=== PATIENT | female | born 1955 | race Caucasian/White ===

== ENCOUNTER → 2017-02-21 | Outpatient (CLI) | payer MEDICARE ==
[2017-02-21 12:30] LABS: BASOPHILS % (AUTO) 0 % (0-10); EOSINOPHILS # (AUTO) 0.1 10^3/uL (0.0-0.3); EOSINOPHILS % (AUTO) 1 % (0-10); LYMPHOCYTES # (AUTO) 2.5 X 10^3 (1.0-4.0); LYMPHOCYTES % (AUTO) 39 % (12-44); MEAN CORPUSCULAR HEMOGLOBIN 31 PG (25-34); MEAN CORPUSCULAR HGB CONC 33 G/DL (32-36); MEAN CORPUSCULAR VOLUME 94 FL (80-99); MEAN PLATELET VOLUME 9.5 FL (7.4-10.4); MONOCYTES # (AUTO) 0.5 X 10^3 (0.0-1.0); MONOCYTES % (AUTO) 7 % (0-12); NEUTROPHILS # (AUTO) 3.5 X 10^3 (1.8-7.8); NEUTROPHILS % (AUTO) 53 % (42-75); PLATELET COUNT 331 10^3/uL (130-400); RED BLOOD COUNT 3.17 10^6/uL (4.35-5.85); RED CELL DISTRIBUTION WIDTH 14.9 % (10.0-14.5); WHITE BLOOD COUNT 6.6 10^3/uL (4.3-11.0)
[2017-02-21 12:50] LABS: ALANINE AMINOTRANSFERASE 9 U/L (0-55); ALBUMIN 3.6 GM/DL (3.2-4.5); ANION GAP 7 MMOL/L (5-14); ASPARTATE AMINO TRANSFERASE 12 U/L (5-34); BILIRUBIN,TOTAL 0.4 MG/DL (0.1-1.0); BLOOD UREA NITROGEN 17 MG/DL (7-18); BUN/CREATININE RATIO 19; CARBON DIOXIDE 26 MMOL/L (21-32); CHLORIDE 101 MMOL/L (98-107); CREATININE SERUM 0.88 MG/DL (0.60-1.30); GFR ESTIMATED > 60; GLUCOSE 138 MG/DL (70-105); POTASSIUM 4.3 MMOL/L (3.6-5.0); SODIUM 134 MMOL/L (135-145); TOTAL PROTEIN 7.2 GM/DL (6.4-8.2); hs C REACTIVE PROTEIN 7.37 MG/DL (0.00-0.50)
--- NOTE | 2017-02-21 13:34 | Diagnostic Imaging Report ---
INDICATION: Pain. Infection. COMPARISON: None. FINDINGS: Three views of the left foot were obtained. There is mild generalized osteopenia. There is significant destructive change of the fourth toe at the metatarsal/phalangeal joint with considerable destruction and lysis of the distal fourth metatarsal/metatarsal head as well as the proximal aspect of the proximal fourth phalanx. The findings are consistent with osteomyelitis across the metatarsal/phalangeal joint. No additional destructive changes are seen. There are very mild degenerative changes of the first metatarsal/phalangeal joint. IMPRESSION: Significant destructive change at the fourth metatarsal/phalangeal joint with destruction and lysis of the proximal phalanx and fourth metatarsal head, consistent with osteomyelitis across the joint. The report was called and stat faxed to the office of Bjorn Suarez APRN, by mich@ 1:31 PM. Dictated by: Dictated on workstation # [id number]
== END ==
LOC: RAD 11:53
DX: E11.621 Type 2 diabetes mellitus with foot ulcer (principal); L97.529 Non-pressure chronic ulcer of other part of left foot with unspecified severity; L03.116 Cellulitis of left lower limb
CPT/HCPCS: 36415; 73630; 80053; 83036; 85025; 86141

== ENCOUNTER → 2017-02-22 | Outpatient (CLI) | payer MEDICARE, OTHER | LOC: WOUNDCARE 08:14 | PROVIDERS: ATTEND Nurse Practitioner | DX: E11.621 Type 2 diabetes mellitus with foot ulcer (principal); L97.522 Non-pressure chronic ulcer of other part of left foot with fat layer exposed; M86.172 Other acute osteomyelitis, left ankle and foot | CPT/HCPCS: 99213 ==

== ENCOUNTER → 2017-03-02 | Outpatient (CLI) | payer MEDICARE | LOC: WOUNDCARE 08:55 | PROVIDERS: ATTEND Surgery | DX: E11.621 Type 2 diabetes mellitus with foot ulcer (principal); L97.522 Non-pressure chronic ulcer of other part of left foot with fat layer exposed | CPT/HCPCS: 99212 ==

== ENCOUNTER → 2017-09-16 | Outpatient (CLI) | payer MEDICARE ==
[~2017-09-16] VITALS: Ht 170.2 cm; Wt 79.8 kg
[~2017-09-16] MED LIST: ASPI-586 PO; CATHETER FLUSH 10 ML SYR IV PRN; CYCL10TA9 PO; METF-760 PO; MORP15TA69 PO; REGADENOSON 0.4 MG/5 ML SYR (LEXISCAN) IV ONE
[2017-09-16 09:01] VITALS: BP 111/59
[2017-09-16 09:03] VITALS: BP 112/57
--- NOTE | 2017-09-18 14:23 | STRESS TEST ---
DATE OF SERVICE: 09/16/2017 RESTING AND POST REGADENOSON TECHNETIUM 99M TETROFOSMIN SPECT CT IMAGING. Baseline images were carried out after injection of 10.65 mCi of technetium-99m Tetrofosmin. This was followed by 0.4 mg of regadenoson and 30 mCi of technetium-99m Tetrofosmin for stress imaging. The electrocardiogram showed sinus rhythm with right bundle branch block and frequent premature atrial contractions, sometimes in a bigeminal pattern. The electrocardiogram did not change significantly with the regadenoson infusion. Review of images at rest and following stress does not indicate significant perfusion defects consistent with any significant myocardial ischemia or infarction. Gated images show normal global left ventricular systolic function and normal regional wall motion. Left ventricular ejection fraction is calculated to be 74%. Left ventricular end diastolic volume is 50 mL. TID is absent (1.07). CONCLUSIONS: 1. No evidence of any significant myocardial ischemia or infarction. 2. Normal regional wall motion. 3. Normal global left ventricular systolic function with a calculated ejection fraction of 74%. Job ID: [id number] DocumentID: [id number] Dictated Date: 09/18/2017 12:05:52 Employment Manager Date: 09/18/2017 14:23:15 Dictated By: DARSHAN AMARAL MD, MA, FACP, FACC,
== END ==
LOC: CARD 06:55
PROVIDERS: ATTEND Internal Medicine Cardiovascular Disease
DX: R07.89 Other chest pain (principal); R06.02 Shortness of breath; I70.0 Atherosclerosis of aorta; R22.2 Localized swelling, mass and lump, trunk; G47.33 Obstructive sleep apnea (adult) (pediatric); I45.19 Other right bundle-branch block; R94.31 Abnormal electrocardiogram [ECG] [EKG]
CPT/HCPCS: 78452; 93017; 93306

== ENCOUNTER → 2017-09-22 | Outpatient (CLI) | payer MEDICARE ==
[~2017-09-22] MED LIST changes: +IOHEXOL 350 MG/ML 150 ML (OMNIPAQUE 350) VIAL IV ONE; +NS 250 ML (IVPB) BAG IV ONE; +RECEIVED CONTRAST (Hold Metformin) IV SCH; -REGADENOSON 0.4 MG/5 ML SYR (LEXISCAN) IV ONE
[2017-09-22 11:25] LABS: BASOPHILS % (AUTO) 0 % (0-10); EOSINOPHILS % (AUTO) 0 % (0-10); HEMATOCRIT 25 % (35-52); LYMPHOCYTES # (AUTO) 1.5 X 10^3 (1.0-4.0); LYMPHOCYTES % (AUTO) 20 % (12-44); MEAN CORPUSCULAR HEMOGLOBIN 32 PG (25-34); MEAN CORPUSCULAR HGB CONC 32 G/DL (32-36); MEAN CORPUSCULAR VOLUME 100 FL (80-99); MEAN PLATELET VOLUME 9.4 FL (7.4-10.4); MONOCYTES # (AUTO) 0.5 X 10^3 (0.0-1.0); MONOCYTES % (AUTO) 6 % (0-12); NEUTROPHILS # (AUTO) 5.5 X 10^3 (1.8-7.8); NEUTROPHILS % (AUTO) 74 % (42-75); PLATELET COUNT 357 10^3/uL (130-400); RED BLOOD COUNT 2.49 10^6/uL (4.35-5.85); WHITE BLOOD COUNT 7.5 10^3/uL (4.3-11.0)
[2017-09-22 11:46] LABS: ALANINE AMINOTRANSFERASE < 6 U/L (0-55); ALBUMIN 3.8 GM/DL (3.2-4.5); ALKALINE PHOSPHATASE 109 U/L (40-136); BILIRUBIN,TOTAL 0.7 MG/DL (0.1-1.0); BUN/CREATININE RATIO 22; CALCIUM 9.6 MG/DL (8.5-10.1); CARBON DIOXIDE 25 MMOL/L (21-32); CHLORIDE 104 MMOL/L (98-107); CREATININE SERUM 0.85 MG/DL (0.60-1.30); GFR ESTIMATED > 60; GLUCOSE 132 MG/DL (70-105); POTASSIUM 4.6 MMOL/L (3.6-5.0); SODIUM 136 MMOL/L (135-145); TOTAL PROTEIN 7.4 GM/DL (6.4-8.2)
--- NOTE | 2017-09-22 11:51 | Diagnostic Imaging Report ---
PROCEDURE: US Venous Lower Ext Masoud. TECHNIQUE: Multiple real-time grayscale images were obtained over the lower extremities in various projections, bilaterally. Additional duplex Doppler and color Doppler images were also obtained. INDICATION: Bilateral lower extremity pain. FINDINGS: There is no evidence of a right or left lower extremity DVT. Both lower extremity deep venous systems demonstrate normal compressibility with normal response to augmentation and Valsalva. No fluid collection or mass is seen. IMPRESSION: No evidence of right or left lower extremity DVT. Dictated by: Dictated on workstation # [id number]
--- NOTE | 2017-09-22 12:36 | Diagnostic Imaging Report ---
PROCEDURE: CT angiography of the chest with contrast. TECHNIQUE: Multiple contiguous axial images were obtained through the chest after uneventful bolus administration of intravenous contrast. Reconstructed CTA MIP acquisitions were also performed. INDICATION: Shortness of air and chest pain with lung mass. COMPARISON: Comparison is made with outside CT of the chest performed on 08/19/2017. FINDINGS: The large mass involving the right upper lobe, inseparable from the right hilum is again noted and appears similar to CT study from one month earlier. This measures approximately 8.7 cm AP x 4.5 cm transverse. The mass extends from the right hilum anteriorly and abuts the pleural surface. There is some adjacent pleural thickening present. The mass surrounds the right upper lobe bronchus. Enlarged precarinal nodes are present, in aggregate measuring 3.5 x 1.6 cm, similar to prior. There is subcarinal adenopathy as well which appears increased measuring 3.1 x 1.5 cm compared with 2.1 x 1.1 cm. Left hilum is unremarkable. There are some prominent right paratracheal nodes which appear to be increased measuring 1.3 cm compared with 0.9 cm. Pulmonary arterial system is without evidence of thromboembolism. No filling defects within central, lobar, or segmental branches are seen. Thoracic aorta is normal in caliber. No dissection is detected. No pericardial or pleural fluid is identified. Remainder of the pulmonary parenchyma is clear. Upper abdomen again demonstrates bilateral adrenal masses suggestive of metastatic lesions. No discrete liver mass is identified. Bony structures are nonacute. IMPRESSION: 1. Large right upper lobe lung mass, inseparable from the right hilum. Overall size of mass is similar to outside CT from one month earlier. There does appear to be some increasing mediastinal lymphadenopathy. 2. No evidence of pulmonary embolism or thoracic aortic dissection. 3. Bilateral adrenal masses consistent with metastatic lesions. Dictated by: Dictated on workstation # [id number]
[2017-09-22 12:56] LABS: ABG BASE EXCESS -2.6 MMOL/L (-2.5-2.5); ABG OXYGEN SATURATION 99 % (94-100); ABG PCO2 34 MMHG (35-45); ABG PH 7.41 (7.37-7.43); ABG PO2 86 MMHG (79-93); ABG TCO2 22.2 MMOL/L (21.0-31.0)
[2017-09-22 12:57] LABS: ALLENS TEST YES-POS; INSPIRED O2 ROOM AIR; PATIENT TEMP 99.1; VENTILATOR NO
[2017-09-22 13:47] LABS: PROTHROMBIN TIME PATIENT 13.4 SEC (12.2-14.7)
== END ==
LOC: RAD 10:39
PROVIDERS: ATTEND Nurse Practitioner Family
DX: M79.89 Other specified soft tissue disorders (principal); M79.604 Pain in right leg; M79.605 Pain in left leg; J44.9 Chronic obstructive pulmonary disease, unspecified; R91.8 Other nonspecific abnormal finding of lung field; E27.9 Disorder of adrenal gland, unspecified; Z72.0 Tobacco use
CPT/HCPCS: 36415; 71275; 80053; 82805; 85025; 85610; 93970

== ENCOUNTER 2017-09-26 05:34 | Outpatient (CLI) | payer MEDICARE ==
[~2017-09-26] VITALS: Ht 170.2 cm; Wt 79.8 kg
[2017-09-26] MEDS ORDERED: ASPI-586 PO (14:37)
[2017-09-26] MEDS ORDERED: CYCL10TA9 PO (14:37)
[2017-09-26] MEDS ORDERED: METF-760 PO (14:37)
[2017-09-26] MEDS ORDERED: MORP15TA69 PO (14:37)
== END 2017-09-26 14:50 ==
LOC: PREOP 05:34
PROVIDERS: ATTEND Internal Medicine Critical Care Medicine
DX: Z01.818 Encounter for other preprocedural examination (principal)

== ENCOUNTER → 2017-09-27 | Outpatient (CLI) | payer MEDICARE ==
[~2017-09-27] MED LIST changes: -CATHETER FLUSH 10 ML SYR IV PRN; -IOHEXOL 350 MG/ML 150 ML (OMNIPAQUE 350) VIAL IV ONE; -NS 250 ML (IVPB) BAG IV ONE; -RECEIVED CONTRAST (Hold Metformin) IV SCH
--- NOTE | 2017-09-28 14:08 | Diagnostic Imaging Report ---
EXAMINATION: PET/CT. INDICATION: Lung mass. TECHNIQUE: PET/CT imaging was obtained from the base of the skull through the pelvis after the administration of 14.38 mCi of F-[address] imaging was utilized for localization and attenuation correction purposes. The low energy CT utilized for attenuation correction is not considered to be of high enough spatial resolution to allow in and of itself a separate anatomical analysis. FINDINGS: There are no previous PET/CT examinations available for comparison. The recent CTA chest exam of 09/22/2017 noted a large right upper lobe mass inseparable from the right hilum. There also appear to be bilateral adrenal masses. On this study, the right hilar mass is hypermetabolic with a maximum SUV of 12.0. There is also a hypermetabolic subcarinal mass with a maximum SUV of 18.6. Pretracheal adenopathy is also noted and the maximum SUV of these nodes is in the 6-7 range. The adrenal masses seen previously are also hypermetabolic with the left adrenal mass having a maximum SUV of 10.4 and the right adrenal mass 11.0. There is also an enlarged para-aortic lymph node on the left at the level just inferior to the left renal artery and vein. The maximum SUV of this node is 9.8. This node measures 2.9 x 3.4 cm. Just superior to this on the right posterior to the right renal vein, there is another hypermetabolic node measuring 1.2 x 2.0 cm. This has a maximum SUV of 9.3. There is no other soft tissue hypermetabolic mass identified. However, there is a hypermetabolic focus along the posterior aspect of the left acetabulum. This has a maximum SUV of 11.7. There is also evidence of a mass involving the posterior elements of one of the mid thoracic vertebra, probably T8. This has a maximum SUV of 12.5. The CT images fail to show any sign of an acute abnormality. There is no obvious breast mass. The intracranial contents where visualized are unremarkable. IMPRESSION: 1. There is a large mass involving the right upper lobe and the right hilum. There is also mediastinal adenopathy and para-aortic adenopathy as well as bilateral adrenal masses. All of these abnormalities show hypermetabolic activity consistent with metastatic disease. 2. There is also metastatic disease to the left acetabulum and to the posterior elements of T8 on the right. 3. These results were discussed with Dr. Mckeon. Dictated by: Dictated on workstation # [id number]
== END ==
LOC: RAD 09-20 09:11
PROVIDERS: ATTEND Internal Medicine Hematology & Oncology
DX: R91.8 Other nonspecific abnormal finding of lung field (principal)
CPT/HCPCS: 99214

== ENCOUNTER 2017-09-28 06:43 | Day surgery (SDC) | payer MEDICARE ==
[~2017-09-28] VITALS: Ht 170.2 cm; Wt 79.8 kg
[2017-09-28 08:30] VITALS: BP 130/80
[2017-09-28] MEDS ORDERED: LACTATED RINGERS 1,000 ML IV PRN (08:45)
[2017-09-28] MEDS ORDERED: LACTATED RINGERS 1,000 ML IV ONE ×2 (08:47→10:26)
[2017-09-28] MEDS ORDERED: proPOfol 200 MG/20 ML (DIPRIVAN) VIAL IV ONE (09:14)
[2017-09-28] MEDS ORDERED: SEVOFLURANE (ULTANE) 15 ML INHAL SOLN ONE ×2 (09:20→11:10)
[2017-09-28] MEDS ORDERED: MIDAZOLAM 2 MG/2 ML (VERSED) VIAL ONE (09:28)
[2017-09-28] MEDS ORDERED: fentaNYL INJECTION 100 MCG/2 ML AMP ONE (09:28)
[2017-09-28] MEDS ORDERED: ONDANSETRON 4 MG/2 ML (SDV) Z0FRAN ONE (09:29)
[2017-09-28] MEDS ORDERED: DEXAMETHASONE 10 MG/ML (DECADRON) 1 ML VIAL ONE (09:30)
[2017-09-28] MEDS ORDERED: GLYCOPYRROLATE 0.2 MG/ML (ROBINUL) 2 ML VIAL ONE (09:31)
[2017-09-28] MEDS ORDERED: NEOSTIGMINE 1 MG/ML 5 ML SYRINGE ONE (09:31)
[2017-09-28] MEDS ORDERED: ROCURONIUM 10 MG/ML 5 ML SYRINGE IV ONE (09:33)
--- NOTE | 2017-09-28 10:45 | Anesthesia-General Post-Op ---
General Patient Condition Mental Status/LOC: Same as Preop Cardiovascular: Satisfactory Nausea/Vomiting: Absent Respiratory: Satisfactory Pain: Controlled Complications: Absent Post Op Complications Complications None Follow Up Care/Instructions Patient Instructions None needed. Anesthesia/Patient Condition Patient Condition Patient is doing well, no complaints, stable vital signs, no apparent adverse anesthesia problems. No complications reported per nursing. MEREDITH DIAS CRNA Sep 28, 2017 10:45
--- NOTE | 2017-09-28 12:23 | Diagnostic Imaging Report ---
EXAMINATION: Portable erect AP chest obtained at 1203h. INDICATION: Post bronchoscopy The large right hilar mass seen on the chest exam performed on 08/22/2017 is again evident and no different. Reportedly, patient underwent bronchoscopy earlier today. There is no sign of a pneumothorax on the right. The small caliber chest tube on the right seen previously has been removed. The left lung base does seem better aerated than on the prior exam. The lungs are now generally clear. The heart is stable. The mediastinum is not widened. The osseous structures are intact. Impression: 1. The large right hilar mass seen previously is again evident and no different. There is no sign of a pneumothorax on the right following bronchoscopy. The small right-sided chest tube seen previously has been removed. 2. The left lung base does appear better aerated than on the prior exam. Dictated by: Dictated on workstation # [id number]
[2017-09-28 12:25] VITALS: BP 128/76
[2017-09-28 12:55] VITALS: BP 125/73
--- NOTE | 2017-09-28 13:12 | Pulmonary Procedures ---
Pulmonary Procedures Date of Procedure Date of Service: Sep 28, 2017 Bronch Bronchoscopy with BAL, washing, precepta brushings done x 2, EBUS with bx of station 7 lymph nodes Preop DX: [mediastinal lymphadenopathy] PostOP DX: same Complications: None Pt was sedated per anesthesia. Bronchoscopy was advanced through the ED tube and an anatomical undertaken down to the segmental bronchi bilaterally. No endobronchial lesions noted. Bronchoscopy with BAL, washing, precepta brushings done x 2, EBUS with bx of station 7 lymph nodesEBUS was then advanced through ET tube and the mediastinum was US. Station [7] lymph nodes were sampled via needle bx under US guidance. Pt tolerated procedure well. No complications noted. MEDINA CATES DO Sep 28, 2017 13:12
[2017-09-28 13:25] VITALS: BP 126/76
== END 2017-09-28 13:35 | disposition home or self-care (01) ==
LOC: ENDO 06:43
PROVIDERS: ATTEND Internal Medicine Critical Care Medicine
DX: R91.8 Other nonspecific abnormal finding of lung field (principal); C77.1 Secondary and unspecified malignant neoplasm of intrathoracic lymph nodes; F17.210 Nicotine dependence, cigarettes, uncomplicated; G47.33 Obstructive sleep apnea (adult) (pediatric); E11.9 Type 2 diabetes mellitus without complications; Z79.82 Long term (current) use of aspirin; Z79.84 Long term (current) use of oral hypoglycemic drugs
CPT/HCPCS: 71045; 82962; 87070; 87101; 87116; 87205

== ENCOUNTER → 2017-10-03 | Outpatient (CLI) | payer MEDICARE ==
[~2017-10-03] VITALS: Ht 170.2 cm; Wt 79.8 kg
[2017-10-03 09:00] VITALS: BP 117/58
[2017-10-03 09:10] LABS: MEAN PLATELET VOLUME 10.1 FL (7.4-10.4); RED BLOOD COUNT 2.48 10^6/uL (4.35-5.85); RED CELL DISTRIBUTION WIDTH 16.7 % (10.0-14.5); WHITE BLOOD COUNT 8.3 10^3/uL (4.3-11.0)
[2017-10-03 09:17] LABS: INR 1.1 (0.8-1.4); PROTHROMBIN TIME PATIENT 13.8 SEC (12.2-14.7)
== END ==
LOC: SDC 07:52
PROVIDERS: ATTEND Internal Medicine Hematology & Oncology
DX: R91.8 Other nonspecific abnormal finding of lung field (principal); J44.9 Chronic obstructive pulmonary disease, unspecified; E11.9 Type 2 diabetes mellitus without complications; I10 Essential (primary) hypertension; D64.9 Anemia, unspecified; R07.9 Chest pain, unspecified; F17.210 Nicotine dependence, cigarettes, uncomplicated; Z79.82 Long term (current) use of aspirin; Z79.84 Long term (current) use of oral hypoglycemic drugs; Z53.9 Procedure and treatment not carried out, unspecified reason
CPT/HCPCS: 36415; 85027; 85610; 85730

== ENCOUNTER → 2017-10-10 | Outpatient (CLI) | payer MEDICARE ==
[~2017-10-10] MED LIST changes: +RT-ALBUTEROL SULF 2.5 MG/3 ML PRE-MIX VIAL INH ONE; +RT-ALBUTEROL SULF 2.5 MG/3 ML PRE-MIX VIAL ONE
== END ==
LOC: PULM 08:33
PROVIDERS: ATTEND Nurse Practitioner Family
DX: J44.9 Chronic obstructive pulmonary disease, unspecified (principal)
CPT/HCPCS: 36600; 94060; 94726; 94729

== ENCOUNTER → 2017-10-13 | Outpatient (CLI) | payer MEDICARE ==
[~2017-10-13] MED LIST changes: +GADOBUTROL 10 MMOL/10 ML (GADAVIST) VIAL IV ONE; -RT-ALBUTEROL SULF 2.5 MG/3 ML PRE-MIX VIAL INH ONE; -RT-ALBUTEROL SULF 2.5 MG/3 ML PRE-MIX VIAL ONE
--- NOTE | 2017-10-13 15:41 | Diagnostic Imaging Report ---
PROCEDURE: MR imaging of the brain with and without contrast. TECHNIQUE: Multiplanar, multisequence MR imaging of the brain was performed with and without contrast. INDICATION: New diagnosis of lung cancer. Patient complains of dizziness and visual changes. COMPARISON: No prior MRI studies are available for comparison. FINDINGS: Ventricles and sulci are within normal limits. Occasional periventricular and subcortical white matter signal foci are identified, nonspecific but likely on the basis of chronic microvascular ischemia. No midline shift is identified. No acute intra-axial or extra-axial hemorrhage is identified. No diffusion restriction is identified. The normal expected flow-voids within the carotid siphons are seen. No abnormal enhancement is identified following contrast administration. The corpus callosum is unremarkable. The sella and parasellar structures are unremarkable. IMPRESSION: Changes of chronic microvascular ischemia. MRI of the brain is otherwise unremarkable. No enhancing lesion or evidence of intracranial metastatic disease is identified. Dictated by: Dictated on workstation # [id number]
== END ==
LOC: RAD 13:43
PROVIDERS: ATTEND Internal Medicine Hematology & Oncology
DX: C34.90 Malignant neoplasm of unspecified part of unspecified bronchus or lung (principal); I67.82 Cerebral ischemia
CPT/HCPCS: 70553

== ENCOUNTER 2017-11-09 09:21 | Outpatient (CLI) | payer MEDICARE, OTHER ==
[~2017-11-09] VITALS: Ht 170.2 cm; Wt 79.8 kg
[~2017-11-09 09:21] MED LIST changes: -GADOBUTROL 10 MMOL/10 ML (GADAVIST) VIAL IV ONE
[2017-11-09] MEDS ORDERED: MORP15TA PO (15:11)
[2017-11-09] MEDS ORDERED: FOLI1TAB24 PO (15:21)
[2017-11-09] MEDS ORDERED: VITA1CAP PO (15:21)
[2017-11-09] MEDS ORDERED: MULT-1029 PO (15:21)
== END 2017-11-09 15:27 | disposition home or self-care (01) ==
LOC: PREOP 09:21
PROVIDERS: ATTEND Surgery
DX: Z01.818 Encounter for other preprocedural examination (principal)

== ENCOUNTER 2017-11-10 22:10 | Inpatient (IN) | payer MEDICARE, OTHER ==
[~2017-11-10] VITALS: Ht 172.7 cm; Wt 77.9 kg
[~2017-11-10 22:10] MED LIST changes: +FOLI1TAB24 PO; +MORP15TA PO; +MULT-1029 PO; +VITA1CAP PO
[2017-11-10 22:43] LABS: BASOPHILS % (AUTO) 0 % (0-10); EOSINOPHILS % (AUTO) 0 % (0-10); HEMATOCRIT 23 % (35-52); HEMOGLOBIN 7.4 G/DL (11.5-16.0); LYMPHOCYTES # (AUTO) 1.8 X 10^3 (1.0-4.0); LYMPHOCYTES % (AUTO) 21 % (12-44); MEAN CORPUSCULAR HEMOGLOBIN 31 PG (25-34); MEAN CORPUSCULAR HGB CONC 32 G/DL (32-36); MEAN CORPUSCULAR VOLUME 98 FL (80-99); MEAN PLATELET VOLUME 8.9 FL (7.4-10.4); MONOCYTES # (AUTO) 0.7 X 10^3 (0.0-1.0); MONOCYTES % (AUTO) 8 % (0-12); NEUTROPHILS # (AUTO) 6.4 X 10^3 (1.8-7.8); NEUTROPHILS % (AUTO) 71 % (42-75); PLATELET COUNT 435 10^3/uL (130-400); RED BLOOD COUNT 2.38 10^6/uL (4.35-5.85); RED CELL DISTRIBUTION WIDTH 17.8 % (10.0-14.5); WHITE BLOOD COUNT 8.9 10^3/uL (4.3-11.0)
[2017-11-10 23:05] LABS: PROTHROMBIN TIME PATIENT 13.4 SEC (12.2-14.7)
[2017-11-10 23:08] LABS: ALBUMIN 3.5 GM/DL (3.2-4.5); BILIRUBIN,TOTAL 0.6 MG/DL (0.1-1.0); CALCIUM 9.4 MG/DL (8.5-10.1); CREATININE SERUM 1.12 MG/DL (0.60-1.30); POTASSIUM 4.5 MMOL/L (3.6-5.0); TOTAL PROTEIN 6.9 GM/DL (6.4-8.2)
[2017-11-10 23:49] LABS: CLARITY,URINE VERY CLOUDY; COLOR,URINE YELLOW; GLUCOSE, URINE (UA) NEGATIVE (NEGATIVE); KETONES,URINE NEGATIVE (NEGATIVE); LEUKOCYTE ESTERASE ,URINE 3+ (NEGATIVE); NITRITE,URINE NEGATIVE (NEGATIVE); PH,URINE 6 (5-9); PROTEIN,URINE 4+ (NEGATIVE); UROBILINOGEN,URINE 8 MG/DL (NORMAL)
[2017-11-11] VITALS (9 sets, daily range): BP systolic 100–147; BP diastolic 51–79
[2017-11-11 00:14] LABS: BILIRUBIN,URINE 1+ (NEGATIVE)
[2017-11-11 00:15] LABS: BACTERIA,URINE LARGE /HPF
--- NOTE | 2017-11-11 01:17 | ED General ---
General Chief Complaint: Coughing up blood Stated Complaint: LUNG CA;COUGHING UP BLOOD Nursing Triage Note: pt verbalized last hour coughing up blood clots. pt states had labs drawn this am in [place] center. states schduled for port placement and unit of blood in am. Nursing Sepsis Screen: No Definite Risk Source of Information: Patient Exam Limitations: No Limitations History of Present Illness Date Seen by Provider: Nov 10, 2017 Time Seen by Provider: 22:11 Initial Comments This 62-year-old woman with non-small cell lung cancer in the right chest presents to the emergency room with primary complaint of coughing up blood. This just started today. She reports it was initially clots of blood but now is just blood-streaked sputum. She thinks it may have come from her nasal passages down into her throat. She denies taking any antiplatelet or anticoagulation therapies. She is nauseated today. She is scheduled for outpatient therapies tomorrow to include transfusion and port placement. Dr. Mckeon is her oncologist. Her primary care providers Dr. Yo that she is desiring to change to a [facility] provider. She was incidentally noted to have a low- grade fever of 100.2 on assessment. Allergies and Home Medications Allergies Coded Allergies: azithromycin (Verified Allergy, Unknown, 09/28/17) codeine (Verified Allergy, Unknown, 09/28/17) latex (Verified Allergy, Unknown, 09/28/17) Home Medications Aspirin 81 Mg Tablet.dr, 81 MG PO DAILY, (Reported) Cyclobenzaprine HCl 10 Mg Tablet, 10 MG PO TID, (Reported) Folic Acid 1 Mg Tablet, 1 MG PO DAILY, (Reported) Metformin HCl 500 Mg [id number], 500 MG PO DAILY, (Reported) Morphine Sulfate 15 Mg Tablet.er, 15 MG PO Q12H, (Reported) Morphine Sulfate 15 Mg Tablet, 15 MG PO QID PRN for BREAKTHROUGH PAIN, (Reported ) Multivit-Min/FA/Lycopene/Lut 1 Each Tablet, 1 EACH PO DAILY, (Reported) Vitamin B Complex 1 Each Capsule, 1 EACH PO DAILY, (Reported) Patient Home Medication List Home Medication List Reviewed: Yes Review of Systems Review of Systems Constitutional: no symptoms reported EENTM: no symptoms reported Respiratory: see HPI Cardiovascular: no symptoms reported Gastrointestinal: no symptoms reported Genitourinary: no symptoms reported : No Musculoskeletal: no symptoms reported Skin: no symptoms reported Psychiatric/Neurological: No Symptoms Reported Hematologic/Lymphatic: See HPI Immunological/Allergic: no symptoms reported Past Yeyjkff-Haxejn-Kqbjmu Hx Patient Social History Alcohol Use: Denies Use Recreational Drug Use: No Smoking Status: Current Everyday Smoker Type Used: Cigarettes 2nd Hand Smoke Exposure: Yes Recent Foreign Travel: No Contact w/Someone Who Travel: No Recent Infectious Disease Expo: No Recent Hopitalizations: No Seasonal Allergies Seasonal Allergies: No Past Medical History Surgeries: Yes (BACK, STENT IN LEG) Tubal Ligation Respiratory: Yes Sleep Apnea, COPD Currently Using CPAP: No Cardiac: Yes Peripheral Vascular Neurological: No Reproductive Disorders: No Sexually Transmitted Disease: No HIV/AIDS: No Gastrointestinal: Yes Chronic Constipation Musculoskeletal: Yes (HX FX BACK, SPONDYLESIS) Chronic Back Pain Endocrine: Yes Loss of Vision: Denies Hearing Impairment: Denies Cancer: Yes Lung Psychosocial: No Integumentary: No Blood Disorders: No Adverse Reaction/Blood Tranf: No (N/A) Physical Exam Vital Signs Vital Signs - First Documented 11/10/17 11/10/17 22:24 22:30 Temp 100.2 Pulse 118 Resp 18 B/P (MAP) 113/68 (83) Pulse Ox 95 O2 Delivery Room Air O2 Flow Rate 96.00 Capillary Refill : Less Than 3 Seconds Height, Weight, BMI Height: 5'8.00" Weight: 140lbs. 0.0oz. 63.530491yw; 27.6 BMI Method:Estimated General Appearance: No Apparent Distress, WD/WN, Thin HEENT: PERRL/EOMI, TMs Normal, Normal ENT Inspection, Pharynx Normal, Other ( no evidence of blood in the nose or oropharynx) Neck: Normal Inspection Respiratory: Lungs Clear, Normal Breath Sounds, No Accessory Muscle Use, No Respiratory Distress Cardiovascular: Regular Rate, Rhythm, No Edema, No Murmur Gastrointestinal: Normal Bowel Sounds, Non Tender, Soft Extremity: Normal Capillary Refill, Normal Inspection Neurologic/Psychiatric: Alert, Oriented x3, No Motor/Sensory Deficits, Normal Mood/Affect, secy II-XII Norm as Tested Skin: Normal Color, Warm/Dry Focused Exam Lactate Level 11/11/17 00:37: Lactic Acid Level 1.47 Lactic Acid Level Progress/Results/Core Measures Suspected Sepsis Recent Fever Within 48 Hours: No Infection Criteria Present: None New/Unexplained Altered Menta: No Sepsis Screen: No Definite Risk SIRS Temperature:100.2 Pulse: 118 Respiratory Rate: 18 Laboratory Tests 11/10/17 22:30: White Blood Count 8.9 Blood Pressure 113 /68 Mean: 83 11/11/17 00:37: Lactic Acid Level 1.47 Laboratory Tests 11/10/17 22:30: Creatinine 1.12, INR Comment 1.0, Platelet Count 435H, Total Bilirubin 0.6 Results/Orders Lab Results Laboratory Tests Test 11/10/17 22:30 11/10/17 23:35 11/11/17 00:37 Range/Units White Blood Count 8.9 4.3-11.0 10^3/uL Red Blood Count 2.38 L 4.35-5.85 10^6/uL Hemoglobin 7.4 L 11.5-16.0 G/DL Hematocrit 23 L 35-52 % Mean Corpuscular Volume 98 80-99 FL Mean Corpuscular Hemoglobin 31 25-34 PG Mean Corpuscular Hemoglobin Concent 32 32-36 G/DL Red Cell Distribution Width 17.8 H 10.0-14.5 % Platelet Count 435 H 130-400 10^3/uL Mean Platelet Volume 8.9 7.4-10.4 FL Neutrophils (%) (Auto) 71 42-75 % Lymphocytes (%) (Auto) 21 12-44 % Monocytes (%) (Auto) 8 0-12 % Eosinophils (%) (Auto) 0 0-10 % Basophils (%) (Auto) 0 0-10 % Neutrophils # (Auto) 6.4 1.8-7.8 X 10^3 Lymphocytes # (Auto) 1.8 1.0-4.0 X 10^3 Monocytes # (Auto) 0.7 0.0-1.0 X 10^3 Eosinophils # (Auto) 0.0 0.0-0.3 10^3/uL Basophils # (Auto) 0.0 0.0-0.1 10^3/uL Prothrombin Time 13.4 12.2-14.7 SEC INR Comment 1.0 0.8-1.4 Activated Partial Thromboplast Time 35 24-35 SEC Sodium Level 133 L 135-145 MMOL/L Potassium Level 4.5 3.6-5.0 MMOL/L Chloride Level 102 98-107 MMOL/L Carbon Dioxide Level 20 L 21-32 MMOL/L Anion Gap 11 5-14 MMOL/L Blood Urea Nitrogen 22 H 7-18 MG/DL Creatinine 1.12 0.60-1.30 MG/DL Estimat Glomerular Filtration Rate 50 BUN/Creatinine Ratio 20 Glucose Level 195 H 70-105 MG/DL Calcium Level 9.4 8.5-10.1 MG/DL Corrected Calcium 9.8 8.5-10.1 MG/DL Total Bilirubin 0.6 0.1-1.0 MG/DL Aspartate Amino Transf (AST/SGOT) 15 5-34 U/L Alanine Aminotransferase (ALT/SGPT) 11 0-55 U/L Alkaline Phosphatase 100 40-136 U/L C-Reactive Protein High Sensitivity 14.30 H 0.00-0.50 MG/DL Total Protein 6.9 6.4-8.2 GM/DL Albumin 3.5 3.2-4.5 GM/DL Urine Color YELLOW Urine Clarity VERY CLOUDY H Urine pH 6 5-9 Urine Specific [place] 1.020 1.016-1.022 Urine Protein 4+ NEGATIVE Urine Glucose (UA) NEGATIVE NEGATIVE Urine Ketones NEGATIVE NEGATIVE Urine Nitrite NEGATIVE NEGATIVE Urine Bilirubin 1+ H NEGATIVE Urine Urobilinogen 8 H NORMAL MG/DL Urine Leukocyte Esterase 3+ H NEGATIVE Urine RBC (Auto) 1+ H NEGATIVE Urine RBC NONE /HPF Urine WBC 10-25 H /HPF Urine Squamous Epithelial Cells 5-10 /HPF Urine Crystals NONE /LPF Urine Bacteria LARGE H /HPF Urine Casts NONE /LPF Urine Mucus SMALL H /LPF Urine Culture Indicated YES Lactic Acid Level 1.47 0.50-2.00 MMOL/L My Orders Orders - TRAY CRONIN MD Cbc With Automated Diff (11/10/17 22:11) Comprehensive Metabolic Panel (11/10/17 22:11) Protime With Inr (11/10/17 22:11) Partial Thromboplastin Time (11/10/17 22:11) Chest Pa/Lat (2 View) (11/10/17 22:11) Saline Lock/Iv-Start (11/10/17 22:11) Hs C Reactive Protein (11/10/17 22:51) Ua Culture If Indicated (11/10/17 22:51) Urine Culture (11/10/17 23:35) Blood Culture (11/11/17 00:18) Lactic Acid Analyzer (11/11/17 00:18) Red Cells Leukocytes Reduced (11/11/17 01:36) Type And Screen (11/11/17 01:36) Morphine Injection (Morphine Injection (11/11/17 05:00) Vital Signs/I&O 11/10/17 11/10/17 11/11/17 11/11/17 22:24 22:30 02:10 02:18 Temp 100.2 99.1 Pulse 118 77 Resp 18 20 B/P (MAP) 113/68 (83) 123/70 Pulse Ox 95 95 96 O2 Delivery Room Air Room Air Room Air Room Air O2 Flow Rate 96.00 11/11/17 11/11/17 02:19 04:35 Temp 97.7 97.8 Pulse 88 76 Resp 17 18 B/P (MAP) 128/61 (83) 122/61 (81) Pulse Ox 95 96 O2 Delivery Room Air Room Air Capillary Refill : Less Than 3 Seconds Blood Pressure Mean: 83 Progress Note : Progress Note Workup was pursued to evaluate for causes of hemoptysis and fever. Patient was found to have a urinary tract infection and started on Rocephin. Blood cultures and lactic acid were drawn. Hemoglobin was low at 7.2 but did not drop from labs drawn earlier in the day. Case was reviewed with Dr. Mckeon who would like blood crossmatched but the transfusion not started yet. He is uncertain whether they will follow through with port placement given patient's temperature. Patient was admitted for observation and Dr. Mckeon will arrange for transfusion later if patient remains stable. A gram of Rocephin was administered for treatment of the urinary tract infection. Diagnostic Imaging Diagonstic Imaging: Xray Plain Films/CT/US/NM/MRI: chest Comments Chest x-ray viewed by me and compared with prior. Report not yet available. No acute changes were identified. Mass in the right lung was relatively unchanged from prior. Departure Communication (Admissions) Time/Spoke to Admitting Phy: 01:13 Dr. Donovan Time/Spoke to Consulting Phy: 00:50 Dr. Mckeon Impression Primary Impression: Urinary tract infection Qualified Codes: N39.0 - Urinary tract infection, site not specified Additional Impressions: Hemoptysis Anemia Qualified Codes: D64.9 - Anemia, unspecified Non-small cell lung cancer (NSCLC) Qualified Codes: C34.91 - Malignant neoplasm of unspecified part of right bronchus or lung Disposition: HOME, SELF-CARE Condition: Against Medical Advice Admissions Decision to Admit Reason: Admit from ER (General) Decision to Admit/Date: Nov 11, 2017 Time/Decision to Admit Time: 00:50 Departure-Patient Inst. Referrals: [facility] (PCP/Family) Primary Care Physician TRAY CRONIN MD Nov 11, 2017 01:17
[2017-11-11] MEDS ORDERED: NS (IVPB) 50 ML ONE (02:36)
[2017-11-11] MEDS ORDERED: D5 NS W/KCL 20 MEQ/L 1,000 ML IV ONE (02:36)
[2017-11-11] MEDS ORDERED: cefTRIAXone 1 GM/10 ML for IV (ROCEPHIN) IV ONE (02:36)
[2017-11-11] MEDS: cefTRIAXone 1 GM/NS 50 ML IVPB IV SCH ×2 (02:40)
[2017-11-11] MEDS: D5 NS W/KCL 20 MEQ/L 1,000 ML IV SCH ×4 (02:40→22:01)
[2017-11-11] MEDS: ONDANSETRON 4 MG/2 ML (SDV) Z0FRAN IV PRN ×2 (05:53→11:19)
[2017-11-11] MEDS: morphine INJ 10 MG/ML 1ML (SYR OR VIAL) IVP PRN ×4 (05:57→22:01)
--- NOTE | 2017-11-11 07:29 | Diagnostic Imaging Report ---
INDICATION: Shortness of air, coughing up blood, history of small cell lung cancer. COMPARISON STUDY: Chest from September 28. FINDINGS: There is a 5.6 cm right perihilar mass which previously measured 5.3 cm. Some surrounding infiltrates have decreased. Remainder of the chest is clear. The heart and vascularity are normal. No pleural effusion or pneumothorax is present. IMPRESSION: There has been minimal increase of the right perihilar mass. Surrounding infiltrates have decreased. No pleural effusions are present. Dictated by: Dictated on workstation # [id number]
--- NOTE | 2017-11-11 09:09 | Pulmonary Consultation ---
History of Present Illness History of Present Illness Date of Consultation 11/11/17 09:04 Time Seen by Provider: 09:04 Date of Admission History of Present Illness 62yo with hx of metastatic non-small cell lung cancer with large right sided lung cancer presented secondary to acute hemoptysis. Pt has been having clots in sputum and blood-streaked sputum. Allergies and Home Medications Allergies Coded Allergies: azithromycin (Verified Allergy, Unknown, 09/28/17) codeine (Verified Allergy, Unknown, 09/28/17) latex (Verified Allergy, Unknown, 09/28/17) Home Medications Cyclobenzaprine HCl 10 Mg Tablet, 10 MG PO TID, (Reported) Folic Acid 1 Mg Tablet, 1 MG PO DAILY, (Reported) Morphine Sulfate 15 Mg Tablet, 15 MG PO QID PRN for BREAKTHROUGH PAIN, (Reported ) Morphine Sulfate 15 Mg Tablet.er, 15 MG PO TID, (Reported) Multivit-Min/FA/Lycopene/Lut 1 Each Tablet, 1 TAB PO DAILY, (Reported) Ondansetron HCl 8 Mg Tablet, 8 MG PO TID PRN for NAUSEA/VOMITING-1ST LINE, ( Reported) Pantoprazole Sodium 40 Mg Tablet.dr, 40 MG PO HS, (Reported) Polyethylene Glycol 3350 255 Gm Powder, 17 GM PO HS, (Reported) Vitamin B Complex 1 Each Capsule, 1 CAP PO DAILY, (Reported) Past Ityyzsu-Bbonbh-Qfibjr Hx Patient Social History Alcohol Use: Denies Use Recreational Drug Use: No Smoking Status: Current Everyday Smoker Type Used: Cigarettes 2nd Hand Smoke Exposure: Yes Recent Foreign Travel: No Contact w/Someone Who Travel: No Recent Infectious Disease Expo: No Recent Hopitalizations: No Immunizations Up To Date Date of Pneumonia Vaccine: Dec 05, 2014 Seasonal Allergies Seasonal Allergies: No Past Medical History Surgeries: Yes (BACK, STENT IN LEG) Tubal Ligation Respiratory: Yes Sleep Apnea, COPD Currently Using CPAP: No Cardiac: Yes Peripheral Vascular Neurological: No Reproductive Disorders: No Sexually Transmitted Disease: No HIV/AIDS: No Genitourinary: No Gastrointestinal: Yes Chronic Constipation Musculoskeletal: Yes (HX FX BACK, SPONDYLESIS) Chronic Back Pain Endocrine: Yes HEENT: No Loss of Vision: Denies Hearing Impairment: Denies Cancer: Yes (DX W/LUNG CA JULY OR AUGUST 2017) Lung Psychosocial: No Integumentary: No Blood Disorders: Yes (ANEMIA) Adverse Reaction/Blood Tranf: No (N/A) Family Medical History Diabetes mellitus 19 FATHER G8 BROTHER FHx: heart disease 19 FATHER G8 BROTHER Kidney disease G8 BROTHER Seizure disorder 19 MOTHER TIAs 19 MOTHER Review of Systems Time Seen by Provider: 07:27 Sepsis Event Evaluation Height, Weight, BMI Height: 5'8.00" Weight: 171lbs. 11.2oz. 77.100242wt; 26.1 BMI Method:Estimated Exam Exam Vital Signs Date Time Temp Pulse Resp B/P (MAP) Pulse Ox O2 Delivery O2 Flow Rate FiO2 11/11/17 04:35 97.8 76 18 122/61 (81) 96 Room Air 11/11/17 02:19 97.7 88 17 128/61 (83) 95 Room Air 11/11/17 02:18 99.1 77 20 123/70 96 Room Air 11/11/17 02:10 95 Room Air 11/10/17 22:30 Room Air 96.00 11/10/17 22:24 100.2 118 18 113/68 (83) 95 Room Air I & O 11/11/17 07:00 Intake Total 50 ml Balance 50 ml Height & Weight Height: 5'8.00" Weight: 171lbs. 11.2oz. 77.318656ri; 26.1 BMI Method:Estimated General Appearance: No Apparent Distress, WD/WN, Thin HEENT: PERRL/EOMI, TMs Normal, Normal ENT Inspection, Pharynx Normal, Other ( no evidence of blood in the nose or oropharynx) Neck: Normal Inspection Respiratory: Lungs Clear, Normal Breath Sounds, No Accessory Muscle Use, No Respiratory Distress Cardiovascular: Regular Rate, Rhythm, No Edema, No Murmur Capillary Refill: Less Than 3 Seconds Extremity: Normal Capillary Refill, Normal Inspection Neurologic/Psychiatric: Alert, Oriented x3, No Motor/Sensory Deficits, Normal Mood/Affect, coater II-XII Norm as Tested Skin: Normal Color, Warm/Dry Results Lab Laboratory Tests 11/10/17 22:30 Assessment/Plan Assessment/Plan Metastatic adenocarcinoma with large right lung mass -Pt is scheduled to start chemo next week Hemoptysis r/o PE vs pulmonary artery invasion of cancer -Stat CTA of chest -Transfer to ICU stepdown for close observation. -Will plan for bronchoscopy in AM Anemia -Recheck hb this afternoon COPD HX - currently stable -SVNs -Oxygen MEDINA CATES DO Nov 11, 2017 09:09
[2017-11-11] MEDS ORDERED: NS IV 500 ML 500 ML IV SCH (09:40)
[2017-11-11] MEDS ORDERED: MORP-33 PO (09:42)
[2017-11-11] MEDS ORDERED: PANT40TA3 PO (09:42)
[2017-11-11] MEDS ORDERED: POLY255P PO (09:42)
[2017-11-11] MEDS ORDERED: DEXA4TAB PO (09:42)
[2017-11-11] MEDS ORDERED: ONDA8TAB12 PO (09:42)
--- NOTE | 2017-11-11 09:59 | History & Physical-Hospitalist ---
History of Present Illness HPI/Chief Complaint Pt is a 62yoCF with a PMH of DMII and recently diagnosed stage IV lung cancer who presented to the ER for hemoptysis. She states the hemoptysis started last night but she had been feeling poorly all day and was nauseated. She was seen in the cancer center prior to the hemoptysis starting and was sent home. When she started coughing up blood clots she decided to come to the ER for evaluation. She was found to be anemic but relatively unchanged from her previous labs at the cancer center. She was admitted for further monitoring of hemoptysis. She is continuing to cough up blood but she feels better overall and is no longer febrile. Of note she was supposed to get a port today but that has been cancelled due to her fever on presentation. Source: patient Date Seen 11/11/17 Time Seen by Provider: 10:02 Attending Physician Alison Donovan DO [facility] Referring Physician Date of Admission Nov 11, 2017 at 1:41 am Home Medications & Allergies Home Medications Reviewed patient Home Medication Reconciliation performed by pharmacy medication reconciliations in tube conversion technician and/or nursing. Patients Allergies have been reviewed. Allergies Allergies Coded Allergies azithromycin (Verified Allergy, Unknown, 09/28/17) codeine (Verified Allergy, Unknown, 09/28/17) latex (Verified Allergy, Unknown, 09/28/17) Past Sozgbiy-Eairbg-Mvlnla Hx Past Med/Social Hx: Reviewed Nursing Past Med/Soc Hx Patient Social History Marrital Status: Alcohol Use: Denies Use Recreational Drug Use: No Smoking Status: Current Everyday Smoker Type Used: Cigarettes 2nd Hand Smoke Exposure: Yes Physical Abuse Screen: No Sexual Abuse: No Recent Foreign Travel: No Contact w/other who traveled: No Recent Hopitalizations: No Recent Infectious Disease Expo: No Immunizations Up To Date Date of Pneumonia Vaccine: Dec 05, 2014 Seasonal Allergies Seasonal Allergies: No Past Medical History Surgeries: Tubal Ligation Currently Using CPAP: No Cardiac: Hypertension, Peripheral Vascular Reproductive: No Sexually Transmitted Disease: No HIV/AIDS: No Gastrointestinal: Chronic Constipation Musculoskeletal: Chronic Back Pain Endocrine: Diabetes, Non-Insulin dep Loss of Vision: Denies Hearing Impairment: Denies Cancer: Lung History of Blood Disorders: Yes (ANEMIA) Adverse Reaction to Blood Stone: No (N/A) Family History Reviewed Nursing Family Hx Diabetes mellitus 19 FATHER G8 BROTHER FHx: heart disease 19 FATHER G8 BROTHER Kidney disease G8 BROTHER Seizure disorder 19 MOTHER TIAs 19 MOTHER Heart Disease, Diabetes, Renal Disease, Seizures Review of Systems Constitutional: fever, weakness EENTM: no symptoms reported Respiratory: cough, hemoptysis, phlegm Cardiovascular: no symptoms reported Gastrointestinal: abdominal pain; No loss of appetite; nausea; No vomiting Genitourinary: no symptoms reported Musculoskeletal: no symptoms reported Skin: no symptoms reported Psychiatric/Neurological: No Symptoms Reported Physical Exam Physical Exam Vital Signs Vital Signs - First Documented 11/10/17 11/10/17 22:24 22:30 Temp 100.2 Pulse 118 Resp 18 B/P (MAP) 113/68 (83) Pulse Ox 95 O2 Delivery Room Air O2 Flow Rate 96.00 Capillary Refill : Less Than 3 Seconds Height, Weight, BMI Height: 5'8.00" Weight: 171lbs. 11.2oz. 77.116664zf; 26.1 BMI Method:Estimated General Appearance: No Apparent Distress, WD/WN HEENT: PERRL/EOMI, Moist Mucous Membranes Neck: Non Tender, Supple Respiratory: Lungs Clear, No Respiratory Distress Cardiovascular: Regular Rate, Rhythm, No Murmur Gastrointestinal: Normal Bowel Sounds, Non Tender, Soft Extremity: Normal Capillary Refill, No Calf Tenderness Neurologic/Psychiatric: Alert, Oriented x3, Normal Mood/Affect Skin: Normal Color, Warm/Dry Results Results/Procedures Labs Laboratory Tests 11/10/17 22:30 Patient resulted labs reviewed. Imaging: Reviewed Imaging Films, Reviewed Imaging Report Assessment/Plan Admission Diagnosis Hemoptysis Admission Status: Inpatient Order (span 2 midnights) Reason for Inpatient Admission: large mass near pulmonary artery, needs further evaluation and possible bronchoscopy, will likely need more than two midnights to stabilize Diagnosis/Problems Diagnosis/Problems (1) Hemoptysis Status: Acute Assessment & Plan: New onset known lung mass Review Ct with Dr Soto- mass near pulmonary artery Will repeat CTA Consider bronch in AM Transfer to ICU (2) Anemia Status: Acute Assessment & Plan: Stable Will trend Hematology consulted, appreciate recs Qualifiers: Anemia type: unspecified type Qualified Codes: D64.9 - Anemia, unspecified (3) Urinary tract infection Status: Acute Assessment & Plan: Continue Rocephin await culture Qualifiers: Urinary tract infection type: site unspecified Hematuria presence: without hematuria Qualified Codes: N39.0 - Urinary tract infection, site not specified (4) Non-small cell lung cancer (NSCLC) Assessment & Plan: Hem/Onc consulted Appreciate recs Was to get port today but cancelled Discussed with Dr Mendoza Qualifiers: Laterality: right Qualified Codes: C34.91 - Malignant neoplasm of unspecified part of right bronchus or lung Clinical Quality Measures DVT/VTE Risk/Contraindication: Risk Factor Score Per Nursin RFS Level Per Nursing on Admit: 4+=Very High GABRIEL SANDOVAL MD Nov 11, 2017 9:59 am
[2017-11-11] MEDS ORDERED: PIPERACILLIN/TAZO 4.5 GM/NS 100 ML IV NR ×2 (10:15)
[2017-11-11 10:46] LABS: BASOPHILS % (AUTO) 0 % (0-10); EOSINOPHILS % (AUTO) 0 % (0-10); HEMATOCRIT 21 % (35-52); LYMPHOCYTES # (AUTO) 1.3 X 10^3 (1.0-4.0); LYMPHOCYTES % (AUTO) 19 % (12-44); MEAN CORPUSCULAR HEMOGLOBIN 31 PG (25-34); MEAN CORPUSCULAR HGB CONC 31 G/DL (32-36); MEAN CORPUSCULAR VOLUME 99 FL (80-99); MONOCYTES # (AUTO) 0.6 X 10^3 (0.0-1.0); MONOCYTES % (AUTO) 10 % (0-12); NEUTROPHILS # (AUTO) 4.7 X 10^3 (1.8-7.8); NEUTROPHILS % (AUTO) 71 % (42-75); PLATELET COUNT 339 10^3/uL (130-400); RED BLOOD COUNT 2.07 10^6/uL (4.35-5.85); RED CELL DISTRIBUTION WIDTH 17.6 % (10.0-14.5); WHITE BLOOD COUNT 6.6 10^3/uL (4.3-11.0)
--- NOTE | 2017-11-11 10:46 | Consultation ---
History of Present Illness History of Present Illness Patient Consulted On(martha/time) 11/11/17 10:35 Date Seen by Provider: Nov 11, 2017 Time Seen by Provider: 10:00 History of Present Illness Ms. Quiroz is a 62 yo female with stage IV lung adenocarcinoma who was admitted last night for new onset hemoptysis and concern for sepsis. Patient reports she had been feeling poorly in general for several weeks but did not note any specific symptoms. Last night, she ran a temperature of 100.2 and had several episodes of bright red blood and clots after coughing. She felt they were coming from both her chest and her nasal passages but she does not recall epistaxis. She does have a history of frequent epistaxis, she notes. She denies any changes in her breathing and has no shortness of breath or chest pain. She was diagnosed with lung cancer in September and was preparing for palliative chemotherapy. It was intended for her to have a chest port placed today for chemotherapy purposes. She was also to receive a blood transfusion for symptomatic anemia. She has chronic arthritic pains that are managed with opiates. No change in these symptoms. Allergies and Home Medications Allergies Coded Allergies: azithromycin (Verified Allergy, Unknown, 09/28/17) codeine (Verified Allergy, Unknown, 09/28/17) latex (Verified Allergy, Unknown, 09/28/17) Home Medications Aspirin 81 Mg Tablet.dr, 81 MG PO DAILY, (Reported) Cyclobenzaprine HCl 10 Mg Tablet, 10 MG PO TID, (Reported) Dexamethasone 4 Mg Tablet, 4 MG PO BID, (Reported) 12 DAY THERAPY FILLED 11-10-17 Folic Acid 1 Mg Tablet, 1 MG PO DAILY, (Reported) Morphine Sulfate 15 Mg Tablet, 15 MG PO QID PRN for BREAKTHROUGH PAIN, (Reported ) Morphine Sulfate 15 Mg Tablet.er, 15 MG PO TID, (Reported) Multivit-Min/FA/Lycopene/Lut 1 Each Tablet, 1 TAB PO DAILY, (Reported) Ondansetron HCl 8 Mg Tablet, 8 MG PO TID PRN for NAUSEA/VOMITING-1ST LINE, ( Reported) Pantoprazole Sodium 40 Mg Tablet.dr, 40 MG PO HS, (Reported) Polyethylene Glycol 3350 255 Gm Powder, 17 GM PO HS, (Reported) Vitamin B Complex 1 Each Capsule, 1 CAP PO DAILY, (Reported) Patient Home Medication List Home Medication List Reviewed: Yes Past Seyhkdu-Airvrd-Jvxpac Hx Past Med/Social Hx: Reviewed Nursing Past Med/Soc Hx Patient Social History Alcohol Use: Denies Use Recreational Drug Use: No Smoking Status: Current Everyday Smoker Type Used: Cigarettes 2nd Hand Smoke Exposure: Yes Recent Foreign Travel: No Contact w/Someone Who Travel: No Recent Infectious Disease Expo: No Recent Hopitalizations: No Immunizations Up To Date Date of Pneumonia Vaccine: Dec 05, 2014 Seasonal Allergies Seasonal Allergies: No Past Medical History Surgeries: Yes (BACK, STENT IN LEG) Tubal Ligation Respiratory: Yes Sleep Apnea, COPD Currently Using CPAP: No Cardiac: Yes Hypertension, Peripheral Vascular Neurological: No Reproductive Disorders: No Sexually Transmitted Disease: No HIV/AIDS: No Genitourinary: No Gastrointestinal: Yes Chronic Constipation Musculoskeletal: Yes (HX FX BACK, SPONDYLESIS) Chronic Back Pain Endocrine: Yes Diabetes, Non-Insulin dep HEENT: No Loss of Vision: Denies Hearing Impairment: Denies Cancer: Yes (DX W/LUNG CA JULY OR AUGUST 2017) Lung Psychosocial: No Integumentary: No Blood Disorders: Yes (ANEMIA) Adverse Reaction/Blood Tranf: No (N/A) Family Medical History Reviewed Nursing Family Hx Diabetes mellitus 19 FATHER G8 BROTHER FHx: heart disease 19 FATHER G8 BROTHER Kidney disease G8 BROTHER Seizure disorder 19 MOTHER TIAs 19 MOTHER Heart Disease, Diabetes, Renal Disease, Seizures Review of Systems-General Constitutional: No chills, No diaphoresis; fever, malaise EENTM: No hoarseness, No mouth pain, No epistaxis, No nose congestion Respiratory: cough; No dyspnea on exertion; hemoptysis; No short of breath Cardiovascular: No chest pain, No palpitations, No syncope Gastrointestinal: No abdominal pain; constipation; No diarrhea Genitourinary: No discharge, No dysuria, No frequency, No hematuria, No hesitancy, No pain Musculoskeletal: back pain, joint pain Skin: no symptoms reported Psychiatric/Neurological: No Symptoms Reported Physical Exam-General Problems Physical Exam Vital Signs Vital Signs - First Documented 11/10/17 11/10/17 22:24 22:30 Temp 100.2 Pulse 118 Resp 18 B/P (MAP) 113/68 (83) Pulse Ox 95 O2 Delivery Room Air O2 Flow Rate 96.00 Capillary Refill : Less Than 3 Seconds General Appearance: WD/WN, no apparent distress Eyes: Bilateral Eye Normal Inspection, Bilateral Eye PERRL HEENT: PERRL/EOMI, normal ENT inspection, pharynx normal Neck: non-tender, full range of motion, supple, normal inspection Respiratory: chest non-tender, lungs clear, normal breath sounds, no respiratory distress, no accessory muscle use Cardiovascular: normal peripheral pulses, regular rate, rhythm, no edema, no gallop, no murmur Gastrointestinal: normal bowel sounds, non tender, soft Back: normal inspection, no CVA tenderness Extremities: normal range of motion, non-tender, normal inspection, no pedal edema, no calf tenderness Neurologic/Psychiatric: knotter hand II-XII nml as tested, no motor/sensory deficits, alert, normal mood/affect, oriented x 3 Skin: normal color, warm/dry Lymphatic: no adenopathy Assessment/Plan Assessment/Plan Admission Diagnosis/Plan 62 yo female with stage IV lung cancer admitted for hemoptysis and UTI. Pulmonology has been consulted for management of hemoptysis. We will await their recommendations. She is also receiving antibiotics for UTI. From an oncologic standpoint, we have no acute interventions to recommend. She understands her treatment is for palliation and is not curative, so there is no urgency to begin chemo or immunotherapy at this time. We will go ahead and transfuse 1 unit of PRBCs for symptomatic anemia, which I feel is more secondary to anemia of chronic disease than bleeding. I have talked with surgery and they will defer her port placement until after she has left the hospital. Thank you for allowing me to participate in the care of Ms. Quiroz. I will continue to follow her while she is in the hospital. Clinical Quality Measures DVT/VTE Risk/Contraindication: Risk Factor Score Per Nursin RFS Level Per Nursing on Admit: 4+=Very High Results Labs Labs Laboratory Tests 11/10/17 22:30: White Blood Count 8.9, Red Blood Count 2.38L, Hemoglobin 7.4L, Hematocrit 23L, Mean Corpuscular Volume 98, Mean Corpuscular Hemoglobin 31, Mean Corpuscular Hemoglobin Concent 32, Red Cell Distribution Width 17.8H, Platelet Count 435H, Mean Platelet Volume 8.9, Neutrophils (%) (Auto) 71, Lymphocytes (%) (Auto) 21, Monocytes (%) (Auto) 8, Eosinophils (%) (Auto) 0, Basophils (%) (Auto) 0, Neutrophils # (Auto) 6.4, Lymphocytes # (Auto) 1.8, Monocytes # (Auto) 0.7, Eosinophils # (Auto) 0.0, Basophils # (Auto) 0.0, Prothrombin Time 13.4, INR Comment 1.0, Activated Partial Thromboplast Time 35, Sodium Level 133L, Potassium Level 4.5, Chloride Level 102, Carbon Dioxide Level 20L, Anion Gap 11 , Blood Urea Nitrogen 22H, Creatinine 1.12, Estimat Glomerular Filtration Rate 50, BUN/Creatinine Ratio 20, Glucose Level 195H, Calcium Level 9.4, Corrected Calcium 9.8, Total Bilirubin 0.6, Aspartate Amino Transf (AST/SGOT) 15, Alanine Aminotransferase (ALT/SGPT) 11, Alkaline Phosphatase 100, C-Reactive Protein High Sensitivity 14.30H, Total Protein 6.9, Albumin 3.5 11/10/17 23:35: Urine Color YELLOW, Urine Clarity VERY CLOUDYH, Urine pH 6, Urine Specific [place] 1.020, Urine Protein 4+, Urine Glucose (UA) NEGATIVE, Urine Ketones NEGATIVE, Urine Nitrite NEGATIVE, Urine Bilirubin 1+H, Urine Urobilinogen 8H, Urine Leukocyte Esterase 3+H, Urine RBC (Auto) 1+H, Urine RBC NONE, Urine WBC 10 -25H, Urine Squamous Epithelial Cells 5-10, Urine Crystals NONE, Urine Bacteria LARGEH, Urine Casts NONE, Urine Mucus SMALLH, Urine Culture Indicated YES 11/11/17 00:37: Lactic Acid Level 1.47 11/11/17 10:40: White Blood Count 6.6, Red Blood Count 2.07L, Hemoglobin 6.4*L, Hematocrit 21L, Mean Corpuscular Volume 99, Mean Corpuscular Hemoglobin 31, Mean Corpuscular Hemoglobin Concent 31L, Red Cell Distribution Width 17.6H, Platelet Count 339, Mean Platelet Volume 9.0, Neutrophils (%) (Auto) 71, Lymphocytes (%) (Auto) 19, Monocytes (%) (Auto) 10, Eosinophils (%) (Auto) 0, Basophils (%) (Auto) 0, Neutrophils # (Auto) 4.7, Lymphocytes # (Auto) 1.3, Monocytes # (Auto) 0.6, Eosinophils # (Auto) 0.0, Basophils # (Auto) 0.0 JUAN BEST MD Nov 11, 2017 10:46
[2017-11-11 10:50] LABS: HEMOGLOBIN 6.4 G/DL (11.5-16.0)
[2017-11-11 11:04] LABS: BUN/CREATININE RATIO 24; CALCIUM 8.7 MG/DL (8.5-10.1); CARBON DIOXIDE 21 MMOL/L (21-32); CHLORIDE 106 MMOL/L (98-107); CREATININE SERUM 0.76 MG/DL (0.60-1.30); GFR ESTIMATED > 60; GLUCOSE 133 MG/DL (70-105); POTASSIUM 4.7 MMOL/L (3.6-5.0); SODIUM 134 MMOL/L (135-145)
--- NOTE | 2017-11-11 12:22 | Diagnostic Imaging Report ---
PROCEDURE: CT angiography of the chest with contrast. TECHNIQUE: Multiple contiguous axial images were obtained through the chest after uneventful bolus administration of intravenous contrast. Reconstructed CTA MIP acquisitions were also performed. INDICATION: Hemoptysis. COMPARISON: Correlation is made with prior CT chest from 09/22/2017. FINDINGS: The large mass involving the right upper lobe anteriorly and inseparable from the right hilum is again noted. This measures approximately 9.1 cm AP by 4.4 cm transverse compared with 8.7 x 4.5 cm. Mass is inseparable from the superior wall of right main pulmonary artery. The mass also appears to encase the right upper lobe bronchus. There is also abnormal soft tissue encasing the right middle lobe bronchus and abuts the right lower lobe bronchus. This is similar to prior exam. A right paratracheal node has increased in size measuring 1.8 cm compared with 1.3 cm. Precarinal cruz mass measures 4.0 x 2.2 cm compared with 3.5 x 1.6 cm. Subcarinal fullness persists measuring 3.4 x 2.1 cm compared with 3.1 x 1.5 cm. No definite high density material within the bronchi or trachea seen to suggest acute arterial extravasation. No definite pericardial or pleural fluid is identified. Minimal atelectasis in the lingula seen. No airspace infiltrate is identified to suggest pulmonary hemorrhage. Upper abdomen again demonstrates large bilateral adrenal masses consistent with adrenal metastases. IMPRESSION: 1. Overall increase in size of right upper lobe mass as well as mediastinal lymphadenopathy when compared with examination from 09/22/2017. Again, the mass is inseparable from the right hilum including right pulmonary artery as well as right upper lobe, right middle lobe and right lower lobe bronchi. No definite ron arterial extravasation is seen. 2. Bilateral adrenal metastases. Results were discussed with Dr. Jace Soto prior to this dictation. Dictated by: Dictated on workstation # [id number]
[2017-11-11] MEDS ORDERED: LORazepam INJ 2 MG/ML (ATIVAN) VIAL ONE (13:54)
[2017-11-11] MEDS ORDERED: LORazepam INJ 2 MG/ML (ATIVAN) VIAL IVP ONE ×2 (14:00)
[2017-11-11] MEDS ORDERED: morphine IMMEDIATE RELEASE 15 MG TABLET PO PRN (14:45)
[2017-11-11] MEDS ORDERED: ONDANSETRON 8 MG (ZOFRAN) ORAL DISSOLVE TAB PO PRN (14:45)
--- NOTE | 2017-11-11 16:19 | Diagnostic Imaging Report ---
INDICATION: Evaluate PICC line placement. EXAMINATION: Single view of the chest was obtained. FINDINGS: The right upper extremity PICC line appears to be going up the right internal jugular vein. There is a large right hilar mass. Heart size is normal. Lungs are otherwise clear. There is no pleural effusion or pneumothorax. IMPRESSION: The right upper extremity PICC line appears to be one going up the right intrajugular vein. Dictated by: Dictated on workstation # [id number]
[2017-11-11] MEDS: morphine ER 15 MG (MS CONTIN) TAB PO SCH ×2 (17:32→22:01)
[2017-11-11] MEDS: PIPERACILLIN SODIUM/TAZOBACTAM 4.5 GM in NS (IVPB) 100 ML IV SCH (17:32)
[2017-11-11 17:45] LABS: BASOPHILS % (AUTO) 0 % (0-10); EOSINOPHILS % (AUTO) 0 % (0-10); HEMATOCRIT 22 % (35-52); LYMPHOCYTES # (AUTO) 1.4 X 10^3 (1.0-4.0); LYMPHOCYTES % (AUTO) 19 % (12-44); MEAN CORPUSCULAR HEMOGLOBIN 30 PG (25-34); MEAN CORPUSCULAR HGB CONC 32 G/DL (32-36); MEAN CORPUSCULAR VOLUME 96 FL (80-99); MEAN PLATELET VOLUME 9.5 FL (7.4-10.4); MONOCYTES # (AUTO) 0.6 X 10^3 (0.0-1.0); MONOCYTES % (AUTO) 9 % (0-12); NEUTROPHILS # (AUTO) 5.3 X 10^3 (1.8-7.8); NEUTROPHILS % (AUTO) 73 % (42-75); PLATELET COUNT 308 10^3/uL (130-400); RED BLOOD COUNT 2.31 10^6/uL (4.35-5.85); RED CELL DISTRIBUTION WIDTH 17.9 % (10.0-14.5); WHITE BLOOD COUNT 7.3 10^3/uL (4.3-11.0)
[2017-11-11] MEDS ORDERED: POLYETHYLENE GLYCOL 17 GM (MIRALAX) PACK PO SCH (21:00)
[2017-11-11] MEDS ORDERED: CYCLOBENZAPRINE 10 MG (FLEXERIL) TAB PO SCH (21:00)
[2017-11-11] MEDS ORDERED: PANTOPRAZOLE 40 MG (PROTONIX) TAB PO SCH (21:00)
[2017-11-12] VITALS: BP 141/64
[2017-11-12] MEDS: PIPERACILLIN SODIUM/TAZOBACTAM 4.5 GM in NS (IVPB) 100 ML IV SCH (00:28)
[2017-11-12] MEDS: morphine INJ 10 MG/ML 1ML (SYR OR VIAL) IVP PRN (02:51)
[2017-11-12] MEDS: cefTRIAXone 1 GM/NS 50 ML IVPB IV SCH ×2 (02:53)
[2017-11-12 04:00] VITALS: BP 138/66
[2017-11-12] MEDS: D5 NS W/KCL 20 MEQ/L 1,000 ML IV SCH (04:49)
[2017-11-12 06:10] LABS: BASOPHILS % (AUTO) 0 % (0-10); EOSINOPHILS # (AUTO) 0.1 10^3/uL (0.0-0.3); EOSINOPHILS % (AUTO) 1 % (0-10); HEMATOCRIT 22 % (35-52); HEMOGLOBIN 7.2 G/DL (11.5-16.0); LYMPHOCYTES # (AUTO) 1.6 X 10^3 (1.0-4.0); LYMPHOCYTES % (AUTO) 19 % (12-44); MEAN CORPUSCULAR HEMOGLOBIN 31 PG (25-34); MEAN CORPUSCULAR HGB CONC 32 G/DL (32-36); MEAN CORPUSCULAR VOLUME 98 FL (80-99); MEAN PLATELET VOLUME 9.6 FL (7.4-10.4); MONOCYTES # (AUTO) 0.7 X 10^3 (0.0-1.0); MONOCYTES % (AUTO) 9 % (0-12); NEUTROPHILS # (AUTO) 5.8 X 10^3 (1.8-7.8); NEUTROPHILS % (AUTO) 71 % (42-75); PLATELET COUNT 315 10^3/uL (130-400); RED BLOOD COUNT 2.29 10^6/uL (4.35-5.85); RED CELL DISTRIBUTION WIDTH 18.3 % (10.0-14.5); WHITE BLOOD COUNT 8.2 10^3/uL (4.3-11.0)
[2017-11-12 06:21] LABS: BUN/CREATININE RATIO 21; CALCIUM 8.4 MG/DL (8.5-10.1); CARBON DIOXIDE 19 MMOL/L (21-32); CHLORIDE 111 MMOL/L (98-107); CREATININE SERUM 0.77 MG/DL (0.60-1.30); GFR ESTIMATED > 60; GLUCOSE 177 MG/DL (70-105); MAGNESIUM 2.2 MG/DL (1.8-2.4); PHOSPHORUS 2.9 MG/DL (2.3-4.7); POTASSIUM 4.7 MMOL/L (3.6-5.0); SODIUM 137 MMOL/L (135-145)
[2017-11-12] MEDS ORDERED: MULTIVIT W/MINERALS TAB (THERAGRAN M) PO SCH (07:00)
[2017-11-12] MEDS ORDERED: FOLIC ACID 1 MG TAB PO SCH (07:00)
--- NOTE | 2017-11-12 07:01 | Pulmonary Progress Note ---
Standard Progress Note Progress Notes Date Seen by Provider: Nov 11, 2017 (late entry today is 11/10/17) Time Seen by Provider: 16:00 Assessment & Plan Metastatic adenocarcinoma with large right lung mass -Pt is scheduled to start chemo next week Hemoptysis r/o PE vs pulmonary artery invasion of cancer -Transfer to ICU stepdown for close observation. -Will plan for bronchoscopy in AM Anemia -Recheck hb this afternoon COPD HX - currently stable -SVNs -Oxygen I reviewed stat CT of chest with radiologist and Right Lung Mass is surrounding pulmonary artery and surrounding vessels. I recommended to patient transfer to for possible bronchial artery embolization however she does not want to transfer. Pt would prefer to go home however wants pt to stay here. 60min spent with patient, family and medical team discussing plan of care. Critical Care: Critically Ill Patient Time spent with patient (mins): 60 Focused Exam Lactate Level 11/11/17 00:37: Lactic Acid Level 1.47 MEDINA CATES DO Nov 12, 2017 07:01
--- NOTE | 2017-11-12 07:07 | Pulmonary Progress Note ---
Subjective Time Seen by Provider: 07:03 Subjective/Events-last exam Still coughing up BRB. Sepsis Event Evaluation Height, Weight, BMI Height: 5'8.00" Weight: 171lbs. 11.2oz. 77.161391mc; 26.1 BMI Method:Estimated Focused Exam Lactate Level 11/11/17 00:37: Lactic Acid Level 1.47 Exam Exam Vital Signs Date Time Temp Pulse Resp B/P (MAP) Pulse Ox O2 Delivery O2 Flow Rate FiO2 11/12/17 04:00 98.9 79 18 138/66 (90) 98 Room Air 11/12/17 00:00 99.7 84 18 141/64 (89) 95 Room Air 11/11/17 20:00 98.7 77 18 147/78 (101) 98 Room Air 11/11/17 20:00 98 Room Air 11/11/17 16:00 98.6 79 20 100/51 (67) 95 Room Air 11/11/17 13:00 98.8 75 20 120/79 (93) 99 Room Air 11/11/17 13:00 98.8 75 20 120/79 99 Room Air 11/11/17 12:00 98.6 75 18 135/63 (87) 98 Room Air 11/11/17 11:20 98.2 72 20 122/62 92 Room Air 11/11/17 11:05 98.0 76 20 137/67 Room Air 11/11/17 08:00 99 Room Air 96.00 11/11/17 08:00 97.7 78 18 128/59 (82) 95 Room Air I & O 11/12/17 07:00 Intake Total 850 ml Output Total 400 ml Balance 450 ml Height & Weight Height: 5'8.00" Weight: 171lbs. 11.2oz. 77.397453xm; 26.1 BMI Method:Estimated General Appearance: WD/WN, Anxious, Mild Distress HEENT: PERRL/EOMI, Moist Mucous Membranes Neck: Non Tender, Supple Respiratory: Lungs Clear, No Respiratory Distress Cardiovascular: Regular Rate, Rhythm, No Murmur Capillary Refill: Less Than 3 Seconds Gastrointestinal: normal bowel sounds, non tender, soft Extremity: Normal Capillary Refill, No Calf Tenderness Neurologic/Psychiatric: Alert, Oriented x3, Normal Mood/Affect Skin: Normal Color, Warm/Dry Results Lab Laboratory Tests 11/10/17 22:30 11/11/17 10:40 11/11/17 17:38 11/11/17 21:11 11/12/17 00:19 11/12/17 04:08 Assessment/Plan Assessment/Plan Metastatic adenocarcinoma with large right lung mass -Pt is scheduled to start chemo next week Hemoptysis r/o PE vs pulmonary artery invasion of cancer -Hb is stable will change H&H to Q12 -Pt is still coughing up BRB -will do bronchoscopy this AM. Risk associated with bronch explained to patient and family. -Stat CTA of chest -Transfer to ICU stepdown for close observation. -Will plan for bronchoscopy in AM Anemia -Recheck hb this afternoon -Will transfuse 1 unit of PRBC. COPD HX - currently stable -SVNs -Oxygen 30min spent with patient, family, and medical staff not including bronchoscopy Critical Care: Critically Ill Patient Time spent with patient (mins): 30 MEDINA CATES DO Nov 12, 2017 07:07
--- NOTE | 2017-11-12 07:09 | Pulmonary Procedures ---
Pulmonary Procedures Date of Procedure Date of Service: Nov 12, 2017 Bronch Bronchoscopy with bronchoalveolar lavage (BAL), transbronchial washes Preop DX hemoptysis Postop DX: same Complications: none After informed consent obtained and formal time out pt was sedated using Fentanyl and Versed. Bronchoscope was advanced through the nare and vocal cords. 1% lidocaine was used to anesthetize vocal cords, epiglottis, alexis, and left/right main stem bronchus. An anatomical tour was undertaken down to the segmental bronchi bilaterally. No endobronchial lesions noted. From the RML a bronchoalveolar lavage (BAL), transbronchial washes were obtained. Pt tolerated procedure well. No complications noted. Stat CXR is pending. MEDINA CATES DO Nov 12, 2017 07:09
[2017-11-12] MEDS ORDERED: D5 LR IV SOLUTION 1,000 ML IV SCH (07:15)
[2017-11-12] MEDS ORDERED: MIDAZOLAM 2 MG/2 ML (VERSED) VIAL ONE (07:18)
[2017-11-12] MEDS ORDERED: fentaNYL INJECTION 100 MCG/2 ML AMP ONE (07:18)
--- NOTE | 2017-11-12 07:20 | Diagnostic Imaging Report ---
INDICATION: Dyspnea. Upright portable AP view of the chest is obtained with comparison made to study of 11/11/2017. FINDINGS: Right hilar mass is again identified. There is no evidence of pneumothorax. The right upper extremity PICC is not definitely seen on the current study. There is mild left basilar atelectasis and/or pneumonitis. No other change is identified. IMPRESSION: Left basilar atelectasis and/or pneumonitis with unchanged mass involving the right pulmonary hilum. Previously identified right upper extremity PICC is no longer identified. Dictated by: Dictated on workstation # [id number]
--- NOTE | 2017-11-12 08:22 | Discharge Inst-Simple/Standard ---
Discharge Inst-Standard Patient Instructions/Follow Up Plan of Care/Instructions/FU: Please continue to take your medication at written. Please follow up with Dr Mckeon next week. Activity as Tolerated: Yes Discharge Diet: No Restrictions Return to The Hospital For: If you feel you are getting worse. GABRIEL SANDOVAL MD Nov 12, 2017 08:22
--- NOTE | 2017-11-12 08:23 | Discharge Summary-Hospitalist ---
Diagnosis/Chief Complaint Date of Admission Nov 11, 2017 at 01:41 Date of Discharge Discharge Date: Nov 12, 2017 Admission Diagnosis Hemoptysis Discharge Diagnosis (1) Hemoptysis Status: Acute Assessment & Plan: New onset known lung mass Review Ct with Dr Soto- rahul near pulmonary artery Patient declined bronchoscopy and transfer to tertiary center (2) Anemia Status: Acute Assessment & Plan: S/p 1 unit transfusion Now stable near 7 (3) Urinary tract infection Status: Acute Assessment & Plan: Received Rocephin (4) Non-small cell lung cancer (NSCLC) Assessment & Plan: Hem/Onc consulted Appreciate recs Discharge Summary Discharge Physical Exam Allergies: Coded Allergies: azithromycin (Verified Allergy, Unknown, 09/28/17) codeine (Verified Allergy, Unknown, 09/28/17) latex (Verified Allergy, Unknown, 09/28/17) Vitals & I&Os Vital Signs Date Time Temp Pulse Resp B/P (MAP) Pulse Ox O2 Delivery O2 Flow Rate FiO2 11/12/17 08:38 79 18 138/66 98 Room Air 96.00 11/12/17 04:00 98.9 General Appearance: No Apparent Distress, WD/WN Hospital Course Pt was admitted with hemoptysis with known history of metastatic adenocarcinoma of her lung. Repeat CTA chest revealed the mass to be nearly encapsulating her pulmonary artery. She was offered transfer to tertiary center for evaluation by cardiothoracic surgery on day of admission but she declined that option. She was also offered a bronchoscopy but again she declined. She was given 1 unit transfusion for anemia throughout her stay. Ultimately she elected to discharge with hospice as she did not want to stay in the hospital any longer and wanted to "enjoy the time I have left." This was discussed with her and her daughter, Ashia at length who all ultimately agreed to this plan. [facility] was contacted and will evaluate patient at home for enrollment. Labs (last 24 hrs) Laboratory Tests 11/11/17 17:38: White Blood Count 7.3, Red Blood Count 2.31L, Hemoglobin 7.0L, Hematocrit 22L, Mean Corpuscular Volume 96, Mean Corpuscular Hemoglobin 30, Mean Corpuscular Hemoglobin Concent 32, Red Cell Distribution Width 17.9H, Platelet Count 308, Mean Platelet Volume 9.5, Neutrophils (%) (Auto) 73, Lymphocytes (%) (Auto) 19, Monocytes (%) (Auto) 9, Eosinophils (%) (Auto) 0, Basophils (%) (Auto) 0, Neutrophils # (Auto) 5.3, Lymphocytes # (Auto) 1.4, Monocytes # (Auto) 0.6, Eosinophils # (Auto) 0.0, Basophils # (Auto) 0.0 11/11/17 19:50: Stool Occult Blood Immunoassay NEGATIVE 11/11/17 21:11: Hemoglobin 7.0L 11/12/17 00:19: Hemoglobin 7.0L 11/12/17 04:08: White Blood Count 8.2, Red Blood Count 2.29L, Hemoglobin 7.2L, Hematocrit 22L, Mean Corpuscular Volume 98, Mean Corpuscular Hemoglobin 31, Mean Corpuscular Hemoglobin Concent 32, Red Cell Distribution Width 18.3H, Platelet Count 315, Mean Platelet Volume 9.6, Neutrophils (%) (Auto) 71, Lymphocytes (%) (Auto) 19, Monocytes (%) (Auto) 9, Eosinophils (%) (Auto) 1, Basophils (%) (Auto) 0, Neutrophils # (Auto) 5.8, Lymphocytes # (Auto) 1.6, Monocytes # (Auto) 0.7, Eosinophils # (Auto) 0.1, Basophils # (Auto) 0.0, Sodium Level 137, Potassium Level 4.7, Chloride Level 111H, Carbon Dioxide Level 19L, Anion Gap 7, Blood Urea Nitrogen 16, Creatinine 0.77, Estimat Glomerular Filtration Rate > 60, BUN/ Creatinine Ratio 21, Glucose Level 177H, Calcium Level 8.4L, Phosphorus Level 2.9, Magnesium Level 2.2 Patient resulted labs reviewed. Pending Labs Laboratory Tests 11/12/17 04:08: White Blood Count 8.2, Red Blood Count 2.29, Hemoglobin 7.2, Hematocrit 22, Mean Corpuscular Volume 98, Mean Corpuscular Hemoglobin 31, Mean Corpuscular Hemoglobin Concent 32, Red Cell Distribution Width 18.3, Platelet Count 315, Mean Platelet Volume 9.6, Neutrophils (%) (Auto) 71, Lymphocytes (%) (Auto) 19, Monocytes (%) (Auto) 9, Eosinophils (%) (Auto) 1, Basophils (%) (Auto) 0, Neutrophils # (Auto) 5.8, Lymphocytes # (Auto) 1.6, Monocytes # (Auto) 0.7, Eosinophils # (Auto) 0.1, Basophils # (Auto) 0.0, Sodium Level 137, Potassium Level 4.7, Chloride Level 111, Carbon Dioxide Level 19, Anion Gap 7, Blood Urea Nitrogen 16, Creatinine 0.77, Estimat Glomerular Filtration Rate > 60, BUN/ Creatinine Ratio 21, Glucose Level 177, Calcium Level 8.4, Phosphorus Level 2.9 , Magnesium Level 2.2 Imaging: Reviewed Imaging Films, Reviewed Imaging Report Discussion & Recommendations Discharge Planning: >30 minutes discharge planning Discharge Home Medications: Active Scripts Active Reported Polyethylene Glycol 3350 255 Gm Powder 17 Gm PO HS Pantoprazole Sodium 40 Mg Tablet.dr 40 Mg PO HS Ondansetron HCl 8 Mg Tablet 8 Mg PO TID PRN Morphine Sulfate ER (Morphine Sulfate) 15 Mg Tablet.er 15 Mg PO TID Vitamin B Complex 1 Each Capsule 1 Cap PO DAILY Centrum Silver Tablet (Multivit-Min/FA/Lycopene/Lut) 1 Each Tablet 1 Tab PO DAILY Folic Acid 1 Mg Tablet 1 Mg PO DAILY Morphine Sulfate 15 Mg Tablet 15 Mg PO QID PRN Cyclobenzaprine HCl 10 Mg Tablet 10 Mg PO TID Instructions to patient/family Please see electronic discharge instructions given to patient. Clinical Quality Measures End of Life/Advance Care Plan: Advance Care discuss with: patient, family member (s) ( and daughter Ashia) End of Life Care: Hospice Care (Home) Plan: initiate discussion, identified end-of-life goals, developed treatment plan Time spent on discussion(mins): 27 face to face DVT/VTE Risk/Contraindication: Risk Factor Score Per Nursin RFS Level Per Nursing on Admit: 4+=Very High Problem Qualifiers (1) Anemia: Anemia type: unspecified type Qualified Codes: D64.9 - Anemia, unspecified (2) Urinary tract infection: Urinary tract infection type: site unspecified Hematuria presence: without hematuria Qualified Codes: N39.0 - Urinary tract infection, site not specified (3) Non-small cell lung cancer (NSCLC): Laterality: right Qualified Codes: C34.91 - Malignant neoplasm of unspecified part of right bronchus or lung GABRIEL SANDOVAL MD Nov 12, 2017 08:23
[2017-11-12 08:38] VITALS: BP 138/66
== END 2017-11-12 08:33 | disposition home health service (06) | DRG 167 ==
LOC: ER 22:10 → EDUNIT# 22:10 → 4TH 22:12 → UNDOADMOB 11-11 01:41 → ICU 11-11 12:50 → 4TH 11-11 12:50 → OBSVTOIN 11-11 14:33 → UNDODISOB 11-12 08:33
PROVIDERS: ADMIT Internal Medicine; ATTEND Internal Medicine
PROC: 0B9D8ZX Drainage of Right Middle Lung Lobe, Via Natural or Artificial Opening Endoscopic, Diagnostic (ICD-10-PCS; principal; 2017-11-12)
DX: R04.2 Hemoptysis (principal); C34.11 Malignant neoplasm of upper lobe, right bronchus or lung; C79.9 Secondary malignant neoplasm of unspecified site; D63.8 Anemia in other chronic diseases classified elsewhere; N39.0 Urinary tract infection, site not specified; E11.9 Type 2 diabetes mellitus without complications; Z79.84 Long term (current) use of oral hypoglycemic drugs; J44.9 Chronic obstructive pulmonary disease, unspecified; G47.30 Sleep apnea, unspecified; F17.210 Nicotine dependence, cigarettes, uncomplicated
CPT/HCPCS: 36415; 36430; 71045; 71046; 71275; 80048; 80053; 81000; 82274; 83605; 83735; 84100; 85018; 85025; 85610; 85730; 86141; 86850; 86900; 86901; 86920; 87040; 87070; 87077; 87088; 87186; 87205; G0378

== ENCOUNTER 2017-11-18 08:43 | Day surgery (SDC) | payer MEDICARE, OTHER ==
[~2017-11-18] VITALS: Ht 172.7 cm; Wt 77.4 kg
[~2017-11-18 08:43] MED LIST changes: +DEXA4TAB PO; +MORP-33 PO; +ONDA8TAB12 PO; +PANT40TA3 PO; +POLY255P PO
[2017-11-18] MEDS ORDERED: LACTATED RINGERS 1,000 ML IV PRN (12:44)
[2017-11-18] MEDS ORDERED: ceFAZolin INJECTION 1,000 MG in NS (IVPB) 50 ML IV ONE (12:45)
[2017-11-18 13:30] VITALS: BP 125/65
[2017-11-18] MEDS ORDERED: PROPOFOL INJECTION 50 ML IV ONE (13:52)
[2017-11-18] MEDS ORDERED: ONDANSETRON 4 MG/2 ML (SDV) Z0FRAN ONE (13:52)
[2017-11-18] MEDS ORDERED: MIDAZOLAM 2 MG/2 ML (VERSED) VIAL ONE (13:53)
[2017-11-18] MEDS ORDERED: fentaNYL INJECTION 100 MCG/2 ML AMP ONE (13:53)
[2017-11-18] MEDS ORDERED: BUPIVACAINE 0.5% 30 ML (SENSORCAINE) VIAL ONE (13:55)
[2017-11-18] MEDS ORDERED: LIDOCAINE 1% INJ 20 ML 20 ML VIAL ONE (13:55)
[2017-11-18] MEDS ORDERED: HEParin (CENTRAL IV FLUSH) 500 UNIT/5 ML SYR ONE (13:58)
[2017-11-18] MEDS ORDERED: 0.9% SODIUM CHLORIDE PF INJ 20 ML VIAL ONE (14:26)
--- NOTE | 2017-11-18 14:29 | Progress Note-Pre Operative ---
Pre-Operative Progress Note H&P Reviewed The H&P was reviewed, patient examined and no changes noted. Date Seen by Provider: Nov 18, 2017 Time Seen by Provider: 14:04 Date H&P Reviewed: Nov 18, 2017 Time H&P Reviewed: 14:04 Pre-Operative Diagnosis: metastatic lung cancer VANDANA BOWDEN DO Nov 18, 2017 14:29
--- NOTE | 2017-11-18 15:38 | Discharge Inst-Simple/Standard ---
Discharge Inst-Standard Patient Instructions/Follow Up Plan of Care/Instructions/FU: 2 WEEKS KAL Activity as Tolerated: No Discharge Diet: Regular Diet Other Inst to Patient Follow up Appt: Make appointment for 2 week. Instructions: No lifting greater than 10 pounds. No strenuous activity. May shower in 24 hours, no tub bath or soaking. Use incentive spirometer at home as directed. No Smoking Skin/Wound Care: May remove bandages IN 24 HOURS. YOU ALSO HAVE SPECIAL GLUE AND STERISTRIPS OVER INCISIONS AND IT WILL FALL OFF ON ITS OWN. Symptoms to Report: Appetite Changes, Extremity Discoloration, Numbness/Tingling, Swelling Increased , Bleeding Excessive, Eyesight Changes, Pain Increased, Urine Color Change, Constipation(Persistent), Fever over 101 degree F, Pain/Pressure in chest, Urinating Difficulty, Cough Up/Vomit Blood, Heart Beat Irreg/Pounding, Pain/ Pressure in jaw, Vaginal Bleeding Increase, Cramps in feet or legs, Lightheadedness, Pain/Pressure in shoulder, Diarrhea(Persistent), Memory Changes Suddenly, Questions/Concerns, Weight gain consecutive days, Dizziness/ Fainting, Nausea/Vomiting, Shortness of Breath, Weight gain over 2 pounds If questions or concerns contact your physician Or seek help at emergency department. VANDANA BOWDEN DO Nov 18, 2017 15:38
--- NOTE | 2017-11-18 15:41 | Progress Note-Post Operative ---
Post-Operative Progess Note Surgeon (s)/Software Engineering Manager (s) Surgeon VANDANA BOWDEN DO Software Engineering Manager: NA Pre-Operative Diagnosis metastatic lung cancer Post-Operative Diagnosis SAME Procedure & Operative Findings Date of Procedure 11/18/17 Procedure Performed/Findings U/S GUIDED LEFT ij PORT PLACEMENT Anesthesia Type MAC C LOCAL Estimated Blood Loss Estimated blood loss (mL): MIN Specimens/Packing Specimens Removed NONE VANDANA BOWDEN DO Nov 18, 2017 15:41
[2017-11-18] MEDS ORDERED: HYDROmorphone 2 MG/ML VIAL (DILAUDID) IV ONE (15:45)
[2017-11-18] MEDS ORDERED: ONDANSETRON 4 MG/2 ML (SDV) Z0FRAN IVP PRN (15:45)
--- NOTE | 2017-11-18 15:51 | Anesthesia-General Post-Op ---
MAC Patient Condition Mental Status/LOC: Same as Preop Cardiovascular: Satisfactory Nausea/Vomiting: Absent Respiratory: Satisfactory Pain: Controlled Complications: Absent Post Op Complications Complications None Follow Up Care/Instructions Patient Instructions None needed. Anesthesiology Discharge Order Discharge Order Patient is doing well, no complaints, stable vital signs, no apparent adverse anesthesia problems. No complications reported per nursing. MYRTLE BEASLEY CRNA Nov 18, 2017 15:51
[2017-11-18 16:10] VITALS: BP 105/49
--- NOTE | 2017-11-18 16:14 | Diagnostic Imaging Report ---
CLINICAL INDICATION: Postop port placement. EXAM: Portable chest x-ray upright view. COMPARISONS: Portable chest x-ray dated 11/12/2017. FINDINGS: There is interval placement of an Fgzswy-e-Nini overlying left chest with tip in the mid to distal superior vena cava region. There is no pneumothorax. Again seen mass in the right perihilar region. There is suspected mild bibasilar atelectasis. Pulmonary vasculature and cardiac silhouette is within normal limits. IMPRESSION: 1: Interval placement of Qchkou-o-Mtcq overlying left chest with tip in the mid to distal superior vena cava. There is no pneumothorax. 2: Again seen right perihilar mass. Dictated by: Dictated on workstation # [id number]
[2017-11-18 16:40] VITALS: BP 112/64
[2017-11-18 16:42] VITALS: BP 112/64
--- NOTE | 2017-11-18 17:22 | Diagnostic Imaging Report ---
INDICATION: Port placement. PROCEDURE: Fluoroscopy was provided in the OR during port placement. 35 seconds of fluoroscopy was utilized. Left chest wall port has tip overlying the SVC. IMPRESSION: Fluoroscopy for port placement. Dictated by: Dictated on workstation # [id number]
--- NOTE | 2017-11-21 14:06 | OPERATIVE REPORT ---
DATE OF SERVICE: 11/18/2017 PREOPERATIVE DIAGNOSIS: Metastatic lung cancer. POSTOPERATIVE DIAGNOSIS: Metastatic lung cancer. PROCEDURE: Ultrasound-guided left internal jugular port placement. SURGEON: Vandana Mendoza DO ANESTHESIA: MAC with local. ESTIMATED BLOOD LOSS: Minimal. COMPLICATIONS: None. INDICATIONS: The patient is a 62-year-old female going to start chemotherapy and radiation for palliative treatment of metastatic lung cancer. She understands the risks and benefits of procedure and wished to proceed with procedure. Consent was signed in the chart. PROCEDURE IN DETAIL: The patient was taken to the operating suite. She was prepped and draped in sterile fashion. Surgical pause was performed. Ultrasound was used to access the left internal jugular vein with micro access kit. Dark nonpulsatile blood was withdrawn. The micro access wire was inserted through the needle and the needle was removed. Fluoroscopy assured proper placement. A small stab incision was made and a dilator was advanced over the wire and the wire was removed. The normal guidewire was inserted and fluoroscopy assured proper placement. The wire was secured. Local anesthetic was used to infiltrate the left neck and left chest for pocket creation and tunneling. A 15 blade scalpel was used to make an incision over the left chest and a pocket was then created with both sharp cautery and blunt dissection. Under fluoroscopy, a dilator sheath was advanced over the guidewire and the dilator and wire were removed. The Groshong catheter was inserted through the sheath and the sheath was then removed. The catheter was then tunneled from the left neck down to the left chest pocket, which was then cut to length and secured to the port in the usual fashion, which was then placed within the pocket and then accessed without difficulty and blood was withdrawn without difficulty and flushed first with saline and then with heparin without difficulty. The subcutaneous tissues of the incision were then reapproximated using 3-0 Vicryl. Skin was then closed using 4-0 Monocryl. The area was then washed and dried. Mastisol and Steri-Strips were placed over the incision. The skin Affix was used at the neck stab incision. The patient tolerated procedure well without any complication. She was taken to recovery room in stable condition. Chest x-ray pending. Job ID: [id number] DocumentID: [id number] Dictated Date: 11/21/2017 11:25:45 Drill Sergeant Date: 11/21/2017 14:05:36 Dictated By: VANDANA MENDOZA DO
== END 2017-11-18 16:42 | disposition home or self-care (01) ==
LOC: SDC 08:43
PROVIDERS: ATTEND Surgery
DX: C34.91 Malignant neoplasm of unspecified part of right bronchus or lung (principal); E11.43 Type 2 diabetes mellitus with diabetic autonomic (poly)neuropathy; E11.51 Type 2 diabetes mellitus with diabetic peripheral angiopathy without gangrene; J44.9 Chronic obstructive pulmonary disease, unspecified; G47.33 Obstructive sleep apnea (adult) (pediatric); F17.210 Nicotine dependence, cigarettes, uncomplicated; K21.9 Gastro-esophageal reflux disease without esophagitis; Z95.820 Peripheral vascular angioplasty status with implants and grafts; Z79.84 Long term (current) use of oral hypoglycemic drugs; Z79.899 Other long term (current) drug therapy
CPT/HCPCS: 71045; 87081

== ENCOUNTER → 2017-12-14 | Outpatient (RCR) | payer MEDICARE, OTHER ==
[2017-10-12 14:11] LABS: BASOPHILS % (AUTO) 0 % (0-10); EOSINOPHILS % (AUTO) 0 % (0-10); HEMATOCRIT 25 % (35-52); HEMOGLOBIN 8.2 G/DL (11.5-16.0); LYMPHOCYTES # (AUTO) 1.7 X 10^3 (1.0-4.0); LYMPHOCYTES % (AUTO) 17 % (12-44); MEAN CORPUSCULAR HEMOGLOBIN 32 PG (25-34); MEAN CORPUSCULAR HGB CONC 33 G/DL (32-36); MEAN CORPUSCULAR VOLUME 96 FL (80-99); MEAN PLATELET VOLUME 9.8 FL (7.4-10.4); MONOCYTES # (AUTO) 0.6 X 10^3 (0.0-1.0); MONOCYTES % (AUTO) 6 % (0-12); NEUTROPHILS # (AUTO) 7.6 X 10^3 (1.8-7.8); NEUTROPHILS % (AUTO) 76 % (42-75); PLATELET COUNT 402 10^3/uL (130-400); RED BLOOD COUNT 2.57 10^6/uL (4.35-5.85); RED CELL DISTRIBUTION WIDTH 16.7 % (10.0-14.5); WHITE BLOOD COUNT 9.9 10^3/uL (4.3-11.0)
[2017-10-12 14:34] LABS: ALANINE AMINOTRANSFERASE 7 U/L (0-55); ALBUMIN 3.6 GM/DL (3.2-4.5); ALKALINE PHOSPHATASE 109 U/L (40-136); BILIRUBIN,TOTAL 0.7 MG/DL (0.1-1.0); BUN/CREATININE RATIO 30; CALCIUM 10.1 MG/DL (8.5-10.1); CARBON DIOXIDE 25 MMOL/L (21-32); CHLORIDE 100 MMOL/L (98-107); CREATININE SERUM 0.86 MG/DL (0.60-1.30); GFR ESTIMATED > 60; GLUCOSE 221 MG/DL (70-105); SODIUM 133 MMOL/L (135-145); TOTAL PROTEIN 7.5 GM/DL (6.4-8.2)
[2017-11-10 10:42] LABS: BASOPHILS % (AUTO) 0 % (0-10); EOSINOPHILS % (AUTO) 0 % (0-10); HEMATOCRIT 24 % (35-52); HEMOGLOBIN 7.4 G/DL (11.5-16.0); LYMPHOCYTES # (AUTO) 2.5 X 10^3 (1.0-4.0); LYMPHOCYTES % (AUTO) 26 % (12-44); MEAN CORPUSCULAR HEMOGLOBIN 31 PG (25-34); MEAN CORPUSCULAR HGB CONC 31 G/DL (32-36); MEAN CORPUSCULAR VOLUME 98 FL (80-99); MEAN PLATELET VOLUME 9.2 FL (7.4-10.4); MONOCYTES # (AUTO) 0.6 X 10^3 (0.0-1.0); MONOCYTES % (AUTO) 7 % (0-12); NEUTROPHILS # (AUTO) 6.5 X 10^3 (1.8-7.8); NEUTROPHILS % (AUTO) 67 % (42-75); PLATELET COUNT 436 10^3/uL (130-400); RED BLOOD COUNT 2.42 10^6/uL (4.35-5.85); RED CELL DISTRIBUTION WIDTH 17.7 % (10.0-14.5); WHITE BLOOD COUNT 9.6 10^3/uL (4.3-11.0)
[2017-11-10 10:59] LABS: ALANINE AMINOTRANSFERASE 8 U/L (0-55); ALBUMIN 3.5 GM/DL (3.2-4.5); ALKALINE PHOSPHATASE 105 U/L (40-136); BILIRUBIN,TOTAL 0.7 MG/DL (0.1-1.0); BUN/CREATININE RATIO 20; CALCIUM 9.6 MG/DL (8.5-10.1); CARBON DIOXIDE 22 MMOL/L (21-32); CHLORIDE 100 MMOL/L (98-107); CREATININE SERUM 0.84 MG/DL (0.60-1.30); GFR ESTIMATED > 60; GLUCOSE 154 MG/DL (70-105); POTASSIUM 4.1 MMOL/L (3.6-5.0); SODIUM 132 MMOL/L (135-145); TOTAL PROTEIN 7.3 GM/DL (6.4-8.2)
[2017-11-14 11:22] LABS: BASOPHILS % (AUTO) 0 % (0-10); EOSINOPHILS % (AUTO) 0 % (0-10); HEMATOCRIT 24 % (35-52); HEMOGLOBIN 7.6 G/DL (11.5-16.0); LYMPHOCYTES # (AUTO) 1.6 X 10^3 (1.0-4.0); LYMPHOCYTES % (AUTO) 17 % (12-44); MEAN CORPUSCULAR HEMOGLOBIN 30 PG (25-34); MEAN CORPUSCULAR HGB CONC 32 G/DL (32-36); MEAN CORPUSCULAR VOLUME 96 FL (80-99); MEAN PLATELET VOLUME 8.8 FL (7.4-10.4); MONOCYTES # (AUTO) 0.8 X 10^3 (0.0-1.0); MONOCYTES % (AUTO) 8 % (0-12); NEUTROPHILS % (AUTO) 74 % (42-75); PLATELET COUNT 328 10^3/uL (130-400); RED BLOOD COUNT 2.51 10^6/uL (4.35-5.85); WHITE BLOOD COUNT 9.4 10^3/uL (4.3-11.0)
[2017-11-28 08:27] LABS: BASOPHILS % (AUTO) 0 % (0-10); EOSINOPHILS % (AUTO) 1 % (0-10); LYMPHOCYTES # (AUTO) 0.5 X 10^3 (1.0-4.0); LYMPHOCYTES % (AUTO) 22 % (12-44); MEAN CORPUSCULAR HEMOGLOBIN 32 PG (25-34); MEAN CORPUSCULAR HGB CONC 34 G/DL (32-36); MEAN CORPUSCULAR VOLUME 95 FL (80-99); MEAN PLATELET VOLUME 9.5 FL (7.4-10.4); MONOCYTES # (AUTO) 0.1 X 10^3 (0.0-1.0); MONOCYTES % (AUTO) 3 % (0-12); NEUTROPHILS # (AUTO) 1.8 X 10^3 (1.8-7.8); NEUTROPHILS % (AUTO) 75 % (42-75); PLATELET COUNT 195 10^3/uL (130-400); RED BLOOD COUNT 1.85 10^6/uL (4.35-5.85); RED CELL DISTRIBUTION WIDTH 17.4 % (10.0-14.5); WHITE BLOOD COUNT 2.4 10^3/uL (4.3-11.0)
[2017-11-28 08:32] LABS: HEMATOCRIT 18 % (35-52); HEMOGLOBIN 5.9 G/DL (11.5-16.0)
[2017-11-28 08:38] LABS: CALCIUM 9.1 MG/DL (8.5-10.1); CREATININE SERUM 1.02 MG/DL (0.60-1.30)
[2017-12-05 08:29] LABS: BASOPHILS % (AUTO) 0 % (0-10); EOSINOPHILS % (AUTO) 0 % (0-10); LYMPHOCYTES # (AUTO) 0.8 X 10^3 (1.0-4.0); LYMPHOCYTES % (AUTO) 19 % (12-44); MEAN CORPUSCULAR HEMOGLOBIN 32 PG (25-34); MEAN CORPUSCULAR HGB CONC 32 G/DL (32-36); MEAN CORPUSCULAR VOLUME 99 FL (80-99); MEAN PLATELET VOLUME 10.9 FL (7.4-10.4); MONOCYTES # (AUTO) 0.7 X 10^3 (0.0-1.0); MONOCYTES % (AUTO) 15 % (0-12); NEUTROPHILS # (AUTO) 2.9 X 10^3 (1.8-7.8); NEUTROPHILS % (AUTO) 66 % (42-75); PLATELET COUNT 155 10^3/uL (130-400); RED BLOOD COUNT 2.03 10^6/uL (4.35-5.85); RED CELL DISTRIBUTION WIDTH 23.4 % (10.0-14.5); WHITE BLOOD COUNT 4.4 10^3/uL (4.3-11.0)
[2017-12-05 08:33] LABS: HEMATOCRIT 20 % (35-52); HEMOGLOBIN 6.5 G/DL (11.5-16.0)
[2017-12-05 08:47] LABS: BUN/CREATININE RATIO 28; CALCIUM 9.3 MG/DL (8.5-10.1); CARBON DIOXIDE 23 MMOL/L (21-32); CHLORIDE 102 MMOL/L (98-107); CREATININE SERUM 0.82 MG/DL (0.60-1.30); GFR ESTIMATED > 60; GLUCOSE 236 MG/DL (70-105); POTASSIUM 4.6 MMOL/L (3.6-5.0); SODIUM 133 MMOL/L (135-145)
[~2017-12-14] VITALS: Ht 170.2 cm; Wt 77.1 kg
[~2017-12-14] MED LIST changes: +ACETAMINOPHEN 500 MG TAB (TYLENOL) CANCER CTR ONE; +CISPLATIN IV SCH; +CYANOCOBALAMIN INJ 1000 MCG/ML (CANCER CENTER) ONE; +FOSAPREPITANT DIMEGLUMINE 150 MG in NS (IVPB) CANCER CENTER ONLY 150 ML IV PRN; +FOSAPREPITANT DIMEGLUMINE 150 MG in NS (IVPB) CANCER CENTER ONLY 150 ML IV SCH; +MAGNESIUM SULFATE IV SCH; +MANNITOL IV SCH; +NS IV 1000 ML (CANCER CTR) IV SCH; +NS IV 500 ML (CANCER CENTER) 500 ML ONE; +NS IV SCH; +PALONOSETRON HCL 0.25 MG, DEXAMETHASONE INJECTION 10 MG in NS (IVPB) CANCER CENTER 50 ML IV SCH; +PEMETREXED DISODIUM IV SCH; +[UNRECOGNIZED DRUG - OTHER] IV SCH
[2017-12-14 09:15] LABS: BASOPHILS % (AUTO) 0 % (0-10); EOSINOPHILS % (AUTO) 0 % (0-10); HEMATOCRIT 25 % (35-52); HEMOGLOBIN 7.8 G/DL (11.5-16.0); LYMPHOCYTES # (AUTO) 1.2 X 10^3 (1.0-4.0); LYMPHOCYTES % (AUTO) 14 % (12-44); MEAN CORPUSCULAR HEMOGLOBIN 32 PG (25-34); MEAN CORPUSCULAR HGB CONC 32 G/DL (32-36); MEAN CORPUSCULAR VOLUME 101 FL (80-99); MEAN PLATELET VOLUME 8.9 FL (7.4-10.4); MONOCYTES # (AUTO) 0.8 X 10^3 (0.0-1.0); MONOCYTES % (AUTO) 10 % (0-12); NEUTROPHILS # (AUTO) 6.2 X 10^3 (1.8-7.8); NEUTROPHILS % (AUTO) 76 % (42-75); PLATELET COUNT 456 10^3/uL (130-400); RED BLOOD COUNT 2.45 10^6/uL (4.35-5.85); RED CELL DISTRIBUTION WIDTH 23.1 % (10.0-14.5); WHITE BLOOD COUNT 8.1 10^3/uL (4.3-11.0)
[2017-12-14 09:35] LABS: ALANINE AMINOTRANSFERASE 11 U/L (0-55); ALBUMIN 3.2 GM/DL (3.2-4.5); ALKALINE PHOSPHATASE 101 U/L (40-136); BILIRUBIN,TOTAL 0.4 MG/DL (0.1-1.0); BUN/CREATININE RATIO 24; CALCIUM 9.5 MG/DL (8.5-10.1); CARBON DIOXIDE 22 MMOL/L (21-32); CHLORIDE 104 MMOL/L (98-107); CREATININE SERUM 0.87 MG/DL (0.60-1.30); GFR ESTIMATED > 60; GLUCOSE 136 MG/DL (70-105); POTASSIUM 4.4 MMOL/L (3.6-5.0); SODIUM 134 MMOL/L (135-145); TOTAL PROTEIN 6.9 GM/DL (6.4-8.2)
== END | disposition home or self-care (01) ==
LOC: ONC 09-15 13:52
PROVIDERS: ATTEND Internal Medicine Hematology & Oncology
DX: Z51.0 Encounter for antineoplastic radiation therapy (principal); Z51.11 Encounter for antineoplastic chemotherapy; C34.11 Malignant neoplasm of upper lobe, right bronchus or lung; C77.1 Secondary and unspecified malignant neoplasm of intrathoracic lymph nodes; C77.2 Secondary and unspecified malignant neoplasm of intra-abdominal lymph nodes; C79.71 Secondary malignant neoplasm of right adrenal gland; C79.72 Secondary malignant neoplasm of left adrenal gland; C79.51 Secondary malignant neoplasm of bone; D64.9 Anemia, unspecified; R07.9 Chest pain, unspecified; R16.2 Hepatomegaly with splenomegaly, not elsewhere classified; I10 Essential (primary) hypertension; E11.9 Type 2 diabetes mellitus without complications; G47.33 Obstructive sleep apnea (adult) (pediatric); F17.210 Nicotine dependence, cigarettes, uncomplicated; Z79.82 Long term (current) use of aspirin; Z79.84 Long term (current) use of oral hypoglycemic drugs; Z79.899 Other long term (current) drug therapy
CPT/HCPCS: 36415; 36430; 36591; 77280; 77290; 77295; 77300; 77334; 77336; 77386; 77417; 77470; 80048; 80053; 82607; 82746; 83540; 83550; 83735; 84443; 85025; 86850; 86900; 86901; 86920; 96367; 96372; 96375; 96411; 96413; 99204; 99213; 99214

== ENCOUNTER → 2018-01-05 | Outpatient (CLI) | payer MEDICARE ==
[~2018-01-05] MED LIST changes: -ACETAMINOPHEN 500 MG TAB (TYLENOL) CANCER CTR ONE; -CISPLATIN IV SCH; -CYANOCOBALAMIN INJ 1000 MCG/ML (CANCER CENTER) ONE; -FOSAPREPITANT DIMEGLUMINE 150 MG in NS (IVPB) CANCER CENTER ONLY 150 ML IV PRN; -FOSAPREPITANT DIMEGLUMINE 150 MG in NS (IVPB) CANCER CENTER ONLY 150 ML IV SCH; -MAGNESIUM SULFATE IV SCH; -MANNITOL IV SCH; -NS IV 1000 ML (CANCER CTR) IV SCH; -NS IV 500 ML (CANCER CENTER) 500 ML ONE; -NS IV SCH; -PALONOSETRON HCL 0.25 MG, DEXAMETHASONE INJECTION 10 MG in NS (IVPB) CANCER CENTER 50 ML IV SCH; -PEMETREXED DISODIUM IV SCH; -POLY255P PO; +POLY255P16 PO; -[UNRECOGNIZED DRUG - OTHER] IV SCH
--- NOTE | 2018-01-05 15:11 | Diagnostic Imaging Report ---
INDICATION: Cough, shortness of breath and lung cancer. TIME OF EXAM: 1:07 PM CORRELATION is made with prior study from 11/18/2017. FINDINGS: Left chest wall port has tip overlying the SVC. A rounded masslike density in the right hilum appears stable. Remainder of the lung maradiaga are clear. No effusion or pneumothorax is seen. IMPRESSION: Stable chest when compared with the examination from 11/18/2017. Dictated by: Dictated on workstation # [id number]
== END ==
LOC: RAD 12:19
PROVIDERS: ATTEND Internal Medicine Hematology & Oncology
DX: C34.90 Malignant neoplasm of unspecified part of unspecified bronchus or lung (principal)
CPT/HCPCS: 71046

== ENCOUNTER → 2018-01-25 | Outpatient (CLI) | payer MEDICARE, OTHER ==
[~2018-01-25] MED LIST changes: +RECEIVED CONTRAST (Hold Metformin) IV SCH
[2018-01-25] MEDS: IOHEXOL 350 MG/ML 100 ML (OMNIPAQUE 350) VIAL IV ONE (11:28)
[2018-01-25] MEDS: BARIUM SUSPENSION 2.1% (VANILLA SILQ) 450 ML PO ONE (11:28)
[2018-01-25] MEDS: NS 250 ML (IVPB) BAG IV ONE (11:28)
--- NOTE | 2018-01-25 23:16 | Diagnostic Imaging Report ---
PROCEDURE: CT chest with contrast, CT abdomen and pelvis with and without contrast. TECHNIQUE: Pre and post intravenous contrast axial imaging of the abdomen and pelvis and post contrast axial imaging of the chest were performed. Coronal and sagittal reformats were obtained and provided. DATE: January 25, 2018. COMPARISON: CT chest November 11, 2017. September 22, 2017. INDICATION: 62-year-old female, history of lung cancer with bone metastasis. FINDINGS: There is a right upper lobe mass, measuring approximately 8.9 x 3.6 cm in axial dimension. This previously measured approximately 9.1 x 5.4 cm in axial extent on prior CT chest of November 11, 2017. This is decreased in size since that time. This mass abuts the right mediastinal margin and does extend directly into the right hilar region. There is no clearly identified separate abnormally enlarged right hilar lymph node although it may be contiguous with right hilar adenopathy. There is a precarinal lymph node which measures 14 mm in short axis on axial image 22 which is decreased in size and previously measured 2.1 cm in short axis. There is a subcarinal lymph node currently measuring 1.1 cm in short axis which previously measured 1.8 cm in short axis. There is a left superior mediastinal lymph node on axial image 12 measuring 10 mm in short axis which previously measured 11 mm in short axis. There are subcentimeter short axis right superior mediastinal lymph nodes. There are left supraclavicular lymph nodes on axial image 3, measuring up to approximately 8 mm in short axis. These are grossly unchanged since November 11, 2017. There are subcentimeter short axis left axillary lymph nodes which appear similar in size to comparison exam. There is no additionally identified pulmonary nodule or lung mass. There is no additional area of focal airspace consolidation. There is minimal pleural-parenchymal scarring in the right lung apex. The heart is not enlarged. There is no sizable pericardial effusion. There is no identified central pulmonary embolus. There are atherosclerotic changes. There is a left common iliac stent graft. There is contrast within the esophagus which may relate to slow transit of swallowed material and/or gastroesophageal reflux. The liver is unremarkable in size and contour. There is no identified liver lesion. The main, right and left portal veins are patent. The gallbladder is unremarkable. There is no intrahepatic or extrahepatic bile duct dilation. The main pancreatic duct is not abnormally dilated. Unremarkable appearance of the pancreatic parenchyma. The spleen is not enlarged. There are bilateral adrenal masses with the one on the right on axial image 58 measuring approximately 4.9 x 3.4 cm in size. This previously measured roughly 6.1 x 3.5 cm in size. The left adrenal mass currently measures approximately 7.2 x 3.4 cm in size compared to 7.4 x 3.7 cm in size. Both adrenal masses are decreased in size since comparison exam and measure 8m in size, too small to characterize on axial image 75, As well as subcentimeter right renal lesion on axial image 81. There is a 9 mm benign right renal cyst on axial image 66. The urinary collecting systems are not distended. There is no identified renal or ureteral stone. There is no CT apparent prominent urinary bladder wall thickening. There is a pelvic mass just to the left of midline on axial image 118 within the uterus, measuring 3.8 x 2.9 cm in size. This most likely relates to uterine leiomyoma. Tract is not distended. There is no evidence of acute appendicitis. There is no free intraperineal air. There is no drainable fluid collection. There is no free pelvic fluid. There is a centrally necrotic left-sided retroperitoneal lymph node measuring up to 2.9 cm in short axis. This is not included in the field of view of imaging on prior exam. Additional subcentimeter short axis bilateral retroperitoneal lymph nodes are also noted. There are postoperative changes of the lumbar spine. There is a mixed lucent and sclerotic bone lesion of T6, measuring roughly 2.3 x 1.8 cm in size on sagittal image 45. There is no additional identified bone lesion. This lesion is unchanged since comparison exam. IMPRESSION: CT CHEST, ABDOMEN AND PELVIS. 1. Interval decrease in size of the right upper lobe mass directly abutting the right mediastinum directly extending into the right hilar region compatible with interval decrease in size of the site of malignancy. 2. Interval decrease in size of metastatic lymph nodes with persistent left supraclavicular, superior mediastinal, precarinal and subcarinal lymph nodes, compatible with sites of metastatic disease. There is also a centrally necrotic left retroperitoneal and additional retroperitoneal lymph nodes likely relating to metastatic disease. 3. Bilateral adrenal masses, most compatible with metastases, which are decreased in size. 4. Redemonstrated and grossly unchanged bone metastasis at the level of T6. Dictated by: Dictated on workstation # [id number]
== END ==
LOC: RAD 10:11
PROVIDERS: ATTEND Internal Medicine Hematology & Oncology
DX: C34.90 Malignant neoplasm of unspecified part of unspecified bronchus or lung (principal); C79.70 Secondary malignant neoplasm of unspecified adrenal gland; C79.51 Secondary malignant neoplasm of bone
CPT/HCPCS: 71260; 74178

== ENCOUNTER 2018-03-02 08:35 | Outpatient (RCR) | payer MEDICARE, OTHER ==
[2017-12-21 13:09] LABS: BASOPHILS % (AUTO) 0 % (0-10); EOSINOPHILS % (AUTO) 0 % (0-10); HEMATOCRIT 23 % (35-52); HEMOGLOBIN 7.6 G/DL (11.5-16.0); LYMPHOCYTES # (AUTO) 0.5 X 10^3 (1.0-4.0); LYMPHOCYTES % (AUTO) 27 % (12-44); MEAN CORPUSCULAR HEMOGLOBIN 33 PG (25-34); MEAN CORPUSCULAR HGB CONC 33 G/DL (32-36); MEAN CORPUSCULAR VOLUME 97 FL (80-99); MEAN PLATELET VOLUME 8.9 FL (7.4-10.4); MONOCYTES % (AUTO) 2 % (0-12); NEUTROPHILS # (AUTO) 1.5 X 10^3 (1.8-7.8); NEUTROPHILS % (AUTO) 72 % (42-75); PLATELET COUNT 242 10^3/uL (130-400); RED BLOOD COUNT 2.34 10^6/uL (4.35-5.85); RED CELL DISTRIBUTION WIDTH 20.4 % (10.0-14.5)
[2017-12-21 13:27] LABS: BUN/CREATININE RATIO 33; CALCIUM 8.9 MG/DL (8.5-10.1); CARBON DIOXIDE 22 MMOL/L (21-32); CHLORIDE 102 MMOL/L (98-107); CREATININE SERUM 0.72 MG/DL (0.60-1.30); GFR ESTIMATED > 60; GLUCOSE 131 MG/DL (70-105); POTASSIUM 4.3 MMOL/L (3.6-5.0); SODIUM 134 MMOL/L (135-145)
[2017-12-28 09:57] LABS: BASOPHILS % (AUTO) 0 % (0-10); EOSINOPHILS % (AUTO) 1 % (0-10); HEMATOCRIT 22 % (35-52); LYMPHOCYTES # (AUTO) 0.9 X 10^3 (1.0-4.0); LYMPHOCYTES % (AUTO) 25 % (12-44); MEAN CORPUSCULAR HEMOGLOBIN 34 PG (25-34); MEAN CORPUSCULAR HGB CONC 32 G/DL (32-36); MEAN CORPUSCULAR VOLUME 106 FL (80-99); MONOCYTES # (AUTO) 0.5 X 10^3 (0.0-1.0); MONOCYTES % (AUTO) 15 % (0-12); NEUTROPHILS # (AUTO) 2.1 X 10^3 (1.8-7.8); NEUTROPHILS % (AUTO) 59 % (42-75); PLATELET COUNT 200 10^3/uL (130-400); RED BLOOD COUNT 2.05 10^6/uL (4.35-5.85); RED CELL DISTRIBUTION WIDTH 25.1 % (10.0-14.5); WHITE BLOOD COUNT 3.5 10^3/uL (4.3-11.0)
[2017-12-28 09:58] LABS: HEMOGLOBIN 6.9 G/DL (11.5-16.0)
[2017-12-28 10:14] LABS: BUN/CREATININE RATIO 29; CALCIUM 9.1 MG/DL (8.5-10.1); CARBON DIOXIDE 22 MMOL/L (21-32); CHLORIDE 103 MMOL/L (98-107); CREATININE SERUM 0.78 MG/DL (0.60-1.30); GFR ESTIMATED > 60; GLUCOSE 146 MG/DL (70-105); POTASSIUM 4.4 MMOL/L (3.6-5.0); SODIUM 135 MMOL/L (135-145)
[2018-01-11 08:24] LABS: BASOPHILS % (AUTO) 0 % (0-10); EOSINOPHILS % (AUTO) 0 % (0-10); HEMATOCRIT 27 % (35-52); HEMOGLOBIN 8.6 G/DL (11.5-16.0); LYMPHOCYTES # (AUTO) 0.7 X 10^3 (1.0-4.0); LYMPHOCYTES % (AUTO) 7 % (12-44); MEAN CORPUSCULAR HEMOGLOBIN 33 PG (25-34); MEAN CORPUSCULAR HGB CONC 32 G/DL (32-36); MEAN CORPUSCULAR VOLUME 103 FL (80-99); MEAN PLATELET VOLUME 9.6 FL (7.4-10.4); MONOCYTES # (AUTO) 0.6 X 10^3 (0.0-1.0); MONOCYTES % (AUTO) 6 % (0-12); NEUTROPHILS # (AUTO) 8.6 X 10^3 (1.8-7.8); NEUTROPHILS % (AUTO) 86 % (42-75); PLATELET COUNT 290 10^3/uL (130-400); RED BLOOD COUNT 2.64 10^6/uL (4.35-5.85); RED CELL DISTRIBUTION WIDTH 18.7 % (10.0-14.5); WHITE BLOOD COUNT 9.9 10^3/uL (4.3-11.0)
[2018-01-11 08:49] LABS: ALANINE AMINOTRANSFERASE 7 U/L (0-55); ALBUMIN 3.3 GM/DL (3.2-4.5); ALKALINE PHOSPHATASE 94 U/L (40-136); BILIRUBIN,TOTAL 0.2 MG/DL (0.1-1.0); BUN/CREATININE RATIO 36; CALCIUM 9.6 MG/DL (8.5-10.1); CARBON DIOXIDE 22 MMOL/L (21-32); CHLORIDE 103 MMOL/L (98-107); CREATININE SERUM 0.69 MG/DL (0.60-1.30); GFR ESTIMATED > 60; GLUCOSE 155 MG/DL (70-105); MAGNESIUM 1.9 MG/DL (1.8-2.4); POTASSIUM 4.4 MMOL/L (3.6-5.0); SODIUM 134 MMOL/L (135-145); TOTAL PROTEIN 6.7 GM/DL (6.4-8.2)
[2018-01-18 08:38] LABS: BASOPHILS % (AUTO) 1 % (0-10); EOSINOPHILS % (AUTO) 1 % (0-10); HEMATOCRIT 27 % (35-52); HEMOGLOBIN 8.7 G/DL (11.5-16.0); LYMPHOCYTES # (AUTO) 0.6 X 10^3 (1.0-4.0); LYMPHOCYTES % (AUTO) 26 % (12-44); MEAN CORPUSCULAR HEMOGLOBIN 34 PG (25-34); MEAN CORPUSCULAR HGB CONC 33 G/DL (32-36); MEAN CORPUSCULAR VOLUME 103 FL (80-99); MEAN PLATELET VOLUME 9.6 FL (7.4-10.4); MONOCYTES # (AUTO) 0.1 X 10^3 (0.0-1.0); MONOCYTES % (AUTO) 4 % (0-12); NEUTROPHILS # (AUTO) 1.5 X 10^3 (1.8-7.8); NEUTROPHILS % (AUTO) 69 % (42-75); PLATELET COUNT 168 10^3/uL (130-400); RED BLOOD COUNT 2.59 10^6/uL (4.35-5.85); WHITE BLOOD COUNT 2.2 10^3/uL (4.3-11.0)
[2018-01-18 09:10] LABS: ALANINE AMINOTRANSFERASE 11 U/L (0-55); ALBUMIN 3.3 GM/DL (3.2-4.5); ALKALINE PHOSPHATASE 87 U/L (40-136); BILIRUBIN,TOTAL 0.3 MG/DL (0.1-1.0); BUN/CREATININE RATIO 33; CALCIUM 9.2 MG/DL (8.5-10.1); CARBON DIOXIDE 24 MMOL/L (21-32); CHLORIDE 104 MMOL/L (98-107); CREATININE SERUM 0.81 MG/DL (0.60-1.30); GFR ESTIMATED > 60; GLUCOSE 184 MG/DL (70-105); POTASSIUM 4.3 MMOL/L (3.6-5.0); SODIUM 134 MMOL/L (135-145); TOTAL PROTEIN 6.3 GM/DL (6.4-8.2)
[2018-01-25 10:29] LABS: BASOPHILS % (AUTO) 0 % (0-10); EOSINOPHILS % (AUTO) 1 % (0-10); HEMATOCRIT 27 % (35-52); HEMOGLOBIN 8.7 G/DL (11.5-16.0); LYMPHOCYTES # (AUTO) 1.1 X 10^3 (1.0-4.0); LYMPHOCYTES % (AUTO) 35 % (12-44); MEAN CORPUSCULAR HEMOGLOBIN 33 PG (25-34); MEAN CORPUSCULAR HGB CONC 32 G/DL (32-36); MEAN CORPUSCULAR VOLUME 104 FL (80-99); MEAN PLATELET VOLUME 9.6 FL (7.4-10.4); MONOCYTES # (AUTO) 0.6 X 10^3 (0.0-1.0); MONOCYTES % (AUTO) 18 % (0-12); NEUTROPHILS # (AUTO) 1.4 X 10^3 (1.8-7.8); NEUTROPHILS % (AUTO) 46 % (42-75); PLATELET COUNT 208 10^3/uL (130-400); RED BLOOD COUNT 2.62 10^6/uL (4.35-5.85); RED CELL DISTRIBUTION WIDTH 18.4 % (10.0-14.5); WHITE BLOOD COUNT 3.1 10^3/uL (4.3-11.0)
[2018-01-25 10:43] LABS: BUN/CREATININE RATIO 27; CALCIUM 9.5 MG/DL (8.5-10.1); CARBON DIOXIDE 25 MMOL/L (21-32); CHLORIDE 103 MMOL/L (98-107); CREATININE SERUM 0.88 MG/DL (0.60-1.30); GFR ESTIMATED > 60; GLUCOSE 150 MG/DL (70-105); POTASSIUM 4.1 MMOL/L (3.6-5.0); SODIUM 136 MMOL/L (135-145)
[2018-02-01 08:15] LABS: BASOPHILS % (AUTO) 0 % (0-10); EOSINOPHILS % (AUTO) 1 % (0-10); HEMATOCRIT 26 % (35-52); HEMOGLOBIN 8.5 G/DL (11.5-16.0); LYMPHOCYTES # (AUTO) 0.8 X 10^3 (1.0-4.0); LYMPHOCYTES % (AUTO) 15 % (12-44); MEAN CORPUSCULAR HEMOGLOBIN 35 PG (25-34); MEAN CORPUSCULAR HGB CONC 33 G/DL (32-36); MEAN CORPUSCULAR VOLUME 107 FL (80-99); MEAN PLATELET VOLUME 9.4 FL (7.4-10.4); MONOCYTES # (AUTO) 0.8 X 10^3 (0.0-1.0); MONOCYTES % (AUTO) 15 % (0-12); NEUTROPHILS # (AUTO) 3.5 X 10^3 (1.8-7.8); NEUTROPHILS % (AUTO) 69 % (42-75); PLATELET COUNT 369 10^3/uL (130-400); RED BLOOD COUNT 2.41 10^6/uL (4.35-5.85); RED CELL DISTRIBUTION WIDTH 19.5 % (10.0-14.5); WHITE BLOOD COUNT 5.1 10^3/uL (4.3-11.0)
[2018-02-01 08:33] LABS: ALANINE AMINOTRANSFERASE 9 U/L (0-55); ALBUMIN 3.2 GM/DL (3.2-4.5); ALKALINE PHOSPHATASE 89 U/L (40-136); BILIRUBIN,TOTAL 0.2 MG/DL (0.1-1.0); BUN/CREATININE RATIO 33; CALCIUM 9.1 MG/DL (8.5-10.1); CARBON DIOXIDE 19 MMOL/L (21-32); CHLORIDE 104 MMOL/L (98-107); CREATININE SERUM 0.79 MG/DL (0.60-1.30); GFR ESTIMATED > 60; GLUCOSE 182 MG/DL (70-105); MAGNESIUM 2.1 MG/DL (1.8-2.4); POTASSIUM 4.5 MMOL/L (3.6-5.0); SODIUM 133 MMOL/L (135-145); TOTAL PROTEIN 6.5 GM/DL (6.4-8.2)
[2018-02-08 11:31] LABS: BASOPHILS % (AUTO) 1 % (0-10); EOSINOPHILS % (AUTO) 1 % (0-10); HEMATOCRIT 28 % (35-52); HEMOGLOBIN 9.2 G/DL (11.5-16.0); LYMPHOCYTES # (AUTO) 0.7 X 10^3 (1.0-4.0); LYMPHOCYTES % (AUTO) 33 % (12-44); MEAN CORPUSCULAR HEMOGLOBIN 34 PG (25-34); MEAN CORPUSCULAR HGB CONC 33 G/DL (32-36); MEAN CORPUSCULAR VOLUME 104 FL (80-99); MONOCYTES % (AUTO) 1 % (0-12); NEUTROPHILS # (AUTO) 1.4 X 10^3 (1.8-7.8); NEUTROPHILS % (AUTO) 66 % (42-75); PLATELET COUNT 145 10^3/uL (130-400); RED BLOOD COUNT 2.73 10^6/uL (4.35-5.85); RED CELL DISTRIBUTION WIDTH 17.4 % (10.0-14.5); WHITE BLOOD COUNT 2.1 10^3/uL (4.3-11.0)
[2018-02-08 11:50] LABS: BUN/CREATININE RATIO 27; CALCIUM 9.1 MG/DL (8.5-10.1); CARBON DIOXIDE 24 MMOL/L (21-32); CHLORIDE 102 MMOL/L (98-107); CREATININE SERUM 0.84 MG/DL (0.60-1.30); GFR ESTIMATED > 60; GLUCOSE 168 MG/DL (70-105); POTASSIUM 4.4 MMOL/L (3.6-5.0); SODIUM 134 MMOL/L (135-145)
[2018-02-15 07:57] LABS: BASOPHILS % (AUTO) 0 % (0-10); EOSINOPHILS % (AUTO) 2 % (0-10); HEMATOCRIT 26 % (35-52); HEMOGLOBIN 8.5 G/DL (11.5-16.0); LYMPHOCYTES # (AUTO) 0.8 X 10^3 (1.0-4.0); LYMPHOCYTES % (AUTO) 40 % (12-44); MEAN CORPUSCULAR HEMOGLOBIN 35 PG (25-34); MEAN CORPUSCULAR HGB CONC 33 G/DL (32-36); MEAN CORPUSCULAR VOLUME 105 FL (80-99); MEAN PLATELET VOLUME 10.2 FL (7.4-10.4); MONOCYTES # (AUTO) 0.3 X 10^3 (0.0-1.0); MONOCYTES % (AUTO) 16 % (0-12); NEUTROPHILS # (AUTO) 0.8 X 10^3 (1.8-7.8); NEUTROPHILS % (AUTO) 42 % (42-75); PLATELET COUNT 126 10^3/uL (130-400); RED BLOOD COUNT 2.45 10^6/uL (4.35-5.85); RED CELL DISTRIBUTION WIDTH 18.4 % (10.0-14.5)
[2018-02-15 08:13] LABS: CALCIUM 9.2 MG/DL (8.5-10.1); CREATININE SERUM 0.95 MG/DL (0.60-1.30); POTASSIUM 4.4 MMOL/L (3.6-5.0)
[2018-02-22 10:16] LABS: BASOPHILS % (AUTO) 0 % (0-10); EOSINOPHILS % (AUTO) 1 % (0-10); HEMATOCRIT 26 % (35-52); HEMOGLOBIN 8.6 G/DL (11.5-16.0); LYMPHOCYTES % (AUTO) 29 % (12-44); MEAN CORPUSCULAR HEMOGLOBIN 36 PG (25-34); MEAN CORPUSCULAR HGB CONC 33 G/DL (32-36); MEAN CORPUSCULAR VOLUME 109 FL (80-99); MEAN PLATELET VOLUME 9.6 FL (7.4-10.4); MONOCYTES # (AUTO) 0.6 X 10^3 (0.0-1.0); MONOCYTES % (AUTO) 16 % (0-12); NEUTROPHILS % (AUTO) 55 % (42-75); PLATELET COUNT 275 10^3/uL (130-400); RED BLOOD COUNT 2.42 10^6/uL (4.35-5.85); WHITE BLOOD COUNT 3.6 10^3/uL (4.3-11.0)
[2018-02-22 10:35] LABS: ALANINE AMINOTRANSFERASE 10 U/L (0-55); ALBUMIN 3.1 GM/DL (3.2-4.5); ALKALINE PHOSPHATASE 99 U/L (40-136); BILIRUBIN,TOTAL 0.2 MG/DL (0.1-1.0); BUN/CREATININE RATIO 26; CARBON DIOXIDE 21 MMOL/L (21-32); CHLORIDE 105 MMOL/L (98-107); CREATININE SERUM 0.86 MG/DL (0.60-1.30); GFR ESTIMATED > 60; GLUCOSE 119 MG/DL (70-105); MAGNESIUM 2.2 MG/DL (1.8-2.4); POTASSIUM 4.3 MMOL/L (3.6-5.0); SODIUM 134 MMOL/L (135-145); TOTAL PROTEIN 6.2 GM/DL (6.4-8.2)
[~2018-03-02] VITALS: Ht 170.2 cm; Wt 83.0 kg
[~2018-03-02 08:35] MED LIST changes: +CARBOPLATIN IV SCH; +CISPLATIN IV SCH; +CYANOCOBALAMIN INJ 1000 MCG/ML (CANCER CENTER) ONE; +D5W IV SCH; +FOSAPREPITANT DIMEGLUMINE 150 MG in NS (IVPB) CANCER CENTER ONLY 150 ML IV PRN; +FOSAPREPITANT DIMEGLUMINE 150 MG in NS (IVPB) CANCER CENTER ONLY 150 ML IV SCH; +MAGNESIUM SULFATE IV SCH; +MANNITOL IV SCH; +NS IV 1000 ML (CANCER CTR) IV SCH; +NS IV SCH; +PALONOSETRON HCL 0.25 MG, DEXAMETHASONE INJECTION 10 MG in NS (IVPB) CANCER CENTER 50 ML IV SCH; +PEMETREXED DISODIUM IV SCH; -RECEIVED CONTRAST (Hold Metformin) IV SCH; +[UNRECOGNIZED DRUG - OTHER] IV SCH
[2018-03-02 08:50] LABS: BASOPHILS % (AUTO) 0 % (0-10); EOSINOPHILS % (AUTO) 0 % (0-10); HEMATOCRIT 27 % (35-52); HEMOGLOBIN 8.8 G/DL (11.5-16.0); LYMPHOCYTES # (AUTO) 0.5 X 10^3 (1.0-4.0); LYMPHOCYTES % (AUTO) 19 % (12-44); MEAN CORPUSCULAR HEMOGLOBIN 35 PG (25-34); MEAN CORPUSCULAR HGB CONC 32 G/DL (32-36); MEAN CORPUSCULAR VOLUME 108 FL (80-99); MEAN PLATELET VOLUME 9.6 FL (7.4-10.4); MONOCYTES % (AUTO) 1 % (0-12); NEUTROPHILS # (AUTO) 2.2 X 10^3 (1.8-7.8); NEUTROPHILS % (AUTO) 78 % (42-75); PLATELET COUNT 181 10^3/uL (130-400); RED BLOOD COUNT 2.52 10^6/uL (4.35-5.85); RED CELL DISTRIBUTION WIDTH 18.1 % (10.0-14.5); WHITE BLOOD COUNT 2.8 10^3/uL (4.3-11.0)
[2018-03-02 09:11] LABS: BUN/CREATININE RATIO 29; CALCIUM 8.5 MG/DL (8.5-10.1); CARBON DIOXIDE 21 MMOL/L (21-32); CHLORIDE 102 MMOL/L (98-107); CREATININE SERUM 0.86 MG/DL (0.60-1.30); GFR ESTIMATED > 60; GLUCOSE 169 MG/DL (70-105); POTASSIUM 4.5 MMOL/L (3.6-5.0); SODIUM 133 MMOL/L (135-145)
== END 2018-03-06 11:10 | disposition home or self-care (01) ==
LOC: ONC 08:35
PROVIDERS: ATTEND Internal Medicine Hematology & Oncology
DX: Z51.11 Encounter for antineoplastic chemotherapy (principal); C34.11 Malignant neoplasm of upper lobe, right bronchus or lung; J44.9 Chronic obstructive pulmonary disease, unspecified; G47.33 Obstructive sleep apnea (adult) (pediatric); F17.210 Nicotine dependence, cigarettes, uncomplicated; K21.9 Gastro-esophageal reflux disease without esophagitis; Z95.820 Peripheral vascular angioplasty status with implants and grafts; Z79.84 Long term (current) use of oral hypoglycemic drugs; Z79.899 Other long term (current) drug therapy; C79.9 Secondary malignant neoplasm of unspecified site; E11.9 Type 2 diabetes mellitus without complications; I67.82 Cerebral ischemia; R91.8 Other nonspecific abnormal finding of lung field; I10 Essential (primary) hypertension; D64.9 Anemia, unspecified; R07.9 Chest pain, unspecified; Z79.82 Long term (current) use of aspirin
CPT/HCPCS: 36415; 36591; 80048; 80053; 83735; 85025; 96367; 96372; 96375; 96411; 96413

== ENCOUNTER 2018-03-10 00:51 | Emergency (ER) | payer MEDICARE, MEDICAID, OTHER | END 2018-03-10 04:43 | disposition short-term general hospital (02) | LOC: ER 00:51 ==

== ENCOUNTER 2018-03-23 08:40 | Emergency (ER) | payer MEDICARE, MEDICAID ==
[~2018-03-23] VITALS: Ht 170.2 cm; Wt 90.7 kg
[~2018-03-23 08:40] MED LIST changes: -CARBOPLATIN IV SCH; -CISPLATIN IV SCH; -CYANOCOBALAMIN INJ 1000 MCG/ML (CANCER CENTER) ONE; -D5W IV SCH; -FOSAPREPITANT DIMEGLUMINE 150 MG in NS (IVPB) CANCER CENTER ONLY 150 ML IV PRN; -FOSAPREPITANT DIMEGLUMINE 150 MG in NS (IVPB) CANCER CENTER ONLY 150 ML IV SCH; -MAGNESIUM SULFATE IV SCH; -MANNITOL IV SCH; -NS IV 1000 ML (CANCER CTR) IV SCH; -NS IV SCH; -PALONOSETRON HCL 0.25 MG, DEXAMETHASONE INJECTION 10 MG in NS (IVPB) CANCER CENTER 50 ML IV SCH; -PEMETREXED DISODIUM IV SCH; -[UNRECOGNIZED DRUG - OTHER] IV SCH
[2018-03-23 09:17] LABS: BASOPHILS % (AUTO) 0 % (0-10); EOSINOPHILS % (AUTO) 0 % (0-10); HEMATOCRIT 28 % (35-52); HEMOGLOBIN 8.6 G/DL (11.5-16.0); LYMPHOCYTES # (AUTO) 1.2 X 10^3 (1.0-4.0); LYMPHOCYTES % (AUTO) 12 % (12-44); MEAN CORPUSCULAR HEMOGLOBIN 34 PG (25-34); MEAN CORPUSCULAR HGB CONC 31 G/DL (32-36); MEAN CORPUSCULAR VOLUME 110 FL (80-99); MEAN PLATELET VOLUME 10.2 FL (7.4-10.4); MONOCYTES % (AUTO) 10 % (0-12); NEUTROPHILS # (AUTO) 8.3 X 10^3 (1.8-7.8); NEUTROPHILS % (AUTO) 79 % (42-75); PLATELET COUNT 172 10^3/uL (130-400); RED BLOOD COUNT 2.51 10^6/uL (4.35-5.85); RED CELL DISTRIBUTION WIDTH 19.5 % (10.0-14.5); WHITE BLOOD COUNT 10.5 10^3/uL (4.3-11.0)
[2018-03-23 09:40] LABS: BILIRUBIN,TOTAL 0.2 MG/DL (0.1-1.0); CALCIUM 8.7 MG/DL (8.5-10.1); CREATININE SERUM 0.99 MG/DL (0.60-1.30); POTASSIUM 3.9 MMOL/L (3.6-5.0); TOTAL PROTEIN 5.8 GM/DL (6.4-8.2)
[2018-03-23 09:47] LABS: MYOGLOBIN SERUM 101.3 NG/ML (10.0-92.0)
--- NOTE | 2018-03-23 09:50 | Diagnostic Imaging Report ---
INDICATION: Increasing shortness of air. TIME OF EXAM: 9:25 AM Correlation is made with prior study 03/10/2018. FINDINGS: Left chest wall port remains in place. Mass in the right perihilar region appears to be fairly stable. There has been improved aeration in the right perihilar region and both bases since the exam from 03/10/2018. Remainder of lung maradiaga are clear. No effusion or pneumothorax is seen. IMPRESSION: Improved aeration of both lungs when compared with study from 03/10/2018. Right perihilar mass again noted. No new abnormality is seen. Dictated by: Dictated on workstation # [id number]
--- NOTE | 2018-03-23 09:56 | ED General ---
General Chief Complaint: Respiratory Problems Stated Complaint: SOB Nursing Triage Note: PT PRESENTS TO ED VIA PRIVATE VEHICLE ACCOMPANIED BY FAMILY WITH COMPLAINTS OF INCREASING SOA X 3 DAYS. PT WAS RELEASED FROM [facility] Nursing Sepsis Screen: No Definite Risk Source of Information: Patient Exam Limitations: No Limitations History of Present Illness Date Seen by Provider: Mar 23, 2018 Time Seen by Provider: 08:45 Initial Comments Here with report of increasing shortness of breath over the last couple days. She was just discharged from [facility] in [place] last week for pneumonia and CHF exacerbation. Apparently she is having some periods where she is confused. Ultimately after discussing with the patient and family she has been taking Xanax and it appears that it is after that that she gets somnolent and confused. No fevers reported. Does have some increasing shortness of air. Reports taking her meds as directed. Timing/Duration: 2-3 Days Severity: Mild, Moderate Associated Systoms: No Chest Pain, No Fever/Chills, No Nausea/Vomiting; Shortness of Air, Weakness Allergies and Home Medications Allergies Coded Allergies: azithromycin (Verified Allergy, Unknown, 09/28/17) codeine (Verified Allergy, Unknown, 09/28/17) latex (Verified Allergy, Unknown, 09/28/17) Home Medications Cyclobenzaprine HCl 10 Mg Tablet, 10 MG PO TID, (Reported) Folic Acid 1 Mg Tablet, 1 MG PO DAILY, (Reported) Morphine Sulfate 15 Mg Tablet, 15 MG PO QID PRN for BREAKTHROUGH PAIN, (Reported ) Morphine Sulfate 15 Mg Tablet.er, 15 MG PO TID, (Reported) Multivit-Min/FA/Lycopene/Lut 1 Each Tablet, 1 TAB PO DAILY, (Reported) Ondansetron HCl 8 Mg Tablet, 8 MG PO TID PRN for NAUSEA/VOMITING-1ST LINE, ( Reported) Pantoprazole Sodium 40 Mg Tablet.dr, 40 MG PO HS, (Reported) Polyethylene Glycol 3350 255 Gm Powder, 17 GM PO HS, (Reported) Vitamin B Complex 1 Each Capsule, 1 CAP PO DAILY, (Reported) Patient Home Medication List Home Medication List Reviewed: Yes Review of Systems Review of Systems Constitutional: see HPI; No chills, No fever EENTM: no symptoms reported Respiratory: see HPI, dyspnea on exertion; No wheezing Cardiovascular: edema; No palpitations Gastrointestinal: No abdominal pain, No nausea, No vomiting Genitourinary: No dysuria, No pain : No Musculoskeletal: no symptoms reported Skin: no symptoms reported Psychiatric/Neurological: See HPI All Other Systems Reviewed Negative Unless Noted: Yes Past Eukjuja-Bayypq-Evalyb Hx Past Med/Social Hx: Reviewed Nursing Past Med/Soc Hx Patient Social History Alcohol Use: Denies Use Recreational Drug Use: No Smoking Status: Current Everyday Smoker Type Used: Cigarettes 2nd Hand Smoke Exposure: Yes Recent Foreign Travel: No Contact w/Someone Who Travel: No Recent Infectious Disease Expo: No Recent Hopitalizations: Yes (UTI, SEPSIS) Physical Abuse: No Sexual Abuse: No Mistreated: No Fear: No Immunizations Up To Date Date of Pneumonia Vaccine: Dec 05, 2014 Seasonal Allergies Seasonal Allergies: No Past Medical History Surgeries: Yes (BACK, STENT IN LEG, PORT PLACED, LUNG BIOPSY) Tubal Ligation Respiratory: Yes (STAGE 4 LUNG CA) Sleep Apnea, COPD Currently Using CPAP: No Cardiac: Yes Hypertension, Peripheral Vascular Neurological: No Reproductive Disorders: No Sexually Transmitted Disease: No HIV/AIDS: No Genitourinary: No Gastrointestinal: Yes Chronic Constipation Musculoskeletal: Yes (HX FX BACK, SPONDYLESIS) Chronic Back Pain Endocrine: Yes Diabetes, Non-Insulin dep HEENT: No Loss of Vision: Denies Hearing Impairment: Denies Cancer: Yes (DX W/LUNG CA JULY OR AUGUST 2017) Lung What Type of Treatment Did You: Chemotherapy, Radiation Psychosocial: No Integumentary: No Blood Disorders: Yes (ANEMIA) Adverse Reaction/Blood Tranf: No (N/A) Family Medical History Reviewed Nursing Family Hx Diabetes mellitus 19 FATHER G8 BROTHER FHx: heart disease 19 FATHER G8 BROTHER Kidney disease G8 BROTHER Seizure disorder 19 MOTHER TIAs 19 MOTHER No Pertinent Family Hx Physical Exam Vital Signs Vital Signs - First Documented 03/23/18 08:45 Temp 97.9 Pulse 98 Resp 18 B/P (MAP) 160/90 (113) Pulse Ox 98 O2 Delivery Nasal Cannula O2 Flow Rate 2.00 Capillary Refill : Less Than 3 Seconds Height, Weight, BMI Height: 5'7.00" Weight: 200lbs. 11.2oz. [id number]; 26.0 BMI Method:Stated General Appearance: No Apparent Distress, WD/WN HEENT: PERRL/EOMI, Pharynx Normal Neck: Non Tender, Supple Respiratory: No Respiratory Distress, Crackles (few bibasilar crackles) Cardiovascular: No Murmur, Tachycardia Gastrointestinal: Non Tender, Soft Back: Normal Inspection, No CVA Tenderness, No Vertebral Tenderness Extremity: Normal Range of Motion, Non Tender, Pedal Edema (2+ bilaterally with left greater than right to the lower extremities) Neurologic/Psychiatric: Alert, Oriented x3 Skin: Normal Color, Warm/Dry Focused Exam Lactate Level 03/23/18 09:07: Lactic Acid Level 1.45 Lactic Acid Level Laboratory Tests Test 03/23/18 09:07 Lactic Acid Level 1.45 MMOL/L (0.50-2.00) Progress/Results/Core Measures Suspected Sepsis Recent Fever Within 48 Hours: No Infection Criteria Present: Suspected New Infection New/Unexplained Altered Menta: No Sepsis Screen: No Definite Risk SIRS Temperature:97.9 Pulse: 98 Respiratory Rate: 18 Laboratory Tests 03/23/18 09:07: White Blood Count 10.5 Blood Pressure 160 /90 Mean: 113 03/23/18 09:07: Lactic Acid Level 1.45 Laboratory Tests 03/23/18 09:07: Creatinine 0.99, Platelet Count 172, Total Bilirubin 0.2 Results/Orders Lab Results Laboratory Tests Test 03/23/18 09:07 03/23/18 09:50 Range/Units White Blood Count 10.5 4.3-11.0 10^3/uL Red Blood Count 2.51 L 4.35-5.85 10^6/uL Hemoglobin 8.6 L 11.5-16.0 G/DL Hematocrit 28 L 35-52 % Mean Corpuscular Volume 110 H 80-99 FL Mean Corpuscular Hemoglobin 34 25-34 PG Mean Corpuscular Hemoglobin Concent 31 L 32-36 G/DL Red Cell Distribution Width 19.5 H 10.0-14.5 % Platelet Count 172 130-400 10^3/uL Mean Platelet Volume 10.2 7.4-10.4 FL Neutrophils (%) (Auto) 79 H 42-75 % Lymphocytes (%) (Auto) 12 12-44 % Monocytes (%) (Auto) 10 0-12 % Eosinophils (%) (Auto) 0 0-10 % Basophils (%) (Auto) 0 0-10 % Neutrophils # (Auto) 8.3 H 1.8-7.8 X 10^3 Lymphocytes # (Auto) 1.2 1.0-4.0 X 10^3 Monocytes # (Auto) 1.0 0.0-1.0 X 10^3 Eosinophils # (Auto) 0.0 0.0-0.3 10^3/uL Basophils # (Auto) 0.0 0.0-0.1 10^3/uL Sodium Level 140 135-145 MMOL/L Potassium Level 3.9 3.6-5.0 MMOL/L Chloride Level 101 98-107 MMOL/L Carbon Dioxide Level 29 21-32 MMOL/L Anion Gap 10 5-14 MMOL/L Blood Urea Nitrogen 29 H 7-18 MG/DL Creatinine 0.99 0.60-1.30 MG/DL Estimat Glomerular Filtration Rate 57 BUN/Creatinine Ratio 29 Glucose Level 118 H 70-105 MG/DL Lactic Acid Level 1.45 0.50-2.00 MMOL/L Calcium Level 8.7 8.5-10.1 MG/DL Corrected Calcium 9.5 8.5-10.1 MG/DL Total Bilirubin 0.2 0.1-1.0 MG/DL Aspartate Amino Transf (AST/SGOT) 20 5-34 U/L Alanine Aminotransferase (ALT/SGPT) 8 0-55 U/L Alkaline Phosphatase 71 40-136 U/L Myoglobin 101.3 H 10.0-92.0 NG/ML Troponin I 0.035 <0.028 NG/ML C-Reactive Protein High Sensitivity 5.29 H 0.00-0.50 MG/DL B-Type Natriuretic Peptide 941.8 H <100.0 PG/ML Total Protein 5.8 L 6.4-8.2 GM/DL Albumin 3.0 L 3.2-4.5 GM/DL Urine Color YELLOW Urine Clarity CLEAR Urine pH 6 5-9 Urine Specific [place] 1.015 L 1.016-1.022 Urine Protein 3+ H NEGATIVE Urine Glucose (UA) NEGATIVE NEGATIVE Urine Ketones NEGATIVE NEGATIVE Urine Nitrite NEGATIVE NEGATIVE Urine Bilirubin NEGATIVE NEGATIVE Urine Urobilinogen NORMAL NORMAL MG/DL Urine Leukocyte Esterase NEGATIVE NEGATIVE Urine RBC (Auto) NEGATIVE NEGATIVE Urine RBC NONE /HPF Urine WBC RARE /HPF Urine Squamous Epithelial Cells 10-25 H /HPF Urine Crystals NONE /LPF Urine Bacteria NEGATIVE /HPF Urine Casts NONE /LPF Urine Mucus NEGATIVE /LPF Urine Yeast FEW H /HPF Urine Culture Indicated NO My Orders Orders - HEATH GASTON MD BNP (03/23/18 08:52) Cbc With Automated Diff (03/23/18 08:52) Comprehensive Metabolic Panel (03/23/18 08:52) Hs C Reactive Protein (03/23/18 08:52) Lactic Acid Analyzer (03/23/18 08:52) Troponin I (03/23/18 08:52) Blood Culture (03/23/18 08:52) Myoglobin Serum (03/23/18 08:52) Chest 1 View, Ap/Pa Only (03/23/18 08:52) Saline Lock/Iv-Start (03/23/18 08:52) Ekg Tracing (03/23/18 08:52) O2 (03/23/18 08:52) Monitor-Rhythm Ecg Trace Only (03/23/18 08:52) Urinalysis (03/23/18 09:50) Furosemide Injection (Lasix Injection) (03/23/18 11:55) Vital Signs/I&O 03/23/18 03/23/18 08:45 08:58 Temp 97.9 Pulse 98 Resp 18 B/P (MAP) 160/90 (113) Pulse Ox 98 98 O2 Delivery Nasal Cannula Nasal Cannula O2 Flow Rate 2.00 2.00 Capillary Refill : Less Than 3 Seconds Blood Pressure Mean: 113 Progress Note : Progress Note Seen and evaluated. IV, labs, EKG and chest x-ray ordered. Patient placed on oxygen. Overall improved quite well during the ER stay. Did note heart failure findings although improved from previous. Lasix 40 mg IV ordered. I did discuss with the patient about her outpatient medicines and we will increase her Lasix to twice a day for 3 days and have her follow-up with her doctor. Overall much improved. She will also decrease her alprazolam to half dose if needed. Discharged home with return precautions. Patient verbalize understanding instructions and agreement with plan. ECG Initial ECG Impression Date: Mar 23, 2018 Initial ECG Impression Time: 08:46 Initial ECG Rate: 99 Initial ECG Rhythm: S.Tach Comment Sinus tachycardia with right bundle branch block and left anterior fascicular block. LVH noted. Left axis deviation. No evidence of ST elevation [place]. No previous available for comparison. Interpreted by me. Diagnostic Imaging Diagonstic Imaging: Xray Plain Films/CT/US/NM/MRI: chest Comments [facility]. [place], [place] NAME: JAYLAN CARRILLO [facility] REC#: [id number] PT STATUS: REG ER : 1955 PHYSICIAN: HEATH GASTON MD ADMIT DATE: 03/23/18/ER Draft Date of Exam:03/23/18 CHEST 1 VIEW, AP/PA ONLY INDICATION: Increasing shortness of air. TIME OF EXAM: 9:25 AM Correlation is made with prior study 03/10/2018. FINDINGS: Left chest wall port remains in place. Mass in the right perihilar region appears to be fairly stable. There has been improved aeration in the right perihilar region and both bases since the exam from 03/10/2018. Remainder of lung maradiaga are clear. No effusion or pneumothorax is seen. IMPRESSION: Improved aeration of both lungs when compared with study from 03/10/2018. Right perihilar mass again noted. No new abnormality is seen. Dictated on workstation # [id number] Dict: 03/23/18 0944 Trans: 03/23/18 0949 [id number] Interpreted by: DOMI KHAN MD Electronically signed by: Departure Impression Primary Impression: Heart failure, chronic, with acute decompensation Qualified Codes: I50.9 - Heart failure, unspecified Disposition: 01 HOME, SELF-CARE Condition: Improved Departure-Patient Inst. Decision time for Depature: 12:20 Referrals: [facility] (PCP/Family) Primary Care Physician Patient Instructions: CHF Add. Discharge Instructions: All discharge instructions reviewed with patient and/or family. Voiced understanding. You should take your Lasix twice daily for 3 days and then back to once daily thereafter. Follow-up with your doctor tomorrow or on Tuesday for recheck and further evaluation. You should also decrease the Xanax (alprazolam) to one half tablet as needed for anxiety. This will likely reduce the drowsiness and weakness associated with that. Return for worse pain, fever, vomiting, weakness , breathing problems or other concerns as needed. HEATH GASTON MD Mar 23, 2018 09:56
[2018-03-23 10:18] LABS: BACTERIA,URINE NEGATIVE /HPF; BILIRUBIN,URINE NEGATIVE (NEGATIVE); CLARITY,URINE CLEAR; COLOR,URINE YELLOW; GLUCOSE, URINE (UA) NEGATIVE (NEGATIVE); KETONES,URINE NEGATIVE (NEGATIVE); LEUKOCYTE ESTERASE ,URINE NEGATIVE (NEGATIVE); NITRITE,URINE NEGATIVE (NEGATIVE); PH,URINE 6 (5-9); PROTEIN,URINE 3+ (NEGATIVE); UROBILINOGEN,URINE NORMAL (NORMAL); WBC,URINE RARE /HPF; YEAST,URINE FEW /HPF
[2018-03-23] MEDS ORDERED: FUROSEMIDE 40 MG/4 ML INJ (LASIX) IV STA (11:55)
[2018-03-23 12:35] VITALS: BP 161/103
== END 2018-03-23 12:35 | disposition home or self-care (01) ==
LOC: EDUNIT# 08:40 → ER 08:42
DX: I11.0 Hypertensive heart disease with heart failure (principal); I50.9 Heart failure, unspecified; G47.30 Sleep apnea, unspecified; J44.9 Chronic obstructive pulmonary disease, unspecified; E11.9 Type 2 diabetes mellitus without complications; I73.9 Peripheral vascular disease, unspecified; D64.9 Anemia, unspecified; F17.210 Nicotine dependence, cigarettes, uncomplicated; Z87.19 Personal history of other diseases of the digestive system; Z95.820 Peripheral vascular angioplasty status with implants and grafts; Z98.51 Tubal ligation status; Z82.49 Family history of ischemic heart disease and other diseases of the circulatory system; Z80.1 Family history of malignant neoplasm of trachea, bronchus and lung; Z92.21 Personal history of antineoplastic chemotherapy; Z87.01 Personal history of pneumonia (recurrent); Z88.5 Allergy status to narcotic agent; Z88.0 Allergy status to penicillin; Z91.040 Latex allergy status
CPT/HCPCS: 36415; 71045; 80053; 81000; 83605; 83874; 83880; 84484; 85025; 86141; 87040; 93005; 93041

== ENCOUNTER 2018-04-14 07:35 | Inpatient (IN) | payer MEDICAID, MEDICARE ==
[~2018-04-14] VITALS: Ht 170.2 cm; Wt 85.3 kg
--- NOTE | 2018-04-14 07:48 | ED Respiratory ---
General Stated Complaint: HYPERTENSION/SOA Source: patient, EMS Exam Limitations: no limitations History of Present Illness Date Seen by Provider: Apr 14, 2018 Time Seen by Provider: 07:43 Initial Comments This 63-year-old white female presents with increasing shortness of breath for last several days much worse this morning precipitating EMS presentation at her home. Patient has stage IV lung cancer. She is on steroids and has a history of COPD. The patient has had no associated fever, chills, chest pain, palpitations, associated headache or stiff neck, nausea vomiting or diarrhea. Patient was treated in route with 2 nebulizer treatments with improvement of her sat from the low to high 90s on supplemental oxygen. Allergies and Home Medications Allergies Coded Allergies: azithromycin (Verified Allergy, Unknown, 09/28/17) codeine (Verified Allergy, Unknown, 09/28/17) latex (Verified Allergy, Unknown, 09/28/17) Home Medications Cyclobenzaprine HCl 10 Mg Tablet, 10 MG PO TID, (Reported) Folic Acid 1 Mg Tablet, 1 MG PO DAILY, (Reported) Morphine Sulfate 15 Mg Tablet, 15 MG PO QID PRN for BREAKTHROUGH PAIN, (Reported ) Morphine Sulfate 15 Mg Tablet.er, 15 MG PO TID, (Reported) Multivit-Min/FA/Lycopene/Lut 1 Each Tablet, 1 TAB PO DAILY, (Reported) Ondansetron HCl 8 Mg Tablet, 8 MG PO TID PRN for NAUSEA/VOMITING-1ST LINE, ( Reported) Pantoprazole Sodium 40 Mg Tablet.dr, 40 MG PO HS, (Reported) Polyethylene Glycol 3350 255 Gm Powder, 17 GM PO HS, (Reported) Vitamin B Complex 1 Each Capsule, 1 CAP PO DAILY, (Reported) Patient Home Medication List Home Medication List Reviewed: Yes Review of Systems Review of Systems Constitutional: No chills, No fever EENTM: see HPI Respiratory: see HPI, cough, short of breath Cardiovascular: No chest pain, No palpitations Gastrointestinal: No abdominal pain, No diarrhea, No nausea Genitourinary: no symptoms reported : No Musculoskeletal: no symptoms reported Skin: no symptoms reported Psychiatric/Neurological: Anxiety Hematologic/Lymphatic: No Symptoms Reported Immunological/Allergic: no symptoms reported Past Smqqvfc-Piicaf-Yecvkz Hx Past Med/Social Hx: Reviewed Nursing Past Med/Soc Hx Patient Social History Type Used: Cigarettes 2nd Hand Smoke Exposure: Yes Recent Hopitalizations: Yes (UTI, SEPSIS) Immunizations Up To Date Date of Pneumonia Vaccine: Dec 05, 2014 Seasonal Allergies Seasonal Allergies: No Past Medical History Surgeries: Yes (BACK, STENT IN LEG, PORT PLACED, LUNG BIOPSY) Tubal Ligation Respiratory: Yes (STAGE 4 LUNG CA) Sleep Apnea, COPD Currently Using CPAP: No Cardiac: Yes Hypertension, Peripheral Vascular Neurological: No Reproductive Disorders: No Sexually Transmitted Disease: No HIV/AIDS: No Genitourinary: No Gastrointestinal: Yes Chronic Constipation Musculoskeletal: Yes (HX FX BACK, SPONDYLESIS) Chronic Back Pain Endocrine: Yes Diabetes, Non-Insulin dep HEENT: No Loss of Vision: Denies Hearing Impairment: Denies Cancer: Yes (DX W/LUNG CA JULY OR AUGUST 2017) Lung What Type of Treatment Did You: Chemotherapy, Radiation Psychosocial: No Integumentary: No Blood Disorders: Yes (ANEMIA) Adverse Reaction/Blood Tranf: No (N/A) Family Medical History Diabetes mellitus 19 FATHER G8 BROTHER FHx: heart disease 19 FATHER G8 BROTHER Kidney disease G8 BROTHER Seizure disorder 19 MOTHER TIAs 19 MOTHER No Pertinent Family Hx Physical Exam Vital Signs - First Documented 04/14/18 07:35 Temp 96.0 Pulse 121 Resp 24 B/P (MAP) 188/105 (132) Pulse Ox 99 O2 Delivery Simple Mask Capillary Refill : Height: 5'7.00" Weight: 200lbs. 11.2oz. 90.693831dc; 26.0 BMI Method:Stated General Appearance: mild distress, moderate distress Eyes: Bilateral Eye Normal Inspection HEENT: normal ENT inspection Neck: full range of motion, supple Respiratory: decreased breath sounds Cardiovascular: regular rate, rhythm Gastrointestinal: normal bowel sounds, non tender Extremities: normal range of motion, non-tender Neurologic/Psychiatric: no motor/sensory deficits, alert, normal mood/affect, oriented x 3 Skin: normal color, warm/dry Focused Exam Lactate Level 04/14/18 07:45: Lactic Acid Level 1.58 Lactic Acid Level Laboratory Tests Test 04/14/18 07:45 Lactic Acid Level 1.58 MMOL/L (0.50-2.00) Progress/Results/Core Measures Suspected Sepsis SIRS Temperature: Pulse: Respiratory Rate: Laboratory Tests 04/14/18 07:45: White Blood Count 13.4H Blood Pressure / Mean: 04/14/18 07:45: Lactic Acid Level 1.58 Laboratory Tests 04/14/18 07:45: Creatinine 0.96, Platelet Count 245, Total Bilirubin 0.2 Results/Orders Lab Results Laboratory Tests Test 04/14/18 07:45 Range/Units White Blood Count 13.4 H 4.3-11.0 10^3/uL Red Blood Count 3.06 L 4.35-5.85 10^6/uL Hemoglobin 9.9 L 11.5-16.0 G/DL Hematocrit 32 L 35-52 % Mean Corpuscular Volume 105 H 80-99 FL Mean Corpuscular Hemoglobin 32 25-34 PG Mean Corpuscular Hemoglobin Concent 31 L 32-36 G/DL Red Cell Distribution Width 16.3 H 10.0-14.5 % Platelet Count 245 130-400 10^3/uL Mean Platelet Volume 10.1 7.4-10.4 FL Neutrophils (%) (Auto) 86 H 42-75 % Lymphocytes (%) (Auto) 7 L 12-44 % Monocytes (%) (Auto) 8 0-12 % Eosinophils (%) (Auto) 0 0-10 % Basophils (%) (Auto) 0 0-10 % Neutrophils # (Auto) 11.5 H 1.8-7.8 X 10^3 Lymphocytes # (Auto) 0.9 L 1.0-4.0 X 10^3 Monocytes # (Auto) 1.0 0.0-1.0 X 10^3 Eosinophils # (Auto) 0.0 0.0-0.3 10^3/uL Basophils # (Auto) 0.0 0.0-0.1 10^3/uL Neutrophils % (Manual) 85 % Lymphocytes % (Manual) 7 % Monocytes % (Manual) 8 % Eosinophils % (Manual) 0 % Basophils % (Manual) 0 % Band Neutrophils 0 % Blood Morphology Comment NORMAL Sodium Level 137 135-145 MMOL/L Potassium Level 4.9 3.6-5.0 MMOL/L Chloride Level 104 98-107 MMOL/L Carbon Dioxide Level 23 21-32 MMOL/L Anion Gap 10 5-14 MMOL/L Blood Urea Nitrogen 27 H 7-18 MG/DL Creatinine 0.96 0.60-1.30 MG/DL Estimat Glomerular Filtration Rate 59 BUN/Creatinine Ratio 28 Glucose Level 245 H 70-105 MG/DL Lactic Acid Level 1.58 0.50-2.00 MMOL/L Calcium Level 9.3 8.5-10.1 MG/DL Corrected Calcium 9.9 8.5-10.1 MG/DL Total Bilirubin 0.2 0.1-1.0 MG/DL Aspartate Amino Transf (AST/SGOT) 17 5-34 U/L Alanine Aminotransferase (ALT/SGPT) 10 0-55 U/L Alkaline Phosphatase 78 40-136 U/L Troponin I 0.036 <0.028 NG/ML Total Protein 6.7 6.4-8.2 GM/DL Albumin 3.3 3.2-4.5 GM/DL My Orders Orders - YE SWEENEY MD Cbc With Automated Diff (04/14/18 07:49) Comprehensive Metabolic Panel (04/14/18 07:49) Ua Culture If Indicated (04/14/18 07:49) Chest Pa/Lat (2 View) (04/14/18 07:49) Ekg Tracing (04/14/18 07:49) Blood Culture (04/14/18 07:49) Lactic Acid Analyzer (04/14/18 07:49) Troponin I (04/14/18 07:49) Methylprednisolone Sod Succ (Solu-Medrol (04/14/18 08:00) Manual Differential (04/14/18 07:45) Levaquin 750 Mg Iv (1x Dose) (04/14/18 09:00) Medications Given in ED Current Medications Medications Dose Ordered Sig/Breanna Route Start Time Stop Time Status Last Admin Dose Admin Methylprednisolone Sodium Succinate 125 mg ONCE ONCE IVP 04/14/18 08:00 04/14/18 08:01 DC 04/14/18 08:34 125 MG Vital Signs/I&O 04/14/18 07:35 Temp 96.0 Pulse 121 Resp 24 B/P (MAP) 188/105 (132) Pulse Ox 99 O2 Delivery Simple Mask Capillary Refill : Progress Note : Time: 08:56 Progress Note Patient's chest x-ray demonstrated a right upper lobe mass. The patient's white count was moderately elevated. Blood cultures were drawn. Patient received 125 mg #Medrol IV. After telephone consultation Dr. Gallegos patient was admitted for her hypoxia, COPD, and history of lung cancer. Patient received Levaquin 750 mg as initial dose IV. Orders written. Patient was transferred to the medical bed. Departure Communication (Admissions) Time/Spoke to Admitting Phy: 09:03 Dr. Gallegos Impression Primary Impression: COPD Additional Impressions: Hypoxia Lung mass Disposition: 01 HOME, SELF-CARE Condition: Improved Admissions Decision to Admit Reason: Admit from ER (General) Decision to Admit/Date: Apr 14, 2018 Time/Decision to Admit Time: 09:03 Departure-Patient Inst. Referrals: [facility] (PCP/Family) Primary Care Physician YE SWEENEY MD Apr 14, 2018 07:48
[2018-04-14 07:59] LABS: BASOPHILS % (AUTO) 0 % (0-10); EOSINOPHILS % (AUTO) 0 % (0-10); HEMATOCRIT 32 % (35-52); HEMOGLOBIN 9.9 G/DL (11.5-16.0); LYMPHOCYTES # (AUTO) 0.9 X 10^3 (1.0-4.0); LYMPHOCYTES % (AUTO) 7 % (12-44); MEAN CORPUSCULAR HEMOGLOBIN 32 PG (25-34); MEAN CORPUSCULAR HGB CONC 31 G/DL (32-36); MEAN CORPUSCULAR VOLUME 105 FL (80-99); MEAN PLATELET VOLUME 10.1 FL (7.4-10.4); MONOCYTES % (AUTO) 8 % (0-12); NEUTROPHILS # (AUTO) 11.5 X 10^3 (1.8-7.8); NEUTROPHILS % (AUTO) 86 % (42-75); PLATELET COUNT 245 10^3/uL (130-400); RED CELL DISTRIBUTION WIDTH 16.3 % (10.0-14.5); WHITE BLOOD COUNT 13.4 10^3/uL (4.3-11.0)
[2018-04-14] MEDS ORDERED: methylPREDNISolone 125 MG (Solu-MEDROL) VIAL IVP ONE (08:00)
[2018-04-14 08:11] LABS: ALBUMIN 3.3 GM/DL (3.2-4.5); BILIRUBIN,TOTAL 0.2 MG/DL (0.1-1.0); CALCIUM 9.3 MG/DL (8.5-10.1); CREATININE SERUM 0.96 MG/DL (0.60-1.30); POTASSIUM 4.9 MMOL/L (3.6-5.0); TOTAL PROTEIN 6.7 GM/DL (6.4-8.2)
--- NOTE | 2018-04-14 08:40 | Diagnostic Imaging Report ---
INDICATION: Shortness of air. TIME OF EXAM: 8:18 AM Comparison is made with prior chest from 03/23/2018. FINDINGS: Left chest wall port remains in place. Mass in the region of the right hilum appears stable. Right hemidiaphragm is chronically elevated. Left lung is clear. No effusion or pneumothorax is seen. IMPRESSION: Stable right hilar mass when compared with examination one month earlier. No new abnormality is seen. No acute feature is detected. Dictated by: Dictated on workstation # [id number]
--- NOTE | 2018-04-14 08:45 | NUR ---
IN TALKING TO PT AT THIS TIME.
[2018-04-14 08:54] LABS: BAND NEUTROPHILS 0 %; BASOPHILS % (MANUAL) 0 %; EOSINOPHILS % (MANUAL) 0 %; LYMPHOCYTES % (MANUAL) 7 %; MONOCYTES % (MANUAL) 8 %; NEUTROPHILS % (MANUAL) 85 %; RBC MORPH NORMAL
[2018-04-14] MEDS ORDERED: LEVOFLOXACIN 750 MG/150 ML IV 150 ML IV ONE (09:00)
--- NOTE | 2018-04-14 09:09 | NUR ---
MANAGER ACADEMIC CONTACTED FOR BED.
--- NOTE | 2018-04-14 09:17 | NUR ---
UPON TELLING PT ABOUT LEVAQUIN SHE STATES SHE DOES NOT WANT IT BECAUSE IT MAKES HER TENDONS AND BONES HURT. DR SWEENEY NOTIIFED.
[2018-04-14] MEDS ORDERED: cefTRIAXone FOR IV USE 2,000 MG in WATER (STERILE) FOR INJECTION 20 ML IV ONE (09:45)
[2018-04-14 10:29] VITALS: BP 140/97
--- NOTE | 2018-04-14 10:30 | NUR ---
JAYLAN CARRILLO admitted to room 411-1, with an admitting diagnosis of HYPOXIA, COPD, on 04/14/18 from ED via W/C, accompanied by STAFF. JAYLAN CARRILLO introduced to surroundings, call light, bed controls, phone, TV, temperature control, lights, meal times, smoking policy, visitor policy, side rail policy, bathrooms and showers. Patient Rights given to patient in the handbook. JAYLAN CARRILLO verbalizes understanding that [facility] is not responsible for the loss or damage to any personal effects or valuables that are kept in the patients posession during their hospitalization. The following Patient Care Plans were discussed with the PATIENT: Discharge Planning, ANXIETY, KNOWLEDGE, INFECTION AND ALTERED BREATHING . JAYLAN CARRILLO verbalizes understanding of Interdisciplinary Patient Education.
[2018-04-14] MEDS ORDERED: CATHETER FLUSH 10 ML SYR IV PRN (10:45)
[2018-04-14] MEDS ORDERED: RT-ALBUTEROL/IPRATROPIUM 3 ML (DUONEB) VIAL IH PRN ×2 (10:45→13:15)
[2018-04-14 10:54] VITALS: BP 140/97
[2018-04-14] MEDS: methylPREDNISolone 125 MG (Solu-MEDROL) VIAL IV SCH ×2 (11:38→21:29)
[2018-04-14] MEDS: NS IV 1000 ML 1,000 ML IV SCH (11:38)
[2018-04-14 12:00] VITALS: BP 155/79
--- NOTE | 2018-04-14 12:00 | NUR ---
DR BEST NOTIFIED OF CONSULT
[2018-04-14] MEDS: RT-ALBUTEROL/IPRATROPIUM 3 ML (DUONEB) VIAL IH SCH ×3 (13:10→19:27)
[2018-04-14] MEDS ORDERED: ONDA8TAB13 PO (13:19)
[2018-04-14] MEDS ORDERED: LISI-556 PO (13:19)
[2018-04-14] MEDS ORDERED: SIMV40TA4 PO (13:19)
[2018-04-14] MEDS ORDERED: FURO40TA4 PO (13:19)
[2018-04-14] MEDS ORDERED: NICO-588 TD (13:19)
[2018-04-14] MEDS ORDERED: FLUT16SP22 NS (13:19)
[2018-04-14] MEDS ORDERED: METO-333 PO (13:19)
[2018-04-14] MEDS ORDERED: DEXA4TAB PO (13:19)
--- NOTE | 2018-04-14 13:28 | NUR ---
SPOKE WITH THE PATIENT ABOUT HER MEDICATIONS. WE WENT OVER THE EXT MED HX AND SHE VERIFIED HOW SHE TAKES THEM TO THE BEST OF HER ABILITY. THERE ARE SEVERAL SHE STATES HAVE BEEN DISCONTINUED, SHE DOES NOT SEEM FAMILIAR WITH THE OLANZAPINE AND STATES SHE DOES NOT THINK SHE IS TAKING IT, IT DOES NOT SOUND FAMILIAR. SHE SUGGESTED I CALL HER DAUGHTER LUIS ANTONIO TO VERIFY BECAUSE SHE HAS A LIST. I CALLED AND SPOKE WITH LUIS ANTONIO HOWEVER SHE STATED SHE WAS NOT FEELING WELL AND WAS VERY HARD TO HEAR ON THE PHONE. I LISTED THE MEDICATIONS HER MOM THOUGHT SHE WAS NOT TAKING AND SHE AGREED THAT SOUNDED CORRECT. MEDS THE PATIENT FILLED RECENTLY BUT STATES SHE IS NO LONGER TAKIN03-17-18 METFORMIN 500MG BID #60 (STATES THIS WAS STOPPED BECAUSE HER A1C WAS 6) 03-16-18 XANAX #90 (STATES SHE IS ALLERGIC TO BENZODIAZEPINES) 03-16-18 OLANZAPINE 2.5MG DAILY #30 (DOES NOT RECOGNIZE THIS MED, IS NOT TAKING) 03-08-18 LORAZEPAM 1MG #30 (NOT TAKING ANY BENZODIAZEPINES) 03-08-18 WELLBUTRIN XL 150MG #60 (CHANGED TO NICOTINE PATCHES) OTC MEDS: MTV DAILY B COMPLEX DAILY MIRALAX HS NICOTINE PATCH DAILY
[2018-04-14] MEDS ORDERED: NON-FORMULARY MEDICATION 1 EA EA (Morphine Sulfate 15 MG) PO PRN (14:00)
[2018-04-14] MEDS ORDERED: ONDANSETRON 8 MG (ZOFRAN) ORAL DISSOLVE TAB PO PRN (14:00)
[2018-04-14 14:09] LABS: BILIRUBIN,URINE NEGATIVE (NEGATIVE); CLARITY,URINE CLEAR; COLOR,URINE YELLOW; GLUCOSE, URINE (UA) 3+ (NEGATIVE); KETONES,URINE NEGATIVE (NEGATIVE); LEUKOCYTE ESTERASE ,URINE NEGATIVE (NEGATIVE); NITRITE,URINE NEGATIVE (NEGATIVE); PH,URINE 6 (5-9); PROTEIN,URINE 4+ (NEGATIVE); UROBILINOGEN,URINE NORMAL (NORMAL)
--- NOTE | 2018-04-14 14:16 | Consultation ---
History of Present Illness History of Present Illness Patient Consulted On(martha/time) 04/14/18 14:05 Date Seen by Provider: Apr 14, 2018 Time Seen by Provider: 14:10 History of Present Illness Ms. Quiroz is a 63 yo female with DM, DDD, HTN and recently diagnosed NSCLC who was admitted this morning with a COPD exacerbation vs pneumonia. She was diagnosed with cancer in September 2017 and received 5 cycles of [place] based chemotherapy. After the first 4 cycles, she suffered from ototoxicity from cisplatin and was switched to carboplatin, last treatment on 02/24/18. Thereafter, she was admitted to an outside facility with CHF and pneumonia. She was discharged on 03/16/18 but has not been strong enough to receive treatment up until now. Patient reports she began to feel very short of breath yesterday and has had a cough productive of clear-alex sputum. She does not have any other symptoms. She has been working on walking more and cooking more since discharge from her last admission. Her legs are still somewhat weak. Allergies and Home Medications Allergies Coded Allergies: azithromycin (Verified Allergy, Unknown, 09/28/17) codeine (Verified Allergy, Unknown, 09/28/17) latex (Verified Allergy, Unknown, 09/28/17) levofloxacin (Verified Adverse Reaction, Unknown, makes her tendons and bones hurt. , 04/14/18) Home Medications Cyclobenzaprine HCl 10 Mg Tablet, 10 MG PO TID, (Reported) Dexamethasone 4 Mg Tablet, 8 MG PO UD, (Reported) TAKES 2 (4MG) TABLETS DAY BEFORE, DAY OF, AND DAY AFTER CHEMO Fluticasone Propionate 16 Gm [place].susp, 2 SPRAYS NS DAILY PRN for ALLERGIES, ( Reported) Furosemide 40 Mg Tablet, 40 MG PO DAILY, (Reported) Lisinopril 5 Mg Tablet, 5 MG PO DAILY, (Reported) Metoprolol Tartrate 25 Mg Tablet, 25 MG PO BID, (Reported) Morphine Sulfate 15 Mg Tablet, 15 MG PO QID PRN for BREAKTHROUGH PAIN, (Reported ) Morphine Sulfate 15 Mg Tablet.er, 15 MG PO TID, (Reported) Multivit-Min/FA/Lycopene/Lut 1 Each Tablet, 1 TAB PO DAILY, (Reported) Nicotine 1 Each Patch.td24, 21 MG TD DAILY, (Reported) Ondansetron 8 Mg Tab.rapdis, 8 MG PO TID PRN for NAUSEA/VOMITING-1ST LINE, ( Reported) Pantoprazole Sodium 40 Mg Tablet.dr, 40 MG PO DAILY, (Reported) Polyethylene Glycol 3350 255 Gm Powder, 17 GM PO HS, (Reported) Simvastatin 40 Mg Tablet, 40 MG PO HS, (Reported) Vitamin B Complex 1 Each Capsule, 1 CAP PO DAILY, (Reported) Patient Home Medication List Home Medication List Reviewed: Yes Past Glvvpor-Kdpkmb-Dviprx Hx Past Med/Social Hx: Reviewed Nursing Past Med/Soc Hx Patient Social History Alcohol Use: Denies Use Recreational Drug Use: No Smoking Status: Current Everyday Smoker Type Used: Cigarettes 2nd Hand Smoke Exposure: Yes Recent Foreign Travel: No Contact w/Someone Who Travel: No Recent Infectious Disease Expo: No Recent Hopitalizations: Yes (UTI, SEPSIS) Immunizations Up To Date Date of Pneumonia Vaccine: Dec 05, 2014 Date of Influenza Vaccine: Apr 07, 2018 Seasonal Allergies Seasonal Allergies: No Past Medical History Surgeries: Yes (BACK, STENT IN LEG, PORT PLACED, LUNG BIOPSY) Tubal Ligation Respiratory: Yes (STAGE 4 LUNG CA) Sleep Apnea, COPD Currently Using CPAP: No Cardiac: Yes Hypertension, Peripheral Vascular Neurological: No Reproductive Disorders: No Sexually Transmitted Disease: No HIV/AIDS: No Genitourinary: No Gastrointestinal: Yes Chronic Constipation Musculoskeletal: Yes (HX FX BACK, SPONDYLESIS) Chronic Back Pain Endocrine: Yes Diabetes, Non-Insulin dep HEENT: No Loss of Vision: Denies Hearing Impairment: Denies Cancer: Yes (DX W/LUNG CA JULY OR AUGUST 2017) Lung What Type of Treatment Did You: Chemotherapy, Radiation Psychosocial: No Integumentary: No Blood Disorders: Yes (ANEMIA) Adverse Reaction/Blood Tranf: No (N/A) Family Medical History Diabetes mellitus 19 FATHER G8 BROTHER FHx: heart disease 19 FATHER G8 BROTHER Kidney disease G8 BROTHER Seizure disorder 19 MOTHER TIAs 19 MOTHER No Pertinent Family Hx Review of Systems-General Constitutional: malaise, weakness EENTM: no symptoms reported Respiratory: cough, phlegm, short of breath Cardiovascular: no symptoms reported Gastrointestinal: no symptoms reported Genitourinary: no symptoms reported Musculoskeletal: no symptoms reported Skin: no symptoms reported Psychiatric/Neurological: No Symptoms Reported Physical Exam-General Problems Physical Exam Vital Signs Vital Signs - First Documented 04/14/18 04/14/18 07:35 10:11 Temp 96.0 Pulse 121 Resp 24 B/P (MAP) 188/105 (132) Pulse Ox 99 O2 Delivery Simple Mask O2 Flow Rate 2.00 Capillary Refill : Less Than 3 Seconds General Appearance: WD/WN, no apparent distress Eyes: Bilateral Eye Normal Inspection, Bilateral Eye PERRL, Bilateral Eye EOMI HEENT: PERRL/EOMI, normal ENT inspection Neck: non-tender, normal inspection Respiratory: chest non-tender, lungs clear, no respiratory distress, no accessory muscle use, decreased breath sounds Cardiovascular: normal peripheral pulses, regular rate, rhythm, no edema Gastrointestinal: normal bowel sounds, non tender Extremities: non-tender, normal inspection Neurologic/Psychiatric: no motor/sensory deficits, alert, normal mood/affect, oriented x 3 Skin: normal color, warm/dry Assessment/Plan Assessment/Plan Admission Diagnosis/Plan 63 yo female with metastatic lung cancer s/p 5 cycles of chemotherapy was admitted with COPD exacerbation. No evidence to suggest metastatic cancer is responsible for her acute breathing issues. Patient has not had chemotherapy for around 6 weeks, so I would not expect there to be any residual chemotherapy side effects. As long as she recovers from acute illness, I think she is still a candidate for palliative systemic therapy; if not chemotherapy, then immunotherapy. We will see her back in clinic after discharge. Thank you for allowing me to participate in the care of Ms. Quiroz. Clinical Quality Measures DVT/VTE Risk/Contraindication: Risk Factor Score Per Nursin RFS Level Per Nursing on Admit: 4+=Very High Results Labs Labs Laboratory Tests 04/14/18 07:45: White Blood Count 13.4H, Red Blood Count 3.06L, Hemoglobin 9.9L, Hematocrit 32L , Mean Corpuscular Volume 105H, Mean Corpuscular Hemoglobin 32, Mean Corpuscular Hemoglobin Concent 31L, Red Cell Distribution Width 16.3H, Platelet Count 245, Mean Platelet Volume 10.1, Neutrophils (%) (Auto) 86H, Lymphocytes (% ) (Auto) 7L, Monocytes (%) (Auto) 8, Eosinophils (%) (Auto) 0, Basophils (%) ( Auto) 0, Neutrophils # (Auto) 11.5H, Lymphocytes # (Auto) 0.9L, Monocytes # ( Auto) 1.0, Eosinophils # (Auto) 0.0, Basophils # (Auto) 0.0, Neutrophils % ( Manual) 85, Lymphocytes % (Manual) 7, Monocytes % (Manual) 8, Eosinophils % ( Manual) 0, Basophils % (Manual) 0, Band Neutrophils 0, Blood Morphology Comment NORMAL, Sodium Level 137, Potassium Level 4.9, Chloride Level 104, Carbon Dioxide Level 23, Anion Gap 10, Blood Urea Nitrogen 27H, Creatinine 0.96, Estimat Glomerular Filtration Rate 59, BUN/Creatinine Ratio 28, Glucose Level 245H, Lactic Acid Level 1.58, Calcium Level 9.3, Corrected Calcium 9.9, Total Bilirubin 0.2, Aspartate Amino Transf (AST/SGOT) 17, Alanine Aminotransferase ( ALT/SGPT) 10, Alkaline Phosphatase 78, Troponin I 0.036, Total Protein 6.7, Albumin 3.3 04/14/18 14:05: Procedures Procedures Date of Exam:04/14/18 CHEST PA/LAT (2 VIEW) INDICATION: Shortness of air. TIME OF EXAM: 8:18 AM Comparison is made with prior chest from 03/23/2018. FINDINGS: Left chest wall port remains in place. Mass in the region of the right hilum appears stable. Right hemidiaphragm is chronically elevated. Left lung is clear. No effusion or pneumothorax is seen. IMPRESSION: Stable right hilar mass when compared with examination one month earlier. No new abnormality is seen. No acute feature is detected. JUAN BEST MD Apr 14, 2018 14:16
[2018-04-14 14:20] LABS: BACTERIA,URINE NEGATIVE /HPF
[2018-04-14] MEDS: morphine ER 15 MG (MS CONTIN) TAB PO SCH ×2 (15:15→21:31)
[2018-04-14] MEDS: CYCLOBENZAPRINE 10 MG (FLEXERIL) TAB PO SCH ×2 (15:15→21:31)
[2018-04-14 15:38] VITALS: BP 159/75
--- NOTE | 2018-04-14 16:28 | History & Physicial (CHS) ---
HPI History of Present Illness: 63 yo female with stage IV adenocarcinoma of lung presented to ER due to worsening shortness of breath in the last 24 hours or so. She also does note cough with some greenish sputum in that same time frame. She states she was sent home on supplemental oxygen from a hospitalization in [place] in March ( for septicemia), but had only one bottle and was unable to get more ordered for unclear reasons. She believes she was using 4 lpm for that brief period. However , she has done okay until yesterday. She denies known COPD and has no home inhalers. She has seen Dr. Soto (Pulm) but for reasons she will not disclose, she does not want to see him again and states she is still looking for a Home Health Care Social Worker. She does also have history of heart failure and diabetes, but she believes diabetes has been removed from the list because her last A1c was 6.0 on no medications. Source: patient Date seen by provider: Apr 14, 2018 Time Seen by Provider: 13:00 Attending Physician Lily Gallegos MD [facility] Center/[facility] Consult Date of Admission Apr 14, 2018 at 09:45 Home Medications Home Medications Reviewed patient Home Medication Reconciliation performed by pharmacy medication reconciliations environmental monitoring technician and/or nursing. Patients Allergies have been reviewed. Allergies Coded Allergies: azithromycin (Verified Allergy, Unknown, 09/28/17) codeine (Verified Allergy, Unknown, 09/28/17) latex (Verified Allergy, Unknown, 09/28/17) levofloxacin (Verified Adverse Reaction, Unknown, makes her tendons and bones hurt. , 04/14/18) PGA-Nbrdbp-Jqname Hx Patient Social History Alcohol Use: Denies Use Recreational Drug Use: No Smoking Status: Current Everyday Smoker Type Used: Cigarettes 2nd Hand Smoke Exposure: Yes Recent Foreign Travel: No Contact w/other who traveled: No Recent Hopitalizations: Yes (UTI, SEPSIS) Recent Infectious Disease Expo: No Physical Abuse Screen: No Sexual Abuse: No Immunizations Up To Date Date of Pneumonia Vaccine: Dec 05, 2014 Date of Influenza Vaccine: Apr 07, 2018 Past Medical History PMHx: Diabetes CHF NSCLC Chronic pain HTN HLD SurgHx: Port placement Tubal ligation Family Medical History Family History: Diabetes mellitus 19 FATHER G8 BROTHER FHx: heart disease 19 FATHER G8 BROTHER Kidney disease G8 BROTHER Seizure disorder 19 MOTHER TIAs 19 MOTHER Review of Systems (CHC) Constitutional: No fever EENTM: throat pain (dryness); No nose congestion Respiratory: see HPI Cardiovascular: No chest pain Gastrointestinal: No abdominal pain, No constipation, No diarrhea, No nausea, No vomiting Genitourinary: No dysuria Musculoskeletal: No joint pain Skin: No rash Psychiatric/Neurological: No Symptoms Reported Reviewed Test Results Reviewed Test Results Lab Laboratory Tests Test 04/14/18 07:45 04/14/18 14:05 Range/Units White Blood Count 13.4 H 4.3-11.0 10^3/uL Red Blood Count 3.06 L 4.35-5.85 10^6/uL Hemoglobin 9.9 L 11.5-16.0 G/DL Hematocrit 32 L 35-52 % Mean Corpuscular Volume 105 H 80-99 FL Mean Corpuscular Hemoglobin 32 25-34 PG Mean Corpuscular Hemoglobin Concent 31 L 32-36 G/DL Red Cell Distribution Width 16.3 H 10.0-14.5 % Platelet Count 245 130-400 10^3/uL Mean Platelet Volume 10.1 7.4-10.4 FL Neutrophils (%) (Auto) 86 H 42-75 % Lymphocytes (%) (Auto) 7 L 12-44 % Monocytes (%) (Auto) 8 0-12 % Eosinophils (%) (Auto) 0 0-10 % Basophils (%) (Auto) 0 0-10 % Neutrophils # (Auto) 11.5 H 1.8-7.8 X 10^3 Lymphocytes # (Auto) 0.9 L 1.0-4.0 X 10^3 Monocytes # (Auto) 1.0 0.0-1.0 X 10^3 Eosinophils # (Auto) 0.0 0.0-0.3 10^3/uL Basophils # (Auto) 0.0 0.0-0.1 10^3/uL Neutrophils % (Manual) 85 % Lymphocytes % (Manual) 7 % Monocytes % (Manual) 8 % Eosinophils % (Manual) 0 % Basophils % (Manual) 0 % Band Neutrophils 0 % Blood Morphology Comment NORMAL Sodium Level 137 135-145 MMOL/L Potassium Level 4.9 3.6-5.0 MMOL/L Chloride Level 104 98-107 MMOL/L Carbon Dioxide Level 23 21-32 MMOL/L Anion Gap 10 5-14 MMOL/L Blood Urea Nitrogen 27 H 7-18 MG/DL Creatinine 0.96 0.60-1.30 MG/DL Estimat Glomerular Filtration Rate 59 BUN/Creatinine Ratio 28 Glucose Level 245 H 70-105 MG/DL Lactic Acid Level 1.58 0.50-2.00 MMOL/L Calcium Level 9.3 8.5-10.1 MG/DL Corrected Calcium 9.9 8.5-10.1 MG/DL Total Bilirubin 0.2 0.1-1.0 MG/DL Aspartate Amino Transf (AST/SGOT) 17 5-34 U/L Alanine Aminotransferase (ALT/SGPT) 10 0-55 U/L Alkaline Phosphatase 78 40-136 U/L Troponin I 0.036 <0.028 NG/ML Total Protein 6.7 6.4-8.2 GM/DL Albumin 3.3 3.2-4.5 GM/DL Urine Color YELLOW Urine Clarity CLEAR Urine pH 6 5-9 Urine Specific [place] 1.015 L 1.016-1.022 Urine Protein 4+ NEGATIVE Urine Glucose (UA) 3+ H NEGATIVE Urine Ketones NEGATIVE NEGATIVE Urine Nitrite NEGATIVE NEGATIVE Urine Bilirubin NEGATIVE NEGATIVE Urine Urobilinogen NORMAL NORMAL MG/DL Urine Leukocyte Esterase NEGATIVE NEGATIVE Urine RBC (Auto) NEGATIVE NEGATIVE Urine RBC NONE /HPF Urine WBC NONE /HPF Urine Squamous Epithelial Cells 2-5 /HPF Urine Crystals NONE /LPF Urine Bacteria NEGATIVE /HPF Urine Casts NONE /LPF Urine Mucus NEGATIVE /LPF Urine Culture Indicated NO Date of Exam:04/14/18 CHEST PA/LAT (2 VIEW) INDICATION: Shortness of air. TIME OF EXAM: 8:18 AM Comparison is made with prior chest from 03/23/2018. FINDINGS: Left chest wall port remains in place. Mass in the region of the right hilum appears stable. Right hemidiaphragm is chronically elevated. Left lung is clear. No effusion or pneumothorax is seen. IMPRESSION: Stable right hilar mass when compared with examination one month earlier. No new abnormality is seen. No acute feature is detected. Physical Exam-(CHC) Physical Exam Vital Signs VS - Last 72 Hours, by Label 04/14/18 04/14/18 04/14/18 04/14/18 07:35 10:11 10:29 10:54 Temp 96.0 96.7 96.7 Pulse 121 103 103 103 Resp 24 16 20 20 B/P (MAP) 188/105 (132) 150/88 (108) 140/97 140/97 Pulse Ox 99 96 98 98 O2 Delivery Simple Mask Nasal Cannula Nasal Cannula Nasal Cannula O2 Flow Rate 2.00 2.00 2.00 04/14/18 04/14/18 04/14/18 04/14/18 11:00 12:00 14:55 15:00 Temp 98.3 Pulse 102 Resp 18 B/P (MAP) 155/79 (104) Pulse Ox 98 98 O2 Delivery Nasal Cannula Nasal Cannula Nasal Cannula Nasal Cannula O2 Flow Rate 3.00 3.00 3.00 3.00 04/14/18 15:38 Temp 98.9 Pulse 100 Resp 18 B/P (MAP) 159/75 (103) Pulse Ox 96 O2 Delivery Nasal Cannula O2 Flow Rate 1.00 Capillary Refill : Less Than 3 Seconds General Appearance: no apparent distress Respiratory: decreased breath sounds; No rales, No wheezing Cardiovascular: regular rate, rhythm, no murmur Gastrointestinal: normal bowel sounds, non tender, soft Extremities: no pedal edema Neurologic/Psychiatric: normal mood/affect Skin: normal color, warm/dry Assessment/Plan Assessment/Plan Admission Status: Inpatient Order (span 2 midnights) Reason for Inpatient Admission: Acute respiratory failure with underlying malignancy and multiple comorbidities. (1) Hypoxia Status: Acute Assessment & Plan: Unclear etiology, possible COPD exacerbation (although no prior dx) versus infection (although no significant evidence of infection on CXR or vitals) vs CHF exacerbation (although no significant pulmonary edema on CXR). Solumedrol and ceftriaxone. Supplemental oxygen as needed. Will likely need O2 on d/c, given that she was requiring after prior hospitalization and did not obtain. (2) Heart failure Status: Chronic Assessment & Plan: Resume home medications. Check BNP. No pulmonary edema noted on CXR. (3) Anemia of chronic disease Status: Chronic Assessment & Plan: Monitor hemoglobin. (4) Non-small cell lung cancer (NSCLC) Assessment & Plan: Oncology consulted, appreciate input. (5) Hypertension Status: Chronic Assessment & Plan: Resume home medications Qualifiers: Qualified Codes: I10 - Essential (primary) hypertension (6) Chronic pain Status: Chronic Assessment & Plan: Resume home medications. (7) DVT prophylaxis Status: Acute Assessment & Plan: SCDs, enoxaparin Clinical Quality Measures DVT/VTE Risk/Contraindication: Risk Factor Score Per Nursin RFS Level Per Nursing on Admit: 4+=Very High LILY GALLEGOS MD Apr 14, 2018 16:28
[2018-04-14] MEDS: ENOXAPARIN 40 MG/0.4 ML (LOVENOX) SYR SQ SCH (17:06)
[2018-04-14] MEDS ORDERED: FUROSEMIDE 40 MG (LASIX) TAB ONE (17:40)
[2018-04-14] MEDS ORDERED: FUROSEMIDE 40 MG/4 ML INJ (LASIX) ONE (17:40)
[2018-04-14] MEDS ORDERED: FUROSEMIDE 40 MG/4 ML INJ (LASIX) IVP ONE (17:45)
[2018-04-14] MEDS: FUROSEMIDE 40 MG (LASIX) TAB PO SCH (17:46)
--- NOTE | 2018-04-14 17:50 | NUR ---
BNP 2145.3, DR PORTER NOTIFIED AND INSTRUCTED NURSE TO GIVE DAILY DOSE OF LASIX 40MG PO NOW AND GIVE LASIX 40MG IV IN ADDITION AND REPEAT BNP IN AM
[2018-04-14 19:29] VITALS: BP 160/88
[2018-04-14] MEDS ORDERED: meTOprolol TARTRATE 25 MG (LOPRESSOR) TABLET PO SCH (21:00)
[2018-04-14] MEDS ORDERED: NON-FORMULARY MEDICATION 1 EA EA (Polyethylene Glycol 3350 17 GM) PO SCH (21:00)
[2018-04-14] MEDS: SIMvastatin 40 MG (ZOCOR) TAB PO SCH (21:31)
[2018-04-14] MEDS: POLYETHYLENE GLYCOL 17 GM (MIRALAX) PACK PO SCH (21:32)
[2018-04-14 23:01] VITALS: BP 157/78
[2018-04-15] MEDS: methylPREDNISolone 125 MG (Solu-MEDROL) VIAL IV SCH ×3 (02:42→21:28)
[2018-04-15 04:00] VITALS: BP 190/99
[2018-04-15] MEDS: CYCLOBENZAPRINE 10 MG (FLEXERIL) TAB PO SCH ×3 (05:32→21:28)
[2018-04-15] MEDS: morphine ER 15 MG (MS CONTIN) TAB PO SCH ×3 (05:33→21:28)
[2018-04-15 05:50] LABS: BASOPHILS % (AUTO) 0 % (0-10); EOSINOPHILS % (AUTO) 0 % (0-10); HEMATOCRIT 28 % (35-52); HEMOGLOBIN 8.7 G/DL (11.5-16.0); LYMPHOCYTES # (AUTO) 0.3 X 10^3 (1.0-4.0); LYMPHOCYTES % (AUTO) 3 % (12-44); MEAN CORPUSCULAR HEMOGLOBIN 32 PG (25-34); MEAN CORPUSCULAR HGB CONC 31 G/DL (32-36); MEAN CORPUSCULAR VOLUME 103 FL (80-99); MEAN PLATELET VOLUME 9.9 FL (7.4-10.4); MONOCYTES # (AUTO) 0.2 X 10^3 (0.0-1.0); MONOCYTES % (AUTO) 2 % (0-12); NEUTROPHILS # (AUTO) 9.3 X 10^3 (1.8-7.8); NEUTROPHILS % (AUTO) 95 % (42-75); PLATELET COUNT 200 10^3/uL (130-400); RED CELL DISTRIBUTION WIDTH 16.2 % (10.0-14.5); WHITE BLOOD COUNT 9.8 10^3/uL (4.3-11.0)
[2018-04-15 06:13] LABS: ALBUMIN 3.1 GM/DL (3.2-4.5); BILIRUBIN,TOTAL 0.2 MG/DL (0.1-1.0); CALCIUM 8.8 MG/DL (8.5-10.1); CREATININE SERUM 1.06 MG/DL (0.60-1.30); POTASSIUM 4.6 MMOL/L (3.6-5.0); TOTAL PROTEIN 6.1 GM/DL (6.4-8.2)
[2018-04-15] MEDS: PANTOPRAZOLE 40 MG (PROTONIX) TAB PO SCH (06:36)
[2018-04-15] MEDS: NS IV 1000 ML 1,000 ML IV SCH (06:37)
--- NOTE | 2018-04-15 06:50 | NUR ---
RCV'D CALL FROM LAB, CRITICAL GLUCOSE 461. CONTACTED DR PORTER RCV'D FOLLOWING ORDER. NOVOLOG SSB, ACCU CHECK ACHS. DECREASE SOLU-MEDROL 125 FROM Q6 TO Q12 HOURS. PUT IN ORDERS AND [facility]
[2018-04-15] MEDS: RT-ALBUTEROL/IPRATROPIUM 3 ML (DUONEB) VIAL IH SCH ×4 (06:56→18:55)
[2018-04-15] MEDS ORDERED: FUROSEMIDE 40 MG/4 ML INJ (LASIX) IVP NR (07:30)
[2018-04-15 08:00] VITALS: BP 169/94
[2018-04-15] MEDS: cefTRIAXone 1,000 MG/SWFI 10 ML IV PUSH IV SCH ×2 (08:32)
[2018-04-15] MEDS: FUROSEMIDE 40 MG (LASIX) TAB PO SCH (08:33)
[2018-04-15] MEDS: NICOTINE 21 MG (NICODERM) PATCH TD SCH (08:33)
[2018-04-15] MEDS: lisINopril 10 MG (PRINIVIL) TABLET PO SCH (08:33)
[2018-04-15] MEDS: meTOprolol TARTRATE 50 MG (LOPRESSOR) TAB PO SCH ×2 (08:33→21:28)
[2018-04-15] MEDS: NICOTINE PATCH REMOVAL TP SCH (08:41)
[2018-04-15] MEDS ORDERED: lisINopril 5 MG (PRINIVIL) TABLET PO SCH (09:00)
--- NOTE | 2018-04-15 10:20 | Diagnostic Imaging Report ---
INDICATION: COPD and lung cancer. TIME OF EXAM: 9:24 AM Comparison is made with prior chest from one day earlier. FINDINGS: Right hilar mass is unchanged. Left chest wall port has tip overlying the SVC. Lungs appear to be otherwise clear. No new infiltrate is seen. There is no effusion or pneumothorax. IMPRESSION: Stable chest since examination one day earlier. Dictated by: Dictated on workstation # [id number]
[2018-04-15] MEDS: inSUlin ASPART (NovoLOG) 1 UNIT/0.01 ML (CHARGE PER UNIT) SC SCH ×3 (10:23→21:29)
--- NOTE | 2018-04-15 10:34 | Progress Note (SOAP) ---
Subjective Subjective/Events-last exam Afebrile. This morning is maintaining oxygenation without supplemental oxygen. Had very high blood sugar this am, likely secondary to steroids. Has been hypertensive and mildly tachycardic. Review of Systems Date Seen by Provider: Apr 15, 2018 Time Seen by Provider: 10:05 Focused Exam Lactate Level 04/14/18 07:45: Lactic Acid Level 1.58 Objective Exam Last Set of Vital Signs Vital Signs Date Time Temp Pulse Resp B/P (MAP) Pulse Ox O2 Delivery O2 Flow Rate FiO2 04/15/18 08:00 100.4 110 18 169/94 (119) 98 Room Air 04/14/18 20:00 1.00 Capillary Refill : Less Than 3 SecondsLess Than 3 Seconds I&O Intake and Output 04/15/18 00:00 Intake Total 1290 ml Output Total 600 ml Balance 690 ml Intake Oral 1270 ml IV Total 20 ml Output Urine Total 600 ml # Voids 1 Daily Weight Change No No General: Alert, No Acute Distress Lungs: Other (inspiratory wheeze, no rales) Heart: No Murmurs, Other (tachycardic) Extremities: No Edema Psych/Mental Status: Mental Status NL Results/Procedures Lab Laboratory Tests 04/14/18 14:05: Urine Color YELLOW, Urine Clarity CLEAR, Urine pH 6, Urine Specific [place] 1.015L, Urine Protein 4+, Urine Glucose (UA) 3+H, Urine Ketones NEGATIVE, Urine Nitrite NEGATIVE, Urine Bilirubin NEGATIVE, Urine Urobilinogen NORMAL, Urine Leukocyte Esterase NEGATIVE, Urine RBC (Auto) NEGATIVE, Urine RBC NONE, Urine WBC NONE, Urine Squamous Epithelial Cells 2-5, Urine Crystals NONE, Urine Bacteria NEGATIVE, Urine Casts NONE, Urine Mucus NEGATIVE, Urine Culture Indicated NO 04/14/18 17:00: B-Type Natriuretic Peptide 2145.3H 04/15/18 05:45: B-Type Natriuretic Peptide 2364.6H, White Blood Count 9.8, Red Blood Count 2.70L , Hemoglobin 8.7L, Hematocrit 28L, Mean Corpuscular Volume 103H, Mean Corpuscular Hemoglobin 32, Mean Corpuscular Hemoglobin Concent 31L, Red Cell Distribution Width 16.2H, Platelet Count 200, Mean Platelet Volume 9.9, Neutrophils (%) (Auto) 95H, Lymphocytes (%) (Auto) 3L, Monocytes (%) (Auto) 2, Eosinophils (%) (Auto) 0, Basophils (%) (Auto) 0, Neutrophils # (Auto) 9.3H, Lymphocytes # (Auto) 0.3L, Monocytes # (Auto) 0.2, Eosinophils # (Auto) 0.0, Basophils # (Auto) 0.0, Sodium Level 135, Potassium Level 4.6, Chloride Level 102, Carbon Dioxide Level 21, Anion Gap 12, Blood Urea Nitrogen 30H, Creatinine 1.06, Estimat Glomerular Filtration Rate 53, BUN/Creatinine Ratio 28, Glucose Level 461*H, Calcium Level 8.8, Corrected Calcium 9.5, Total Bilirubin 0.2, Aspartate Amino Transf (AST/SGOT) 15, Alanine Aminotransferase (ALT/SGPT) 9, Alkaline Phosphatase 76, Total Protein 6.1L, Albumin 3.1L 04/15/18 09:42: Glucometer 476*H Procedures Date of Exam:04/14/18 CHEST PA/LAT (2 VIEW) INDICATION: Shortness of air. TIME OF EXAM: 8:18 AM Comparison is made with prior chest from 03/23/2018. FINDINGS: Left chest wall port remains in place. Mass in the region of the right hilum appears stable. Right hemidiaphragm is chronically elevated. Left lung is clear. No effusion or pneumothorax is seen. IMPRESSION: Stable right hilar mass when compared with examination one month earlier. No new abnormality is seen. No acute feature is detected. Assessment/Plan Assessment/Plan (1) Hypoxia Status: Acute Assessment & Plan: Unclear etiology, possible COPD exacerbation (although no prior dx) versus infection (although no significant evidence of infection on CXR or vitals) vs CHF exacerbation (although no significant pulmonary edema on CXR). Solumedrol and ceftriaxone. Supplemental oxygen as needed. Will likely need O2 on d/c, given that she was requiring after prior hospitalization and did not obtain. 04/15 improved this am, no longer requiring supplemental oxygen, decrease solumedrol to q12. Continue ceftriaxone. (2) Heart failure Status: Chronic Assessment & Plan: Resume home medications. Check BNP. No pulmonary edema noted on CXR. 04/15 BNP noted to be over 2000 yesterday evening, gave 40 mg IV lasix and this am BNP slightly higher. Repeat 40 mg IV lasix. Is asymptomatic given no hypoxia , but has been hypertensive and mildly tachycardic, possibly side effect of steroids. Increase metoprolol and lisinopril dose today and consult Cardiology. (3) Anemia of chronic disease Status: Chronic Assessment & Plan: Monitor hemoglobin. (4) Non-small cell lung cancer (NSCLC) Assessment & Plan: Oncology consulted, appreciate input. (5) Hypertension Status: Chronic Assessment & Plan: Resume home medications / increased dose of lisinopril and metoprolol today Qualifiers: Qualified Codes: I10 - Essential (primary) hypertension (6) Chronic pain Status: Chronic Assessment & Plan: Resume home medications. (7) DVT prophylaxis Status: Acute Assessment & Plan: SCDs, enoxaparin Clinical Quality Measures DVT/VTE Risk/Contraindication: Risk Factor Score Per Nursin RFS Level Per Nursing on Admit: 4+=Very High LILY PORTER MD Apr 15, 2018 10:34
[2018-04-15 12:00] VITALS: BP 188/106
[2018-04-15] MEDS ORDERED: meTOprolol 5 MG/5 ML (LOPRESSOR) VIAL IV NR (12:30)
--- NOTE | 2018-04-15 13:05 | Consultation-Cardiology ---
HPI-Cardiology Cardiology Consultation Date of Consultation 04/15/18 Date of Admission Time Seen by Provider: 13:00 Indication: shortness of breath HPI 63-year-old lady with history of metastatic adenocarcinoma of the lung, history of peripheral arterial disease and hypertension. Was hospitalized last month with pneumonia and respiratory failure and was transferred to [place], after her discharge she was having generalized weakness and using oxygen for shortness of breath. Over the past 2 days she became significantly worse with increasing dyspnea, was hospitalized and noted to have elevated BNP. She was noticing increasing pedal edema. She denied any chest pain or palpitation. No syncope or near syncopal episode, her breathing is better at this time but still having some shortness of breath. Her edema is better at this time. Home Medications & Allergies Allergies: Coded Allergies: azithromycin (Verified Allergy, Unknown, 09/28/17) codeine (Verified Allergy, Unknown, 09/28/17) latex (Verified Allergy, Unknown, 09/28/17) levofloxacin (Verified Adverse Reaction, Unknown, makes her tendons and bones hurt. , 04/14/18) Home Medication List Reviewed: Yes [id number] Hx Patient Social History Marital Status: Alcohol Use: Denies Use Recreational Drug Use: No Smoking Status: Current Everyday Smoker Type Used: Cigarettes 2nd Hand Smoke Exposure: Yes Recent Foreign Travel: No Recent Infectious Disease Expo: No Recent Hopitalizations: Yes (UTI, SEPSIS) Physical Abuse Screen: No Sexual Abuse: No Immunizations Up To Date Date of Pneumonia Vaccine: Dec 05, 2014 Date of Influenza Vaccine: Apr 07, 2018 Past Medical History past medical history as described Family Medical History Family History: Diabetes mellitus 19 FATHER G8 BROTHER FHx: heart disease 19 FATHER G8 BROTHER Kidney disease G8 BROTHER Seizure disorder 19 MOTHER TIAs 19 MOTHER Review of Systems Constitutional: see HPI, malaise EENTM: see HPI, no symptoms reported Respiratory: see HPI, cough, dyspnea on exertion; No hemoptysis; orthopnea; No phlegm; short of breath; No stridor, No wheezing, No other Cardiovascular: see HPI; No chest pain; edema; No Hx of Intervention, No palpitations, No syncope, No vascular heart diseas, No other Gastrointestinal: no symptoms reported, see HPI Genitourinary: no symptoms reported, see HPI Musculoskeletal: no symptoms reported, see HPI Skin: no symptoms reported, see HPI Psychiatric/Neurological: No Symptoms Reported, See HPI Reviewed Test Results Reviewed Test Results Lab Laboratory Tests Test 04/14/18 14:05 04/14/18 17:00 04/15/18 05:45 04/15/18 09:42 Range/Units Urine Color YELLOW Urine Clarity CLEAR Urine pH 6 5-9 Urine Specific [place] 1.015 L 1.016-1.022 Urine Protein 4+ NEGATIVE Urine Glucose (UA) 3+ H NEGATIVE Urine Ketones NEGATIVE NEGATIVE Urine Nitrite NEGATIVE NEGATIVE Urine Bilirubin NEGATIVE NEGATIVE Urine Urobilinogen NORMAL NORMAL MG/DL Urine Leukocyte Esterase NEGATIVE NEGATIVE Urine RBC (Auto) NEGATIVE NEGATIVE Urine RBC NONE /HPF Urine WBC NONE /HPF Urine Squamous Epithelial Cells 2-5 /HPF Urine Crystals NONE /LPF Urine Bacteria NEGATIVE /HPF Urine Casts NONE /LPF Urine Mucus NEGATIVE /LPF Urine Culture Indicated NO B-Type Natriuretic Peptide 2145.3 H 2364.6 H <100.0 PG/ML White Blood Count 9.8 4.3-11.0 10^3/uL Red Blood Count 2.70 L 4.35-5.85 10^6/uL Hemoglobin 8.7 L 11.5-16.0 G/DL Hematocrit 28 L 35-52 % Mean Corpuscular Volume 103 H 80-99 FL Mean Corpuscular Hemoglobin 32 25-34 PG Mean Corpuscular Hemoglobin Concent 31 L 32-36 G/DL Red Cell Distribution Width 16.2 H 10.0-14.5 % Platelet Count 200 130-400 10^3/uL Mean Platelet Volume 9.9 7.4-10.4 FL Neutrophils (%) (Auto) 95 H 42-75 % Lymphocytes (%) (Auto) 3 L 12-44 % Monocytes (%) (Auto) 2 0-12 % Eosinophils (%) (Auto) 0 0-10 % Basophils (%) (Auto) 0 0-10 % Neutrophils # (Auto) 9.3 H 1.8-7.8 X 10^3 Lymphocytes # (Auto) 0.3 L 1.0-4.0 X 10^3 Monocytes # (Auto) 0.2 0.0-1.0 X 10^3 Eosinophils # (Auto) 0.0 0.0-0.3 10^3/uL Basophils # (Auto) 0.0 0.0-0.1 10^3/uL Sodium Level 135 135-145 MMOL/L Potassium Level 4.6 3.6-5.0 MMOL/L Chloride Level 102 98-107 MMOL/L Carbon Dioxide Level 21 21-32 MMOL/L Anion Gap 12 5-14 MMOL/L Blood Urea Nitrogen 30 H 7-18 MG/DL Creatinine 1.06 0.60-1.30 MG/DL Estimat Glomerular Filtration Rate 53 BUN/Creatinine Ratio 28 Glucose Level 461 *H 70-105 MG/DL Calcium Level 8.8 8.5-10.1 MG/DL Corrected Calcium 9.5 8.5-10.1 MG/DL Total Bilirubin 0.2 0.1-1.0 MG/DL Aspartate Amino Transf (AST/SGOT) 15 5-34 U/L Alanine Aminotransferase (ALT/SGPT) 9 0-55 U/L Alkaline Phosphatase 76 40-136 U/L Total Protein 6.1 L 6.4-8.2 GM/DL Albumin 3.1 L 3.2-4.5 GM/DL Glucometer 476 *H 70-110 MG/DL Date of Exam:04/14/18 CHEST PA/LAT (2 VIEW) INDICATION: Shortness of air. TIME OF EXAM: 8:18 AM Comparison is made with prior chest from 03/23/2018. FINDINGS: Left chest wall port remains in place. Mass in the region of the right hilum appears stable. Right hemidiaphragm is chronically elevated. Left lung is clear. No effusion or pneumothorax is seen. IMPRESSION: Stable right hilar mass when compared with examination one month earlier. No new abnormality is seen. No acute feature is detected. Physical Exam Vital Signs Vital Signs - First Documented 04/14/18 04/14/18 07:35 10:11 Temp 96.0 Pulse 121 Resp 24 B/P (MAP) 188/105 (132) Pulse Ox 99 O2 Delivery Simple Mask O2 Flow Rate 2.00 Capillary Refill : Less Than 3 SecondsLess Than 3 Seconds Height, Weight, BMI Height: 5'7.00" Weight: 188lbs. 0.6oz. 85.296238mf; 29.5 BMI Method:Stated General Appearance: No Apparent Distress, WD/WN Eyes: Bilateral Eye Normal Inspection, Bilateral Eye PERRL, Bilateral Eye EOMI HEENT: PERRL/EOMI, TMs Normal, Normal ENT Inspection, Pharynx Normal Neck: Full Range of Motion, Normal Inspection, Non Tender, Supple, Carotid Bruit Respiratory: Chest Non Tender, Lungs Clear, Normal Breath Sounds, No Accessory Muscle Use, No Respiratory Distress Cardiovascular: Regular Rate, Rhythm, No Edema, No Gallop, No JVD, No Murmur, Normal Peripheral Pulses Gastrointestinal: Normal Bowel Sounds, No Organomegaly, No Pulsatile Mass, Non Tender, Soft Back: Normal Inspection, No CVA Tenderness, No Vertebral Tenderness Extremity: Normal Capillary Refill, Normal Inspection, Normal Range of Motion, Non Tender, No Calf Tenderness, No Pedal Edema Neurologic/Psychiatric: Alert, Oriented x3, No Motor/Sensory Deficits, Normal Mood/Affect Skin: Normal Color, Warm/Dry Lymphatic: No Adenopathy A/P-Cardiology Admission Diagnosis Shortness of breath Acute exacerbation of COPD Peripheral arterial disease Hypertension Assessment/Plan Shortness of breath, acute exacerbation of COPD and congestive heart failure, elevated BNP, known to have normal LV function per echo in September 2017, I am planning to repeat 2-D echocardiogram. Continue on Lasix at this time and monitor tolerance and response. Metastatic adenocarcinoma of the lung stage IV, has been on palliative chemotherapy. Followed and managed by Dr. Mckeon Low-grade fever, receiving Rocephin, status post recent hospitalization in March 2018 with respiratory failure and sepsis, managed by primary care team Anemia, followed and managed by primary care team No known history of coronary artery disease, had her last stress test done in September 2017 which showed no ischemia with ejection fraction 74 percent, currently troponin is negative. Peripheral arterial disease, history of left iliac stent done by Dr. Naeem Smith in August 2017 Hypertension, poorly controlled, did not have history of hypertension until the last hospitalization, currently maintained on beta blockers and MASSIEL inhibitor. Continue to monitor Chronic right bundle branch block. Diabetes mellitus, followed and managed by primary care Chronic pain in her lower extremities for which she uses morphine Tobaccoism, has been smoking, working on smoking cessation, educated and instructed on smoking cessation History of obstructive sleep apne Clinical Quality Measures DVT/VTE Risk/Contraindication: Risk Factor Score Per Nursin RFS Level Per Nursing on Admit: 4+=Very High KYLE BARBOSA MD Apr 15, 2018 13:05
[2018-04-15 16:22] VITALS: BP 174/101
[2018-04-15] MEDS: ENOXAPARIN 40 MG/0.4 ML (LOVENOX) SYR SQ SCH (17:56)
[2018-04-15 19:44] VITALS: BP 173/91
[2018-04-15] MEDS: SIMvastatin 40 MG (ZOCOR) TAB PO SCH (21:28)
[2018-04-15] MEDS: POLYETHYLENE GLYCOL 17 GM (MIRALAX) PACK PO SCH (21:30)
[2018-04-15 23:11] VITALS: BP 153/83
[2018-04-16 04:08] VITALS: BP 169/93
[2018-04-16] MEDS: morphine IMMEDIATE RELEASE 15 MG TABLET PO PRN ×2 (04:15→11:53)
[2018-04-16 05:31] LABS: HEMOGLOBIN 9.5 G/DL (11.5-16.0); MEAN PLATELET VOLUME 10.1 FL (7.4-10.4); RED CELL DISTRIBUTION WIDTH 16.4 % (10.0-14.5); WHITE BLOOD COUNT 13.4 10^3/uL (4.3-11.0)
[2018-04-16 05:46] LABS: CALCIUM 9.1 MG/DL (8.5-10.1); CREATININE SERUM 1.04 MG/DL (0.60-1.30); MAGNESIUM 1.9 MG/DL (1.8-2.4); POTASSIUM 4.6 MMOL/L (3.6-5.0)
[2018-04-16] MEDS: PANTOPRAZOLE 40 MG (PROTONIX) TAB PO SCH (06:07)
[2018-04-16] MEDS: morphine ER 15 MG (MS CONTIN) TAB PO SCH ×3 (06:07→22:41)
[2018-04-16] MEDS: CYCLOBENZAPRINE 10 MG (FLEXERIL) TAB PO SCH ×3 (06:07→22:41)
[2018-04-16] MEDS: inSUlin ASPART (NovoLOG) 1 UNIT/0.01 ML (CHARGE PER UNIT) SC SCH ×4 (06:08→22:41)
--- NOTE | 2018-04-16 07:17 | Progress Note (SOAP) ---
Subjective Subjective/Events-last exam Febrile yesterday am, none since. Is more short of breath today starting around 4 am and is back on supplemental oxygen. Review of Systems Date Seen by Provider: Apr 16, 2018 Time Seen by Provider: 06:48 Focused Exam Lactate Level 04/14/18 07:45: Lactic Acid Level 1.58 Objective Exam Last Set of Vital Signs Vital Signs Date Time Temp Pulse Resp B/P (MAP) Pulse Ox O2 Delivery O2 Flow Rate FiO2 04/16/18 04:08 98.6 90 18 169/93 (118) 98 Room Air 04/14/18 20:00 1.00 Capillary Refill : Less Than 3 SecondsLess Than 3 Seconds I&O Intake and Output 04/16/18 00:00 Intake Total 1630 ml Output Total 1600 ml Balance 30 ml Intake Oral 1630 ml Output Urine Total 1600 ml # Voids 2 General: Alert, Mild Distress Lungs: Clear to Auscultation, Other (decreased air movement) Heart: No Murmurs, Other (tachycardic) Neuro: Normal Speech Psych/Mental Status: Mental Status NL, Other (appears somewhat anxious) Results/Procedures Lab Laboratory Tests 04/15/18 09:42: Glucometer 476*H 04/15/18 15:42: Glucometer 194H 04/15/18 19:47: Glucometer 352H 04/16/18 05:22: White Blood Count 13.4H, Red Blood Count 2.96L, Hemoglobin 9.5L, Hematocrit 30L , Mean Corpuscular Volume 103H, Mean Corpuscular Hemoglobin 32, Mean Corpuscular Hemoglobin Concent 31L, Red Cell Distribution Width 16.4H, Platelet Count 247, Mean Platelet Volume 10.1, Sodium Level 138, Potassium Level 4.6, Chloride Level 104, Carbon Dioxide Level 23, Anion Gap 11, Blood Urea Nitrogen 40H, Creatinine 1.04, Estimat Glomerular Filtration Rate 54, BUN/Creatinine Ratio 38, Glucose Level 212H, Calcium Level 9.1, Magnesium Level 1.9 Microbiology 04/14/18 Blood Culture - Preliminary, Resulted No growth Procedures Date of Exam:04/14/18 CHEST PA/LAT (2 VIEW) INDICATION: Shortness of air. TIME OF EXAM: 8:18 AM Comparison is made with prior chest from 03/23/2018. FINDINGS: Left chest wall port remains in place. Mass in the region of the right hilum appears stable. Right hemidiaphragm is chronically elevated. Left lung is clear. No effusion or pneumothorax is seen. IMPRESSION: Stable right hilar mass when compared with examination one month earlier. No new abnormality is seen. No acute feature is detected. Assessment/Plan Assessment/Plan (1) Hypoxia Status: Acute Assessment & Plan: Unclear etiology, possible COPD exacerbation (although no prior dx) versus infection (although no significant evidence of infection on CXR or vitals) vs CHF exacerbation (although no significant pulmonary edema on CXR). Solumedrol and ceftriaxone. Supplemental oxygen as needed. Will likely need O2 on d/c, given that she was requiring after prior hospitalization and did not obtain. 04/15 improved this am, no longer requiring supplemental oxygen, decrease solumedrol to q12. Continue ceftriaxone. 04/16 back on supplemental O2 this am, continue solumedrol q12 and ceftriaxone. (2) Heart failure Status: Chronic Assessment & Plan: Resume home medications. Check BNP. No pulmonary edema noted on CXR. 04/15 BNP noted to be over 2000 yesterday evening, gave 40 mg IV lasix and this am BNP slightly higher. Repeat 40 mg IV lasix. Is asymptomatic given no hypoxia , but has been hypertensive and mildly tachycardic, possibly side effect of steroids. Increase metoprolol and lisinopril dose today and consult Cardiology. 04/16 appreciate Cardiology recommendations, echo pending. (3) Anemia of chronic disease Status: Chronic Assessment & Plan: Monitor hemoglobin. (4) Non-small cell lung cancer (NSCLC) Assessment & Plan: Oncology consulted, appreciate input. (5) Hypertension Status: Chronic Assessment & Plan: Resume home medications 04/15 increased dose of lisinopril and metoprolol today Qualifiers: Qualified Codes: I10 - Essential (primary) hypertension (6) Chronic pain Status: Chronic Assessment & Plan: Resume home medications. (7) DVT prophylaxis Status: Acute Assessment & Plan: SCDs, enoxaparin Clinical Quality Measures DVT/VTE Risk/Contraindication: Risk Factor Score Per Nursin RFS Level Per Nursing on Admit: 4+=Very High LILY PORTER MD Apr 16, 2018 07:17
[2018-04-16] MEDS: RT-ALBUTEROL/IPRATROPIUM 3 ML (DUONEB) VIAL IH SCH ×3 (07:18→19:30)
[2018-04-16 08:00] VITALS: BP 165/95
[2018-04-16] MEDS: cefTRIAXone 1,000 MG/SWFI 10 ML IV PUSH IV SCH ×2 (08:25)
[2018-04-16] MEDS: FUROSEMIDE 40 MG (LASIX) TAB PO SCH (08:25)
[2018-04-16] MEDS: meTOprolol TARTRATE 50 MG (LOPRESSOR) TAB PO SCH ×2 (08:25→22:40)
[2018-04-16] MEDS: lisINopril 10 MG (PRINIVIL) TABLET PO SCH (08:25)
[2018-04-16] MEDS: methylPREDNISolone 125 MG (Solu-MEDROL) VIAL IV SCH ×2 (08:25→22:41)
[2018-04-16] MEDS: NICOTINE PATCH REMOVAL TP SCH (08:28)
[2018-04-16] MEDS: NICOTINE 21 MG (NICODERM) PATCH TD SCH (08:29)
[2018-04-16] MEDS ORDERED: FUROSEMIDE 40 MG/4 ML INJ (LASIX) IVP NR (08:30)
--- NOTE | 2018-04-16 09:14 | Diagnostic Imaging Report ---
INDICATION: Shortness of air. Compared with study one day prior. FINDINGS: Medial right chest mass unchanged. The heart size stable. Left IJ catheter unchanged. Upper limits heart size unchanged. There is mild perihilar interstitial opacities, may reflect mild edema or a viral pattern. IMPRESSION: Unchanged medial right chest mass. Mild perihilar interstitial changes, reactive airway disease versus viral process. No consolidating pneumonia, however. Dictated by: Dictated on workstation # [id number]
[2018-04-16 12:00] VITALS: BP 188/100
--- NOTE | 2018-04-16 12:00 | Cardiology Progress Note ---
Subjective Date Seen by Provider: Apr 16, 2018 Time Seen by Provider: 11:47 Subjective/Events-last exam patient is laying down in bed, having worsening dyspnea. No chest pain. Review of Systems General: No Chills, No Night Sweats; Fatigue, Malaise; No Appetite, No Other HEENT: No Head Aches, No Visual Changes, No Eye Pain, No Ear Pain, No Dysphasia , No Sinus Congestion, No Post Nasal Drip, No Sore Throat, No Other Pulmonary: Dyspnea; No Cough, No Pleuritic Chest Pain, No Other Cardiovascular: No: Chest Pain, Palpitations, Orthopnea, Paroxysmal Noc. Dyspnea, Edema, Lt Headedness, Other Focused Exam Lactate Level 04/14/18 07:45: Lactic Acid Level 1.58 Objective-Cardiology Exam Last Set of Vital Signs Vital Signs 04/14/18 04/16/18 04/16/18 20:00 08:00 08:25 Temp 99.4 Pulse 100 Resp 20 B/P (MAP) 165/95 (118) Pulse Ox 100 O2 Delivery Room Air O2 Flow Rate 1.00 Capillary Refill : Less Than 3 SecondsLess Than 3 Seconds I&O Intake and Output 04/16/18 00:00 Intake Total 1630 ml Output Total 1600 ml Balance 30 ml Intake Oral 1630 ml Output Urine Total 1600 ml # Voids 2 General: Alert, Oriented X3, Cooperative, Mild Distress HEENT: Atraumatic, PERRLA Neck: Supple, No JVD, No Thyromegaly Lungs: Other (decreased air movement) Heart: Normal S1, Normal S2, No Murmurs, Other (tachycardic) Abdomen: Normal Bowel Sounds, Soft, No Tenderness, No Hepatosplenomegaly, No Masses Extremities: No Clubbing, No Edema Skin: No Rashes, No Breakdown, No Significant Lesion Neuro: Normal Speech Psych/Mental Status: Mental Status NL, Other (appears somewhat anxious) Results Lab Laboratory Tests 04/16/18 05:22 A/P-Cardiology Admission Diagnosis Shortness of breath Acute exacerbation of COPD Peripheral arterial disease Hypertension Assessment/Plan Shortness of breath, acute exacerbation of COPD and congestive heart failure, elevated BNP, echocardiogram was done yesterday showing ejection fraction 40-45 percent, this is a new finding compared to her previous echocardiogram. Start on aggressive diuresis. Echogenic density was noted in the right ventricle, could be representing metastatic lesion, recommend evaluating NEW. Questionable coronary artery disease, worsening LV function recently. had a stress test done in September 2017 which showed no ischemia with normal LV function, troponin currently is negative , Consider coronary angiogram Metastatic adenocarcinoma of the lung stage IV, has been on palliative chemotherapy. Followed and managed by Dr. cMkeon Low-grade fever, receiving Rocephin, status post recent hospitalization in March 2018 with respiratory failure and sepsis, managed by primary care team Anemia, followed and managed by primary care team Peripheral arterial disease, history of left iliac stent done by Dr. Naeem Simth in August 2017 Hypertension, poorly controlled, did not have history of hypertension until the last hospitalization, currently maintained on beta blockers and MASSIEL inhibitor. Continue to monitor Chronic right bundle branch block. Diabetes mellitus, followed and managed by primary care Chronic pain in her lower extremities for which she uses morphine Tobaccoism, has been smoking, working on smoking cessation, educated and instructed on smoking cessation History of obstructive sleep apnea Clinical Quality Measures DVT/VTE Risk/Contraindication: Risk Factor Score Per Nursin RFS Level Per Nursing on Admit: 4+=Very High KYLE BARBOSA MD Apr 16, 2018 11:59
[2018-04-16] MEDS ORDERED: lisINopril 40 MG (PRINIVIL) TABLET PO NR (12:15)
--- NOTE | 2018-04-16 12:33 | Pulmonary Consultation ---
History of Present Illness History of Present Illness Date of Consultation 04/16/18 12:26 Time Seen by Provider: 12:26 Date of Admission Reason for Visit: shortness of breath Allergies and Home Medications Allergies Coded Allergies: azithromycin (Verified Allergy, Unknown, 09/28/17) codeine (Verified Allergy, Unknown, 09/28/17) latex (Verified Allergy, Unknown, 09/28/17) levofloxacin (Verified Adverse Reaction, Unknown, makes her tendons and bones hurt. , 04/14/18) Home Medications Cyclobenzaprine HCl 10 Mg Tablet, 10 MG PO TID, (Reported) Dexamethasone 4 Mg Tablet, 8 MG PO UD, (Reported) TAKES 2 (4MG) TABLETS DAY BEFORE, DAY OF, AND DAY AFTER CHEMO Fluticasone Propionate 16 Gm [place].susp, 2 SPRAYS NS DAILY PRN for ALLERGIES, ( Reported) Furosemide 40 Mg Tablet, 40 MG PO DAILY, (Reported) Lisinopril 5 Mg Tablet, 5 MG PO DAILY, (Reported) Metoprolol Tartrate 25 Mg Tablet, 25 MG PO BID, (Reported) Morphine Sulfate 15 Mg Tablet, 15 MG PO QID PRN for BREAKTHROUGH PAIN, (Reported ) Morphine Sulfate 15 Mg Tablet.er, 15 MG PO TID, (Reported) Multivit-Min/FA/Lycopene/Lut 1 Each Tablet, 1 TAB PO DAILY, (Reported) Nicotine 1 Each Patch.td24, 21 MG TD DAILY, (Reported) Ondansetron 8 Mg Tab.rapdis, 8 MG PO TID PRN for NAUSEA/VOMITING-1ST LINE, ( Reported) Pantoprazole Sodium 40 Mg Tablet.dr, 40 MG PO DAILY, (Reported) Polyethylene Glycol 3350 255 Gm Powder, 17 GM PO HS, (Reported) Simvastatin 40 Mg Tablet, 40 MG PO HS, (Reported) Vitamin B Complex 1 Each Capsule, 1 CAP PO DAILY, (Reported) Past Wygcweg-Mrbefh-Rzivby Hx Past Med/Social Hx: Reviewed Nursing Past Med/Soc Hx Patient Social History Alcohol Use: Denies Use Recreational Drug Use: No Smoking Status: Current Everyday Smoker Type Used: Cigarettes 2nd Hand Smoke Exposure: Yes Recent Foreign Travel: No Contact w/Someone Who Travel: No Recent Infectious Disease Expo: No Recent Hopitalizations: Yes (UTI, SEPSIS) Immunizations Up To Date Date of Pneumonia Vaccine: Dec 05, 2014 Date of Influenza Vaccine: Apr 07, 2018 Seasonal Allergies Seasonal Allergies: No Past Medical History Surgeries: Yes (BACK, STENT IN LEG, PORT PLACED, LUNG BIOPSY) Tubal Ligation Respiratory: Yes (STAGE 4 LUNG CA) Sleep Apnea, COPD Currently Using CPAP: No Currently Using BIPAP: No Cardiac: Yes Hypertension, Peripheral Vascular Neurological: No : No Reproductive Disorders: No Sexually Transmitted Disease: No HIV/AIDS: No Genitourinary: No Gastrointestinal: Yes Gastroesophageal Reflux, Chronic Constipation Musculoskeletal: Yes (HX FX BACK, SPONDYLESIS) Chronic Back Pain Endocrine: Yes Diabetes, Non-Insulin dep Are Your Blood Sugars Over 250: No HEENT: No Loss of Vision: Denies Hearing Impairment: Denies Cancer: Yes (DX W/LUNG CA JULY OR AUGUST 2017) Lung What Type of Treatment Did You: Chemotherapy, Radiation Psychosocial: No Integumentary: No Blood Disorders: Yes (ANEMIA) Adverse Reaction/Blood Tranf: No (N/A) Family Medical History Diabetes mellitus 19 FATHER G8 BROTHER FHx: heart disease 19 FATHER G8 BROTHER Kidney disease G8 BROTHER Seizure disorder 19 MOTHER TIAs 19 MOTHER Sepsis Event Evaluation Height, Weight, BMI Height: 5'7.00" Weight: 188lbs. 0.6oz. 85.828899th; 29.5 BMI Method:Stated Exam Exam Vital Signs Date Time Temp Pulse Resp B/P (MAP) Pulse Ox O2 Delivery O2 Flow Rate FiO2 04/16/18 08:25 Room Air 04/16/18 08:00 99.4 100 20 165/95 (118) 100 Room Air 04/16/18 04:08 98.6 90 18 169/93 (118) 98 Room Air 04/15/18 23:11 98.5 99 20 153/83 (106) 96 04/15/18 20:00 Room Air 04/15/18 19:44 99.2 108 20 173/91 (118) 96 Room Air 04/15/18 18:55 95 Room Air 04/15/18 16:22 100.0 107 20 174/101 (125) 97 Room Air 04/15/18 14:43 95 Room Air I & O 04/16/18 07:00 Intake Total 1370 ml Output Total 1750 ml Balance -380 ml Height & Weight Height: 5'7.00" Weight: 188lbs. 0.6oz. 85.001430hc; 29.5 BMI Method:Stated General Appearance: No Apparent Distress, WD/WN HEENT: PERRL/EOMI, TMs Normal, Normal ENT Inspection, Pharynx Normal Neck: Full Range of Motion, Normal Inspection, Non Tender, Supple, Carotid Bruit Respiratory: Chest Non Tender, Lungs Clear, Normal Breath Sounds, No Accessory Muscle Use, No Respiratory Distress Cardiovascular: Regular Rate, Rhythm, No Edema, No Gallop, No JVD, No Murmur, Normal Peripheral Pulses Capillary Refill: Less Than 3 Seconds Gastrointestinal: normal bowel sounds, non tender, soft Extremity: Normal Capillary Refill, Normal Inspection, Normal Range of Motion, Non Tender, No Calf Tenderness, No Pedal Edema Neurologic/Psychiatric: Alert, Oriented x3, No Motor/Sensory Deficits, Normal Mood/Affect Skin: Normal Color, Warm/Dry Lymphatic: No Adenopathy Results Lab Laboratory Tests 04/15/18 05:45 04/16/18 05:22 MEDINA CATES DO Apr 16, 2018 12:33
[2018-04-16 16:00] VITALS: BP 166/79
[2018-04-16] MEDS: FUROSEMIDE 40 MG/4 ML INJ (LASIX) IVP SCH (16:22)
[2018-04-16] MEDS: ENOXAPARIN 40 MG/0.4 ML (LOVENOX) SYR SQ SCH (16:23)
[2018-04-16 20:00] VITALS: BP 162/84
[2018-04-16] MEDS: SIMvastatin 40 MG (ZOCOR) TAB PO SCH (22:41)
[2018-04-16] MEDS: POLYETHYLENE GLYCOL 17 GM (MIRALAX) PACK PO SCH (22:43)
[2018-04-17 01:00] VITALS: BP 169/86
[2018-04-17] MEDS: morphine IMMEDIATE RELEASE 15 MG TABLET PO PRN (03:24)
[2018-04-17 04:54] VITALS: BP 171/83
[2018-04-17] MEDS: FUROSEMIDE 40 MG/4 ML INJ (LASIX) IVP SCH (05:52)
[2018-04-17] MEDS: CYCLOBENZAPRINE 10 MG (FLEXERIL) TAB PO SCH ×3 (05:52→21:58)
[2018-04-17] MEDS: PANTOPRAZOLE 40 MG (PROTONIX) TAB PO SCH (05:52)
[2018-04-17] MEDS: morphine ER 15 MG (MS CONTIN) TAB PO SCH ×3 (05:52→21:58)
[2018-04-17 06:09] LABS: HEMOGLOBIN 9.8 G/DL (11.5-16.0); MEAN PLATELET VOLUME 10.2 FL (7.4-10.4); RED CELL DISTRIBUTION WIDTH 16.7 % (10.0-14.5); WHITE BLOOD COUNT 11.9 10^3/uL (4.3-11.0)
[2018-04-17 06:28] LABS: ALBUMIN 3.2 GM/DL (3.2-4.5); BILIRUBIN,TOTAL 0.2 MG/DL (0.1-1.0); CALCIUM 8.8 MG/DL (8.5-10.1); CREATININE SERUM 1.2 MG/DL (0.60-1.30); MAGNESIUM 2.1 MG/DL (1.8-2.4); POTASSIUM 4.5 MMOL/L (3.6-5.0); TOTAL PROTEIN 6.2 GM/DL (6.4-8.2)
[2018-04-17] MEDS: inSUlin ASPART (NovoLOG) 1 UNIT/0.01 ML (CHARGE PER UNIT) SC SCH ×4 (06:54→21:58)
[2018-04-17 08:00] VITALS: BP 175/97
--- NOTE | 2018-04-17 08:49 | Progress Note-Hospitalist ---
Subjective HPI/CC On Admission Date Seen by Provider: Apr 17, 2018 Time Seen by Provider: 09:30 Subjective/Events-last exam Pt is doing well today Has a transesophageal echocardiagram scheduled for today due to possible lung cancer metastasis in the heart. Pt wants to go home soon. Does not have home oxygen at home so that will need to be set up. at the bedside. Denies any pain. Bowels are moving. Review of Systems Pulmonary: Dyspnea Neurological: Other (anxiety) Objective Exam Vital Signs Vital Signs Date Time Temp Pulse Resp B/P (MAP) Pulse Ox O2 Delivery O2 Flow Rate FiO2 04/17/18 19:22 97.2 65 19 144/79 (100) 99 Nasal Cannula 2.00 Capillary Refill : Less Than 3 SecondsLess Than 3 Seconds General Appearance: No Apparent Distress, WD/WN HEENT: PERRL/EOMI, Normal ENT Inspection, Pharynx Normal Neck: Full Range of Motion, Normal Inspection, Non Tender, Supple, Carotid Bruit Respiratory: Chest Non Tender, No Accessory Muscle Use, No Respiratory Distress , Decreased Breath Sounds Cardiovascular: Regular Rate, Rhythm, No Edema, No Gallop, No JVD, No Murmur, Normal Peripheral Pulses Gastrointestinal: Normal Bowel Sounds, No Organomegaly, No Pulsatile Mass, Non Tender, Soft Back: Normal Inspection, No CVA Tenderness, No Vertebral Tenderness Extremity: Normal Capillary Refill, Normal Inspection, Normal Range of Motion, Non Tender, No Calf Tenderness, No Pedal Edema Neurologic/Psychiatric: Alert, Oriented x3, No Motor/Sensory Deficits, Normal Mood/Affect Skin: Normal Color, Warm/Dry Lymphatic: No Adenopathy Results/Procedures Lab Laboratory Tests 04/17/18 06:00 Patient resulted labs reviewed. Assessment/Plan Assessment and Plan Assess & Plan/Chief Complaint Assessment: Hypoxia CHF Lung cancer Plan: Cardiology and pulmonology consultations are appreciated NEW vs cath Home O2 at DC Diagnosis/Problems Diagnosis/Problems (1) Hypoxia Status: Acute (2) Non-small cell lung cancer (NSCLC) Status: Chronic Qualifiers: Laterality: unspecified laterality Qualified Codes: C34.90 - Malignant neoplasm of unspecified part of unspecified bronchus or lung (3) COPD Status: Chronic (4) Anemia of chronic disease Status: Chronic (5) Heart failure Status: Chronic Qualifiers: Heart failure type: unspecified Heart failure chronicity: unspecified Qualified Codes: I50.9 - Heart failure, unspecified (6) Chronic pain Status: Chronic Qualifiers: Chronic pain type: chronic pain syndrome Qualified Codes: G89.4 - Chronic pain syndrome (7) Hypertension Status: Chronic Qualifiers: Hypertension type: essential hypertension Qualified Codes: I10 - Essential (primary) hypertension (8) Hyperlipidemia Status: Chronic Qualifiers: Hyperlipidemia type: mixed hyperlipidemia Qualified Codes: E78.2 - Mixed hyperlipidemia Clinical Quality Measures DVT/VTE Risk/Contraindication: Risk Factor Score Per Nursin RFS Level Per Nursing on Admit: 4+=Very High AUTUMN BROWN DO Apr 17, 2018 08:49
[2018-04-17] MEDS: NICOTINE PATCH REMOVAL TP SCH (08:50)
[2018-04-17] MEDS: meTOprolol TARTRATE 50 MG (LOPRESSOR) TAB PO SCH (08:51)
[2018-04-17] MEDS: lisINopril 40 MG (PRINIVIL) TABLET PO SCH (08:51)
[2018-04-17] MEDS: cefTRIAXone 1,000 MG/SWFI 10 ML IV PUSH IV SCH ×2 (08:51)
[2018-04-17] MEDS: NICOTINE 21 MG (NICODERM) PATCH TD SCH (08:51)
[2018-04-17] MEDS: methylPREDNISolone 125 MG (Solu-MEDROL) VIAL IV SCH ×2 (08:51→21:58)
[2018-04-17] MEDS: RT-ALBUTEROL/IPRATROPIUM 3 ML (DUONEB) VIAL IH SCH ×2 (08:59→20:26)
--- NOTE | 2018-04-17 09:19 | Progress Note-Cardiology ---
Cardiology SOAP Progress Note Subjective: Shortness of breath improved compared to time of admission No cp or palp or syncope Gen malaise present Objective: I&O/Vital Signs 04/17/18 04/17/18 04/17/18 01:00 04:54 08:00 Temp 97.5 98.4 98.4 Pulse 94 85 100 Resp 20 14 20 B/P (MAP) 169/86 (113) 171/83 (112) 175/97 (123) Pulse Ox 96 98 98 O2 Delivery Room Air Room Air Nasal Cannula O2 Flow Rate 2.00 04/17/18 00:00 Intake Total 2249 ml Output Total 2050 ml Balance 199 ml Weight (Pounds): 188 Weight (Ounces): 0.6 Weight (Calculated Kilograms): 85.071498 Constitutional: AAO x 3, well-developed, well-nourished Respiratory: No accessory muscle use; other (fair bilat air entry, prolonged exp phase) Cardiovascular: regular rate-rhythm, S1 and S2, systolic murmur (soft MARZENA at card base) Gastrointestional: No tender; soft; No guarding, No rebound; audible bowel sounds Extremities: No clubbing, No cyanosis, No significant edema Neurologic/Psychiatric: grossly intact, power is 5/5 both on sides Skin: No rash on exposed areas, No ulcerations on exposed areas Results/Procedures: Labs Laboratory Tests 04/16/18 11:37: Glucometer 208H 04/16/18 16:04: Glucometer 253H 04/16/18 20:03: Glucometer 302H 04/17/18 06:00: White Blood Count 11.9H, Red Blood Count 3.04L, Hemoglobin 9.8L, Hematocrit 31L , Mean Corpuscular Volume 103H, Mean Corpuscular Hemoglobin 32, Mean Corpuscular Hemoglobin Concent 31L, Red Cell Distribution Width 16.7H, Platelet Count 260, Mean Platelet Volume 10.2, Sodium Level 138, Potassium Level 4.5, Chloride Level 103, Carbon Dioxide Level 22, Anion Gap 13, Blood Urea Nitrogen 52H, Creatinine 1.20, Estimat Glomerular Filtration Rate 46, BUN/Creatinine Ratio 43, Glucose Level 288H, Calcium Level 8.8, Corrected Calcium 9.4, Magnesium Level 2.1, Total Bilirubin 0.2, Aspartate Amino Transf (AST/SGOT) 14, Alanine Aminotransferase (ALT/SGPT) 10, Alkaline Phosphatase 66, Total Protein 6.2L, Albumin 3.2 Microbiology 04/14/18 Blood Culture - Preliminary, Resulted No growth 04/16/18 Influenza Types A,B Antigen (SHEA) - Final, Complete Laboratory Tests 04/16/18 05:22 04/17/18 06:00 A/P: Assessment: Shortness of breath due to acute exacerbation of COPD and ac systolic congestive heart failure Echo of 04/15/18: LVEF 40-45%, mild to mod MR & TR & AI, PASP 35 mmHg, RV echogenic mass (probably moderator band) Newly diagnosed cardiomyopathy with LVEF 40-45%: probably anoxic due to ac on chronic resp failure. MPI in September 2017 which showed no ischemia with normal LV function Metastatic adenocarcinoma of the lung stage IV, has been on palliative chemotherapy. Followed and managed by Dr. Mckeon Low-grade fever, receiving Rocephin, status post recent hospitalization in March 2018 with respiratory failure and sepsis, managed by primary care team Anemia, followed and managed by primary care team Peripheral arterial disease, history of left iliac stent done by Dr. Naeem Smith in August 2017 Hypertension, not well controlled Chronic right bundle branch block. Diabetes mellitus, followed and managed by primary care Chronic pain in her lower extremities for which she uses morphine Tobaccoism, advised to quit History of obstructive sleep apnea Plan: * I reviewed the records of this hosp in detail, including the CV w/u ( including cardiac echo images) * I interviewed her, examined her, and had a long conversation with her and her * Her cardiomyopathy may have been anoxic due to ac on chronic resp failure, but a primary cardiac source (CAD) cannot be excluded. For full eval, cath would be needed. I have discussed this with her in detail and they are considering their options * The density in the RV is most likely a moderator band, but we cannot definitively exclude other possibilities. For further eval NEW would be required. I have reviewed this with her and her in detail and they are considering their options * Increase bb to better control bp * Change furosemide to oral * Monitor labs * Advised to quit smoking immediately and completely * We have advised close outpt f/u after discharge DARSHAN AMARAL MD FACP FAC CCDS Apr 17, 2018 09:19
[2018-04-17] MEDS ORDERED: meTOprolol SUCCINATE 100 MG (TOPROL XL) TAB PO NR (09:30)
[2018-04-17 12:00] VITALS: BP 155/83
--- NOTE | 2018-04-17 15:39 | NUR ---
Pastoral care visit, offered prayer and support.
[2018-04-17 15:52] VITALS: BP 171/89
--- NOTE | 2018-04-17 16:19 | NUR ---
Pt states she hoped to be discharged home soon and feels much better. Is hoping to be able to have home oxygen as states she would feel more secure as admits to becoming anxious when short of breath and is unable to take any anti anxiety medication as it tends to impair her thinking.
[2018-04-17] MEDS: ENOXAPARIN 40 MG/0.4 ML (LOVENOX) SYR SQ SCH (17:01)
[2018-04-17 19:22] VITALS: BP 144/79
[2018-04-17] MEDS: SIMvastatin 40 MG (ZOCOR) TAB PO SCH (21:58)
[2018-04-17] MEDS: POLYETHYLENE GLYCOL 17 GM (MIRALAX) PACK PO SCH (21:58)
[2018-04-18 00:13] VITALS: BP 144/68
[2018-04-18] MEDS: morphine IMMEDIATE RELEASE 15 MG TABLET PO PRN (02:25)
[2018-04-18 03:23] VITALS: BP 173/81
[2018-04-18] MEDS: inSUlin ASPART (NovoLOG) 1 UNIT/0.01 ML (CHARGE PER UNIT) SC SCH (06:29)
[2018-04-18] MEDS: CYCLOBENZAPRINE 10 MG (FLEXERIL) TAB PO SCH (06:29)
[2018-04-18] MEDS: PANTOPRAZOLE 40 MG (PROTONIX) TAB PO SCH (06:29)
[2018-04-18] MEDS: morphine ER 15 MG (MS CONTIN) TAB PO SCH (06:29)
[2018-04-18] MEDS: RT-ALBUTEROL/IPRATROPIUM 3 ML (DUONEB) VIAL IH SCH (06:33)
--- NOTE | 2018-04-18 06:43 | NUR ---
home oxygen study pt walked with out a walker on room air spo2 did not drop below 92% while walking, pt does not require oxygen at this time.
[2018-04-18 08:00] VITALS: BP 186/86
[2018-04-18] MEDS: cefTRIAXone 1,000 MG/SWFI 10 ML IV PUSH IV SCH ×2 (08:21)
[2018-04-18] MEDS: methylPREDNISolone 125 MG (Solu-MEDROL) VIAL IV SCH (08:21)
[2018-04-18] MEDS: lisINopril 40 MG (PRINIVIL) TABLET PO SCH (08:21)
[2018-04-18] MEDS: NICOTINE 21 MG (NICODERM) PATCH TD SCH (08:21)
[2018-04-18] MEDS: NICOTINE PATCH REMOVAL TP SCH (08:22)
[2018-04-18] MEDS ORDERED: meTOprolol SUCCINATE 100 MG (TOPROL XL) TAB PO SCH (09:00)
[2018-04-18] MEDS ORDERED: SPIRONOLACTONE 25 MG (ALDACTONE) TAB PO SCH (09:00)
[2018-04-18] MEDS ORDERED: ASPIRIN E.C. 81 MG (ECOTRIN) TAB PO SCH (09:00)
[2018-04-18] MEDS ORDERED: FUROSEMIDE 40 MG (LASIX) TAB PO SCH (09:00)
[2018-04-18] MEDS ORDERED: LISI40TA PO (09:04)
[2018-04-18] MEDS ORDERED: METO-395 PO (09:04)
[2018-04-18] MEDS ORDERED: SPIR25TA5 PO (09:04)
[2018-04-18] MEDS ORDERED: FURO40TA4 PO (09:04)
[2018-04-18] MEDS ORDERED: ASPI-999 PO (09:04)
--- NOTE | 2018-04-18 09:21 | Discharge Summary-Hospitalist ---
Diagnosis/Chief Complaint Date of Admission Apr 14, 2018 at 09:45 Date of Discharge Discharge Date: Apr 18, 2018 Discharge Diagnosis (1) Hypoxia Status: Resolved (2) Non-small cell lung cancer (NSCLC) Status: Chronic (3) COPD Status: Chronic (4) Anemia of chronic disease Status: Chronic (5) Heart failure Status: Chronic (6) Chronic pain Status: Chronic (7) Hypertension Status: Chronic (8) Hyperlipidemia Status: Chronic Discharge Summary Discharge Physical Exam Allergies: Coded Allergies: azithromycin (Verified Allergy, Unknown, 09/28/17) codeine (Verified Allergy, Unknown, 09/28/17) latex (Verified Allergy, Unknown, 09/28/17) levofloxacin (Verified Adverse Reaction, Unknown, makes her tendons and bones hurt. , 04/14/18) Vitals & I&Os Vital Signs Date Time Temp Pulse Resp B/P (MAP) Pulse Ox O2 Delivery O2 Flow Rate FiO2 04/18/18 10:55 87 20 186/86 99 Room Air 2.00 04/18/18 08:00 99.5 General Appearance: No Apparent Distress, WD/WN HEENT: PERRL/EOMI, Normal ENT Inspection, Pharynx Normal Respiratory: Chest Non Tender, No Accessory Muscle Use, No Respiratory Distress , Decreased Breath Sounds Cardiovascular: Regular Rate, Rhythm, No Edema, No Gallop, No JVD, No Murmur, Normal Peripheral Pulses Gastrointestinal: Normal Bowel Sounds, No Organomegaly, No Pulsatile Mass, Non Tender, Soft Extremity: Normal Capillary Refill, Normal Inspection, Normal Range of Motion, Non Tender, No Calf Tenderness, No Pedal Edema Skin: Normal Color, Warm/Dry Neurologic/Psychiatric: Alert, Oriented x3, No Motor/Sensory Deficits, Normal Mood/Affect Hospital Course Was the Problem List Reviewed?: Yes Hospital course: Pt had a uneventful hospital course, she was admitted for shortness of breath and congestive heart failure, cardiology was consulted and Pt was given Lasix. Pt was maintained on oxygen and overall did well but needed a cardiac catheterization and transesophageal echocardiogram to fully evaluate the heart function of which she wanted just to do that as an outpatient so she was discharged, did not even require home oxygen and she attributes her symptoms to having a panic attack. She will have close follow-up at [facility]. Labs (last 24 hrs) Laboratory Tests 04/17/18 20:53: Glucometer 302H 04/18/18 05:12: Glucometer 216H Microbiology 04/14/18 Blood Culture - Preliminary, Resulted No growth 04/16/18 Influenza Types A,B Antigen (SHEA) - Final, Complete Patient resulted labs reviewed. Pending Labs Discussion & Recommendations Discharge Planning: <30 minutes discharge planning Discharge Home Medications: Active Scripts Active Aspirin 81 Mg Tab.chew 81 Mg PO DAILY Furosemide 40 Mg Tablet 80 Mg PO DAILY Spironolactone 25 Mg Tablet 25 Mg PO DAILY Lisinopril 40 Mg Tablet 40 Mg PO DAILY Metoprolol Succinate 100 Mg Tab.er.24h 200 Mg PO DAILY Reported Fluticasone Propionate 16 Gm [place].susp 2 Sprays NS DAILY PRN Dexamethasone 4 Mg Tablet 8 Mg PO UD TAKES 2 (4MG) TABLETS DAY BEFORE, DAY OF, AND DAY AFTER CHEMO Ondansetron Odt (Ondansetron) 8 Mg Tab.rapdis 8 Mg PO TID PRN Nicotine Patch (Nicotine) 1 Each Patch.td24 21 Mg TD DAILY Simvastatin 40 Mg Tablet 40 Mg PO HS Polyethylene Glycol 3350 255 Gm Powder 17 Gm PO HS Pantoprazole Sodium 40 Mg Tablet.dr 40 Mg PO DAILY Morphine Sulfate ER (Morphine Sulfate) 15 Mg Tablet.er 15 Mg PO TID Vitamin B Complex 1 Each Capsule 1 Cap PO DAILY Centrum Silver Tablet (Multivit-Min/FA/Lycopene/Lut) 1 Each Tablet 1 Tab PO DAILY Morphine Sulfate 15 Mg Tablet 15 Mg PO QID PRN Cyclobenzaprine HCl 10 Mg Tablet 10 Mg PO TID Instructions to patient/family Please see electronic discharge instructions given to patient. Clinical Quality Measures DVT/VTE Risk/Contraindication: Risk Factor Score Per Nursin RFS Level Per Nursing on Admit: 4+=Very High Problem Qualifiers (1) Non-small cell lung cancer (NSCLC): Laterality: unspecified laterality Qualified Codes: C34.90 - Malignant neoplasm of unspecified part of unspecified bronchus or lung (2) Heart failure: Heart failure type: unspecified Heart failure chronicity: unspecified Qualified Codes: I50.9 - Heart failure, unspecified (3) Chronic pain: Chronic pain type: chronic pain syndrome Qualified Codes: G89.4 - Chronic pain syndrome (4) Hypertension: Hypertension type: essential hypertension Qualified Codes: I10 - Essential ( primary) hypertension (5) Hyperlipidemia: Hyperlipidemia type: mixed hyperlipidemia Qualified Codes: E78.2 - Mixed hyperlipidemia BROWN,AUTUMN DO Apr 18, 2018 09:20
--- NOTE | 2018-04-18 10:53 | NUR ---
Paty feels much improved. She understands and accepts that she doesn't qualify for medicare reimbursed home oxygen. here and very supportive. Pt will be [facility] by [facility] as wants to resume chemotherapy.
[2018-04-18 10:55] VITALS: BP 186/86
--- NOTE | 2018-04-18 11:00 | NUR ---
PATIENT STATES "FEELING SO MUCH BETTER." PATIENT GIVEN DISCHARGE INSTRUCTIONS AND TIME ALLOWED FOR QUESTIONS. NO PAIN OR SHORTNESS OF BREATH REPORTED AT THIS TIME. PORT DE-ACCESSED AND GAUZE DRESSING APPLIED. PATIENT LEFT ROOM VIA WHEELCHAIR ACCOMPANIED BY STAFF AND .
== END 2018-04-18 11:00 | disposition home or self-care (01) | DRG 291 ==
LOC: EDUNIT# 07:35 → ER 07:35 → 4TH 09:45
PROVIDERS: ADMIT Family Medicine; ATTEND Family Medicine
DX: I11.0 Hypertensive heart disease with heart failure (principal); I50.21 Acute systolic (congestive) heart failure; J44.1 Chronic obstructive pulmonary disease with (acute) exacerbation; R09.02 Hypoxemia; C79.9 Secondary malignant neoplasm of unspecified site; I42.9 Cardiomyopathy, unspecified; R91.8 Other nonspecific abnormal finding of lung field; G47.30 Sleep apnea, unspecified; E11.51 Type 2 diabetes mellitus with diabetic peripheral angiopathy without gangrene; D63.8 Anemia in other chronic diseases classified elsewhere; F41.9 Anxiety disorder, unspecified; M54.9 Dorsalgia, unspecified; Z85.118 Personal history of other malignant neoplasm of bronchus and lung; Z92.21 Personal history of antineoplastic chemotherapy; Z92.3 Personal history of irradiation; Z95.828 Presence of other vascular implants and grafts; F17.210 Nicotine dependence, cigarettes, uncomplicated; G89.4 Chronic pain syndrome; I45.10 Unspecified right bundle-branch block; E78.2 Mixed hyperlipidemia
CPT/HCPCS: 36415; 71045; 71046; 80048; 80053; 81000; 82962; 83605; 83735; 83880; 84484; 85007; 85025; 85027; 87040; 87804; 93005; 93306; 94640; 94760; 94761

== ENCOUNTER → 2018-05-01 | Outpatient (CLI) | payer MEDICAID, MEDICARE ==
[~2018-05-01] MED LIST changes: +ASPI-999 PO; +BARIUM SUSPENSION 2.1% (VANILLA SILQ) 450 ML PO ONE; +FLUT16SP22 NS; +FURO40TA4 PO; +IOHEXOL 350 MG/ML 100 ML (OMNIPAQUE 350) VIAL IV ONE; +LISI-556 PO; +LISI40TA PO; +METO-333 PO; +METO-395 PO; +NICO-588 TD; +NS 100 ML (IVPB) BAG IV ONE; +ONDA8TAB13 PO; +RECEIVED CONTRAST (Hold Metformin) IV SCH; +SIMV40TA4 PO; +SPIR25TA5 PO
--- NOTE | 2018-05-01 10:33 | Diagnostic Imaging Report ---
PROCEDURE: CT chest with contrast, CT abdomen and pelvis with and without contrast. TECHNIQUE: Pre and post intravenous contrast axial imaging of the abdomen and pelvis and post contrast axial imaging of the chest were performed. INDICATION: Lung cancer. COMPARISON: CT chest, abdomen and pelvis with IV contrast 01/25/2018. FINDINGS: CHEST: Since the prior exam, the masslike consolidation in the anterior right upper lobe abutting the mediastinum is smaller, measuring 2.5 x 5.7 cm axially compared to 3.6 x 8.9 cm. There is new consolidation with air bronchograms in the dependent perihilar right upper and right lower lobes. There is also tiny right pleural effusion or thickening which is new. No endobronchial lesions. No mediastinal, hilar or axillary lymphadenopathy. Left IJ tunneled port CVC. Normal heart size. No pericardial effusion. Normal caliber thoracic aorta and main pulmonary arteries. ABDOMEN AND PELVIS: The liver, gallbladder, pancreas, spleen, adrenals, bladder and appendix are negative. Interval decreasing size of the masses in both kidneys measuring approximately 4.9 x 1.9 cm on the right and 2.8 x 5.7 cm on the left, previously 3.4 x 4.9 cm and 3.4 x 7.2 cm, respectively. Prominent retroperitoneal lymph nodes have overall improved. For example, a left para-aortic necrotic lymph node measures up to 1.6 cm in short axis dimension, previously 2.9 cm. Simple appearing subcentimeter cysts in the kidneys. Stable 2.9 x 3.9 cm enhancing mass in the uterus most likely represents uterine fibroid. The mixed sclerotic and lytic lesion in the right side of the T6 vertebral body overall stable measuring 1.7 x 1.8 cm. Stable 360 degree fusion with laminectomy at L5-S1. No new osteoblastic or lytic lesions are identified. IMPRESSION: 1. Continued decreasing size of the masslike consolidation in the right upper lobe. 2. New airspace consolidation in the dependent right upper and right lower lobes. New tiny right pleural effusion. Although this may be infectious/inflammatory, metastatic disease is not excluded. 3. Decreasing size of the bilateral adrenal masses, measurements above. 4. There is no longer lymphadenopathy in the chest by criteria. There is decreasing retroperitoneal lymphadenopathy, measurements above. 5. Stable mixed sclerotic and lytic presumed metastasis in the T6 vertebral body. No new osteoblastic or lytic lesions. Dictated by: Dictated on workstation # [id number]
== END ==
LOC: RAD 08:04
PROVIDERS: ATTEND Internal Medicine Hematology & Oncology
DX: C34.11 Malignant neoplasm of upper lobe, right bronchus or lung (principal); C79.51 Secondary malignant neoplasm of bone; C79.70 Secondary malignant neoplasm of unspecified adrenal gland; J18.1 Lobar pneumonia, unspecified organism; R59.0 Localized enlarged lymph nodes; Z95.828 Presence of other vascular implants and grafts
CPT/HCPCS: 71260; 74178

== ENCOUNTER 2018-05-27 11:43 | Emergency (ER) | payer MEDICARE ==
[~2018-05-27] VITALS: Ht 170.2 cm; Wt 80.7 kg
[~2018-05-27 11:43] MED LIST changes: -BARIUM SUSPENSION 2.1% (VANILLA SILQ) 450 ML PO ONE; -IOHEXOL 350 MG/ML 100 ML (OMNIPAQUE 350) VIAL IV ONE; -NS 100 ML (IVPB) BAG IV ONE; -RECEIVED CONTRAST (Hold Metformin) IV SCH
--- NOTE | 2018-05-27 12:05 | ED General ---
General Stated Complaint: FALL/AMS Source of Information: Patient Exam Limitations: No Limitations History of Present Illness Date Seen by Provider: May 27, 2018 Time Seen by Provider: 12:02 Initial Comments To ER with reports of a fall accompanied by her . She was getting up off the toilet when she fell backwards. Did not hit her head. Complains of some left ankle pain. states that she is a bit slower to respond than usual and he suspects she might have taken too much of her morphine or lorazepam. She has stage IV non-small cell lung cancer in the right hilum with metastasis to T8 vertebrae, the left acetabulum as well as some para-aortic adenopathy, bilateral adrenal hypermetabolism on CT. She received chemotherapy last week and states that she was anemic and had low platelets at that time. Her only complaint is of left ankle pain after the fall. She is alert and insists that she did not take too much of her medication. Timing/Duration: 1/2 Hour Severity: Moderate Associated Systoms: No Chest Pain, No Cough, No Diaphoresis, No Fever/Chills, No Headaches, No Loss of Appetite, No Malaise, No Nausea/Vomiting, No Rash, No Seizure, No Shortness of Air, No Syncope, No Weakness Allergies and Home Medications Allergies Coded Allergies: azithromycin (Verified Allergy, Unknown, 05/27/18) codeine (Verified Allergy, Unknown, 05/27/18) latex (Verified Allergy, Unknown, 05/27/18) levofloxacin (Verified Adverse Reaction, Unknown, makes her tendons and bones hurt. , 05/27/18) Home Medications Aspirin 81 Mg Tab.chew, 81 MG PO DAILY Prescribed by: YONI ALBARADO on 04/18/18903 Cyclobenzaprine HCl 10 Mg Tablet, 10 MG PO TID, (Reported) Dexamethasone 4 Mg Tablet, 8 MG PO UD, (Reported) TAKES 2 (4MG) TABLETS DAY BEFORE, DAY OF, AND DAY AFTER CHEMO Fluticasone Propionate 16 Gm [place].susp, 2 SPRAYS NS DAILY PRN for ALLERGIES, ( Reported) Furosemide 40 Mg Tablet, 80 MG PO DAILY Prescribed by: YONI ALBARADO on 04/18/18903 Lisinopril 40 Mg Tablet, 40 MG PO DAILY Prescribed by: YONI ALBARADO on 04/18/18903 Metoprolol Succinate 100 Mg Tab.er.24h, 200 MG PO DAILY Prescribed by: YONI ALBARADO on 04/18/18903 Morphine Sulfate 15 Mg Tablet, 15 MG PO QID PRN for BREAKTHROUGH PAIN, (Reported ) Morphine Sulfate 15 Mg Tablet.er, 15 MG PO TID, (Reported) Multivit-Min/FA/Lycopene/Lut 1 Each Tablet, 1 TAB PO DAILY, (Reported) Nicotine 1 Each Patch.td24, 21 MG TD DAILY, (Reported) Ondansetron 8 Mg Tab.rapdis, 8 MG PO TID PRN for NAUSEA/VOMITING-1ST LINE, ( Reported) Pantoprazole Sodium 40 Mg Tablet.dr, 40 MG PO DAILY, (Reported) Polyethylene Glycol 3350 255 Gm Powder, 17 GM PO HS, (Reported) Simvastatin 40 Mg Tablet, 40 MG PO HS, (Reported) Spironolactone 25 Mg Tablet, 25 MG PO DAILY Prescribed by: YONI ALBARADO on 04/18/18903 Vitamin B Complex 1 Each Capsule, 1 CAP PO DAILY, (Reported) Patient Home Medication List Home Medication List Reviewed: Yes Review of Systems Review of Systems Constitutional: see HPI; No chills, No fever EENTM: see HPI Respiratory: no symptoms reported Cardiovascular: no symptoms reported Genitourinary: no symptoms reported Musculoskeletal: see HPI Skin: no symptoms reported Psychiatric/Neurological: See HPI Hematologic/Lymphatic: No Symptoms Reported Immunological/Allergic: no symptoms reported Past Fsfacsk-Nzkmpp-Pccqxb Hx Patient Social History Type Used: Cigarettes 2nd Hand Smoke Exposure: Yes Recent Foreign Travel: No Contact w/Someone Who Travel: No Recent Hopitalizations: Yes (UTI, SEPSIS) Immunizations Up To Date Date of Pneumonia Vaccine: Dec 05, 2014 Date of Influenza Vaccine: Apr 07, 2018 Seasonal Allergies Seasonal Allergies: No Past Medical History Surgeries: Yes (BACK, STENT IN LEG, PORT PLACED, LUNG BIOPSY) Tubal Ligation Respiratory: Yes (STAGE 4 LUNG CA) Sleep Apnea, COPD Currently Using CPAP: No Currently Using BIPAP: No Cardiac: Yes Hypertension, Peripheral Vascular Neurological: No Reproductive Disorders: No Sexually Transmitted Disease: No HIV/AIDS: No Genitourinary: No Gastrointestinal: Yes Gastroesophageal Reflux, Chronic Constipation Musculoskeletal: Yes (HX FX BACK, SPONDYLESIS) Chronic Back Pain Endocrine: Yes Diabetes, Non-Insulin dep HEENT: No Loss of Vision: Denies Hearing Impairment: Denies Cancer: Yes (DX W/LUNG CA JULY OR AUGUST 2017) Lung What Type of Treatment Did You: Chemotherapy, Radiation Psychosocial: No Integumentary: No Blood Disorders: Yes (ANEMIA) Adverse Reaction/Blood Tranf: No (N/A) Family Medical History Diabetes mellitus 19 FATHER G8 BROTHER FHx: heart disease 19 FATHER G8 BROTHER Kidney disease G8 BROTHER Seizure disorder 19 MOTHER TIAs 19 MOTHER Physical Exam Vital Signs Vital Signs - First Documented 05/27/18 12:09 Temp 99.9 Pulse 76 Resp 26 B/P (MAP) 123/86 (98) Pulse Ox 96 Capillary Refill : Height, Weight, BMI Height: 5'7.00" Weight: 188lbs. 0.6oz. 85.719178fr; 29.5 BMI Method:Stated General Appearance: No Apparent Distress, WD/WN, Other (vitals are stable no distress) Eyes: Bilateral Eye Normal Inspection, Bilateral Eye PERRL, Bilateral Eye EOMI , Bilateral Eye Other (pupils are pinpoint at about 2-3 mm bilaterally) HEENT: PERRL/EOMI, TMs Normal Neck: Full Range of Motion, Normal Inspection Respiratory: No Accessory Muscle Use, No Respiratory Distress, Decreased Breath Sounds; No Rhonci, No Wheezing Gastrointestinal: Non Tender Extremity: Normal Capillary Refill, Other (minimal edema over the lateral malleolus on the left) Neurologic/Psychiatric: Alert, Oriented x3, Other (responses are delayed and speech is slow but she answers questions appropriately and is oriented to person place time and situation.) Skin: Normal Color, Warm/Dry Progress/Results/Core Measures Suspected Sepsis SIRS Temperature: Pulse: Respiratory Rate: Laboratory Tests 05/27/18 12:02: White Blood Count 4.1L Blood Pressure / Mean: Laboratory Tests 05/27/18 12:02: Creatinine 1.33H, Platelet Count 220, Total Bilirubin 0.2 Results/Orders Lab Results Laboratory Tests Test 05/27/18 12:02 05/27/18 12:10 05/27/18 13:50 Range/Units White Blood Count 4.1 L 4.3-11.0 10^3/uL Red Blood Count 2.44 L 4.35-5.85 10^6/uL Hemoglobin 7.4 L 11.5-16.0 G/DL Hematocrit 23 L 35-52 % Mean Corpuscular Volume 94 80-99 FL Mean Corpuscular Hemoglobin 30 25-34 PG Mean Corpuscular Hemoglobin Concent 32 32-36 G/DL Red Cell Distribution Width 14.7 H 10.0-14.5 % Platelet Count 220 130-400 10^3/uL Mean Platelet Volume 9.7 7.4-10.4 FL Neutrophils (%) (Auto) 81 H 42-75 % Lymphocytes (%) (Auto) 18 12-44 % Monocytes (%) (Auto) 1 0-12 % Eosinophils (%) (Auto) 0 0-10 % Basophils (%) (Auto) 0 0-10 % Neutrophils # (Auto) 3.4 1.8-7.8 X 10^3 Lymphocytes # (Auto) 0.7 L 1.0-4.0 X 10^3 Monocytes # (Auto) 0.1 0.0-1.0 X 10^3 Eosinophils # (Auto) 0.0 0.0-0.3 10^3/uL Basophils # (Auto) 0.0 0.0-0.1 10^3/uL Sodium Level 131 L 135-145 MMOL/L Potassium Level 5.7 H 5.6 H 3.6-5.0 MMOL/L Chloride Level 102 98-107 MMOL/L Carbon Dioxide Level 23 21-32 MMOL/L Anion Gap 6 5-14 MMOL/L Blood Urea Nitrogen 50 H 7-18 MG/DL Creatinine 1.33 H 0.60-1.30 MG/DL Estimat Glomerular Filtration Rate 41 BUN/Creatinine Ratio 38 Glucose Level 158 H 70-105 MG/DL Calcium Level 9.1 8.5-10.1 MG/DL Corrected Calcium 9.6 8.5-10.1 MG/DL Total Bilirubin 0.2 0.1-1.0 MG/DL Aspartate Amino Transf (AST/SGOT) 20 5-34 U/L Alanine Aminotransferase (ALT/SGPT) 11 0-55 U/L Alkaline Phosphatase 87 40-136 U/L Total Protein 6.4 6.4-8.2 GM/DL Albumin 3.4 3.2-4.5 GM/DL Urine Color YELLOW Urine Clarity CLEAR Urine pH 6 5-9 Urine Specific [place] 1.015 L 1.016-1.022 Urine Protein 4+ NEGATIVE Urine Glucose (UA) NEGATIVE NEGATIVE Urine Ketones NEGATIVE NEGATIVE Urine Nitrite NEGATIVE NEGATIVE Urine Bilirubin NEGATIVE NEGATIVE Urine Urobilinogen NORMAL NORMAL MG/DL Urine Leukocyte Esterase NEGATIVE NEGATIVE Urine RBC (Auto) 1+ H NEGATIVE Urine RBC NONE /HPF Urine WBC NONE /HPF Urine Crystals PRESENT H /LPF Urine Amorphous Sediment MOD JESUS URATES H /LPF Urine Bacteria NEGATIVE /HPF Urine Casts NONE /LPF Urine Mucus NEGATIVE /LPF Urine Culture Indicated NO Lactate Dehydrogenase 331 H 125-220 U/L My Orders Orders - CARYL HINOJOSA APRN Cbc With Automated Diff (05/27/18 12:01) Comprehensive Metabolic Panel (05/27/18 12:01) Ua Culture If Indicated (05/27/18 12:01) Chest Pa/Lat (2 View) (05/27/18 12:01) Ct Head Wo (05/27/18 12:01) Iv [place]-Insert (Order) (05/27/18 12:01) Ankle, Left, 3 Views (05/27/18 12:01) Ns Iv 1000 Ml (Sodium Chloride 0.9%) (05/27/18 12:45) Potassium (05/27/18 12:40) Foot, Left, 3 Views (05/27/18 14:57) Ekg Tracing (05/27/18 14:58) LDH (05/27/18 15:06) Ns Iv 500 Ml (Sodium Chloride 0.9%) (05/27/18 15:15) Vital Signs/I&O 05/27/18 12:09 Temp 99.9 Pulse 76 Resp 26 B/P (MAP) 123/86 (98) Pulse Ox 96 Capillary Refill : Departure Communication (Admissions) [id number] discussed the case with Dr. Markham on-call for hematology oncology. Does not necessarily recommend hospital admission. He would recommend hydration giving the acutely slightly worsening kidney function. In regards to the slight hyperkalemia and elevated LDH, he states that infection can do this but he is not concerned about tumor lysis syndrome with non-small cell lung cancer. She' ll go home and follow-up. Impression Primary Impression: Non-small cell lung cancer (NSCLC) Qualified Codes: C34.92 - Malignant neoplasm of unspecified part of left bronchus or lung Additional Impression: Closed left ankle fracture Qualified Codes: S82.892A - Other fracture of left lower leg, initial encounter for closed fracture Disposition: HOME, SELF-CARE Condition: Stable Departure-Patient Inst. Decision time for Depature: 13:41 [facility] Primary Care Physician MAURILIO FLORENCE MD (Family) Primary Care Physician Patient Instructions: Ankle Fracture Add. Discharge Instructions: 1. Wear the walking boot when you're up and about 2. Follow-up with your doctor next week 3. CARYL HINOJOSA APRN May 27, 2018 12:05
[2018-05-27 12:12] LABS: BASOPHILS % (AUTO) 0 % (0-10); EOSINOPHILS % (AUTO) 0 % (0-10); HEMATOCRIT 23 % (35-52); HEMOGLOBIN 7.4 G/DL (11.5-16.0); LYMPHOCYTES # (AUTO) 0.7 X 10^3 (1.0-4.0); LYMPHOCYTES % (AUTO) 18 % (12-44); MEAN CORPUSCULAR HEMOGLOBIN 30 PG (25-34); MEAN CORPUSCULAR HGB CONC 32 G/DL (32-36); MEAN CORPUSCULAR VOLUME 94 FL (80-99); MEAN PLATELET VOLUME 9.7 FL (7.4-10.4); MONOCYTES # (AUTO) 0.1 X 10^3 (0.0-1.0); MONOCYTES % (AUTO) 1 % (0-12); NEUTROPHILS # (AUTO) 3.4 X 10^3 (1.8-7.8); NEUTROPHILS % (AUTO) 81 % (42-75); PLATELET COUNT 220 10^3/uL (130-400); RED CELL DISTRIBUTION WIDTH 14.7 % (10.0-14.5); WHITE BLOOD COUNT 4.1 10^3/uL (4.3-11.0)
[2018-05-27 12:37] LABS: ALBUMIN 3.4 GM/DL (3.2-4.5); BILIRUBIN,TOTAL 0.2 MG/DL (0.1-1.0); CALCIUM 9.1 MG/DL (8.5-10.1); CREATININE SERUM 1.33 MG/DL (0.60-1.30); POTASSIUM 5.7 MMOL/L (3.6-5.0); TOTAL PROTEIN 6.4 GM/DL (6.4-8.2)
[2018-05-27] MEDS ORDERED: NS IV 1000 ML 1,000 ML IV SCH (12:45)
--- NOTE | 2018-05-27 13:12 | Diagnostic Imaging Report ---
INDICATION: Left ankle injury. COMPARISON: None. FINDINGS: Three views of the left ankle demonstrate nondisplaced fracture of the distal fibula. The ankle mortise and medial malleolus are intact. There is no osseous lesion or foreign body. IMPRESSION: Nondisplaced distal fibula fracture. Dictated by: Dictated on workstation # [id number]
--- NOTE | 2018-05-27 13:13 | Diagnostic Imaging Report ---
INDICATION: Dizziness. COMPARISON: 04/16/2018. FINDINGS: Frontal and lateral views of the chest demonstrate a persistent mass and decreased infiltrate in the right hilum. The left lung is clear. The heart is prominent without pulmonary edema. There is no pneumothorax or effusion. IMPRESSION: Known right hilar mass with persistent but decreasing infiltrate. Dictated by: Dictated on workstation # [id number]
--- NOTE | 2018-05-27 13:20 | Diagnostic Imaging Report ---
PROCEDURE: CT head without contrast. TECHNIQUE: Multiple contiguous axial images were obtained through the brain without the use of intravenous contrast. Auto Exposure Controls were utilized during the CT exam to meet ALARA standards for radiation dose reduction. INDICATION: Confusion. FINDINGS: There are no prior CT head examinations available for comparison. The MRI brain exam of 10/13/2017 failed to show any sign of an acute abnormality. On this exam, there is no mass, shift of the midline, or hemorrhage. The ventricles are not abnormally dilated and stable in size when compared to the previous MRI brain exam. The cortical atrophy seen previously is again evident and no different. The bone windows show no sign of a fracture or of a destructive lesion. The orbits are symmetrical and within normal limits. The sinuses where visualized are clear. IMPRESSION: 1. There is no evidence for an acute intracranial abnormality. 2. If clinical concern regarding an acute abnormality persists and further imaging is desired, then MRI will be recommended. Dictated by: Dictated on workstation # [id number]
[2018-05-27 14:49] LABS: BILIRUBIN,URINE NEGATIVE (NEGATIVE); GLUCOSE, URINE (UA) NEGATIVE (NEGATIVE); KETONES,URINE NEGATIVE (NEGATIVE); LEUKOCYTE ESTERASE ,URINE NEGATIVE (NEGATIVE); NITRITE,URINE NEGATIVE (NEGATIVE); PH,URINE 6 (5-9); PROTEIN,URINE 4+ (NEGATIVE); UROBILINOGEN,URINE NORMAL (NORMAL)
[2018-05-27 14:50] LABS: AMORPHOUS SEDIMENT,UR MOD AMOR URATES /LPF; BACTERIA,URINE NEGATIVE /HPF; CLARITY,URINE CLEAR; COLOR,URINE YELLOW
[2018-05-27] MEDS ORDERED: NS IV 500 ML 500 ML IV SCH (15:15)
--- NOTE | 2018-05-27 15:22 | Diagnostic Imaging Report ---
INDICATION: Foot pain. COMPARISON: None. FINDINGS: Three views of the left foot demonstrate osseous destruction of the articular surfaces of the fourth metatarsophalangeal joint. There is no acute fracture or dislocation. No foreign body is seen. [place]-kihe degenerative changes are seen throughout most of the articular surfaces. IMPRESSION: 1. Chronic osseous destruction of the articular surfaces of the fourth metatarsophalangeal joint. 2. No acute fracture or dislocation. Dictated by: Dictated on workstation # [id number]
--- NOTE | 2018-05-27 15:32 | NUR ---
PT REMOVED IV WHILE WAS OUT OF ROOM. CARYL HINOJOSA NOTIFIED, HE WILL DISCUSS WITH DR GASTON ABOUT NEED TO RESTART IV OR NOT.
[2018-05-27 16:08] VITALS: BP 123/86
== END 2018-05-27 16:08 | disposition home or self-care (01) ==
LOC: EDUNIT# 11:43 → ER 11:45
DX: S82.892A Other fracture of left lower leg, initial encounter for closed fracture (principal); C34.92 Malignant neoplasm of unspecified part of left bronchus or lung; J44.9 Chronic obstructive pulmonary disease, unspecified; G47.30 Sleep apnea, unspecified; E11.51 Type 2 diabetes mellitus with diabetic peripheral angiopathy without gangrene; I73.9 Peripheral vascular disease, unspecified; K21.9 Gastro-esophageal reflux disease without esophagitis; I10 Essential (primary) hypertension; D64.9 Anemia, unspecified; Z92.21 Personal history of antineoplastic chemotherapy; Z82.49 Family history of ischemic heart disease and other diseases of the circulatory system; Z88.1 Allergy status to other antibiotic agents; Z87.19 Personal history of other diseases of the digestive system; Z88.5 Allergy status to narcotic agent; Z91.040 Latex allergy status; Z88.8 Allergy status to other drugs, medicaments and biological substances; Z79.82 Long term (current) use of aspirin; Z79.51 Long term (current) use of inhaled steroids; Z77.22 Contact with and (suspected) exposure to environmental tobacco smoke (acute) (chronic); Z98.51 Tubal ligation status; Z95.820 Peripheral vascular angioplasty status with implants and grafts; W18.30XA Fall on same level, unspecified, initial encounter; Y92.002 Bathroom of unspecified non-institutional (private) residence as the place of occurrence of the external cause
CPT/HCPCS: 36415; 51701; 70450; 71046; 73610; 73630; 80053; 81000; 83615; 84132; 85025; 93005

== ENCOUNTER → 2018-06-07 | Outpatient (RCR) | payer MEDICARE, MEDICAID, OTHER ==
[2018-03-09 08:33] LABS: BASOPHILS % (AUTO) 0 % (0-10); EOSINOPHILS % (AUTO) 0 % (0-10); LYMPHOCYTES # (AUTO) 0.5 X 10^3 (1.0-4.0); LYMPHOCYTES % (AUTO) 49 % (12-44); MEAN CORPUSCULAR HEMOGLOBIN 35 PG (25-34); MEAN CORPUSCULAR HGB CONC 33 G/DL (32-36); MEAN CORPUSCULAR VOLUME 106 FL (80-99); MEAN PLATELET VOLUME 12.1 FL (7.4-10.4); MONOCYTES # (AUTO) 0.1 X 10^3 (0.0-1.0); MONOCYTES % (AUTO) 13 % (0-12); NEUTROPHILS # (AUTO) 0.4 X 10^3 (1.8-7.8); NEUTROPHILS % (AUTO) 38 % (42-75); RED CELL DISTRIBUTION WIDTH 17.1 % (10.0-14.5)
[2018-03-09 08:37] LABS: HEMOGLOBIN 6.6 G/DL (11.5-16.0)
[2018-03-09 08:38] LABS: HEMATOCRIT 20 % (35-52); PLATELET COUNT 31 10^3/uL (130-400)
[2018-03-09 08:56] LABS: ALANINE AMINOTRANSFERASE 12 U/L (0-55); ALBUMIN 2.8 GM/DL (3.2-4.5); ALKALINE PHOSPHATASE 87 U/L (40-136); BILIRUBIN,TOTAL 0.2 MG/DL (0.1-1.0); BUN/CREATININE RATIO 26; CALCIUM 8.2 MG/DL (8.5-10.1); CARBON DIOXIDE 24 MMOL/L (21-32); CHLORIDE 104 MMOL/L (98-107); CREATININE SERUM 0.87 MG/DL (0.60-1.30); GFR ESTIMATED > 60; GLUCOSE 151 MG/DL (70-105); POTASSIUM 4.9 MMOL/L (3.6-5.0); SODIUM 135 MMOL/L (135-145); TOTAL PROTEIN 5.6 GM/DL (6.4-8.2)
[2018-03-22 09:04] LABS: BASOPHILS % (AUTO) 0 % (0-10); EOSINOPHILS % (AUTO) 0 % (0-10); HEMATOCRIT 28 % (35-52); HEMOGLOBIN 8.9 G/DL (11.5-16.0); LYMPHOCYTES # (AUTO) 0.8 X 10^3 (1.0-4.0); LYMPHOCYTES % (AUTO) 7 % (12-44); MEAN CORPUSCULAR HEMOGLOBIN 35 PG (25-34); MEAN CORPUSCULAR HGB CONC 32 G/DL (32-36); MEAN CORPUSCULAR VOLUME 108 FL (80-99); MEAN PLATELET VOLUME 9.6 FL (7.4-10.4); MONOCYTES # (AUTO) 1.1 X 10^3 (0.0-1.0); MONOCYTES % (AUTO) 10 % (0-12); NEUTROPHILS # (AUTO) 9.9 X 10^3 (1.8-7.8); NEUTROPHILS % (AUTO) 84 % (42-75); PLATELET COUNT 193 10^3/uL (130-400); RED CELL DISTRIBUTION WIDTH 19.8 % (10.0-14.5); WHITE BLOOD COUNT 11.9 10^3/uL (4.3-11.0)
[2018-03-22 09:26] LABS: ALANINE AMINOTRANSFERASE 11 U/L (0-55); ALBUMIN 2.9 GM/DL (3.2-4.5); ALKALINE PHOSPHATASE 73 U/L (40-136); BILIRUBIN,TOTAL 0.2 MG/DL (0.1-1.0); BUN/CREATININE RATIO 27; CALCIUM 8.8 MG/DL (8.5-10.1); CARBON DIOXIDE 30 MMOL/L (21-32); CHLORIDE 101 MMOL/L (98-107); CREATININE SERUM 0.92 MG/DL (0.60-1.30); GFR ESTIMATED > 60; GLUCOSE 135 MG/DL (70-105); POTASSIUM 4.3 MMOL/L (3.6-5.0); SODIUM 141 MMOL/L (135-145); TOTAL PROTEIN 5.7 GM/DL (6.4-8.2)
[2018-04-05 09:26] LABS: BASOPHILS % (AUTO) 0 % (0-10); EOSINOPHILS % (AUTO) 0 % (0-10); HEMATOCRIT 27 % (35-52); HEMOGLOBIN 8.4 G/DL (11.5-16.0); LYMPHOCYTES # (AUTO) 0.5 X 10^3 (1.0-4.0); LYMPHOCYTES % (AUTO) 7 % (12-44); MEAN CORPUSCULAR HEMOGLOBIN 33 PG (25-34); MEAN CORPUSCULAR HGB CONC 31 G/DL (32-36); MEAN CORPUSCULAR VOLUME 104 FL (80-99); MEAN PLATELET VOLUME 9.1 FL (7.4-10.4); MONOCYTES # (AUTO) 0.5 X 10^3 (0.0-1.0); MONOCYTES % (AUTO) 7 % (0-12); NEUTROPHILS # (AUTO) 6.5 X 10^3 (1.8-7.8); NEUTROPHILS % (AUTO) 86 % (42-75); PLATELET COUNT 378 10^3/uL (130-400); RED CELL DISTRIBUTION WIDTH 17.3 % (10.0-14.5); WHITE BLOOD COUNT 7.5 10^3/uL (4.3-11.0)
[2018-04-05 09:44] LABS: CREATININE SERUM 1.11 MG/DL (0.60-1.30); POTASSIUM 4.2 MMOL/L (3.6-5.0)
[2018-04-05 09:45] LABS: ALBUMIN 3.1 GM/DL (3.2-4.5); BILIRUBIN,TOTAL 0.2 MG/DL (0.1-1.0); CALCIUM 9.1 MG/DL (8.5-10.1); MAGNESIUM 2.1 MG/DL (1.8-2.4); TOTAL PROTEIN 6.4 GM/DL (6.4-8.2)
[2018-04-26 08:13] LABS: BASOPHILS % (AUTO) 0 % (0-10); EOSINOPHILS % (AUTO) 0 % (0-10); HEMATOCRIT 29 % (35-52); HEMOGLOBIN 9.1 G/DL (11.5-16.0); LYMPHOCYTES # (AUTO) 0.5 X 10^3 (1.0-4.0); LYMPHOCYTES % (AUTO) 7 % (12-44); MEAN CORPUSCULAR HEMOGLOBIN 32 PG (25-34); MEAN CORPUSCULAR HGB CONC 32 G/DL (32-36); MEAN CORPUSCULAR VOLUME 101 FL (80-99); MEAN PLATELET VOLUME 10.9 FL (7.4-10.4); MONOCYTES # (AUTO) 0.6 X 10^3 (0.0-1.0); MONOCYTES % (AUTO) 7 % (0-12); NEUTROPHILS # (AUTO) 6.7 X 10^3 (1.8-7.8); NEUTROPHILS % (AUTO) 86 % (42-75); PLATELET COUNT 134 10^3/uL (130-400); RED CELL DISTRIBUTION WIDTH 15.4 % (10.0-14.5); WHITE BLOOD COUNT 7.8 10^3/uL (4.3-11.0)
[2018-04-26 08:31] LABS: ALBUMIN 3.1 GM/DL (3.2-4.5); BILIRUBIN,TOTAL 0.2 MG/DL (0.1-1.0); CALCIUM 8.8 MG/DL (8.5-10.1); CREATININE SERUM 1.11 MG/DL (0.60-1.30); MAGNESIUM 2.2 MG/DL (1.8-2.4); POTASSIUM 4.8 MMOL/L (3.6-5.0); TOTAL PROTEIN 5.8 GM/DL (6.4-8.2)
[2018-05-03 08:15] LABS: BASOPHILS % (AUTO) 0 % (0-10); EOSINOPHILS % (AUTO) 0 % (0-10); HEMATOCRIT 30 % (35-52); HEMOGLOBIN 9.5 G/DL (11.5-16.0); LYMPHOCYTES # (AUTO) 0.6 X 10^3 (1.0-4.0); LYMPHOCYTES % (AUTO) 7 % (12-44); MEAN CORPUSCULAR HEMOGLOBIN 31 PG (25-34); MEAN CORPUSCULAR HGB CONC 32 G/DL (32-36); MEAN CORPUSCULAR VOLUME 98 FL (80-99); MEAN PLATELET VOLUME 10.5 FL (7.4-10.4); MONOCYTES # (AUTO) 0.6 X 10^3 (0.0-1.0); MONOCYTES % (AUTO) 7 % (0-12); NEUTROPHILS # (AUTO) 6.7 X 10^3 (1.8-7.8); NEUTROPHILS % (AUTO) 86 % (42-75); PLATELET COUNT 157 10^3/uL (130-400); RED CELL DISTRIBUTION WIDTH 14.7 % (10.0-14.5); WHITE BLOOD COUNT 7.8 10^3/uL (4.3-11.0)
[2018-05-03 08:53] LABS: ALBUMIN 3.2 GM/DL (3.2-4.5); BILIRUBIN,TOTAL 0.3 MG/DL (0.1-1.0); CALCIUM 9.3 MG/DL (8.5-10.1); CREATININE SERUM 1.03 MG/DL (0.60-1.30); POTASSIUM 4.8 MMOL/L (3.6-5.0); TOTAL PROTEIN 6.2 GM/DL (6.4-8.2)
[2018-05-10 11:26] LABS: BASOPHILS % (AUTO) 0 % (0-10); EOSINOPHILS % (AUTO) 0 % (0-10); HEMATOCRIT 28 % (35-52); HEMOGLOBIN 8.9 G/DL (11.5-16.0); LYMPHOCYTES # (AUTO) 0.5 X 10^3 (1.0-4.0); LYMPHOCYTES % (AUTO) 55 % (12-44); MEAN CORPUSCULAR HEMOGLOBIN 31 PG (25-34); MEAN CORPUSCULAR HGB CONC 32 G/DL (32-36); MEAN CORPUSCULAR VOLUME 97 FL (80-99); MEAN PLATELET VOLUME 9.5 FL (7.4-10.4); MONOCYTES % (AUTO) 2 % (0-12); NEUTROPHILS # (AUTO) 0.4 X 10^3 (1.8-7.8); NEUTROPHILS % (AUTO) 43 % (42-75); PLATELET COUNT 119 10^3/uL (130-400); RED CELL DISTRIBUTION WIDTH 14.6 % (10.0-14.5)
[2018-05-10 11:27] LABS: WHITE BLOOD COUNT 0.9 10^3/uL (4.3-11.0)
[2018-05-10 11:45] LABS: CREATININE SERUM 0.97 MG/DL (0.60-1.30); POTASSIUM 4.4 MMOL/L (3.6-5.0)
[2018-05-17 08:19] LABS: BASOPHILS % (AUTO) 0 % (0-10); EOSINOPHILS % (AUTO) 0 % (0-10); HEMATOCRIT 23 % (35-52); HEMOGLOBIN 7.7 G/DL (11.5-16.0); LYMPHOCYTES % (AUTO) 65 % (12-44); MEAN CORPUSCULAR HEMOGLOBIN 32 PG (25-34); MEAN CORPUSCULAR HGB CONC 34 G/DL (32-36); MEAN CORPUSCULAR VOLUME 93 FL (80-99); MEAN PLATELET VOLUME 9.6 FL (7.4-10.4); MONOCYTES # (AUTO) 0.1 X 10^3 (0.0-1.0); MONOCYTES % (AUTO) 4 % (0-12); NEUTROPHILS # (AUTO) 0.5 X 10^3 (1.8-7.8); NEUTROPHILS % (AUTO) 31 % (42-75); RED CELL DISTRIBUTION WIDTH 13.8 % (10.0-14.5); WHITE BLOOD COUNT 1.5 10^3/uL (4.3-11.0)
[2018-05-17 08:21] LABS: PLATELET COUNT 11 10^3/uL (130-400)
[2018-05-17 08:35] LABS: CALCIUM 9.1 MG/DL (8.5-10.1); CREATININE SERUM 1.31 MG/DL (0.60-1.30); POTASSIUM 4.7 MMOL/L (3.6-5.0)
[2018-05-24 08:22] LABS: BASOPHILS % (AUTO) 0 % (0-10); EOSINOPHILS % (AUTO) 0 % (0-10); HEMATOCRIT 22 % (35-52); HEMOGLOBIN 7.4 G/DL (11.5-16.0); LYMPHOCYTES # (AUTO) 0.7 X 10^3 (1.0-4.0); LYMPHOCYTES % (AUTO) 20 % (12-44); MEAN CORPUSCULAR HGB CONC 34 G/DL (32-36); MEAN CORPUSCULAR VOLUME 92 FL (80-99); MEAN PLATELET VOLUME 10.3 FL (7.4-10.4); MONOCYTES # (AUTO) 0.5 X 10^3 (0.0-1.0); MONOCYTES % (AUTO) 16 % (0-12); NEUTROPHILS # (AUTO) 2.2 X 10^3 (1.8-7.8); NEUTROPHILS % (AUTO) 65 % (42-75); PLATELET COUNT 115 10^3/uL (130-400); RED CELL DISTRIBUTION WIDTH 13.9 % (10.0-14.5); WHITE BLOOD COUNT 3.4 10^3/uL (4.3-11.0)
[2018-05-24 08:24] LABS: MEAN CORPUSCULAR HEMOGLOBIN 31 PG (25-34)
[2018-05-24 08:43] LABS: ALBUMIN 3.4 GM/DL (3.2-4.5); BILIRUBIN,TOTAL 0.2 MG/DL (0.1-1.0); CALCIUM 9.1 MG/DL (8.5-10.1); CREATININE SERUM 1.38 MG/DL (0.60-1.30); MAGNESIUM 2.2 MG/DL (1.8-2.4); POTASSIUM 4.8 MMOL/L (3.6-5.0); TOTAL PROTEIN 6.8 GM/DL (6.4-8.2)
[2018-05-31 08:31] LABS: BASOPHILS % (AUTO) 0 % (0-10); EOSINOPHILS % (AUTO) 0 % (0-10); LYMPHOCYTES # (AUTO) 0.5 X 10^3 (1.0-4.0); LYMPHOCYTES % (AUTO) 47 % (12-44); MEAN CORPUSCULAR HEMOGLOBIN 30 PG (25-34); MEAN CORPUSCULAR HGB CONC 33 G/DL (32-36); MEAN CORPUSCULAR VOLUME 92 FL (80-99); MEAN PLATELET VOLUME 9.4 FL (7.4-10.4); MONOCYTES % (AUTO) 4 % (0-12); NEUTROPHILS # (AUTO) 0.5 X 10^3 (1.8-7.8); NEUTROPHILS % (AUTO) 48 % (42-75); PLATELET COUNT 161 10^3/uL (130-400); RED CELL DISTRIBUTION WIDTH 14.7 % (10.0-14.5)
[2018-05-31 08:33] LABS: HEMATOCRIT 19 % (35-52); HEMOGLOBIN 6.1 G/DL (11.5-16.0)
[2018-05-31 08:45] LABS: CALCIUM 8.3 MG/DL (8.5-10.1); CREATININE SERUM 1.28 MG/DL (0.60-1.30); POTASSIUM 4.4 MMOL/L (3.6-5.0)
[~2018-06-07] MED LIST changes: +ACETAMINOPHEN 500 MG TAB (TYLENOL) CANCER CTR ONE; +CARBOplatin 420 MG in D5W 50 ML IV(CANCER CTR) 50 ML IV SCH; +CYANOCOBALAMIN INJ 1000 MCG/ML (CANCER CENTER) ONE; +FOSAPREPITANT DIMEGLUMINE 150 MG in NS (IVPB) CANCER CENTER ONLY 150 ML IV SCH; +NS (IVPB) CANCER CENTER 250 ML ONE; +NS IV 1000 ML (CANCER CTR) IV SCH; +NS IV 500 ML (CANCER CENTER) 500 ML ONE; +NS IV SCH; +PALONOSETRON HCL 0.25 MG, DEXAMETHASONE INJECTION 10 MG in NS (IVPB) CANCER CENTER 50 ML IV SCH; +PEMETREXED DISODIUM IV SCH; +[UNRECOGNIZED DRUG - OTHER] IV SCH; +diphenhydrAMINE 25 MG TAB (BENADRYL) CANCER CENTER PO ONE
[2018-06-07 09:15] LABS: BASOPHILS % (AUTO) 0 % (0-10); EOSINOPHILS % (AUTO) 0 % (0-10); LYMPHOCYTES # (AUTO) 0.5 X 10^3 (1.0-4.0); LYMPHOCYTES % (AUTO) 69 % (12-44); MEAN CORPUSCULAR HEMOGLOBIN 30 PG (25-34); MEAN CORPUSCULAR HGB CONC 34 G/DL (32-36); MEAN CORPUSCULAR VOLUME 89 FL (80-99); MEAN PLATELET VOLUME 11.2 FL (7.4-10.4); MONOCYTES % (AUTO) 5 % (0-12); NEUTROPHILS # (AUTO) 0.2 X 10^3 (1.8-7.8); NEUTROPHILS % (AUTO) 27 % (42-75)
[2018-06-07 09:22] LABS: HEMATOCRIT 17 % (35-52); HEMOGLOBIN 5.6 G/DL (11.5-16.0); PLATELET COUNT 11 10^3/uL (130-400); WHITE BLOOD COUNT 0.7 10^3/uL (4.3-11.0)
[2018-06-07 09:32] LABS: CALCIUM 9.3 MG/DL (8.5-10.1); CREATININE SERUM 1.21 MG/DL (0.60-1.30); POTASSIUM 4.3 MMOL/L (3.6-5.0)
== END | disposition home or self-care (01) ==
LOC: ONC 03-09 08:25
PROVIDERS: ATTEND Internal Medicine Hematology & Oncology
DX: C34.11 Malignant neoplasm of upper lobe, right bronchus or lung (principal); C79.9 Secondary malignant neoplasm of unspecified site; D64.9 Anemia, unspecified; J44.9 Chronic obstructive pulmonary disease, unspecified; G47.33 Obstructive sleep apnea (adult) (pediatric); F17.210 Nicotine dependence, cigarettes, uncomplicated; K21.9 Gastro-esophageal reflux disease without esophagitis; E11.9 Type 2 diabetes mellitus without complications; I67.82 Cerebral ischemia; R91.8 Other nonspecific abnormal finding of lung field; I10 Essential (primary) hypertension; R07.9 Chest pain, unspecified; Z79.82 Long term (current) use of aspirin; Z79.84 Long term (current) use of oral hypoglycemic drugs; Z79.899 Other long term (current) drug therapy; Z95.820 Peripheral vascular angioplasty status with implants and grafts
CPT/HCPCS: 36415; 36430; 36591; 80048; 80053; 83735; 85025; 86850; 86900; 86901; 86920; 96367; 96375; 96409; 96411; 96413; 99213

== ENCOUNTER → 2018-07-21 | Outpatient (CLI) | payer MEDICARE, OTHER ==
[~2018-07-21] MED LIST changes: -ACETAMINOPHEN 500 MG TAB (TYLENOL) CANCER CTR ONE; -CARBOplatin 420 MG in D5W 50 ML IV(CANCER CTR) 50 ML IV SCH; -CYANOCOBALAMIN INJ 1000 MCG/ML (CANCER CENTER) ONE; -FOSAPREPITANT DIMEGLUMINE 150 MG in NS (IVPB) CANCER CENTER ONLY 150 ML IV SCH; -NS (IVPB) CANCER CENTER 250 ML ONE; -NS IV 1000 ML (CANCER CTR) IV SCH; -NS IV 500 ML (CANCER CENTER) 500 ML ONE; -NS IV SCH; -PALONOSETRON HCL 0.25 MG, DEXAMETHASONE INJECTION 10 MG in NS (IVPB) CANCER CENTER 50 ML IV SCH; -PEMETREXED DISODIUM IV SCH; -[UNRECOGNIZED DRUG - OTHER] IV SCH; -diphenhydrAMINE 25 MG TAB (BENADRYL) CANCER CENTER PO ONE
--- NOTE | 2018-07-21 11:34 | Diagnostic Imaging Report ---
PROCEDURE: MRI lumbar spine. TECHNIQUE: Multiplanar, multisequence MRI of the lumbar spine was performed without contrast. INDICATION: Back pain and bilateral leg weakness. Patient has history of stage IV lung cancer. COMPARISON: No prior studies are available for comparison. FINDINGS: Curvature and alignment is normal apart from minimal anterolisthesis of L5 on S1. There are postop changes of anterior and posterior instrumented fusion at L5-S1. The vertebral body heights and marrow signal are unremarkable. No geographic marrow lesion is seen to suggest metastatic disease. No acute compression fracture seen. There is some mild generalized degenerative disc disease with disc desiccation. Conus is unremarkable at the T12-L1 level. T12-L1: Central canal and neural foramina are widely patent. L1-2: Central canal and neural foramina are widely patent. L2-3: There are degenerative facet changes noted but the central canal and neural foramina are widely patent. L3-4: Ligamentous thickening and facet changes are noted but no central canal or neural foraminal stenosis is seen. L4-5: There is ligamentous thickening and facet changes. Central canal is widely patent. There is mild to moderate right neural foraminal and mild left neural foraminal narrowing. L5-S1: Postop changes of decompression laminectomy are seen. Central canal is widely patent. No significant neural foraminal narrowing is seen. Paraspinous tissues are unremarkable. IMPRESSION: 1. Postop changes of anterior and posterior instrumented fusion at L5-S1. 2. Generalized spondylosis and facet arthropathy, however, no significant central canal stenosis is seen. There is neural foraminal narrowing at L4-5 level, as described. 3. No evidence of osseous metastatic disease. Dictated by: Dictated on workstation # [id number]
== END ==
LOC: RAD 09:39
PROVIDERS: ATTEND Internal Medicine Hematology & Oncology
DX: M48.061 Spinal stenosis, lumbar region without neurogenic claudication (principal); M47.816 Spondylosis without myelopathy or radiculopathy, lumbar region; M99.73 Connective tissue and disc stenosis of intervertebral foramina of lumbar region; M46.86 Other specified inflammatory spondylopathies, lumbar region; C34.11 Malignant neoplasm of upper lobe, right bronchus or lung; Z98.1 Arthrodesis status
CPT/HCPCS: 72148

== ENCOUNTER 2018-08-03 14:04 | Outpatient (RCR) | payer MEDICARE, OTHER ==
[2018-06-14 08:13] LABS: BASOPHILS % (AUTO) 0 % (0-10); EOSINOPHILS % (AUTO) 0 % (0-10); HEMATOCRIT 23 % (35-52); HEMOGLOBIN 7.7 G/DL (11.5-16.0); LYMPHOCYTES # (AUTO) 0.7 X 10^3 (1.0-4.0); LYMPHOCYTES % (AUTO) 22 % (12-44); MEAN CORPUSCULAR HEMOGLOBIN 30 PG (25-34); MEAN CORPUSCULAR HGB CONC 34 G/DL (32-36); MEAN CORPUSCULAR VOLUME 88 FL (80-99); MEAN PLATELET VOLUME 10.1 FL (7.4-10.4); MONOCYTES # (AUTO) 0.6 X 10^3 (0.0-1.0); MONOCYTES % (AUTO) 19 % (0-12); NEUTROPHILS # (AUTO) 1.9 X 10^3 (1.8-7.8); NEUTROPHILS % (AUTO) 59 % (42-75); PLATELET COUNT 127 10^3/uL (130-400); RED CELL DISTRIBUTION WIDTH 13.9 % (10.0-14.5); WHITE BLOOD COUNT 3.3 10^3/uL (4.3-11.0)
[2018-06-14 08:31] LABS: ALBUMIN 3.5 GM/DL (3.2-4.5); BILIRUBIN,TOTAL 0.2 MG/DL (0.1-1.0); CALCIUM 9.6 MG/DL (8.5-10.1); CREATININE SERUM 1.08 MG/DL (0.60-1.30); TOTAL PROTEIN 6.8 GM/DL (6.4-8.2)
[2018-06-20 14:38] LABS: BASOPHILS % (AUTO) 0 % (0-10); EOSINOPHILS % (AUTO) 0 % (0-10); HEMATOCRIT 25 % (35-52); HEMOGLOBIN 8.2 G/DL (11.5-16.0); LYMPHOCYTES % (AUTO) 13 % (12-44); MEAN CORPUSCULAR HEMOGLOBIN 30 PG (25-34); MEAN CORPUSCULAR HGB CONC 33 G/DL (32-36); MEAN CORPUSCULAR VOLUME 93 FL (80-99); MEAN PLATELET VOLUME 9.7 FL (7.4-10.4); MONOCYTES # (AUTO) 1.4 X 10^3 (0.0-1.0); MONOCYTES % (AUTO) 18 % (0-12); NEUTROPHILS # (AUTO) 5.3 X 10^3 (1.8-7.8); NEUTROPHILS % (AUTO) 69 % (42-75); PLATELET COUNT 240 10^3/uL (130-400); RED CELL DISTRIBUTION WIDTH 16.6 % (10.0-14.5); WHITE BLOOD COUNT 7.7 10^3/uL (4.3-11.0)
[2018-06-20 14:58] LABS: ALBUMIN 3.3 GM/DL (3.2-4.5); BILIRUBIN,TOTAL 0.2 MG/DL (0.1-1.0); CALCIUM 9.4 MG/DL (8.5-10.1); CREATININE SERUM 1.35 MG/DL (0.60-1.30); POTASSIUM 4.8 MMOL/L (3.6-5.0); TOTAL PROTEIN 6.7 GM/DL (6.4-8.2)
[2018-07-12 14:14] LABS: BASOPHILS % (AUTO) 0 % (0-10); EOSINOPHILS % (AUTO) 0 % (0-10); HEMATOCRIT 21 % (35-52); LYMPHOCYTES # (AUTO) 1.1 X 10^3 (1.0-4.0); LYMPHOCYTES % (AUTO) 17 % (12-44); MEAN CORPUSCULAR HEMOGLOBIN 32 PG (25-34); MEAN CORPUSCULAR HGB CONC 33 G/DL (32-36); MEAN CORPUSCULAR VOLUME 100 FL (80-99); MEAN PLATELET VOLUME 9.3 FL (7.4-10.4); MONOCYTES # (AUTO) 0.9 X 10^3 (0.0-1.0); MONOCYTES % (AUTO) 13 % (0-12); NEUTROPHILS # (AUTO) 4.6 X 10^3 (1.8-7.8); NEUTROPHILS % (AUTO) 70 % (42-75); PLATELET COUNT 195 10^3/uL (130-400); RED CELL DISTRIBUTION WIDTH 20.1 % (10.0-14.5); WHITE BLOOD COUNT 6.6 10^3/uL (4.3-11.0)
[2018-07-12 14:16] LABS: HEMOGLOBIN 6.8 G/DL (11.5-16.0)
[2018-07-12 14:30] LABS: ALBUMIN 3.3 GM/DL (3.2-4.5); BILIRUBIN,TOTAL 0.3 MG/DL (0.1-1.0); CREATININE SERUM 1.85 MG/DL (0.60-1.30); POTASSIUM 3.7 MMOL/L (3.6-5.0); TOTAL PROTEIN 6.7 GM/DL (6.4-8.2)
[~2018-08-03] VITALS: Ht 170.2 cm; Wt 79.8 kg
[~2018-08-03 14:04] MED LIST changes: +CARBOplatin 420 MG in D5W 50 ML IV(CANCER CTR) 50 ML IV SCH; +FOSAPREPITANT DIMEGLUMINE 150 MG in NS (IVPB) CANCER CENTER ONLY 150 ML IV SCH; +NS (IVPB) CANCER CENTER 250 ML IV SCH; +NS IV 1000 ML (CANCER CTR) IV SCH; +PALONOSETRON HCL 0.25 MG, DEXAMETHASONE INJECTION 10 MG in NS (IVPB) CANCER CENTER 50 ML IV SCH; +PEMBROLIZUMAB 200 MG in NS (IVPB) CANCER CENTER 50 ML IV SCH; +PEMETREXED DISODIUM IV SCH; +[UNRECOGNIZED DRUG - OTHER] IV SCH
[2018-08-07] MEDS ORDERED: NIVOLUMAB 240 MG in NS (IVPB) CANCER CENTER 100 ML IV SCH (15:15)
== END 2018-08-08 15:33 | disposition home or self-care (01) ==
LOC: ONC 14:04
PROVIDERS: ATTEND Internal Medicine Hematology & Oncology
DX: Z51.11 Encounter for antineoplastic chemotherapy (principal); C34.11 Malignant neoplasm of upper lobe, right bronchus or lung; C79.9 Secondary malignant neoplasm of unspecified site; D64.9 Anemia, unspecified; J44.9 Chronic obstructive pulmonary disease, unspecified; G47.33 Obstructive sleep apnea (adult) (pediatric); F17.210 Nicotine dependence, cigarettes, uncomplicated; K21.9 Gastro-esophageal reflux disease without esophagitis; E11.9 Type 2 diabetes mellitus without complications; I67.82 Cerebral ischemia; R91.8 Other nonspecific abnormal finding of lung field; I10 Essential (primary) hypertension; R07.9 Chest pain, unspecified; Z79.82 Long term (current) use of aspirin; Z79.84 Long term (current) use of oral hypoglycemic drugs; Z79.899 Other long term (current) drug therapy; Z95.820 Peripheral vascular angioplasty status with implants and grafts
CPT/HCPCS: 36430; 36591; 80053; 83735; 85025; 86850; 86900; 86901; 86920; 96413; 99213

== ENCOUNTER → 2018-08-08 | Outpatient (CLI) | payer MEDICARE ==
[~2018-08-08] MED LIST changes: -CARBOplatin 420 MG in D5W 50 ML IV(CANCER CTR) 50 ML IV SCH; -FOSAPREPITANT DIMEGLUMINE 150 MG in NS (IVPB) CANCER CENTER ONLY 150 ML IV SCH; +GADOBUTROL 10 MMOL/10 ML (GADAVIST) VIAL IV ONE; -NS (IVPB) CANCER CENTER 250 ML IV SCH; -NS IV 1000 ML (CANCER CTR) IV SCH; -PALONOSETRON HCL 0.25 MG, DEXAMETHASONE INJECTION 10 MG in NS (IVPB) CANCER CENTER 50 ML IV SCH; -PEMBROLIZUMAB 200 MG in NS (IVPB) CANCER CENTER 50 ML IV SCH; -PEMETREXED DISODIUM IV SCH; -[UNRECOGNIZED DRUG - OTHER] IV SCH
--- NOTE | 2018-08-08 09:53 | Diagnostic Imaging Report ---
CLINICAL INDICATION: Patient with Stage 4 lung cancer, memory problems, dizziness, and trouble with words. EXAM: MRI of the brain performed without IV contrast. Sequences include axial DWI, ADC map, axial T2, axial FLAIR, axial T1, axial gradient echo, and sagittal T1. Of note, no IV contrast was administered due to the patient's GFR of 28. COMPARISON: Head CT without contrast dated 05/27/2018. MRI of the brain performed without and with IV contrast dated 10/13/2017. FINDINGS: There is interval development of a heterogeneous slightly increased FLAIR signal and closely isointense T1 signal in the brain parenchyma, consistent with a masslike lesion in the region of the pineal gland. This lesion measures 1.3 cm x 1.1 cm x 1.0 cm (AP x Trans x CC). This lesion appears to have a small area of increased T2 signal on the left side which may represent cystic changes. This lesion was not seen on the comparison MRI of the brain and was not as prominent on the comparison head CT. There is interval development of an amorphous small area of increased T2 signal measuring 5 mm x 8 mm involving the inferior medial right cerebellum which was not seen on the prior MRI of the brain. There is otherwise no significant change in the multiple focal areas of high T2 signal white matter changes involving both cerebral hemispheres, likely representing chronic small vessel ischemic disease. The brain parenchymal volume is stable and appropriate for the patient's age. There is no hydrocephalus, brain herniation, or midline shift. The basal cisterns are unremarkable. The [place] vascular structures show no gross abnormality as visualized. There is motion artifact which obscures the globes and orbits. Otherwise, the extracranial soft tissue, skull, and orbits show no significant abnormality. There is mild mucosal thickening involving the ethmoid sinus and both maxillary sinuses. There is a moderate amount of fluid in the left mastoid air cells and a small amount in the right mastoid air cells. There is a small mucus retention cyst in the left posterior nasopharynx region. IMPRESSION: 1. There is interval development of a 1.3 cm mass in the region of the pineal gland. Given the patient's history of lung cancer, metastatic disease is of concern. If the patient is unable to obtain an MRI of the brain with contrast, then a head CT with and without IV contrast would be suggested for further evaluation, if possible. 2. There is interval development of a 7 mm, nonspecific amorphous area of high T2 signal involving the inferior medial right cerebellum. Metastatic disease cannot be completely excluded. A chronic small vessel ischemic process also may be considered. 3. Age-related brain parenchymal changes. 4. The results of this report were discussed with Ginger, the nurse working with Dr. Mundo Mckeon, via the telephone on 08/08/2018 at 0925 hours. Dictated by: Dictated on workstation # [id number]
== END ==
LOC: RAD 07:28
PROVIDERS: ATTEND Internal Medicine Hematology & Oncology
DX: C34.11 Malignant neoplasm of upper lobe, right bronchus or lung (principal); C79.70 Secondary malignant neoplasm of unspecified adrenal gland; G93.89 Other specified disorders of brain; R42 Dizziness and giddiness; R41.3 Other amnesia
CPT/HCPCS: 70551

== ENCOUNTER → 2018-08-10 | Outpatient (CLI) | payer MEDICARE, OTHER ==
[~2018-08-10] MED LIST changes: +BARIUM SUSPENSION 2.1% (VANILLA SILQ) 450 ML PO ONE; -GADOBUTROL 10 MMOL/10 ML (GADAVIST) VIAL IV ONE; +HOLD METFORMIN - RECEIVED CONTRAST 20 ML VIAL IV SCH; +IOHEXOL 350 MG/ML 100 ML (OMNIPAQUE 350) VIAL IV ONE; +NS 100 ML (IVPB) BAG IV ONE
--- NOTE | 2018-08-10 13:18 | Diagnostic Imaging Report ---
PROCEDURE: CT chest with contrast, CT abdomen and pelvis with and without contrast. TECHNIQUE: Pre and post intravenous contrast axial imaging of the abdomen and pelvis and post contrast axial imaging of the chest were performed. Auto Exposure Controls were utilized during the CT exam to meet ALARA standards for radiation dose reduction. INDICATION: Lung cancer, followup. COMPARISON: Correlation is made with prior CT from 05/01/2018. FINDINGS: CT chest: A left chest wall port has tip within the SVC. No axillary lymphadenopathy is identified. Right paratracheal lymph node has significantly increased in size measuring 1.9 x 1.6 cm compared with 0.9 x 1.1 cm. Smaller lymph node just anterior to this in the right paratracheal location has also increased in size. Evi are unremarkable. The area of parenchymal consolidation in the anterior and medial right upper lobe adjacent to the mediastinum appears to be fairly similar measuring approximately 5.6 x 1.6 cm compared with 6.4 x 1.8 cm. The right perihilar infiltrate in the perihilar right upper and right lower lobe is similar to prior exam. There is some more infiltrate or atelectasis in the right middle lobe since prior. Left lung shows some minimal infiltrate or atelectasis in the lingula. A small right pleural effusion is unchanged. IMPRESSION: 1. Right upper lobe consolidation as well as right perihilar infiltrate is similar to examination from 05/01/2018. There is some new infiltrate or atelectasis in the right middle lobe. Right pleural effusion is stable. 2. Increase in size of right paratracheal lymphadenopathy when compared with prior examination from 05/01/2018. CT abdomen and pelvis: No discrete liver mass is detected. The gallbladder is unremarkable. No biliary ductal dilatation is seen. Pancreas and spleen are unremarkable. Masses involving bilateral adrenal glands again noted. Mass on the right measures 4.7 x 2.6 cm compared with 4.9 x 2.6 cm. Mass on the left measures 5.2 x 2.6 cm compared with 5.7 x 2.8 cm on prior exam. Kidneys are unremarkable. Aorta is ectatic. No central retroperitoneal or mesenteric lymphadenopathy is detected. Bowel loops appear to be normal in caliber. There is no obstruction. Uterus and bladder are unremarkable. No definite iliac lymphadenopathy is seen. Obturator node on the left measures 1.7 x 0.8 cm compared with 1.6 x 0.7 mm. Postsurgical changes in the lower lumbar spine are noted. IMPRESSION: Overall stable appearance of the bilateral adrenal masses when compared with study from 05/01/2018. No new abnormality in the abdomen or pelvis is seen. No acute feature is detected. Dictated by: Dictated on workstation # [id number]
== END ==
LOC: RAD 08:10
PROVIDERS: ATTEND Internal Medicine Hematology & Oncology
DX: C34.90 Malignant neoplasm of unspecified part of unspecified bronchus or lung (principal); C79.51 Secondary malignant neoplasm of bone; J18.1 Lobar pneumonia, unspecified organism; J90 Pleural effusion, not elsewhere classified; E27.8 Other specified disorders of adrenal gland; R59.0 Localized enlarged lymph nodes; Z95.828 Presence of other vascular implants and grafts
CPT/HCPCS: 71260; 74178

== ENCOUNTER 2018-09-10 02:24 | Emergency (ER) | payer MEDICARE, OTHER ==
[~2018-09-10] VITALS: Ht 172.7 cm; Wt 73.0 kg
[~2018-09-10 02:24] MED LIST changes: -BARIUM SUSPENSION 2.1% (VANILLA SILQ) 450 ML PO ONE; -HOLD METFORMIN - RECEIVED CONTRAST 20 ML VIAL IV SCH; -IOHEXOL 350 MG/ML 100 ML (OMNIPAQUE 350) VIAL IV ONE; -NS 100 ML (IVPB) BAG IV ONE
[2018-09-10] MEDS ORDERED: NS (IVPB) 250 ML IV ONE (02:39)
[2018-09-10] MEDS ORDERED: NS IV 1000 ML 1,000 ML IV SCH ×3 (02:39→04:45)
--- NOTE | 2018-09-10 02:46 | ED Neurological Problem ---
General Stated Complaint: OVER MEDICATED Source: patient, spouse Exam Limitations: no limitations History of Present Illness Date Seen by Provider: Sep 10, 2018 Time Seen by Provider: 02:29 Initial Comments The patient presents to the ER by private conveyance with her spouse and chief complaint she's had decreased mentation since . He thought maybe she was taking too much of her medication as she was prescribed a long-acting and short- acting opiates as well as recently Klonopin. He said he and his daughter were having an argument which upset the patient states she took a Klonopin and went to bed and afterwards would not a Moser. Since she controls her medications he's not sure how many more Klonopin she's taken since then and she refuses to answer. She will answer some questions but he says she is very sleepy. He thinks she's taking too much medication. She does have a history of stage IV lung cancer cared for by Dr. Mckeon. She is on steroids most recently because she had 2 spots in her brain are causing trouble from swelling. No fevers chills nausea vomiting diarrhea. No medical allergies. She denies any pain presently but uses the opiates for chronic back pain from a fall that resulted in breaking her back. The patient denies any suicidal ideation or history. Allergies and Home Medications Allergies Coded Allergies: azithromycin (Verified Allergy, Unknown, 05/27/18) codeine (Verified Allergy, Unknown, 05/27/18) latex (Verified Allergy, Unknown, 05/27/18) levofloxacin (Verified Adverse Reaction, Unknown, makes her tendons and b ones hurt. , 05/27/18) Home Medications Aspirin 81 Mg Tab.chew, 81 MG PO DAILY Prescribed by: YONI ALBARADO on 04/18/18903 Cyclobenzaprine HCl 10 Mg Tablet, 10 MG PO TID, (Reported) Dexamethasone 4 Mg Tablet, 8 MG PO UD, (Reported) TAKES 2 (4MG) TABLETS DAY BEFORE, DAY OF, AND DAY AFTER CHEMO Furosemide 40 Mg Tablet, 80 MG PO DAILY Prescribed by: YONI ALBARADO on 04/18/18903 Metoprolol Succinate 100 Mg Tab.er.24h, 200 MG PO DAILY Prescribed by: YONI ALBARADO on 04/18/18903 Morphine Sulfate 15 Mg Tablet, 15 MG PO QID PRN for BREAKTHROUGH PAIN, (Reported) Morphine Sulfate 15 Mg Tablet.er, 15 MG PO TID, (Reported) Pantoprazole Sodium 40 Mg Tablet.dr, 40 MG PO DAILY, (Reported) Simvastatin 40 Mg Tablet, 40 MG PO HS, (Reported) Spironolactone 25 Mg Tablet, 25 MG PO DAILY Prescribed by: YONI ALBARADO on 04/18/18 0904 Patient Home Medication List Home Medication List Reviewed: Yes Review of Systems Review of Systems Constitutional: No chills, No fever, No malaise Eyes: Denies Blindness, Denies Blurred Vision, Denies Drainage Ears, Nose, Mouth, Throat: denies ear pain, denies ear discharge Respiratory: No cough, No short of breath Cardiovascular: No chest pain, No edema Gastrointestinal: No abdominal pain, No constipation, No diarrhea, No nausea, No vomiting Genitourinary: No discharge, No dysuria Musculoskeletal: see HPI, back pain; No joint pain Past Xqdwlyy-Ctrlkf-Laegih Hx Patient Social History Alcohol Use: Denies Use Recreational Drug Use: No Smoking Status: Current Everyday Smoker Type Used: Cigarettes (0.25 ppd) 2nd Hand Smoke Exposure: Yes Recent Foreign Travel: No Contact w/Someone Who Travel: No Recent Hopitalizations: Yes (UTI, SEPSIS) Immunizations Up To Date Date of Pneumonia Vaccine: Dec 05, 2014 Date of Influenza Vaccine: Apr 07, 2018 Seasonal Allergies Seasonal Allergies: No Past Medical History Surgeries: Yes (BACK, STENT IN LEG, PORT PLACED, LUNG BIOPSY) Tubal Ligation Respiratory: Yes (STAGE 4 LUNG CA) Sleep Apnea, COPD Currently Using CPAP: No Currently Using BIPAP: No Cardiac: Yes Hypertension, Peripheral Vascular Neurological: No Reproductive Disorders: No Sexually Transmitted Disease: No HIV/AIDS: No Genitourinary: No Gastrointestinal: Yes Gastroesophageal Reflux, Chronic Constipation Musculoskeletal: Yes (HX FX BACK, SPONDYLESIS) Chronic Back Pain Endocrine: Yes Diabetes, Non-Insulin dep HEENT: No Loss of Vision: Denies Hearing Impairment: Denies Cancer: Yes (DX W/LUNG CA JULY OR AUGUST 2017) Lung What Type of Treatment Did You: Chemotherapy, Radiation Psychosocial: No Integumentary: No Blood Disorders: Yes (ANEMIA) Adverse Reaction/Blood Tranf: No (N/A) Family Medical History Diabetes mellitus 19 FATHER G8 BROTHER FHx: heart disease 19 FATHER G8 BROTHER Kidney disease G8 BROTHER Seizure disorder 19 MOTHER TIAs 19 MOTHER Physical Exam Vital Signs Vital Signs - First Documented 09/10/18 09/10/18 02:30 03:06 Temp 97.9 Pulse 95 Resp 18 B/P (MAP) 84/45 (58) Pulse Ox 99 O2 Delivery Room Air O2 Flow Rate 2.00 Capillary Refill : Height, Weight, BMI Height: 5'7.00" Weight: 178lbs. 0.6oz. [id number]; 29.5 BMI Method:Stated General Appearance: mild distress, other (disheveled) HEENT: PERRL/EOMI, normal ENT inspection, TMs normal, pharynx normal (dry oral mucosa) Neck: non-tender, full range of motion, supple, normal inspection Respiratory: chest non-tender, lungs clear, normal breath sounds, no respiratory distress, no accessory muscle use Cardiovascular: normal peripheral pulses, regular rate, rhythm, no edema Peripheral Pulses: 2+ Radial Pulses (R), 2+ Radial Pulses (L) Gastrointestinal: normal bowel sounds, non tender, soft Neurologic/Psychiatric: normal mood/affect, oriented x 3, other (somnolent, GCS 14. Selectively answers questions about everything except for how she takes her medications and how many Klonopin) Crainal Nerves: normal hearing, normal speech, PERRL Coordination/Gait: other (able to transfer with two-person standby assist) Motor/Sensory: no sensory deficit Skin: normal color, warm/dry Focused Exam Lactate Level 09/10/18 02:43: Lactic Acid Level 2.46*H Lactic Acid Level Laboratory Tests Test 09/10/18 02:43 Lactic Acid Level 2.46 MMOL/L (0.50-2.00) *H Progress/Results/Core Measures Results/Orders Lab Results Laboratory Tests Test 09/10/18 02:43 09/10/18 03:45 Range/Units White Blood Count 5.6 4.3-11.0 10^3/uL Red Blood Count 3.41 L 4.35-5.85 10^6/uL Hemoglobin 10.5 L 11.5-16.0 G/DL Hematocrit 33 L 35-52 % Mean Corpuscular Volume 96 80-99 FL Mean Corpuscular Hemoglobin 31 25-34 PG Mean Corpuscular Hemoglobin Concent 32 32-36 G/DL Red Cell Distribution Width 16.3 H 10.0-14.5 % Platelet Count 179 130-400 10^3/uL Mean Platelet Volume 10.2 7.4-10.4 FL Neutrophils (%) (Auto) 82 H 42-75 % Lymphocytes (%) (Auto) 10 L 12-44 % Monocytes (%) (Auto) 8 0-12 % Eosinophils (%) (Auto) 0 0-10 % Basophils (%) (Auto) 0 0-10 % Neutrophils # (Auto) 4.6 1.8-7.8 X 10^3 Lymphocytes # (Auto) 0.6 L 1.0-4.0 X 10^3 Monocytes # (Auto) 0.5 0.0-1.0 X 10^3 Eosinophils # (Auto) 0.0 0.0-0.3 10^3/uL Basophils # (Auto) 0.0 0.0-0.1 10^3/uL Prothrombin Time 14.0 12.2-14.7 SEC INR Comment 1.0 0.8-1.4 Activated Partial Thromboplast Time 32 24-35 SEC Sodium Level 131 L 135-145 MMOL/L Potassium Level 5.4 H 3.6-5.0 MMOL/L Chloride Level 95 L 98-107 MMOL/L Carbon Dioxide Level 17 L 21-32 MMOL/L Anion Gap 19 H 5-14 MMOL/L Blood Urea Nitrogen 114 *H 7-18 MG/DL Creatinine 6.19 #H 0.60-1.30 MG/DL Estimat Glomerular Filtration Rate 7 BUN/Creatinine Ratio 18 Glucose Level 247 H 70-105 MG/DL Lactic Acid Level 2.46 *H 0.50-2.00 MMOL/L Calcium Level 8.7 8.5-10.1 MG/DL Corrected Calcium 9.3 8.5-10.1 MG/DL Total Bilirubin 0.2 0.1-1.0 MG/DL Aspartate Amino Transf (AST/SGOT) 28 5-34 U/L Alanine Aminotransferase (ALT/SGPT) 13 0-55 U/L Alkaline Phosphatase 94 40-136 U/L Ammonia 28 11-32 UMOL/L Total Protein 6.4 6.4-8.2 GM/DL Albumin 3.3 3.2-4.5 GM/DL Urine Color YELLOW Urine Clarity CLEAR Urine pH 5 5-9 Urine Specific [place] 1.025 H 1.016-1.022 Urine Protein 3+ H NEGATIVE Urine Glucose (UA) NEGATIVE NEGATIVE Urine Ketones NEGATIVE NEGATIVE Urine Nitrite NEGATIVE NEGATIVE Urine Bilirubin NEGATIVE NEGATIVE Urine Urobilinogen NORMAL NORMAL MG/DL Urine Leukocyte Esterase 1+ H NEGATIVE Urine RBC (Auto) 1+ H NEGATIVE Urine RBC RARE /HPF Urine WBC 2-5 /HPF Urine Squamous Epithelial Cells 0-2 /HPF Urine Crystals NONE /LPF Urine Bacteria LARGE H /HPF Urine Casts NONE /LPF Urine Mucus NEGATIVE /LPF Urine Culture Indicated CULTURE PENDING My Orders Orders - COLIN WALSH Cbc With Automated Diff (09/10/18 02:39) Comprehensive Metabolic Panel (09/10/18 02:39) Blood Culture (09/10/18 02:39) Sputum Culture (09/10/18 02:39) Urinalysis (09/10/18 02:39) Urine Culture (09/10/18 02:39) Protime With Inr (09/10/18 02:39) Partial Thromboplastin Time (09/10/18 02:39) Chest 1 View, Ap/Pa Only (09/10/18 02:39) Ed Iv/Invasive Line Start (09/10/18 02:39) Ed Iv/Invasive Line Start (09/10/18 02:39) Vital Signs Adult Sepsis Patie Q15M (09/10/18 02:39) O2 (09/10/18 02:39) Remove Rings In Anticipation O (09/10/18 02:39) Lactic Acid Analyzer (09/10/18 02:39) Ns Iv 1000 Ml (Sodium Chloride 0.9%) (09/10/18 02:39) Ed Iv/Invasive Line Start (09/10/18 02:39) Ns (Ivpb) (Sodium Chloride 0.9%) (09/10/18 02:39) Ns Iv 1000 Ml (Sodium Chloride 0.9%) (09/10/18 02:39) Ct Head Wo (09/10/18 02:39) Ammonia (09/10/18 02:39) Catheter(Urinary) Insert & Ass 03,15 (09/10/18 03:27) Urine Culture (09/10/18 03:45) Medications Given in ED Current Medications Medications Dose Ordered Sig/Breanna Route Start Time Stop Time Status Last Admin Dose Admin Sodium Chloride 250 ml @ 0 mls/hr Q0M ONCE IV 09/10/18 02:39 09/10/18 02:42 DC 09/10/18 02:54 0 MLS/HR Vital Signs/I&O 09/10/18 09/10/18 09/10/18 02:30 03:06 03:21 Temp 97.9 96.9 Pulse 95 85 Resp 18 18 B/P (MAP) 84/45 (58) 86/50 Pulse Ox 99 95 100 O2 Delivery Room Air Nasal Cannula Nasal Cannula O2 Flow Rate 2.00 2.00 Progress Progress Note : Time: 02:47 Progress Note Medication overdose versus infection/delirium sepsis. She is hypotensive so we plan to give her 30 mL/kg 2250 millimeter fluid bolus. We'll hold off on antibiotics until we see actual evidence of infection. CT of the head since she has metastases there to rule out a bleed. Chest x-ray, ammonia, blood cultures and lactate. Diagnostic Imaging Diagonstic Imaging: Xray Plain Films/CT/US/NM/MRI: chest (1v) Comments Stable appearance from May,: 2 view chest. No new acute pulmonary process noted. Reviewed: Reviewed by Me Diagonstic Imaging: CT (without contrast) Plain Films/CT/US/NM/MRI: head Comments No acute intracranial hemorrhage, mass effect, tumor, midline shift or calvarial fracture. Reviewed: [facility]ed [facility], Reviewed by Me Departure Impression Primary Impression: Acute kidney failure Qualified Codes: N17.9 - Acute kidney failure, unspecified Additional Impressions: Benzodiazepine (tranquilizer) overdose Qualified Codes: T42.4X1A - Poisoning by benzodiazepines, accidental (u nintentional), initial encounter Hypovolemia dehydration Disposition: XF [facility]OS[facility] Condition: Stable Transfer Time Spoke to Accepting Phy: 03:54 Transfer Progress Notes [facility] preference since she's been there before but it is at capacity. [facility] accepting. Transfer Facility: [place], [place] Method of Transfer: EMS Departure-Patient Inst. Referrals: [facility] [place]) Primary Care Physician MAURILIO FLORENCE MD (Family) Primary Care Physician COLIN WALSH Sep 10, 2018 02:46
[2018-09-10 02:56] LABS: BASOPHILS % (AUTO) 0 % (0-10); EOSINOPHILS % (AUTO) 0 % (0-10); HEMATOCRIT 33 % (35-52); HEMOGLOBIN 10.5 G/DL (11.5-16.0); LYMPHOCYTES # (AUTO) 0.6 X 10^3 (1.0-4.0); LYMPHOCYTES % (AUTO) 10 % (12-44); MEAN CORPUSCULAR HEMOGLOBIN 31 PG (25-34); MEAN CORPUSCULAR HGB CONC 32 G/DL (32-36); MEAN CORPUSCULAR VOLUME 96 FL (80-99); MEAN PLATELET VOLUME 10.2 FL (7.4-10.4); MONOCYTES # (AUTO) 0.5 X 10^3 (0.0-1.0); MONOCYTES % (AUTO) 8 % (0-12); NEUTROPHILS # (AUTO) 4.6 X 10^3 (1.8-7.8); NEUTROPHILS % (AUTO) 82 % (42-75); PLATELET COUNT 179 10^3/uL (130-400); RED CELL DISTRIBUTION WIDTH 16.3 % (10.0-14.5); WHITE BLOOD COUNT 5.6 10^3/uL (4.3-11.0)
[2018-09-10] MEDS ORDERED: CLON1TAB13 (03:20)
[2018-09-10 03:21] LABS: ALBUMIN 3.3 GM/DL (3.2-4.5); BILIRUBIN,TOTAL 0.2 MG/DL (0.1-1.0); CALCIUM 8.7 MG/DL (8.5-10.1); CREATININE SERUM 6.19 MG/DL (0.60-1.30); POTASSIUM 5.4 MMOL/L (3.6-5.0); TOTAL PROTEIN 6.4 GM/DL (6.4-8.2)
[2018-09-10 03:49] LABS: BILIRUBIN,URINE NEGATIVE (NEGATIVE); CLARITY,URINE CLEAR; COLOR,URINE YELLOW; GLUCOSE, URINE (UA) NEGATIVE (NEGATIVE); KETONES,URINE NEGATIVE (NEGATIVE); LEUKOCYTE ESTERASE ,URINE 1+ (NEGATIVE); NITRITE,URINE NEGATIVE (NEGATIVE); PH,URINE 5 (5-9); PROTEIN,URINE 3+ (NEGATIVE); UROBILINOGEN,URINE NORMAL (NORMAL)
[2018-09-10 04:21] LABS: BACTERIA,URINE LARGE /HPF; RBC,URINE RARE /HPF; SQUAMOUS EPITHELIAL CELL,UR 0-2 /HPF
[2018-09-10 05:16] VITALS: BP 98/59
--- NOTE | 2018-09-10 06:29 | Diagnostic Imaging Report ---
PROCEDURE: CT head without contrast. TECHNIQUE: Multiple contiguous axial images were obtained through the brain without the use of intravenous contrast. Auto Exposure Controls were utilized during the CT exam to meet ALARA standards for radiation dose reduction. INDICATION: Altered mental status, weakness. COMPARISON: Brain MRI of 08/08/2018 FINDINGS: No hyperdense hemorrhage or space-occupying mass. No hydrocephalus or midline shift. Pedroza-white matter differentiation is well preserved. Basilar cisterns are patent. Paranasal sinuses and mastoid air cells are clear. No skull fracture. Orbits are normal. IMPRESSION: 1. No acute intracranial process. 2. Findings are in agreement with the preliminary report. Dictated by: Dictated on workstation # [id number]
--- NOTE | 2018-09-10 06:40 | Diagnostic Imaging Report ---
Indication: Altered mental status and weakness. Comparison: 05/27/2018. Findings: Chronic right perihilar masslike opacity with architectural distortion is unchanged. No new airspace opacities in the visualized lungs. Posterior lower lobes are poorly evaluated by portable radiography. No pleural effusion or pneumothorax. Stable cardiomediastinal silhouette. Stable left IJ Port-A-Cath. Impression: 1. No acute process by portable radiography. 2. Stable chronic right perihilar masslike opacity and architectural distortion. Dictated by: Dictated on workstation # [id number]
== END 2018-09-10 05:20 | disposition short-term general hospital (02) ==
LOC: EDUNIT# 02:24 → ER 02:26
DX: T42.4X1A Poisoning by benzodiazepines, accidental (unintentional), initial encounter (principal); N17.9 Acute kidney failure, unspecified; E86.0 Dehydration; E86.1 Hypovolemia; J44.9 Chronic obstructive pulmonary disease, unspecified; G47.30 Sleep apnea, unspecified; I10 Essential (primary) hypertension; E11.51 Type 2 diabetes mellitus with diabetic peripheral angiopathy without gangrene; K21.9 Gastro-esophageal reflux disease without esophagitis; F17.210 Nicotine dependence, cigarettes, uncomplicated; Z98.51 Tubal ligation status; Z88.1 Allergy status to other antibiotic agents; Z88.5 Allergy status to narcotic agent; Z91.040 Latex allergy status; Z85.118 Personal history of other malignant neoplasm of bronchus and lung; Z79.82 Long term (current) use of aspirin; Z82.49 Family history of ischemic heart disease and other diseases of the circulatory system
CPT/HCPCS: 36415; 51702; 70450; 71045; 80053; 81000; 82140; 83605; 85025; 85610; 85730; 87040; 87088; 96360; 96361; 99291

== ENCOUNTER 2018-09-23 20:08 | Emergency (ER) | payer MEDICARE ==
[~2018-09-23] VITALS: Ht 170.2 cm; Wt 77.1 kg
[~2018-09-23 20:08] MED LIST changes: +CLON1TAB13
--- NOTE | 2018-09-23 20:23 | ED General ---
General Chief Complaint: General Problems/Pain Stated Complaint: HYPERTENSION Source of Information: Patient Exam Limitations: No Limitations History of Present Illness Date Seen by Provider: Sep 23, 2018 Time Seen by Provider: 20:20 Initial Comments To your by EMS from home for high blood pressure and concerns that something is wrong with her left subclavian Groshong. She is currently being treated with immunotherapy for metastatic lung cancer to brain. She's had swelling to the left side of her neck for the past 3-4 days and is concerned that this represents malfunction of her Groshong. She's also had quite a lot of stress at home regarding arguments with her daughter Timing/Duration: 2-3 Days Severity: Moderate Associated Systoms: No Chest Pain, No Cough, No Shortness of Air Allergies and Home Medications Allergies Coded Allergies: azithromycin (Verified Allergy, Unknown, 05/27/18) codeine (Verified Allergy, Unknown, 05/27/18) latex (Verified Allergy, Unknown, 05/27/18) levofloxacin (Verified Adverse Reaction, Unknown, makes her tendons and bones hurt. , 05/27/18) Home Medications Aspirin 81 Mg Tab.chew, 81 MG PO DAILY Prescribed by: YONI ALBARADO on 04/18/18903 Cyclobenzaprine HCl 10 Mg Tablet, 10 MG PO TID, (Reported) Dexamethasone 4 Mg Tablet, 8 MG PO UD, (Reported) TAKES 2 (4MG) TABLETS DAY BEFORE, DAY OF, AND DAY AFTER CHEMO Furosemide 40 Mg Tablet, 80 MG PO DAILY Prescribed by: YONI ALBARADO on 04/18/18903 Metoprolol Succinate 100 Mg Tab.er.24h, 200 MG PO DAILY Prescribed by: YONI ALBARADO on 04/18/18903 Morphine Sulfate 15 Mg Tablet, 15 MG PO QID PRN for BREAKTHROUGH PAIN, (Reported) Morphine Sulfate 15 Mg Tablet.er, 15 MG PO TID, (Reported) Pantoprazole Sodium 40 Mg Tablet.dr, 40 MG PO DAILY, (Reported) Simvastatin 40 Mg Tablet, 40 MG PO HS, (Reported) Spironolactone 25 Mg Tablet, 25 MG PO DAILY Prescribed by: YONI ALBARADO on 04/18/18903 Patient Home Medication List Home Medication List Reviewed: Yes Review of Systems Review of Systems Constitutional: see HPI; No chills, No fever EENTM: see HPI Respiratory: no symptoms reported Cardiovascular: no symptoms reported Genitourinary: no symptoms reported Musculoskeletal: no symptoms reported Skin: no symptoms reported Psychiatric/Neurological: No Symptoms Reported Hematologic/Lymphatic: No Symptoms Reported Past Sdpsusj-Xvwfxf-Gjrrat Hx Patient Social History Type Used: Cigarettes 2nd Hand Smoke Exposure: Yes Recent Hopitalizations: Yes (UTI, SEPSIS) Immunizations Up To Date Date of Pneumonia Vaccine: Dec 05, 2014 Date of Influenza Vaccine: Apr 07, 2018 Seasonal Allergies Seasonal Allergies: No Past Medical History Surgeries: Yes (BACK, STENT IN LEG, PORT PLACED, LUNG BIOPSY) Tubal Ligation Respiratory: Yes (STAGE 4 LUNG CA) Sleep Apnea, COPD Currently Using CPAP: No Currently Using BIPAP: No Cardiac: Yes Hypertension, Peripheral Vascular Neurological: No 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 History: Menopausal Sexually Transmitted Disease: No HIV/AIDS: No Genitourinary: No Gastrointestinal: Yes Gastroesophageal Reflux, Chronic Constipation Musculoskeletal: Yes (HX FX BACK, SPONDYLESIS) Chronic Back Pain Endocrine: Yes Diabetes, Non-Insulin dep HEENT: No Loss of Vision: Denies Hearing Impairment: Denies Cancer: Yes (DX W/LUNG CA JULY OR AUGUST 2017) Lung What Type of Treatment Did You: Chemotherapy, Radiation Psychosocial: No Integumentary: No Blood Disorders: Yes (ANEMIA) Adverse Reaction/Blood Tranf: No (N/A) Family Medical History Diabetes mellitus 19 FATHER G8 BROTHER FHx: heart disease 19 FATHER G8 BROTHER Kidney disease G8 BROTHER Seizure disorder 19 MOTHER TIAs 19 MOTHER Physical Exam Vital Signs Vital Signs - First Documented 09/23/18 20:08 Temp 96.7 Pulse 65 Resp 18 B/P (MAP) 176/114 (134) Pulse Ox 98 O2 Delivery Room Air Capillary Refill : Height, Weight, BMI Height: 5'8.00" Weight: 161lbs. 0oz. 73.084374bm; 29.5 BMI Method:Stated General Appearance: No Apparent Distress, WD/WN Eyes: Bilateral Eye Normal Inspection, Bilateral Eye PERRL, Bilateral Eye EOMI HEENT: PERRL/EOMI, TMs Normal Neck: Full Range of Motion, Normal Inspection, Other (there is a palpable fullness to the left supraclavicular region without nodularity inflammation or erythema) Respiratory: Normal Breath Sounds, No Accessory Muscle Use, No Respiratory Distress Cardiovascular: Regular Rate, Rhythm, Normal Peripheral Pulses Gastrointestinal: Non Tender, Soft Extremity: Normal Capillary Refill, Normal Inspection Neurologic/Psychiatric: Alert, Oriented x3 Skin: Normal Color, Warm/Dry Progress/Results/Core Measures Suspected Sepsis SIRS Temperature: Pulse: Respiratory Rate: Laboratory Tests 09/23/18 20:29: White Blood Count 7.4 Blood Pressure / Mean: Laboratory Tests 09/23/18 20:29: Creatinine 1.20, Platelet Count 247, Total Bilirubin 0.2 Results/Orders Lab Results Laboratory Tests Test 09/23/18 20:29 Range/Units White Blood Count 7.4 4.3-11.0 10^3/uL Red Blood Count 3.39 L 4.35-5.85 10^6/uL Hemoglobin 10.5 L 11.5-16.0 G/DL Hematocrit 33 L 35-52 % Mean Corpuscular Volume 96 80-99 FL Mean Corpuscular Hemoglobin 31 25-34 PG Mean Corpuscular Hemoglobin Concent 32 32-36 G/DL Red Cell Distribution Width 17.4 H 10.0-14.5 % Platelet Count 247 130-400 10^3/uL Mean Platelet Volume 9.8 7.4-10.4 FL Neutrophils (%) (Auto) 82 H 42-75 % Lymphocytes (%) (Auto) 13 12-44 % Monocytes (%) (Auto) 5 0-12 % Eosinophils (%) (Auto) 0 0-10 % Basophils (%) (Auto) 0 0-10 % Neutrophils # (Auto) 6.1 1.8-7.8 X 10^3 Lymphocytes # (Auto) 1.0 1.0-4.0 X 10^3 Monocytes # (Auto) 0.4 0.0-1.0 X 10^3 Eosinophils # (Auto) 0.0 0.0-0.3 10^3/uL Basophils # (Auto) 0.0 0.0-0.1 10^3/uL Sodium Level 133 L 135-145 MMOL/L Potassium Level 4.8 3.6-5.0 MMOL/L Chloride Level 101 98-107 MMOL/L Carbon Dioxide Level 22 21-32 MMOL/L Anion Gap 10 5-14 MMOL/L Blood Urea Nitrogen 15 7-18 MG/DL Creatinine 1.20 0.60-1.30 MG/DL Estimat Glomerular Filtration Rate 46 BUN/Creatinine Ratio 13 Glucose Level 161 H 70-105 MG/DL Calcium Level 9.0 8.5-10.1 MG/DL Corrected Calcium 9.6 8.5-10.1 MG/DL Total Bilirubin 0.2 0.1-1.0 MG/DL Aspartate Amino Transf (AST/SGOT) 20 5-34 U/L Alanine Aminotransferase (ALT/SGPT) 12 0-55 U/L Alkaline Phosphatase 103 40-136 U/L Total Protein 6.7 6.4-8.2 GM/DL Albumin 3.3 3.2-4.5 GM/DL My Orders Orders - CARYL HINOJOSA APRN Cbc With Automated Diff (09/23/18 20:19) Comprehensive Metabolic Panel (09/23/18 20:19) Clonidine Tablet (Catapres Tablet) (09/23/18 20:30) Ct Neck/Chest Wo (09/23/18 20:48) Metoprolol Tartrate (Ir) Tab (Lopressor (09/23/18 21:15) Clonidine Tablet (Catapres Tablet) (09/23/18 22:00) Medications Given in ED Current Medications Medications Dose Ordered Sig/Breanna Route Start Time Stop Time Status Last Admin Dose Admin Clonidine HCl 0.1 mg ONCE ONCE PO 09/23/18 20:30 09/23/18 20:31 DC 09/23/18 20:29 0.1 MG Clonidine HCl 0.1 mg ONCE ONCE PO 09/23/18 22:00 09/23/18 22:01 DC 09/23/18 21:53 0.1 MG Metoprolol Tartrate 25 mg ONCE ONCE PO 09/23/18 21:15 09/23/18 21:18 DC 09/23/18 21:21 25 MG Vital Signs/I&O 09/23/18 20:08 Temp 96.7 Pulse 65 Resp 18 B/P (MAP) 176/114 (134) Pulse Ox 98 O2 Delivery Room Air Capillary Refill : Departure Communication (Admissions) 26/04/09-she is still hypertensive at 190/105. However she is asymptomatic with it he wants to go home. This is appropriate, Impression Primary Impression: left supraclavicular lymphadenopathy Disposition: HOME, SELF-CARE Condition: Stable Departure-Patient Inst. Decision time for Depature: 22:10 Referrals: [facility] (PCP) Primary Care Physician MAURILIO FLORENCE MD (Family) Primary Care Physician CARYL HINOJOSA APRN Sep 23, 2018 20:23
[2018-09-23] MEDS ORDERED: cloNIDine 0.1 MG (CATAPRES) TAB PO ONE ×2 (20:30→22:00)
[2018-09-23 20:43] LABS: BASOPHILS % (AUTO) 0 % (0-10); EOSINOPHILS % (AUTO) 0 % (0-10); HEMATOCRIT 33 % (35-52); HEMOGLOBIN 10.5 G/DL (11.5-16.0); LYMPHOCYTES % (AUTO) 13 % (12-44); MEAN CORPUSCULAR HEMOGLOBIN 31 PG (25-34); MEAN CORPUSCULAR HGB CONC 32 G/DL (32-36); MEAN CORPUSCULAR VOLUME 96 FL (80-99); MEAN PLATELET VOLUME 9.8 FL (7.4-10.4); MONOCYTES # (AUTO) 0.4 X 10^3 (0.0-1.0); MONOCYTES % (AUTO) 5 % (0-12); NEUTROPHILS # (AUTO) 6.1 X 10^3 (1.8-7.8); NEUTROPHILS % (AUTO) 82 % (42-75); PLATELET COUNT 247 10^3/uL (130-400); RED CELL DISTRIBUTION WIDTH 17.4 % (10.0-14.5); WHITE BLOOD COUNT 7.4 10^3/uL (4.3-11.0)
[2018-09-23 21:05] LABS: ALBUMIN 3.3 GM/DL (3.2-4.5); BILIRUBIN,TOTAL 0.2 MG/DL (0.1-1.0); CREATININE SERUM 1.2 MG/DL (0.60-1.30); POTASSIUM 4.8 MMOL/L (3.6-5.0); TOTAL PROTEIN 6.7 GM/DL (6.4-8.2)
[2018-09-23] MEDS ORDERED: meTOprolol TARTRATE 25 MG (LOPRESSOR) TABLET PO ONE (21:15)
--- NOTE | 2018-09-23 21:52 | Diagnostic Imaging Report ---
EXAMINATION: CT soft tissue neck and chest without contrast. INDICATION: Swelling in the left lower neck near the patient's Port-A-Cath hub site. Patient with history of lung cancer and metastatic disease to bone. TECHNIQUE: CT scan was performed through the neck soft tissues and chest without intravenous contrast, formatted in 3 planes. Auto Exposure Controls were utilized during the CT exam to meet ALARA standards for radiation dose reduction. The technologist reports a BB-marker was placed at the site of palpable abnormality in the left lower neck/upper chest. COMPARISON: CT chest, abdomen and pelvis performed on 05/01/2018. FINDINGS: Absence of intravenous contrast decreases sensitivity for detection of lymphadenopathy, focal lesions and vascular pathology. CT SOFT TISSUE NECK: ORBITS/BRAIN: The visualized segments of the orbits, globes, and intracranial compartment are unremarkable. PARANASAL SINUSES: The visualized paranasal sinuses and mastoid air cells are clear. LYMPH NODES: There are borderline enlarged inferior left cervical chain/supraclavicular lymph nodes (image 63 and 67 series 2). Scattered smaller ovoid soft tissue densities are noted superior to this in the subcutaneous fat of the anterior left neck soft tissues anteriorly in the region of the site of palpable abnormality as indicated by the BB marker. NECK SPACES: Production Line, parapharyngeal, and retropharyngeal spaces appear normal in non-contrast appearance. Structures of the hypopharynx and larynx are symmetric. SALIVARY GLANDS: The parotid, submandibular, and sublingual glands and spaces have a normal non-contrast appearance. THYROID GLAND: Unremarkable in non-contrast appearance. SOFT TISSUES: No prevertebral or paravertebral soft tissue abnormality is demonstrated. No focal collection is demonstrated. As mentioned above, there are scattered ovoid soft tissue nodular densities in the subcutaneous fat in the region of palpable abnormality. CT CHEST: TRACHEA AND MAIN BRONCHI: Patent without evidence of tracheal or endobronchial lesion. LUNGS AND PLEURA: There is bandlike consolidation from the anterior to posterior chest in the mid right lung spanning the upper and lower lobes. This demonstrates a more masslike appearance in the anterior aspect of the right upper lobe. This is very similar in appearance to prior exam. This is similar in appearance to the prior exam. No new consolidation or pulmonary mass is appreciated. No pleural effusion or pneumothorax. MEDIASTINUM AND ARLINE: Visualized thyroid gland is unremarkable. There is a new enlarged right paratracheal lymph node which measures 1.9 cm in short axis diameter (image 21 series 301). Mildly enlarged subcarinal lymph nodes are also demonstrated. Esophagus is nondistended. HEART AND VESSELS: Heart is normal in size. No pericardial effusion. There is a ectasia of the ascending aorta, which measures up to 4.6 cm. Coronary artery calcification is demonstrated. Distal tip of Port-A-Cath terminates in the SVC. DIAPHRAGM AND UPPER ABDOMEN: Bilateral adrenal masses are again demonstrated. There is marked perinephric stranding slightly more pronounced than on the prior exam. The kidneys are incompletely imaged. The diaphragm and visualized upper abdomen are otherwise unremarkable. BONES: No significant change in mixed lytic sclerotic region in the T6 vertebral body. No new or acute osseous abnormality is appreciated. IMPRESSION: 1. Limited evaluation of the soft tissues due to lack of intravenous contrast. 2. There is lymphadenopathy in the left supraclavicular and inferior left neck region. Slightly above this is the reported palpable abnormality as indicated by the patient, where there are additional small subcentimeter soft tissue densities, which likely reflect lymph nodes. There is also mediastinal lymphadenopathy demonstrated in the chest. These reflect either reactive or metastatic lymph nodes. There is no focal collection or other abnormality in the area of palpable abnormality. There is no abnormality related to the Port-A-Cath hub. 3. Bandlike consolidation in the right lung spanning from anterior to posterior involving the upper and lower lobes. This is not significantly changed compared to prior exam. 4. Bilateral adrenal masses are again demonstrated. These appear to be slightly enlarged compared to the prior exam. 5. Marked perinephric stranding, this appears to be slightly progressive in nature compared to the prior exam. 6. Unchanged mixed lytic and sclerotic lesion involving the T6 vertebral body. Dictated by: Dictated on workstation # [id number]
[2018-09-23 22:30] VITALS: BP 171/100
== END 2018-09-23 22:36 | disposition home or self-care (01) ==
LOC: EDUNIT# 20:08 → ER 20:10
DX: R59.0 Localized enlarged lymph nodes (principal); C47.5 Malignant neoplasm of peripheral nerves of pelvis; C79.31 Secondary malignant neoplasm of brain; J44.9 Chronic obstructive pulmonary disease, unspecified; I10 Essential (primary) hypertension; E11.51 Type 2 diabetes mellitus with diabetic peripheral angiopathy without gangrene; K21.9 Gastro-esophageal reflux disease without esophagitis; Z87.19 Personal history of other diseases of the digestive system; Z88.1 Allergy status to other antibiotic agents; Z88.5 Allergy status to narcotic agent; Z91.040 Latex allergy status; Z79.82 Long term (current) use of aspirin; Z77.22 Contact with and (suspected) exposure to environmental tobacco smoke (acute) (chronic); Z98.51 Tubal ligation status; Z82.49 Family history of ischemic heart disease and other diseases of the circulatory system
CPT/HCPCS: 36415; 70490; 71250; 80053; 85025

== ENCOUNTER 2018-09-25 01:23 | Emergency (ER) | payer MEDICARE ==
[~2018-09-25] VITALS: Ht 170.2 cm; Wt 77.1 kg
[2018-09-25] MEDS ORDERED: fentaNYL INJECTION 100 MCG/2 ML AMP IVP ONE (02:00)
[2018-09-25 02:10] LABS: BASOPHILS % (AUTO) 0 % (0-10); EOSINOPHILS % (AUTO) 0 % (0-10); HEMATOCRIT 29 % (35-52); HEMOGLOBIN 9.4 G/DL (11.5-16.0); LYMPHOCYTES # (AUTO) 0.5 X 10^3 (1.0-4.0); LYMPHOCYTES % (AUTO) 7 % (12-44); MEAN CORPUSCULAR HEMOGLOBIN 31 PG (25-34); MEAN CORPUSCULAR HGB CONC 33 G/DL (32-36); MEAN CORPUSCULAR VOLUME 95 FL (80-99); MONOCYTES # (AUTO) 0.3 X 10^3 (0.0-1.0); MONOCYTES % (AUTO) 5 % (0-12); NEUTROPHILS % (AUTO) 88 % (42-75); PLATELET COUNT 168 10^3/uL (130-400); RED CELL DISTRIBUTION WIDTH 17.6 % (10.0-14.5); WHITE BLOOD COUNT 6.9 10^3/uL (4.3-11.0)
[2018-09-25 02:21] LABS: ABG BASE EXCESS -2.2 MMOL/L (-2.5-2.5); ABG OXYGEN SATURATION 100 % (94-100); ABG PCO2 27 MMHG (35-45); ABG PO2 136 MMHG (79-93); ABG TCO2 21.7 MMOL/L (21.0-31.0); ALLENS TEST POSITIVE; PATIENT TEMP 96.6; VENTILATOR NO
[2018-09-25 02:34] LABS: ALANINE AMINOTRANSFERASE 9 U/L (0-55); ALKALINE PHOSPHATASE 93 U/L (40-136); BILIRUBIN,TOTAL 0.2 MG/DL (0.1-1.0); BUN/CREATININE RATIO 20; CALCIUM 8.7 MG/DL (8.5-10.1); CARBON DIOXIDE 20 MMOL/L (21-32); CHLORIDE 101 MMOL/L (98-107); CREATININE SERUM 0.87 MG/DL (0.60-1.30); GFR ESTIMATED > 60; GLUCOSE 149 MG/DL (70-105); POTASSIUM 4.5 MMOL/L (3.6-5.0); SODIUM 132 MMOL/L (135-145); TOTAL PROTEIN 5.9 GM/DL (6.4-8.2)
[2018-09-25] MEDS ORDERED: NS IV 1000 ML 1,000 ML IV ONE (02:45)
[2018-09-25] MEDS ORDERED: morphine INJ 10 MG/ML 1ML (SYR OR VIAL) ONE (03:10)
[2018-09-25] MEDS ORDERED: morphine INJ 10 MG/ML 1ML (SYR OR VIAL) IVP STA ×2 (03:15→04:11)
[2018-09-25 03:24] LABS: BACTERIA,URINE TRACE /HPF; BILIRUBIN,URINE NEGATIVE (NEGATIVE); CLARITY,URINE CLEAR; COLOR,URINE YELLOW; GLUCOSE, URINE (UA) 1+ (NEGATIVE); HYALINE CASTS, URINE RARE /LPF; KETONES,URINE NEGATIVE (NEGATIVE); LEUKOCYTE ESTERASE ,URINE NEGATIVE (NEGATIVE); NITRITE,URINE NEGATIVE (NEGATIVE); PH,URINE 8 (5-9); PROTEIN,URINE 3+ (NEGATIVE); SQUAMOUS EPITHELIAL CELL,UR RARE /HPF; UROBILINOGEN,URINE NORMAL (NORMAL)
[2018-09-25] MEDS ORDERED: NS 100 ML (IVPB) BAG IV ONE (03:45)
[2018-09-25] MEDS ORDERED: HOLD METFORMIN - RECEIVED CONTRAST 20 ML VIAL IV SCH (03:45)
[2018-09-25] MEDS ORDERED: IOHEXOL 350 MG/ML 100 ML (OMNIPAQUE 350) VIAL IV ONE (03:45)
[2018-09-25 03:51] LABS: LYMPHOCYTES % (MANUAL) 7 %; MONOCYTES % (MANUAL) 2 %; NEUTROPHILS % (MANUAL) 91 %
[2018-09-25] MEDS ORDERED: LORazepam INJ 2 MG/ML (ATIVAN) VIAL IVP ONE (04:15)
[2018-09-25] MEDS ORDERED: MELATONIN 3 MG TABLET PO ONE (04:15)
[2018-09-25] MEDS ORDERED: amLODIPine 5 MG (NORVASC) TAB PO ONE (04:30)
--- NOTE | 2018-09-25 04:41 | ED General ---
General Chief Complaint: General Problems/Pain Stated Complaint: INSOMNIA Nursing Triage Note: CATHLEEN.PT ARRIVES EMS, PT'S SPOUSE ARRIVES SHORTLY AFTER, PT'S SPOUSE STATES THAT THE PT HAS NOT SLEPT MORE THAN 20-30 MIN FOR THE LAST THREE DAYS. THE PT IS NOTED TO APPREAR CONFUSED TO LOCATION AND TIME BUT KNOWS HER NAME. SPOUSE STATES PT HAS ALSO BEEN VERY HYPERTENSIVE D/T CHANGES IN HER MEDS MADE BY [facility]. Nursing Sepsis Screen: No Definite Risk Source of Information: Patient, Family, Old Records Exam Limitations: No Limitations History of Present Illness Date Seen by Provider: Sep 25, 2018 Time Seen by Provider: 01:24 Initial Comments This 63-year-old woman presents to the emergency room via EMS from home with complaints of insomnia, chronic pain, altered mental status, and hypertension. She has metastatic lung cancer for which she is being treated with Keytruda. She was recently admitted at [facility] with renal failure. Medication adjustments were made at that time including the discontinuation of lisinopril and a decrease in her beta xander dosage. She was seen yesterday in this ER as well and was evaluated for fullness around the left lower neck with CT imaging. Allergies and Home Medications Allergies Coded Allergies: azithromycin (Verified Allergy, Unknown, 05/27/18) codeine (Verified Allergy, Unknown, 05/27/18) latex (Verified Allergy, Unknown, 05/27/18) levofloxacin (Verified Adverse Reaction, Unknown, makes her tendons and bones hurt. , 05/27/18) Home Medications Amlodipine Besylate 5 Mg Tablet, 5 MG PO DAILY Prescribed by: TRAY RUIZ on 09/25/18 0444 Aspirin 81 Mg Tab.chew, 81 MG PO DAILY Prescribed by: YONI ALBARADO on 04/18/18903 Cyclobenzaprine HCl 10 Mg Tablet, 10 MG PO TID, (Reported) Dexamethasone 4 Mg Tablet, 8 MG PO UD, (Reported) TAKES 2 (4MG) TABLETS DAY BEFORE, DAY OF, AND DAY AFTER CHEMO Furosemide 40 Mg Tablet, 80 MG PO DAILY Prescribed by: YONI ALBARADO on 04/18/18903 Metoprolol Succinate 100 Mg Tab.er.24h, 200 MG PO DAILY Prescribed by: YONI ALBARADO on 04/18/18903 Morphine Sulfate 15 Mg Tablet, 15 MG PO QID PRN for BREAKTHROUGH PAIN, (Reported) Morphine Sulfate 15 Mg Tablet.er, 15 MG PO TID, (Reported) Pantoprazole Sodium 40 Mg Tablet.dr, 40 MG PO DAILY, (Reported) Simvastatin 40 Mg Tablet, 40 MG PO HS, (Reported) Spironolactone 25 Mg Tablet, 25 MG PO DAILY Prescribed by: YONI ALBARADO on 04/18/18 0904 Patient Home Medication List Home Medication List Reviewed: Yes Review of Systems Review of Systems Constitutional: no symptoms reported EENTM: no symptoms reported Respiratory: no symptoms reported Cardiovascular: see HPI Gastrointestinal: no symptoms reported Genitourinary: no symptoms reported : No Musculoskeletal: see HPI Skin: no symptoms reported Psychiatric/Neurological: See HPI Hematologic/Lymphatic: No Symptoms Reported Immunological/Allergic: no symptoms reported Past Lipdqcl-Kbzrhs-Bxrsru Hx Past Med/Social Hx: Reviewed and Corrections made Patient Social History Alcohol Use: Denies Use Recreational Drug Use: No Smoking Status: Current Everyday Smoker Type Used: Cigarettes Former Smoker, Quit: Apr 14, 2018 2nd Hand Smoke Exposure: Yes Recent Foreign Travel: No Contact w/Someone Who Travel: No Recent Infectious Disease Expo: No Recent Hopitalizations: Yes (dc'd 09/15/18) Immunizations Up To Date Date of Pneumonia Vaccine: Dec 05, 2014 Date of Influenza Vaccine: Apr 07, 2018 Seasonal Allergies Seasonal Allergies: No Past Medical History Surgeries: Yes (BACK, STENT IN LEG, PORT PLACED, LUNG BIOPSY) Tubal Ligation Respiratory: Yes (STAGE 4 LUNG CA) Sleep Apnea, COPD Currently Using CPAP: No Currently Using BIPAP: No Cardiac: Yes Hypertension, Peripheral Vascular Neurological: No : No 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 Sexually Transmitted Disease: No HIV/AIDS: No Genitourinary: No Gastrointestinal: Yes Gastroesophageal Reflux, Chronic Constipation Musculoskeletal: Yes (HX FX BACK, SPONDYLESIS) Chronic Back Pain Endocrine: Yes Diabetes, Non-Insulin dep HEENT: No Loss of Vision: Denies Hearing Impairment: Denies Cancer: Yes (DX W/LUNG CA JULY OR AUGUST 2017, metastases to multiple locations) Lung What Type of Treatment Did You: Chemotherapy, Radiation Psychosocial: No Integumentary: No Blood Disorders: Yes (ANEMIA) Adverse Reaction/Blood Tranf: No (N/A) Family Medical History Diabetes mellitus 19 FATHER G8 BROTHER FHx: heart disease 19 FATHER G8 BROTHER Kidney disease G8 BROTHER Seizure disorder 19 MOTHER TIAs 19 MOTHER Physical Exam Vital Signs Vital Signs - First Documented 09/25/18 01:23 Temp 98.0 Pulse 65 Resp 20 B/P (MAP) 176/97 (123) Pulse Ox 100 O2 Delivery Room Air Capillary Refill : Less Than 3 Seconds Height, Weight, BMI Height: 5'7.00" Weight: 170lbs. 0oz. 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 Norm as Tested, Other (confused conversation, disoriented but imp roving with time) Skin: Normal Color, Warm/Dry Progress/Results/Core Measures Suspected Sepsis Recent Fever Within 48 Hours: No Infection Criteria Present: None New/Unexplained Altered Menta: No Sepsis Screen: No Definite Risk SIRS Temperature:98.0 Pulse: 65 Respiratory Rate: 20 Laboratory Tests 09/25/18 02:01: White Blood Count 6.9 Blood Pressure 176 /97 Mean: 123 Laboratory Tests 09/25/18 02:01: Creatinine 0.87, Platelet Count 168, Total Bilirubin 0.2 Results/Orders Lab Results Laboratory Tests Test 09/25/18 02:01 09/25/18 02:08 09/25/18 02:55 Range/Units White Blood Count 6.9 4.3-11.0 10^3/uL Red Blood Count 3.00 L 4.35-5.85 10^6/uL Hemoglobin 9.4 L 11.5-16.0 G/DL Hematocrit 29 L 35-52 % Mean Corpuscular Volume 95 80-99 FL Mean Corpuscular Hemoglobin 31 25-34 PG Mean Corpuscular Hemoglobin Concent 33 32-36 G/DL Red Cell Distribution Width 17.6 H 10.0-14.5 % Platelet Count 168 130-400 10^3/uL Mean Platelet Volume 10.0 7.4-10.4 FL Neutrophils (%) (Auto) 88 H 42-75 % Lymphocytes (%) (Auto) 7 L 12-44 % Monocytes (%) (Auto) 5 0-12 % Eosinophils (%) (Auto) 0 0-10 % Basophils (%) (Auto) 0 0-10 % Neutrophils # (Auto) 6.0 1.8-7.8 X 10^3 Lymphocytes # (Auto) 0.5 L 1.0-4.0 X 10^3 Monocytes # (Auto) 0.3 0.0-1.0 X 10^3 Eosinophils # (Auto) 0.0 0.0-0.3 10^3/uL Basophils # (Auto) 0.0 0.0-0.1 10^3/uL Neutrophils % (Manual) 91 % Lymphocytes % (Manual) 7 % Monocytes % (Manual) 2 % Sodium Level 132 L 135-145 MMOL/L Potassium Level 4.5 3.6-5.0 MMOL/L Chloride Level 101 98-107 MMOL/L Carbon Dioxide Level 20 L 21-32 MMOL/L Anion Gap 11 5-14 MMOL/L Blood Urea Nitrogen 17 7-18 MG/DL Creatinine 0.87 0.60-1.30 MG/DL Estimat Glomerular Filtration Rate > 60 BUN/Creatinine Ratio 20 Glucose Level 149 H 70-105 MG/DL Calcium Level 8.7 8.5-10.1 MG/DL Corrected Calcium 9.5 8.5-10.1 MG/DL Total Bilirubin 0.2 0.1-1.0 MG/DL Aspartate Amino Transf (AST/SGOT) 18 5-34 U/L Alanine Aminotransferase (ALT/SGPT) 9 0-55 U/L Alkaline Phosphatase 93 40-136 U/L C-Reactive Protein High Sensitivity 7.14 H 0.00-0.50 MG/DL Total Protein 5.9 L 6.4-8.2 GM/DL Albumin 3.0 L 3.2-4.5 GM/DL Blood Gas Puncture Site RIGHT RADIAL Blood Gas Patient Temperature 96.6 Arterial Blood pH 7.50 H 7.37-7.43 Arterial Blood Partial Pressure CO2 27 L 35-45 MMHG Arterial Blood Partial Pressure O2 136 H 79-93 MMHG Arterial Blood HCO3 21 L 23-27 MMOL/L Arterial Blood Total CO2 21.7 21.0-31.0 MMOL/L Arterial Blood Oxygen Saturation 100 94-100 % Arterial Blood Base Excess -2.2 -2.5-2.5 MMOL/L Bar Test POSITIVE Blood Gas Ventilator Setting NO Blood Gas Inspired Oxygen N/A Urine Color YELLOW Urine Clarity CLEAR Urine pH 8 5-9 Urine Specific [place] 1.015 L 1.016-1.022 Urine Protein 3+ H NEGATIVE Urine Glucose (UA) 1+ H NEGATIVE Urine Ketones NEGATIVE NEGATIVE Urine Nitrite NEGATIVE NEGATIVE Urine Bilirubin NEGATIVE NEGATIVE Urine Urobilinogen NORMAL NORMAL MG/DL Urine Leukocyte Esterase NEGATIVE NEGATIVE Urine RBC (Auto) NEGATIVE NEGATIVE Urine RBC NONE /HPF Urine WBC NONE /HPF Urine Squamous Epithelial Cells RARE /HPF Urine Crystals NONE /LPF Urine Bacteria TRACE /HPF Urine Casts PRESENT /LPF Urine Hyaline Casts RARE /LPF Urine Mucus NEGATIVE /LPF Urine Culture Indicated NO My Orders Orders - TRAY CRONIN MD Cbc With Automated Diff (09/25/18 01:36) Comprehensive Metabolic Panel (09/25/18 01:36) Hs C Reactive Protein (09/25/18 01:36) Ua Culture If Indicated (09/25/18 01:36) Fentanyl Injection (Sublimaze Injection (09/25/18 02:00) Arterial Blood Gas (09/25/18 01:51) Manual Differential (09/25/18 02:01) Ct Head W Wo (09/25/18 02:45) Ns Iv 1000 Ml (Sodium Chloride 0.9%) (09/25/18 02:45) Morphine Injection (Morphine Injection (09/25/18 03:15) Morphine Injection (Morphine Injection (09/25/18 03:10) Iohexol Injection (Omnipaque 350 Mg/Ml 1 (09/25/18 03:45) Received Contrast (Hold Metformin- Contr (09/25/18 03:45) Ns (Ivpb) (Sodium Chloride 0.9% Ivpb Bag (09/25/18 03:45) Morphine Injection (Morphine Injection (09/25/18 04:11) Melatonin Tablet (Melatonin Tablet) (09/25/18 04:15) Lorazepam Injection (Ativan Injection) (09/25/18 04:15) Amlodipine Tablet (Norvasc Tablet) (09/25/18 04:30) Arterial Blood Draw (09/25/18 02:08) Medications Given in ED Current Medications Medications Dose Ordered Sig/Breanna Route Start Time Stop Time Status Last Admin Dose Admin Amlodipine Besylate 5 mg ONCE ONCE PO 09/25/18 04:30 09/25/18 04:31 DC 09/25/18 04:50 5 MG Fentanyl Citrate 50 mcg ONCE ONCE IVP 09/25/18 02:00 09/25/18 02:01 DC 09/25/18 02:20 50 MCG Iohexol 100 ml ONCE ONCE IV 09/25/18 03:45 09/25/18 03:46 DC 09/25/18 03:44 80 ML Lorazepam 0.5 mg ONCE ONCE IVP 09/25/18 04:15 09/25/18 04:16 DC 09/25/18 04:20 0.5 MG Melatonin 3 mg ONCE ONCE PO 09/25/18 04:15 09/25/18 04:16 DC 09/25/18 04:50 3 MG Sodium Chloride 100 ml ONCE ONCE IV 09/25/18 03:45 09/25/18 03:46 DC 09/25/18 03:45 80 ML Sodium Chloride 1,000 ml @ 0 mls/hr Q0M ONCE IV 09/25/18 02:45 09/25/18 02:47 DC 09/25/18 02:50 1,000 MLS/HR Vital Signs/I&O 09/25/18 01:23 Temp 98.0 Pulse 65 Resp 20 B/P (MAP) 176/97 (123) Pulse Ox 100 O2 Delivery Room Air Capillary Refill : Less Than 3 Seconds Blood Pressure Mean: 123 Progress Note : Progress Note Patient was seen and examined upon arrival. Staff notes that she seems more confused tonight than yesterday. Lab evaluation revealed no worrisome acute changes. 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 There was recommendation for follow-up imaging with and without contrast. I could not find where this had been done. CT of the head with and without contrast was obtained and showed a similar finding that was unchanged. No intracranial bleeds or new lesions were identified. Patient's pain was treated with fentanyl and morphine. She was also given Ativan 0.5 mg IV. This did seem to improve her symptoms significantly. Patient and were requesting something to help her with sleep. Melatonin was given as a supplement to her other medications. I also suggested they coordinate the Ativan doses with sleep times. Hypertension was treated with Norvasc. I avoided Morris inhibitors as patient had recent acute kidney injury. The patient, , and daughter all expressed concern about the patient's ability to manage at home and family's inability to rest while providing constant care. I suggested investigating skilled nursing placement. They're unwilling to consider this as an option at this time. Diagnostic Imaging Diagonstic Imaging: CT Plain Films/CT/US/NM/MRI: head Comments CT head with and without contrast was obtained to evaluate pineal lesion seen on prior imaging. The pineal mass was similar in size with no new findings. Prominent pineal gland versus tumor was suspected. Departure Impression Primary Impression: Metastatic lung cancer (metastasis from lung to other site) Qualified Codes: C34.90 - Malignant neoplasm of unspecified part of unspecified bronchus or lung Additional Impressions: Insomnia Qualified Codes: G47.01 - Insomnia due to medical condition Exacerbation of chronic back pain Altered mental status Qualified Codes: R41.82 - Altered mental status, unspecified Hypertension Qualified Codes: I10 - Essential (primary) hypertension Pineal gland, tumor Disposition: HOME, SELF-CARE Condition: Improved Departure-Patient Inst. Decision time for Depature: 04:37 Referrals: [facility] [place] Primary Care Physician MAURILIO FLORENCE MD (Family) Primary Care Physician Patient Instructions: High Blood Pressure in Adults, Insomnia Add. Discharge Instructions: Work with your primary care team and your providers at the [facility] to man age pain. For insomnia, try to coordinate Ativan doses with sleep times. You may also try using melatonin purchased [id number]. Used per package instructions. Return to care if you have worsening symptoms. Start amlodipine (Norvasc) to replace the lisinopril that was stopped during her admission at [place]. All discharge instructions reviewed with patient and/or family. Voiced understanding. Scripts Amlodipine Besylate (Norvasc) 5 Mg Tablet 5 MG PO DAILY, #30 TAB Prov: TRAY CRONIN MD 09/25/18 Copy Copies To 1: JUAN BEST MD Copies To 2: MAURILIO FLORENCE MD, JOSHUA T MD Sep 25, 2018 04:41
[2018-09-25] MEDS ORDERED: AMLO5TAB4 PO (04:44)
[2018-09-25 04:55] VITALS: BP 169/106
--- NOTE | 2018-09-25 06:19 | Diagnostic Imaging Report ---
PROCEDURE: CT head with and without contrast. TECHNIQUE: Multiple contiguous axial images were obtained through the brain before and after the administration of intravenous contrast. Auto Exposure Controls were utilized during the CT exam to meet ALARA standards for radiation dose reduction. INDICATION: Altered mental status, history of lung cancer. Comparison made with prior examination 09/10/2018. FINDINGS: There is mild prominence of ventricles and sulci. There is no hydrocephalus. There is no midline shift. There is no hemorrhage. There is no extra-axial fluid collection. There is a prominently enhancing pineal gland measuring 1.2 x 1.2 x 1 cm. There is no other mass. Calvarium is intact. Sinuses and mastoid air cells are clear. IMPRESSION: Prominent linear enhancing pineal gland measuring up to 1.2 cm. While this may reflect a normal gland, possibility of mass cannot be excluded. Recommend nonemergent MRI with and without contrast for further characterization. Age-appropriate atrophy. No other acute intracranial abnormality. Dictated by: Dictated on workstation # [id number]
== END 2018-09-25 04:55 | disposition home or self-care (01) ==
LOC: EDUNIT# 01:23 → ER 01:24
DX: C34.90 Malignant neoplasm of unspecified part of unspecified bronchus or lung (principal); C79.89 Secondary malignant neoplasm of other specified sites; I10 Essential (primary) hypertension; R41.82 Altered mental status, unspecified; D35.4 Benign neoplasm of pineal gland; G47.00 Insomnia, unspecified; J44.9 Chronic obstructive pulmonary disease, unspecified; G47.30 Sleep apnea, unspecified; E11.51 Type 2 diabetes mellitus with diabetic peripheral angiopathy without gangrene; K21.9 Gastro-esophageal reflux disease without esophagitis; F17.210 Nicotine dependence, cigarettes, uncomplicated; Z87.19 Personal history of other diseases of the digestive system; Z88.1 Allergy status to other antibiotic agents; Z88.5 Allergy status to narcotic agent; Z91.040 Latex allergy status; Z79.82 Long term (current) use of aspirin; Z98.51 Tubal ligation status; Z82.49 Family history of ischemic heart disease and other diseases of the circulatory system
CPT/HCPCS: 36415; 36600; 70470; 80053; 81000; 82805; 85007; 85027; 86141; 96361; 96374; 96375; 96376

== ENCOUNTER 2018-09-27 08:42 | Outpatient (RCR) | payer MEDICARE, OTHER ==
[2018-08-09 09:22] LABS: BASOPHILS % (AUTO) 0 % (0-10); EOSINOPHILS % (AUTO) 0 % (0-10); HEMATOCRIT 24 % (35-52); HEMOGLOBIN 7.8 G/DL (11.5-16.0); LYMPHOCYTES # (AUTO) 1.2 X 10^3 (1.0-4.0); LYMPHOCYTES % (AUTO) 23 % (12-44); MEAN CORPUSCULAR HEMOGLOBIN 31 PG (25-34); MEAN CORPUSCULAR HGB CONC 32 G/DL (32-36); MEAN CORPUSCULAR VOLUME 96 FL (80-99); MEAN PLATELET VOLUME 9.2 FL (7.4-10.4); MONOCYTES # (AUTO) 0.6 X 10^3 (0.0-1.0); MONOCYTES % (AUTO) 11 % (0-12); NEUTROPHILS # (AUTO) 3.5 X 10^3 (1.8-7.8); NEUTROPHILS % (AUTO) 66 % (42-75); PLATELET COUNT 220 10^3/uL (130-400); RED CELL DISTRIBUTION WIDTH 13.7 % (10.0-14.5); WHITE BLOOD COUNT 5.3 10^3/uL (4.3-11.0)
[2018-08-09 09:42] LABS: ALBUMIN 3.2 GM/DL (3.2-4.5); BILIRUBIN,TOTAL 0.2 MG/DL (0.1-1.0); CALCIUM 9.1 MG/DL (8.5-10.1); CREATININE SERUM 1.19 MG/DL (0.60-1.30); POTASSIUM 3.5 MMOL/L (3.6-5.0); TOTAL PROTEIN 6.5 GM/DL (6.4-8.2)
[2018-09-05 09:06] LABS: BASOPHILS % (AUTO) 0 % (0-10); EOSINOPHILS % (AUTO) 0 % (0-10); HEMATOCRIT 34 % (35-52); HEMOGLOBIN 11.2 G/DL (11.5-16.0); LYMPHOCYTES # (AUTO) 0.9 X 10^3 (1.0-4.0); LYMPHOCYTES % (AUTO) 11 % (12-44); MEAN CORPUSCULAR HEMOGLOBIN 31 PG (25-34); MEAN CORPUSCULAR HGB CONC 33 G/DL (32-36); MEAN CORPUSCULAR VOLUME 95 FL (80-99); MEAN PLATELET VOLUME 10.3 FL (7.4-10.4); MONOCYTES # (AUTO) 0.6 X 10^3 (0.0-1.0); MONOCYTES % (AUTO) 7 % (0-12); NEUTROPHILS # (AUTO) 6.9 X 10^3 (1.8-7.8); NEUTROPHILS % (AUTO) 82 % (42-75); PLATELET COUNT 231 10^3/uL (130-400); RED CELL DISTRIBUTION WIDTH 15.9 % (10.0-14.5); WHITE BLOOD COUNT 8.4 10^3/uL (4.3-11.0)
[2018-09-05 09:29] LABS: ALBUMIN 3.4 GM/DL (3.2-4.5); BILIRUBIN,TOTAL 0.2 MG/DL (0.1-1.0); CALCIUM 9.2 MG/DL (8.5-10.1); CREATININE SERUM 3.53 MG/DL (0.60-1.30); POTASSIUM 5.2 MMOL/L (3.6-5.0); TOTAL PROTEIN 6.9 GM/DL (6.4-8.2)
[~2018-09-27] VITALS: Ht 170.2 cm; Wt 73.0 kg
[~2018-09-27 08:42] MED LIST changes: +AMLO5TAB4 PO; +NS IV 1000 ML (CANCER CTR) IV SCH; +NS IV 500 ML (CANCER CENTER) IV SCH; +PEMBROLIZUMAB 200 MG in NS (IVPB) CANCER CENTER 50 ML IV SCH
[2018-10-12] MEDS ORDERED: METO-370 PO (15:01)
[2018-10-12] MEDS ORDERED: DULO20CA19 PO (15:01)
[2018-10-12] MEDS ORDERED: AMLO5TAB9 PO (15:01)
[2018-10-12] MEDS ORDERED: FURO40TA4 PO (15:01)
[2018-10-12] MEDS ORDERED: CETI10TA17 PO (15:08)
[2018-10-12] MEDS ORDERED: MELA3TAB PO (15:08)
[2018-10-12] MEDS ORDERED: CAFF200T65 PO (16:26)
[2018-10-12] MEDS ORDERED: MULT1TAB69 PO (16:26)
[2018-10-12] MEDS ORDERED: FOLI0.4T2 PO (16:26)
[2018-10-12] MEDS ORDERED: MORP15TA PO (16:26)
[2018-10-12] MEDS ORDERED: CYAN-41 PO (16:26)
[2018-10-12] MEDS ORDERED: DEXA2TAB PO (16:26)
[2018-10-12] MEDS ORDERED: NICO-588 TD (16:26)
[2018-10-12] MEDS ORDERED: CYCL10TA9 PO (16:26)
[2018-10-25] MEDS ORDERED: MORP15TA PO (11:26)
[2018-10-25] MEDS ORDERED: POTA20TA8 PO (11:26)
[2018-10-25] MEDS ORDERED: MORP-33 PO (11:26)
== END 2018-11-07 | disposition home or self-care (01) ==
LOC: ONC 08:42
PROVIDERS: ATTEND Internal Medicine Hematology & Oncology
DX: Z51.0 Encounter for antineoplastic radiation therapy (principal); C34.11 Malignant neoplasm of upper lobe, right bronchus or lung; C79.9 Secondary malignant neoplasm of unspecified site; C79.51 Secondary malignant neoplasm of bone; D64.9 Anemia, unspecified; J44.9 Chronic obstructive pulmonary disease, unspecified; G47.33 Obstructive sleep apnea (adult) (pediatric); F17.210 Nicotine dependence, cigarettes, uncomplicated; K21.9 Gastro-esophageal reflux disease without esophagitis; I10 Essential (primary) hypertension; E11.9 Type 2 diabetes mellitus without complications; Z79.82 Long term (current) use of aspirin; Z79.84 Long term (current) use of oral hypoglycemic drugs; Z79.899 Other long term (current) drug therapy
CPT/HCPCS: 36591; 77290; 77295; 77300; 77334; 77336; 77417; 77470; 80053; 85025; 96413; 99202; 99213; 99214; 99215

== ENCOUNTER 2018-10-12 10:33 | Inpatient (IN) | payer MEDICARE | END 2018-10-17 10:05 | disposition swing bed (61) | LOC: ER 10:33 → 4TH 13:37 | DX: N39.0 Urinary tract infection, site not specified (principal); H70.93 Unspecified mastoiditis, bilateral; C34.91 Malignant neoplasm of unspecified part of right bronchus or lung; C77.1 Secondary and unspecified malignant neoplasm of intrathoracic lymph nodes; C77.2 Secondary and unspecified malignant neoplasm of intra-abdominal lymph nodes; C79.71 Secondary malignant neoplasm of right adrenal gland; C79.72 Secondary malignant neoplasm of left adrenal gland; C79.51 Secondary malignant neoplasm of bone; C79.31 Secondary malignant neoplasm of brain; C79.01 Secondary malignant neoplasm of right kidney and renal pelvis; C79.02 Secondary malignant neoplasm of left kidney and renal pelvis; F05 Delirium due to known physiological condition; E11.51 Type 2 diabetes mellitus with diabetic peripheral angiopathy without gangrene; J44.9 Chronic obstructive pulmonary disease, unspecified; G47.30 Sleep apnea, unspecified; M54.9 Dorsalgia, unspecified; I10 Essential (primary) hypertension; K21.9 Gastro-esophageal reflux disease without esophagitis; D64.9 Anemia, unspecified; R53.1 Weakness; Z92.3 Personal history of irradiation; Z79.899 Other long term (current) drug therapy; Z87.891 Personal history of nicotine dependence; Z95.828 Presence of other vascular implants and grafts ==

== ENCOUNTER 2018-10-17 09:53 | Inpatient (IN) | payer MEDICARE ==
[~2018-10-17] VITALS: Ht 172.7 cm; Wt 79.0 kg
[~2018-10-17 09:53] MED LIST changes: +AMLO5TAB9 PO; +CAFF200T65 PO; +CETI10TA17 PO; +CYAN-41 PO; +DEXA2TAB PO; +DULO20CA19 PO; +FOLI0.4T2 PO; +MELA3TAB PO; +METO-370 PO; +MULT1TAB69 PO; -NS IV 1000 ML (CANCER CTR) IV SCH; -NS IV 500 ML (CANCER CENTER) IV SCH; -PEMBROLIZUMAB 200 MG in NS (IVPB) CANCER CENTER 50 ML IV SCH
[2018-10-17] MEDS ORDERED: morphine ER 15 MG (MS CONTIN) TAB PO SCH (10:15)
[2018-10-17] MEDS ORDERED: LORazepam 1 MG (ATIVAN) TAB PO PRN (10:15)
[2018-10-17] MEDS: NS IV 1000 ML 1,000 ML IV SCH ×3 (10:15→23:02)
--- NOTE | 2018-10-17 10:44 | NUR ---
Admission Drug Regimen Review: Date: 10/17/18 Time: 1044 Review Completed, No Issues found
--- NOTE | 2018-10-17 11:34 | Physical Therapy Evaluation ---
PT Evaluation-General Medical Diagnosis Admission Date Oct 17, 2018 at 10:12 Medical Diagnosis: AMS Onset Date: Oct 12, 2018 Therapy Diagnosis Therapy Diagnosis: debility/weakness Height/Weight Height (Feet): 5 Height (Inches): 8.00 Weight (Pounds): 174 Weight (Ounces): 3.0 Precautions Precautions/Isolations: Fall Prevention, Standard Precautions Referral Physician: Venus Reason for Referral: Evaluation/Treatment Medical History Pertinent Medical History: DM, Heart Failure, HTN Additional Medical History lung cancer with multiple mets Reviewed History: Yes Social History Home: Single Level Current Living Status: Spouse Prior/Core FIM Prior Level of Function Therapy Code Descriptions/Definitions Functional [place] Measure: 0=Not Assessed/NA 4=Minimal Assistance 1=Total Assistance 5=Supervision or Setup 2=Maximal Assistance 6=Modified [place] 3=Moderate Assistance 7=Complete [place] Therapy Quality Codes: 6 Independent with activity with or without an assistive device 5 Patient requires set up or clean up by helper. Patient completes activity by themselves 4 Supervision or touching assist (CGA). [place] provide cues , steadying assist 3 The helper provides less than half the effort to complete the activity 2 The helper provides more than half the effort to complete the activity 1 Dependent. The helper does all the effort to complete an activity 7 Patient refused to complete or attempt activity 9 The patient did not perform the activity before the current illness or injury 88 Not attempted due to Medical conditions or safety concerns Functional Abilities and Goals: Independent: Patient completed the activities by him/herself, with or without an assistive device, with no assistance from a helper. Needed Some Help: Patient needed partial assistance from another person to complete activities. Dependent: A helper completed the activities for the patient. Unknown: Not Applicable: Bed Mobility: 3 Transfers (B,C,W/C) (FIM): 3 Gait: 1 Indoor Mobility (Ambulation): Needed Some Help Prior Devices Use: Walker short distances PT Evaluation-Current Subjective Patient is in bed. Incontinent BM. Currently hallucinating stating she sees a dog named "Tiburcio". Objective Patient Orientation: Confused Problem Solving: Poor Attachments: Moser Catheter, IV ROM/Strength ROM Lower Extremities bilateral LE WFL Strenght Lower Extremities 3/5 grossly bilaterally (unable to formally test due to patient's inability to follow simple direction) Integumentary/Posture Integumentary refer to nursing notes Bowel Incontinence: Yes Bladder Incontinence: Moser Cath Posture functional Neuromuscular (Tone, Coordination, Reflexes) diminished motor planning, coordination, etc Sensory Vision: Unable to Assess Hearing: Functional Sensation Right Lower Extremit: Impaired Sensation Left Lower Extremity: Impaired Transfers Therapy Code Descriptions/Definitions Functional [place] Measure: 0=Not Assessed/NA 4=Minimal Assistance 1=Total Assistance 5=Supervision or Setup 2=Maximal Assistance 6=Modified [place] 3=Moderate Assistance 7=Complete [place] Therapy Quality Codes: 6 Independent with activity with or without an assistive device 5 Patient requires set up or clean up by helper. Patient completes activity by themselves 4 Supervision or touching assist (CGA). [place] provide cues , steadying assist 3 The helper provides less than half the effort to complete the activity 2 The helper provides more than half the effort to complete the activity 1 Dependent. The helper does all the effort to complete an activity 7 Patient refused to complete or attempt activity 9 The patient did not perform the activity before the current illness or injury 88 Not attempted due to Medical conditions or safety concerns Transfers (B, C, W/C) (FIM): 2 Scootin Rollin Roll Left to Right (QC): 2 Supine to/from Sit: 2 Sit to/from Stand: 2 Sit to Lying (QC): 2 Lying to Sitting/Side of Bed(Q: 2 Sit to Stand (QC): 2 Chair/Xwq-ui-Ktpek Xfer(QC): 2 max assist x 2 with all mobility with patient retropulsive with sit to stand and in stand with FWW Gait Does the Patient Walk?: No and Walking Goal IS indicated Mode of Locomotion: Both Anticipated Mode of Locomotion: Both Gait (FIM): 1 Distance (FIM): 1=up to 49 ft Distance: 3 side steps to left Gait Level of Assist: 2 Gait Persons Needed: 2 Gait Assistive Device: FWW Comments/Gait Description unable to negotiate FWW and gait training on this date Balance Sitting Static: Fair Sitting Dynamic: Fair Standing Static: Poor Standing Dynamic: Poor Treatment Sit to stand x 4 sets max assist x 2 with side stepping to left x 3 steps max assist x 2 with patient unable to negotiate FWW and gait training due to severe confusion and inability to follow simple direction. Assessment/Needs 63 y.o. female, will be seen short term by skilled PT to address functional strength and mobility to improve current LOF. Family plans to have patient return to home with their support. Rehab Potential: Poor Post Rehab Potential-Barriers: metastatic cancer PT Machine Leather Trimmer Goals Nursing Home Goals PT Machine Leather Trimmer Goals Time Frame: Nov 04, 2018 Transfers (B,C,W/C) (FIM): 4 Sit to Lying (QC): 4 Lying-Sitting on Side/Bed(QC): 4 Sit to Stand (QC): 4 Rollin Roll Left to Right (QC): 4 Chair/Mpm-wh-Omarq Xfer(QC): 4 Car Transfer (QC): 4 Does the Patient Walk: Yes Gait (FIM): 1 Gait distance (FIM): 1=up to 49 ft Distance: 45' Walk 10 feet (QC): 4 Walk 10ft-Uneven Surface(QC): 4 Gait Level of Assist: 4 Gait Assistive Device: FWW PT Plan Problem List Problem List: Activity Tolerance, Functional Strength, Safety, Balance, Gait, Transfer, Bed Mobility Treatment/Plan Treatment Plan: Continue Plan of Care Treatment Plan: Bed Mobility, Education, Functional Activity Eusebia, Functional Strength, Gait, Safety, Therapeutic Exercise, Transfers Treatment Duration: Nov 04, 2018 Frequency: 6 times per week Estimated Hrs Per Day: .25 hour per day Patient and/or Family Agrees t: Yes Discharge Recommendations Therapy D/C Recommendations: Home w/ Family Support, Longterm Placement, Half-Way (TCU/NH) Time/GCodes Time In: 1035 Time Out: 1102 Total Billed Treatment Time: 27 Total Billed Treatment 1 visit EVModC 10 min FA 17 min TULIO FISHER PT Oct 17, 2018 11:34
--- NOTE | 2018-10-17 11:48 | Progress Note - Hospitalist ---
PLACIDO GRAYSON, 10/17/18 1148: Progress Note Date: 10/17/2018 Time of Visit: 0730 Hospital Course: Ms. Quiroz came into the ED 10/13 for AMS. 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 stated she had a recent UTI but did not finish her entire course of abx. UA and culture were pulled and grew MRSA. Started on Vancomycin. Held 10/17 d/t elevated Vancomycin troph at 31.4. Steroids were started Q8H, but were decreased to BID on 10/16. Dr. Trujillo is consulted for cancer tx and plan. On interview 10/17/2018: Sitting up and a bit more aware/oriented Denied pain Bowels moving fine No n/v No complaints Ready to go home is still skeptical of cancer dx - referred to talk about concerns with Dr. Trujillo Exam: Vitals stable Respiratory: clear bilaterally on auscultation Cardiovascular: RRR ALISON BROWN DO 10/17/18 2128: Supervisory-Addendum Brief Verification & Attestation Time: Verification & Attestat.: 09:30 Participated in pt care: history, MDM, physical Personally performed: exam, history, MDM, supervision of care Care discussed with: Medical Student Procedures: n/a Results interpretation: Verified all documentation Verification and Attestation of Medical Student E/M Service A medical student performed and documented this service in my presence. I reviewed and verified all information documented by the medical student and made modifications to such information, when appropriate. I personally performed the physical exam and medical decision making. Alison Brown, Oct 17, 2018,21:28 PLACIDO GRAYSON, Oct 17, 2018 11:48 ALISON BROWN DO Oct 17, 2018 21:28
[2018-10-17] MEDS: morphine ER 15 MG (MS CONTIN) TAB PO SCH ×2 (12:06→18:18)
[2018-10-17 12:15] LABS: BASOPHILS % (AUTO) 0 % (0-10); EOSINOPHILS % (AUTO) 0 % (0-10); HEMATOCRIT 23 % (35-52); HEMOGLOBIN 8.1 G/DL (11.5-16.0); LYMPHOCYTES # (AUTO) 0.6 X 10^3 (1.0-4.0); LYMPHOCYTES % (AUTO) 10 % (12-44); MEAN CORPUSCULAR HEMOGLOBIN 33 PG (25-34); MEAN CORPUSCULAR HGB CONC 35 G/DL (32-36); MEAN CORPUSCULAR VOLUME 94 FL (80-99); MEAN PLATELET VOLUME 9.4 FL (7.4-10.4); MONOCYTES # (AUTO) 0.3 X 10^3 (0.0-1.0); MONOCYTES % (AUTO) 5 % (0-12); NEUTROPHILS # (AUTO) 5.5 X 10^3 (1.8-7.8); NEUTROPHILS % (AUTO) 85 % (42-75); PLATELET COUNT 142 10^3/uL (130-400); RED CELL DISTRIBUTION WIDTH 20.1 % (10.0-14.5); WHITE BLOOD COUNT 6.5 10^3/uL (4.3-11.0)
[2018-10-17 12:33] LABS: ALANINE AMINOTRANSFERASE 9 U/L (0-55); ALBUMIN 2.9 GM/DL (3.2-4.5); ALKALINE PHOSPHATASE 91 U/L (40-136); BILIRUBIN,TOTAL 0.4 MG/DL (0.1-1.0); BUN/CREATININE RATIO 14; CARBON DIOXIDE 19 MMOL/L (21-32); CHLORIDE 107 MMOL/L (98-107); GFR ESTIMATED > 60; GLUCOSE 159 MG/DL (70-105); POTASSIUM 3.4 MMOL/L (3.6-5.0); SODIUM 134 MMOL/L (135-145); TOTAL PROTEIN 5.7 GM/DL (6.4-8.2)
[2018-10-17] MEDS ORDERED: TROUGH ORDER-PHARMACY XX NR (13:00)
[2018-10-17] MEDS ORDERED: VANCOMYCIN INJECTION 1,250 MG in NS (IVPB) 250 ML IV SCH (14:00)
--- NOTE | 2018-10-17 14:05 | Occupational Therapy Eval ---
OT Evaluation-General/PLF Medical Diagnosis Admission Date Oct 17, 2018 at 10:12 Medical Diagnosis: AMS Onset Date: Oct 12, 2018 Therapy Diagnosis Therapy Diagnosis: impaired ADLs and mobility Height/Weight Height (Feet): 5 Height (Inches): 8.00 Weight (Pounds): 174 Weight (Ounces): 3.0 Precautions Precautions/Isolations: Fall Prevention, Standard Precautions Weight Bear Status Weight Bearing Restriction: Weight Bearing/Tolerated Referral Physician: Venus Referral Reason: Activity Tolerance, Self Care, Evaluation/Treatment, Strengthening/ROM Medical History Pertinent Medical History: DM, Heart Failure, HTN Additional Medical History per H&P: "Hospital Course: Ms. Quiroz came into the ED 10/13 for AMS. 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 stated she had a recent UTI but did not finish her entire course of abx. UA and culture were pulled and grew MRSA. Started on Vancomycin. Held 10/17 d/t elevated Vancomycin troph at 31.4. Steroids were started Q8H, but were decreased to BID on 10/16. Dr. Trujillo is consulted for cancer tx and plan." Reviewed History: Yes Social History Home: Single Level Current Living Status: Spouse ADL-Prior Level of Function Therapy Code Descriptions/Definitions Functional [place] Measure: 0=Not Assessed/NA 4=Minimal Assistance 1=Total Assistance 5=Supervision or Setup 2=Maximal Assistance 6=Modified [place] 3=Moderate Assistance 7=Complete [place] Therapy Quality Codes: 6 Independent with activity with or without an assistive device 5 Patient requires set up or clean up by helper. Patient completes activity by themselves 4 Supervision or touching assist (CGA). [place] provide cues , steadying assist 3 The helper provides less than half the effort to complete the activity 2 The helper provides more than half the effort to complete the activity 1 Dependent. The helper does all the effort to complete an activity 7 Patient refused to complete or attempt activity 9 The patient did not perform the activity before the current illness or injury 88 Not attempted due to Medical conditions or safety concerns Functional Abilities and Goals: Independent: Patient completed the activities by him/herself, with or without an assistive device, with no assistance from a helper. Needed Some Help: Patient needed partial assistance from another person to complete activities. Dependent: A helper completed the activities for the patient. Unknown: Not Applicable: ADL PLOF Comments per pt report she was independent PLOF using RW for mobility. unsure of accuracy secondary to pt not being oriented and hallucinating. Self Care: Independent Functional Cognition: Needed Some Help DME/Equipment: Bath Chair, Shower Drive Self: No OT Current Status Subjective pt laying in bed upon OT arrival. pt agreed to OT evaluation/ treatment session. pt reports no pain. Mental Status/Objective Patient Orientation: Person (only oriented to name ) Attachments: Moser Catheter Current Glasses/Contacts: Yes Hearing Aids: No Dentures/Partials: No Hand Dominance: Right Upper Extremity ROM WNL pt required demo Upper Extremity Coordination decrease finger to nose deric UE Upper Extremity Sensation NT secondary to cognition. Upper Extremity Strength 3/5 MMT ADL-Treatment Eating (FIM): 4 Eating (QC): 4 Grooming (FIM): 4 (required cuing and CGA for safety/ balance ) Oral Hygiene (QC): 4 Lower Body Dressing (FIM): 4 (CGA while sitting EOB to mello/ doff deric socks. pt required demo for understanding. ) Lower Body Dressing (QC): 4 On/Off Footwear (QC): 4 Transfers (B, C, W/C) (FIM): 3 (use of RW ) pt is VERY [place]. pt hallucinating during TX session. pt stated there was a medium sized dog that kept jumping on her while seated EOB causing her to slightly lose balance. pt then stated "the dog is chewing the lines." pt very distracted during TX session. pt required MAX A to perform supine to sit X 1 person assist. pt perform 3 sit to stands with MOD A using RW. post OT Session, pt laying in bed. call light within reach, bed alarm activated, all needs met. Education OT Patient Education: Energy conservation, Modified ADL techniques, Progress toward Goal/Update tx plan, Purpose of tx/functional activities, Safety issues, Transfer techniques Teaching Recipient: Patient Teaching Methods: Demonstration, Discussion Response to Teaching: Return Demonstration, Reinforcement Needed OT Short Term Goals Short Term Goals Grooming(FIM): 5 Bathing(FIM): 4 Lower Body Dressing(FIM): 5 Toileting(FIM): 4 Transfers (B,C,W/C) (FIM): 4 Toilet/Commode Transfer(FIM): 4 Additional Short Term Goals: 1-Demonstrate ADL Tasks, 2-Verbalize Understanding, 3-ImproveStrength/Eusebia 1=Demonstrate adherence to instructed precautions during ADL tasks. 2=Patient will verbalize/demonstrate understanding of assistive devices/modifications for ADL. 3=Patient will improve strength/tolerance for activity to enable patient to perform ADL's. OT Jail Goals Senior Planning Manager Goals Time Frame: Oct 31, 2018 Eating (FIM): 7 Eating (QC): 6 Groomin Oral Hygiene (QC): 5 Bathing(FIM): 5 Bathing Location: L Arm, R Arm, L Upper Leg, R Upper Leg, L Lower Leg (including foot), R Lower Leg (including foot), Chest, Abdomen, Buttocks, Perine al Area Shower/Bathe Self (QC): 4 Upper Body Dressing(FIM): 5 Upper Body Dressing (QC): 4 Lower Body Dressing(FIM): 5 Lower Body Dressing (QC): 4 Toileting(FIM): 5 Toileting Hygiene (QC): 4 Transfers (B,C,W/C) (FIM): 5 Toilet/Commode Transfer(FIM): 5 Toilet/Commode Transfer (QC): 4 Additional Goals: 1-Demonstrate ADL Tasks, 2-Verbalize Understanding, 3- ImproveStrength/Eusebia 1=Demonstrate adherence to instructed precautions during ADL tasks. 2=Patient will verbalize/demonstrate understanding of assistive devices/modifications for ADL. 3=Patient will improve strength/tolerance for activity to enable patient to perform ADL's. OT Education/Plan Problem List/Assessment Assessment: Decreased Activ Tolerance, Decreased Safety Aware, Decreased UE Strength, Impaired Bed Mobility, Impaired Cognition, Impaired Funct Balance, Impaired I ADL's, Impaired Self-Care Skills Discharge Recommendations Plan/Recommendations: Continue POC Therapy D/C Recommendations: 24 hr Supervision Treatment Plan/Plan of Care Treatment,Training & Education: Yes Patient would benefit from OT for education, treatment and training to promote independence in ADL's, mobility, safety and/or upper extremity function for ADL's. Plan of Care: ADL Retraining, Functional Mobility, Group Exercise/Act as Ind, UE Funct Exercise/Act Treatment Duration: Oct 31, 2018 Frequency: 5 times per week Estimated Hrs Per Day: .5 hour per day Agreement: Yes Rehab Potential: Poor Time/GCodes Start Time: 12:55 Stop Time: 13:25 Billed Treatment Time EVM 15 minutes ADL 15 minutes, 1 unit ESKEN,PHILIP OT Oct 17, 2018 14:05
--- NOTE | 2018-10-17 15:10 | NUR ---
Pastoral care visit.
[2018-10-17] MEDS: VANCOMYCIN 1 GM/NS 250 ML IVPB IV SCH ×2 (16:59)
[2018-10-17 17:46] VITALS: BP 170/94
[2018-10-17] MEDS: SIMvastatin 40 MG (ZOCOR) TAB PO SCH (18:18)
[2018-10-17] MEDS ORDERED: HYDROCORTISONE 100 MG/2 ML (Solu-CORTEF) VIAL IV SCH (21:00)
[2018-10-17] MEDS: POLYETHYLENE GLYCOL 17 GM (MIRALAX) PACK PO SCH (21:00)
[2018-10-17] MEDS: SENNA W/DOCUSATE (SENOKOT S) TABLET PO SCH (21:00)
[2018-10-18] MEDS: morphine ER 15 MG (MS CONTIN) TAB PO SCH ×4 (02:20→18:52)
[2018-10-18] MEDS ORDERED: DULoxetine 20 MG (CYMBALTA) CAP PO SCH (06:00)
[2018-10-18 06:12] VITALS: BP 154/100
[2018-10-18] MEDS: amLODIPine 5 MG (NORVASC) TAB PO SCH (06:14)
[2018-10-18] MEDS: meTOproloL SUCCINATE 50 MG (TOPROL XL) TAB PO SCH (06:14)
[2018-10-18] MEDS: PANTOPRAZOLE 40 MG (PROTONIX) TAB PO SCH (06:14)
[2018-10-18] MEDS: SENNA W/DOCUSATE (SENOKOT S) TABLET PO SCH ×2 (09:48→21:13)
[2018-10-18] MEDS: POLYETHYLENE GLYCOL 17 GM (MIRALAX) PACK PO SCH ×2 (09:48→21:13)
[2018-10-18] MEDS: NS IV 1000 ML 1,000 ML IV SCH (09:48)
--- NOTE | 2018-10-18 11:09 | Physical Therapy Daily Note ---
PT Daily Note-Current Subjective Patient in bed pre tx, confused, barely opens her eyes during treatment. Does not respond when asked if she has pain. Appearance Patient in recliner post tx with nurse call, phone, tray, chair alarm on, telesitter in room. Mental Status Patient Orientation: Confused, Unable to Assess, [place] Attachments: Moser Catheter, IV Transfers Therapy Code Descriptions/Definitions Functional [place] Measure: 0=Not Assessed/NA 4=Minimal Assistance 1=Total Assistance 5=Supervision or Setup 2=Maximal Assistance 6=Modified [place] 3=Moderate Assistance 7=Complete [place] Therapy Quality Codes: 6 Independent with activity with or without an assistive device 5 Patient requires set up or clean up by helper. Patient completes activity by themselves 4 Supervision or touching assist (CGA). [place] provide cues , steadying assist 3 The helper provides less than half the effort to complete the activity 2 The helper provides more than half the effort to complete the activity 1 Dependent. The helper does all the effort to complete an activity 7 Patient refused to complete or attempt activity 9 The patient did not perform the activity before the current illness or injury 88 Not attempted due to Medical conditions or safety concerns Transfers (B, C, W/C) (FIM): 2 Scootin Rollin Supine to/from Sit: 2 Sit to/from Stand: 2 Bed to/from Chair: 2 Patient assists occasionally with supine to sit but is inconsistent. Assists slightly with sit to stand and stand pivot transfer. Patient will not follow directions. Nurse notified patient is in recliner. Treatments bed mobility, transfers Assessment Current Status: Poor Progress very little participation from patient PT Short Term Goals Short Term Goals Transfers (B,C,W/C) (FIM): 4 PT Outside Energy Sales Representatives Goals Half-Way Goals PT Outside Energy Sales Representatives Goals Time Frame: Nov 04, 2018 Transfers (B,C,W/C) (FIM): 4 Sit to Lying (QC): 4 Lying-Sitting on Side/Bed(QC): 4 Sit to Stand (QC): 4 Rollin Roll Left to Right (QC): 4 Chair/Mut-fi-Zrdjo Xfer(QC): 4 Car Transfer (QC): 4 Does the Patient Walk: Yes Gait (FIM): 1 Gait distance (FIM): 1=up to 49 ft Distance: 45' Walk 10 feet (QC): 4 Walk 10ft-Uneven Surface(QC): 4 Gait Level of Assist: 4 Gait Assistive Device: FWW PT Plan Problem List Problem List: Activity Tolerance, Functional Strength, Safety, Balance, Gait, Transfer, Bed Mobility, ROM Treatment/Plan Treatment Plan: Continue Plan of Care Treatment Plan: Bed Mobility, Education, Functional Activity Eusebia, Functional Strength, Gait, Safety, Therapeutic Exercise, Transfers Treatment Duration: Nov 04, 2018 Frequency: 6 times per week Estimated Hrs Per Day: .25 hour per day Patient and/or Family Agrees t: Yes Safety Risks/Education Patient Education: Transfer Techniques, Correct Positioning, Safety Issues Teaching Recipient: Patient Teaching Methods: Demonstration, Discussion Response to Teaching: Reinforcement Needed Time/GCodes Time In: 1016 Time Out: 1030 Total Billed Treatment Time: 14 Total Billed Treatment 1 visit FA RENE MATTHEWS PT Oct 18, 2018 11:09
--- NOTE | 2018-10-18 11:14 | Progress Note - Hospitalist ---
PLACIDO GRAYSON, 10/18/18 1114: Progress Note Date: 10/18/2018 Time: 0820 Pt was disoriented and unable to answer questions well Pt answered questions where appropriate but unreliable historian Denied pain In and out of sleep during questioning Bowels were moving Clear on auscultation bilaterally RRR, no murmurs Vitals stable Vancomycin 1g QD IV Vanc troph 18.2 on 10/17 Labs from 10/17: Na 134 K 3.4 Cr 0.8 ALISON BROWN DO 10/18/182128: Supervisory-Addendum Brief Verification & Attestation Participated in pt care: history, MDM, physical Personally performed: exam, history, MDM, supervision of care Care discussed with: Medical Student Procedures: n/a Results interpretation: Verified all documentation Verification and Attestation of Medical Student E/M Service A medical student performed and documented this service in my presence. I reviewed and verified all information documented by the medical student and made modifications to such information, when appropriate. I personally performed the physical exam and medical decision making. Alison Brown, Oct 18, 2018,21:29 PLACIDO GRAYSON, Oct 18, 2018 11:14 ALISON BROWN DO Oct 18, 2018 21:29
--- NOTE | 2018-10-18 11:39 | Occupational Ther Daily Note ---
OT Current Status-Daily Note Subjective Pt sitting up in reclining with legs elevated. Pt would not open eyes with touch or name though would give one word answer. When asked how she felt pt did not answer question. Mental Status/Objective Patient Orientation: Person, Unable to Assess Therapy Code Descriptions/Definitions Functional [place] Measure: 0=Not Assessed/NA 4=Minimal Assistance 1=Total Assistance 5=Supervision or Setup 2=Maximal Assistance 6=Modified [place] 3=Moderate Assistance 7=Complete [place] Attachments: Moser Catheter, IV ADL-Treatment Attempted to engage pt with eating, ROM exercises and positioning for comfort. Pt would ask for help, but would not say what she needed help with. Pt then said the word "fishing" though would not elaborate. Pt had breakfast in front of her. PIÑA assisted pt in eating a few bites of applesauce and drink apple juice. Pt did not attempt to use hands to feed self. Pt opened eyes 2x's during session and did state that PIÑA had cold hands. PIÑA was not able to engage pt in tasks or movement. Attempted to complete ROM with UE and pt reached for IV and started to pull. After therapy, pt sitting in recliner with call light/phone in reach. All needs met in room. Therapy Code Descriptions/Definitions Functional [place] Measure: 0=Not Assessed/NA 4=Minimal Assistance 1=Total Assistance 5=Supervision or Setup 2=Maximal Assistance 6=Modified [place] 3=Moderate Assistance 7=Complete [place] Therapy Quality Codes: 6 Independent with activity with or without an assistive device 5 Patient requires set up or clean up by helper. Patient completes activity by themselves 4 Supervision or touching assist (CGA). [place] provide cues , steadying assist 3 The helper provides less than half the effort to complete the activity 2 The helper provides more than half the effort to complete the activity 1 Dependent. The helper does all the effort to complete an activity 7 Patient refused to complete or attempt activity 9 The patient did not perform the activity before the current illness or injury 88 Not attempted due to Medical conditions or safety concerns OT Short Term Goals Short Term Goals Grooming(FIM): 5 Bathing(FIM): 4 Lower Body Dressing(FIM): 5 Toileting(FIM): 4 Transfers (B,C,W/C) (FIM): 4 Toilet/Commode Transfer(FIM): 4 Additional Short Term Goals: 1-Demonstrate ADL Tasks, 2-Verbalize Understanding, 3-ImproveStrength/[place]ia 1=Demonstrate adherence to instructed precautions during ADL tasks. 2=Patient will verbalize/demonstrate understanding of assistive devices/modifications for ADL. 3=Patient will improve strength/tolerance for activity to enable patient to perform ADL's. OT Armoring Machine Operator Goals Senior Care Goals Time Frame: Oct 31, 2018 Eating (FIM): 7 Eating (QC): 6 Groomin Oral Hygiene (QC): 5 Bathing(FIM): 5 Bathing Location: L Arm, R Arm, L Upper Leg, R Upper Leg, L Lower Leg (including foot), R Lower Leg (including foot), Chest, Abdomen, Buttocks, Perineal Area Shower/Bathe Self (QC): 4 Upper Body Dressing(FIM): 5 Upper Body Dressing (QC): 4 Lower Body Dressing(FIM): 5 Lower Body Dressing (QC): 4 Toileting(FIM): 5 Toileting Hygiene (QC): 4 Transfers (B,C,W/C) (FIM): 5 Toilet/Commode Transfer(FIM): 5 Toilet/Commode Transfer (QC): 4 Additional Goals: 1-Demonstrate ADL Tasks, 2-Verbalize Understanding, 3- ImproveStrength/Eusebia 1=Demonstrate adherence to instructed precautions during ADL tasks. 2=Patient will verbalize/demonstrate understanding of assistive devices/modifications for ADL. 3=Patient will improve strength/tolerance for activity to enable patient to perform ADL's. OT Education/Plan Problem List/Assessment Assessment: Decreased Activ Tolerance, Decreased Safety Aware, Decreased UE Strength, Dependent Transfers, Impaired Bed Mobility, Impaired Cognition, Impaired Coordination, Impaired Funct Balance, Impaired I ADL's, Impaired Self- Care Skills, Restricted Funct UE ROM Discharge Recommendations Plan/Recommendations: Continue POC Treatment Plan/Plan of Care Patient would benefit from OT for education, treatment and training to promote independence in ADL's, mobility, safety and/or upper extremity function for ADL's. Plan of Care: ADL Retraining, Functional Mobility, Group Exercise/Act as Ind, UE Funct Exercise/Act Treatment Duration: Oct 31, 2018 Frequency: 5 times per week Estimated Hrs Per Day: .5 hour per day Agreement: Yes Rehab Potential: Poor Time/GCodes Start Time: 11:20 Stop Time: 11:35 Total Time Billed (hr/min): 15 Billed Treatment Time 1 visit-FA 1 (15 min) MORENITA CORREA Oct 18, 2018 11:39
--- NOTE | 2018-10-18 15:13 | ST Cognitive Linguistic Eval ---
Speech Evaluation-General Medical Diagnosis AMS Onset Date: Oct 12, 2018 Therapy Diagnosis Therapy Diagnosis: Cognitive-communication Precautions Precautions: Fall Precautions/Isolations: Fall Prevention, Standard Precautions Referral Referring Physician: Dr. Donovan Reason for Referral: Evaluation/Treatment Medical History Pertinent Medical History: DM, Heart Failure, HTN Heart Failure, HTN, DM Current History AMS Reviewed History: Yes Social History Home: Single Level Current Living Status: Spouse Speech PLF-Current Status Prior Level of Function Patient lives with her . She was independent for some of her daily needs, while requiring assistance with others. Subjective The patient was sitting in her chair with her eyes closed. She responded min imally to tactile touch. Language Eval: Auditory Comprehends Simple Yes/No Ques: Severe Indent/Objects Multiple [place]: Severe Ident/Pics in Multiple [place]: Severe Follows 1-Step Commands: Severe Follows Complex Directions: Severe Follows General Conversations: Severe Language Eval: Verbal Language Completes Spontaneous Greeting: Severe Produces Auto, Serial Info: Severe Imitates Simple Words/Phrases: Severe Word Finding: Moderate Requests Basic Needs: Moderate States Basic Personal Info: Severe Expresses Complex Ideas: Moderate Patient expressed a few words randomly including: "I can't see", "Help me" and "Could you help me get my pants off?" (patient was in a hospital gown and not wearing pants) Cognitive Patient Orientation Patient does not appear to be oriented to any concepts at this time. Objective Cognitive Domain Attention: Severe Memory: Severe Problem Solving: Severe Executive Functions: Severe Visuospatial Skills: Severe Composite Severity Rating: Severe Clock Drawing Severity Rating: Severe Score: 0 Range: Severe Objective Formal/Standardized Tests Unable to complete due to patient disoriented state. Results Not completed Oral Motor/Speech Production Within functional limits Impression The patient is not oriented enough to complete a formal evaluation. She was not able to respond to verbal cues, questions or visual stimuli. She responded briefly to tactile touch. Communication/Social Cognition Comprehension: 0 Expression: 1 Social Interaction: 0 Problem Solvin Memory: 0 Speech Patient Assess Expression of Ideas/Wants: Rarely/Never (1) Understanding Verbal Content: Rarely/Never Understand (1) Brief Interview-Mental Status: No(pt is rarely/never understood) Repetition of Three Words: None (0) Temporal Orientation: Year: No answer (0) Temporal Orientation: Month: No answer (0) Temporal Orientation: Day: Incorrect or No Answer(0) Recall : Wear to say "Sock": No, could not recall (0) Recall : Color: No, could not recall (0) Recall : Bed: No, could not recall (0) Add-Enter 99 if pt cannot comp: 99 Memory/Recall Ability: None of the above were recalled Speech Short Term Goals Short Term Goals Short Term Goals 1) The patient will be able to answer simple yes/no questions with 70% or grea ter given minimal cues. 2) The patient will be able to follow simple one step directions with 70% or greater given minimal cues. Speech Figure Model Goals Figure Model Goals The patient will be able to communicate effectively for simple needs. Speech-Plan Patient/Family Goals Patient/Family Goals: It is unknown at this time what the patient's plans are due to inability to communicate. Treatment Plan Speech Therapy Treatment Plan: Continue Plan of Care The patient will receive speech therapy in order to increase her communication abilities. Treatment Duration: Oct 20, 2018 Frequency: 4 times per week Estimated Hrs Per Day: .25 hour per day Rehab Potential: Poor Barriers to Learning: Patient's cognitive function is poor Pt/Family Agrees to Plan: Yes Safety Risks/Education Teaching Recipient: Patient Teaching Methods: Discussion Response to Teaching: Unable to Return Demonstration, Unable to Comprehend Education Topics Provided: Communication of wants/needs Time Speech Therapy Time In: 14:45 Speech Therapy Time Out: 15:00 Total Billed Time: 15 Billed Treatment Time 1BENINDKILEY Wong Oct 18, 2018 15:13
[2018-10-18] MEDS: VANCOMYCIN 1 GM/NS 250 ML IVPB IV SCH ×2 (16:23)
--- NOTE | 2018-10-18 17:09 | Progress Note ---
Standard Progress Note Progress Notes/Assess & Plan Date Seen by a Provider: Oct 18, 2018 Time Seen by a Provider: 16:58 Progress/Assessment & Plan 63 yo female with metastatic lung cancer treated with chemo and immunotherapy was admitted with delirium secondary to infection on 10/12/18. Patient found to have methicillin resistant UTI and started receiving appropriate abx coverage with vancomycin on 10/14/18. She was also started on stress dose steroids at that time. Her mental status improved significantly and she was discharged to swing bed status on 10/17/18 to complete IV antibiotics. Patient received ativan this morning at 0300 and has been somnolent and confused since then. Nurse reports patient was more coherent when awake for about 10 minutes around 1600. Patient is somnolent for me and does not respond to verbal cues. 1. UTI with Staph simulans. Receiving vancomycin according to sensitivities. 2. Delirium. Secondary to UTI and likely benzodiazepine use. Recent whole brain radiation but neurotoxicity does not usually manifest until after 4 months (received radiation only two months ago). Patient has no new brain lesions to suggest metastatic cancer is responsible for her mental status changes. Would avoid benzodiazepines. Since patient did improve with steroids previously, we will add steroids back into her regimen. It is possible that patient has adrenal insufficiency. No imaging evidence of cerebral edema when seen back on admission. 3. Metastatic lung cancer. Patient does not have the performance status to continue with systemic therapy. 4. Back pain. Patient has a long history of chronic low back pain but it could be worsening metastatic disease. Opiates as needed, limited by mental status. JUAN BEST MD Oct 18, 2018 17:09
[2018-10-18 18:00] VITALS: BP 156/89
[2018-10-18] MEDS: SIMvastatin 40 MG (ZOCOR) TAB PO SCH (18:52)
[2018-10-18] MEDS: HYDROCORTISONE 100 MG/2 ML (Solu-CORTEF) VIAL IV SCH (21:13)
[2018-10-19] MEDS: morphine ER 15 MG (MS CONTIN) TAB PO SCH ×3 (04:00→18:36)
[2018-10-19] MEDS: NS IV 1000 ML 1,000 ML IV SCH ×2 (04:00→14:20)
[2018-10-19] MEDS: PANTOPRAZOLE 40 MG (PROTONIX) TAB PO SCH (05:16)
[2018-10-19] MEDS: amLODIPine 5 MG (NORVASC) TAB PO SCH (05:16)
[2018-10-19] MEDS: DULoxetine 20 MG (CYMBALTA) CAP PO SCH (05:16)
[2018-10-19] MEDS: meTOproloL SUCCINATE 50 MG (TOPROL XL) TAB PO SCH (05:16)
[2018-10-19 05:41] VITALS: BP 137/90
[2018-10-19] MEDS: POLYETHYLENE GLYCOL 17 GM (MIRALAX) PACK PO SCH ×2 (08:29→20:37)
[2018-10-19] MEDS: HYDROCORTISONE 100 MG/2 ML (Solu-CORTEF) VIAL IV SCH ×2 (08:29→20:36)
[2018-10-19] MEDS: SENNA W/DOCUSATE (SENOKOT S) TABLET PO SCH ×2 (08:29→20:36)
--- NOTE | 2018-10-19 09:18 | NUR ---
Pt lives with her "Eusebio" and a granddaughter Ashia. Met with pt and to discuss continued care options. Pt sat up during interview but didn't participate. is not considering [facility] placement and states he will take her home when discharged and not interested in applying for Medicaid other then the Medicare supplement benefit. Will follow and assit with continued care plans.
--- NOTE | 2018-10-19 09:49 | Physical Therapy Daily Note ---
PT Daily Note-Current Subjective Patient is in bed and does not open her eyes with direction. Mental Status Patient Orientation: Confused, Listless Attachments: Moser Catheter, IV Transfers Therapy Code Descriptions/Definitions Functional [place] Measure: 0=Not Assessed/NA 4=Minimal Assistance 1=Total Assistance 5=Supervision or Setup 2=Maximal Assistance 6=Modified [place] 3=Moderate Assistance 7=Complete [place] Therapy Quality Codes: 6 Independent with activity with or without an assistive device 5 Patient requires set up or clean up by helper. Patient completes activity by themselves 4 Supervision or touching assist (CGA). [place] provide cues , steadying assist 3 The helper provides less than half the effort to complete the activity 2 The helper provides more than half the effort to complete the activity 1 Dependent. The helper does all the effort to complete an activity 7 Patient refused to complete or attempt activity 9 The patient did not perform the activity before the current illness or in jury 88 Not attempted due to Medical conditions or safety concerns Transfers (B, C, W/C) (FIM): 1 Scootin Supine to/from Sit: 1 Sit to/from Stand: 1 Sit to Lying (QC): 1 Sit to Stand (QC): 1 Chair/Vpg-wp-Luxnm Xfer(QC): 1 Bed to/from Chair: 1 dependent assist x 2 with all mobility with patient not assisting or able to assist. Patient does not weight bear through bilateral LE's resulting in dependency with transfers bed to shower chair to recliner. Assessment Patient is unable to actively participate with therapy due to extreme confusion and inability to follow simple direction. Patient is unaware of safety concerns and is in recliner with chair alarm activated. PT Short Term Goals Short Term Goals Transfers (B,C,W/C) (FIM): 4 PT Head Of Loss Prevention Goals Longterm Goals PT Longterm Goals Time Frame: Nov 04, 2018 Transfers (B,C,W/C) (FIM): 4 Sit to Lying (QC): 4 Lying-Sitting on Side/Bed(QC): 4 Sit to Stand (QC): 4 Rollin Roll Left to Right (QC): 4 Chair/Kra-tl-Ytmrk Xfer(QC): 4 Car Transfer (QC): 4 Does the Patient Walk: Yes Gait (FIM): 1 Gait distance (FIM): 1=up to 49 ft Distance: 45' Walk 10 feet (QC): 4 Walk 10ft-Uneven Surface(QC): 4 Gait Level of Assist: 4 Gait Assistive Device: FWW PT Plan Treatment/Plan Treatment Plan: Continue Plan of Care Treatment Plan: Bed Mobility, Education, Functional Activity Eusebia, Functional Strength, Gait, Safety, Therapeutic Exercise, Transfers Treatment Duration: Nov 04, 2018 Frequency: 6 times per week Estimated Hrs Per Day: .25 hour per day Patient and/or Family Agrees t: Yes Time/GCodes Time In: 915 Time Out: 930 Total Billed Treatment Time: 15 Total Billed Treatment 1 visit FA 15 min TULIO FISHER PT Oct 19, 2018 09:49
--- NOTE | 2018-10-19 11:53 | Occupational Ther Daily Note ---
OT Current Status-Daily Note Subjective Pt sitting in recliner with eyes closed. With touch and calling name, pt would not open eyes or respond. When asked if pt wanted something to eat or drink she would shake head no and then not respond to any other questions. Mental Status/Objective Patient Orientation: Person, Unable to Assess Therapy Code Descriptions/Definitions Functional [place] Measure: 0=Not Assessed/NA 4=Minimal Assistance 1=Total Assistance 5=Supervision or Setup 2=Maximal Assistance 6=Modified [place] 3=Moderate Assistance 7=Complete [place] ADL-Treatment Therapy Code Descriptions/Definitions Functional [place] Measure: 0=Not Assessed/NA 4=Minimal Assistance 1=Total Assistance 5=Supervision or Setup 2=Maximal Assistance 6=Modified [place] 3=Moderate Assistance 7=Complete [place] Therapy Quality Codes: 6 Independent with activity with or without an assistive device 5 Patient requires set up or clean up by helper. Patient completes activity by themselves 4 Supervision or touching assist (CGA). [place] provide cues , steadying assist 3 The helper provides less than half the effort to complete the activity 2 The helper provides more than half the effort to complete the activity 1 Dependent. The helper does all the effort to complete an activity 7 Patient refused to complete or attempt activity 9 The patient did not perform the activity before the current illness or injury 88 Not attempted due to Medical conditions or safety concerns Other Treatment PIÑA began to complete PROM with B UE, pt opened eyes for a little bit. When asked if it was okay that PIÑA move arms, pt shook head yes. Tightness and edema noticed in UE's. When asked to move UE on own pt would not attempt. After therapy, pt sitting in recliner with eyes closed. Call light/phone in reach. All needs met in room. OT Short Term Goals Short Term Goals Grooming(FIM): 5 Bathing(FIM): 4 Lower Body Dressing(FIM): 5 Toileting(FIM): 4 Transfers (B,C,W/C) (FIM): 4 Toilet/Commode Transfer(FIM): 4 Additional Short Term Goals: 1-Demonstrate ADL Tasks, 2-Verbalize Understanding, 3-ImproveStrength/Eusebia 1=Demonstrate adherence to instructed precautions during ADL tasks. 2=Patient will verbalize/demonstrate understanding of assistive devices/modifications for ADL. 3=Patient will improve strength/tolerance for activity to enable patient to perform ADL's. OT Halfway Goals Mine Administrator Supervisor Goals Time Frame: Oct 31, 2018 Eating (FIM): 7 Eating (QC): 6 Groomin Oral Hygiene (QC): 5 Bathing(FIM): 5 Bathing Location: L Arm, R Arm, L Upper Leg, R Upper Leg, L Lower Leg (including foot), R Lower Leg (including foot), Chest, Abdomen, Buttocks, Perineal Area Shower/Bathe Self (QC): 4 Upper Body Dressing(FIM): 5 Upper Body Dressing (QC): 4 Lower Body Dressing(FIM): 5 Lower Body Dressing (QC): 4 Toileting(FIM): 5 Toileting Hygiene (QC): 4 Transfers (B,C,W/C) (FIM): 5 Toilet/Commode Transfer(FIM): 5 Toilet/Commode Transfer (QC): 4 Additional Goals: 1-Demonstrate ADL Tasks, 2-Verbalize Understanding, 3-Impro veStrength/Eusebia 1=Demonstrate adherence to instructed precautions during ADL tasks. 2=Patient will verbalize/demonstrate understanding of assistive devices/modifications for ADL. 3=Patient will improve strength/tolerance for activity to enable patient to perform ADL's. OT Education/Plan Problem List/Assessment Assessment: Decreased Activ Tolerance, Decreased Safety Aware, Decreased UE Strength, Dependent Transfers, Impaired Bed Mobility, Impaired Cognition, Imp aired Coordination, Impaired Funct Balance, Impaired Self-Care Skills, Restricted Funct UE ROM Discharge Recommendations Plan/Recommendations: Continue POC Treatment Plan/Plan of Care Patient would benefit from OT for education, treatment and training to promote independence in ADL's, mobility, safety and/or upper extremity function for ADL's. Plan of Care: ADL Retraining, Functional Mobility, Group Exercise/Act as Ind, UE Funct Exercise/Act Treatment Duration: Oct 31, 2018 Frequency: 5 times per week Estimated Hrs Per Day: .5 hour per day Agreement: Yes Rehab Potential: Poor Time/GCodes Start Time: 10:43 Stop Time: 10:58 Total Time Billed (hr/min): 15 Billed Treatment Time 1 visit-FA 1 (15 min) MORENITA CORREA Oct 19, 2018 11:53
--- NOTE | 2018-10-19 14:44 | NUR ---
Pastoral care visit.
[2018-10-19] MEDS ORDERED: TROUGH ORDER-PHARMACY XX NR (15:00)
[2018-10-19] MEDS: VANCOMYCIN 1 GM/NS 250 ML IVPB IV SCH ×2 (16:17)
[2018-10-19 18:00] VITALS: BP 167/99
[2018-10-19] MEDS: SIMvastatin 40 MG (ZOCOR) TAB PO SCH (18:04)
--- NOTE | 2018-10-19 18:10 | Progress Note ---
Standard Progress Note Progress Notes/Assess & Plan Date Seen by a Provider: Oct 19, 2018 Time Seen by a Provider: 18:05 Progress/Assessment & Plan 63 yo female with metastatic lung cancer treated with chemo and immunotherapy was admitted with delirium secondary to infection on 10/12/18. Patient found to have methicillin resistant UTI and started receiving appropriate abx coverage with vancomycin on 10/14/18. She was also started on stress dose steroids at that time. Her mental status improved significantly and she was discharged to swing bed status on 10/17/18 to complete IV antibiotics. Patient continues to be quite somnolent today but sits up spontaneously and much more responsive to commands and verbal prompts. She is confused most of the time and has only a few coherent sentences. 1. UTI with Staph simulans. Receiving vancomycin according to sensitivities. 2. Delirium. Secondary to UTI and likely benzodiazepine use. Recent whole brain radiation but neurotoxicity does not usually manifest until after 4 months (received radiation only two months ago). Patient has no new brain lesions to suggest metastatic cancer is responsible for her mental status changes. No im aging evidence of cerebral edema when seen back on admission. Most recent worsening of mental status could be due to the inadvertent use of lorazepam or withdrawal of steroids. - Some improvement of mental status today - Would avoid benzodiazepines - Continue solu-cortef, as patient may have adrenal insufficiency 3. Metastatic lung cancer. Patient does not have the performance status to continue with systemic therapy. 4. Back pain. Patient has a long history of chronic low back pain but it could be worsening metastatic disease. Opiates as needed, limited by mental status. JUAN BEST MD Oct 19, 2018 18:10
[2018-10-20] MEDS: NS IV 1000 ML 1,000 ML IV SCH ×3 (00:19→10:13)
[2018-10-20] MEDS: SENNA W/DOCUSATE (SENOKOT S) TABLET PO SCH ×2 (00:47→11:05)
[2018-10-20] MEDS: morphine ER 15 MG (MS CONTIN) TAB PO SCH ×3 (03:22→18:23)
[2018-10-20 05:10] VITALS: BP 176/104
[2018-10-20] MEDS: amLODIPine 5 MG (NORVASC) TAB PO SCH (05:15)
[2018-10-20] MEDS: DULoxetine 20 MG (CYMBALTA) CAP PO SCH (05:15)
[2018-10-20] MEDS: meTOproloL SUCCINATE 50 MG (TOPROL XL) TAB PO SCH (05:15)
[2018-10-20] MEDS: PANTOPRAZOLE 40 MG (PROTONIX) TAB PO SCH (05:15)
[2018-10-20 05:28] LABS: BASOPHILS % (AUTO) 0 % (0-10); EOSINOPHILS % (AUTO) 0 % (0-10); HEMATOCRIT 21 % (35-52); HEMOGLOBIN 7.4 G/DL (11.5-16.0); LYMPHOCYTES # (AUTO) 0.8 X 10^3 (1.0-4.0); LYMPHOCYTES % (AUTO) 14 % (12-44); MEAN CORPUSCULAR HEMOGLOBIN 33 PG (25-34); MEAN CORPUSCULAR HGB CONC 35 G/DL (32-36); MEAN CORPUSCULAR VOLUME 93 FL (80-99); MONOCYTES # (AUTO) 0.3 X 10^3 (0.0-1.0); MONOCYTES % (AUTO) 4 % (0-12); NEUTROPHILS # (AUTO) 4.6 X 10^3 (1.8-7.8); NEUTROPHILS % (AUTO) 82 % (42-75); PLATELET COUNT 124 10^3/uL (130-400); RED CELL DISTRIBUTION WIDTH 19.7 % (10.0-14.5); WHITE BLOOD COUNT 5.7 10^3/uL (4.3-11.0)
[2018-10-20 05:50] LABS: ALANINE AMINOTRANSFERASE 7 U/L (0-55); ALBUMIN 2.8 GM/DL (3.2-4.5); ALKALINE PHOSPHATASE 77 U/L (40-136); BILIRUBIN,TOTAL 0.5 MG/DL (0.1-1.0); BUN/CREATININE RATIO 11; CALCIUM 7.7 MG/DL (8.5-10.1); CARBON DIOXIDE 16 MMOL/L (21-32); CHLORIDE 109 MMOL/L (98-107); CREATININE SERUM 0.73 MG/DL (0.60-1.30); GFR ESTIMATED > 60; GLUCOSE 168 MG/DL (70-105); POTASSIUM 2.9 MMOL/L (3.6-5.0); SODIUM 135 MMOL/L (135-145); TOTAL PROTEIN 5.3 GM/DL (6.4-8.2)
[2018-10-20] MEDS: HYDROCORTISONE 100 MG/2 ML (Solu-CORTEF) VIAL IV SCH ×2 (08:24→21:00)
--- NOTE | 2018-10-20 09:04 | Occupational Ther Daily Note ---
OT Current Status-Daily Note Subjective pt increase alertness this date. family present in room. pt stated concerns about new markings behind pt left ear, and left arm. NSG is present in the room. NSG stated she will take care of complaints with change house attendant. Appearance noted increase edema on LUE/ LE Mental Status/Objective Patient Orientation: Person (only oriented to self) Therapy Code Descriptions/Definitions Functional [place] Measure: 0=Not Assessed/NA 4=Minimal Assistance 1=Total Assistance 5=Supervision or Setup 2=Maximal Assistance 6=Modified [place] 3=Moderate Assistance 7=Complete [place] Attachments: Moser Catheter, IV ADL-Treatment Therapy Code Descriptions/Definitions Functional [place] Measure: 0=Not Assessed/NA 4=Minimal Assistance 1=Total Assistance 5=Supervision or Setup 2=Maximal Assistance 6=Modified [place] 3=Moderate Assistance 7=Complete [place] Therapy Quality Codes: 6 Independent with activity with or without an assistive device 5 Patient requires set up or clean up by helper. Patient completes activity by themselves 4 Supervision or touching assist (CGA). [place] provide cues , steadying assist 3 The helper provides less than half the effort to complete the activity 2 The helper provides more than half the effort to complete the activity 1 Dependent. The helper does all the effort to complete an activity 7 Patient refused to complete or attempt activity 9 The patient did not perform the activity before the current illness or injury 88 Not attempted due to Medical conditions or safety concerns Eating (FIM): 5 (required cuing ) Grooming (FIM): 5 Lower Body Dressing (FIM): 1 Transfers (B, C, W/C) (FIM): 3 (supine to sit. HOB elevated to approx 80 degr ees. pt required bebe with LLE ) pt is very [place] and required frequent demo to understanding task being asked of her. pt is more alert this date. pt sat EOB for approx 9 minutes with fair + seated balance. pt attempt to stand X4 and unsuccessful full stance. post OT Session pt laying in bed , call light, tray, phone within reach, family and nursing at bedside. all needs met. Education OT Patient Education: Correct positioning, Energy conservation, Modified ADL techniques, Progress toward Goal/Update tx plan, Purpose of tx/functional activities, Transfer techniques Teaching Recipient: Patient Teaching Methods: Demonstration, Discussion Response to Teaching: Verbalize Understanding, Return Demonstration, Reinforcement Needed OT Short Term Goals Short Term Goals Grooming(FIM): 5 Bathing(FIM): 4 Lower Body Dressing(FIM): 5 Toileting(FIM): 4 Transfers (B,C,W/C) (FIM): 4 Toilet/Commode Transfer(FIM): 4 Additional Short Term Goals: 1-Demonstrate ADL Tasks, 2-Verbalize Understanding, 3-ImproveStrength/Eusebia 1=Demonstrate adherence to instructed precautions during ADL tasks. 2=Patient will verbalize/demonstrate understanding of assistive devices/modifications for ADL. 3=Patient will improve strength/tolerance for activity to enable patient to perf orm ADL's. OT Intermediate Goals Terminal Computer Operator Goals Time Frame: Oct 31, 2018 Eating (FIM): 7 Eating (QC): 6 Groomin Oral Hygiene (QC): 5 Bathing(FIM): 5 Bathing Location: L Arm, R Arm, L Upper Leg, R Upper Leg, L Lower Leg (including foot), R Lower Leg (including foot), Chest, Abdomen, Buttocks, Perineal Area Shower/Bathe Self (QC): 4 Upper Body Dressing(FIM): 5 Upper Body Dressing (QC): 4 Lower Body Dressing(FIM): 5 Lower Body Dressing (QC): 4 Toileting(FIM): 5 Toileting Hygiene (QC): 4 Transfers (B,C,W/C) (FIM): 5 Toilet/Commode Transfer(FIM): 5 Toilet/Commode Transfer (QC): 4 Additional Goals: 1-Demonstrate ADL Tasks, 2-Verbalize Understanding, 3- ImproveStrength/Eusebia 1=Demonstrate adherence to instructed precautions during ADL tasks. 2=Patient will verbalize/demonstrate understanding of assistive devices/modifications for ADL. 3=Patient will improve strength/tolerance for activity to enable patient to perform ADL's. OT Education/Plan Problem List/Assessment Assessment: No Skilled OT Needs ID'd, Decreased Activ Tolerance, Decreased Safety Aware, Decreased UE Strength, Dependent Transfers, Edema, Impaired Bed Mobility, Impaired Cognition, Impaired Coordination, Impaired Funct Balance, Impaired I ADL's, Impaired Self-Care Skills, Restricted Funct UE ROM Discharge Recommendations Plan/Recommendations: Continue POC Therapy D/C Recommendations: 24 hr Supervision, Longterm (TCU/NH) Treatment Plan/Plan of Care Treatment,Training & Education: Yes Patient would benefit from OT for education, treatment and training to promote independence in ADL's, mobility, safety and/or upper extremity function for ADL's. Plan of Care: ADL Retraining, Functional Mobility, Group Exercise/Act as Ind, UE Funct Exercise/Act Treatment Duration: Oct 31, 2018 Frequency: 5 times per week Estimated Hrs Per Day: .5 hour per day Agreement: Yes Rehab Potential: Poor Time/GCodes Start Time: 08:15 Stop Time: 08:55 Billed Treatment Time ADL 25 minutes, 2 units FA 15 minutes, 1 unit PHILIP ALANIS OT Oct 20, 2018 09:04
--- NOTE | 2018-10-20 10:21 | Progress Note - Hospitalist ---
Subjective HPI/CC On Admission Date Seen by Provider: Oct 20, 2018 Time Seen by Provider: 10:00 Subjective/Events-last exam Patient very somnolent when seen not at the bedside No falls reported Reviewed oncology note and has very unrealistic expectation of her disease process since she has widespread metastasis Checked meds and labs Review of Systems General: Fatigue Neurological: Confusion Objective Exam Vital Signs Vital Signs Date Time Temp Pulse Resp B/P (MAP) Pulse Ox O2 Delivery O2 Flow Rate FiO2 10/20/18 09:00 Room Air 10/20/18 05:10 97.6 76 14 176/104 (128) 99 Capillary Refill : General Appearance: No Apparent Distress, WD/WN, Chronically ill Respiratory: Chest Non Tender, Lungs Clear, Normal Breath Sounds, No Accessory Muscle Use, No Respiratory Distress Cardiovascular: Regular Rate, Rhythm, No Edema, No Gallop, No JVD, No Murmur, Normal Peripheral Pulses Neurologic/Psychiatric: Alert, Disoriented Results/Procedures Lab Laboratory Tests 10/20/18 05:20 Patient resulted labs reviewed. Assessment/Plan Assessment and Plan Assess & Plan/Chief Complaint Assessment: Lung cancer with widespread metastasis Delirium Poor prognosis Plan: Appreciate oncology following with me seems to have unrealistic expectations about care rate in a palliative care patient Diagnosis/Problems Diagnosis/Problems (1) Non-small cell lung cancer (NSCLC) Status: Chronic Qualifiers: Laterality: unspecified laterality Qualified Codes: C34.90 - Malignant neoplasm of unspecified part of unspecified bronchus or lung (2) COPD Status: Chronic (3) Hypertension Status: Chronic Qualifiers: Hypertension type: essential hypertension Qualified Codes: I10 - Essential (primary) hypertension (4) Chronic pain Status: Chronic Qualifiers: Chronic pain type: chronic pain syndrome Qualified Codes: G89.4 - Chronic pain syndrome (5) Altered mental status Status: Acute Qualifiers: Altered mental status type: delirium Qualified Codes: R41.0 - Disorientation, unspecified Clinical Quality Measures DVT/VTE Risk/Contraindication: Risk Factor Score Per Nursin AUTUMN BROWN DO Oct 20, 2018 10:21
--- NOTE | 2018-10-20 10:47 | Physical Therapy Daily Note ---
PT Daily Note-Current Subjective Patient is in bed. Very confused and unable to follow simple direction. Mental Status Patient Orientation: Confused, Listless Attachments: Moser Catheter, IV Transfers Therapy Code Descriptions/Definitions Functional [place] Measure: 0=Not Assessed/NA 4=Minimal Assistance 1=Total Assistance 5=Supervision or Setup 2=Maximal Assistance 6=Modified [place] 3=Moderate Assistance 7=Complete [place] Therapy Quality Codes: 6 Independent with activity with or without an assistive device 5 Patient requires set up or clean up by helper. Patient completes activity by themselves 4 Supervision or touching assist (CGA). [place] provide cues , steadying assist 3 The helper provides less than half the effort to complete the activity 2 The helper provides more than half the effort to complete the activity 1 Dependent. The helper does all the effort to complete an activity 7 Patient refused to complete or attempt activity 9 The patient did not perform the activity before the current illness or injury 88 Not attempted due to Medical conditions or safety concerns Transfers (B, C, W/C) (FIM): 1 Scootin Rollin Roll Left to Right (QC): 1 Supine to/from Sit: 1 Sit to/from Stand: 1 Sit to Lying (QC): 1 Sit to Stand (QC): 1 patient was able to sit EOB with CGA, however sit to stand, patient is severely retropulsive and unable to stand erect. Exercises Supine Ex: Heel Slides, Hip abd/add Supine Reps: 12 (PROM) Assessment Patient unable to tolerated OOB activity. Family not present and patient is not safe up in chair at this time. Patient not progressing. PT Short Term Goals Short Term Goals Transfers (B,C,W/C) (FIM): 4 PT Detention Goals Culture Manager Goals PT Culture Manager Goals Time Frame: Nov 04, 2018 Transfers (B,C,W/C) (FIM): 4 Sit to Lying (QC): 4 Lying-Sitting on Side/Bed(QC): 4 Sit to Stand (QC): 4 Rollin Roll Left to Right (QC): 4 Chair/Qep-hx-Zdkin Xfer(QC): 4 Car Transfer (QC): 4 Does the Patient Walk: Yes Gait (FIM): 1 Gait distance (FIM): 1=up to 49 ft Distance: 45' Walk 10 feet (QC): 4 Walk 10ft-Uneven Surface(QC): 4 Gait Level of Assist: 4 Gait Assistive Device: FWW PT Plan Treatment/Plan Treatment Plan: Continue Plan of Care Treatment Plan: Bed Mobility, Education, Functional Activity Eusebia, Functional Strength, Gait, Safety, Therapeutic Exercise, Transfers Treatment Duration: Nov 04, 2018 Frequency: 6 times per week Estimated Hrs Per Day: .25 hour per day Patient and/or Family Agrees t: Yes Time/GCodes Time In: 1021 Time Out: 1036 Total Billed Treatment Time: 15 Total Billed Treatment 1 visit FA 15 min TULIO FISHER PT Oct 20, 2018 10:47
[2018-10-20] MEDS ORDERED: KCL 20 MEQ TAB (K-DUR) PO SCH (11:00)
[2018-10-20] MEDS: POLYETHYLENE GLYCOL 17 GM (MIRALAX) PACK PO SCH ×2 (11:05→21:00)
[2018-10-20] MEDS ORDERED: KCL 20 MEQ TAB (K-DUR) PO NR (11:15)
--- NOTE | 2018-10-20 11:50 | Occupational Ther Daily Note ---
OT Current Status-Daily Note Subjective Pt alert, lying in bed. Nrsg in room. Pt agrees to therapy. Mental Status/Objective Patient Orientation: Person, Place, Time, Situation Therapy Code Descriptions/Definitions Functional [place] Measure: 0=Not Assessed/NA 4=Minimal Assistance 1=Total Assistance 5=Supervision or Setup 2=Maximal Assistance 6=Modified [place] 3=Moderate Assistance 7=Complete [place] Attachments: Moser Catheter, IV ADL-Treatment Pt declined grooming today. Completing all tasks with R hand. After giving pt dentures, pt able to place dentures in mouth. Pt requested to have her cherries and grapes. After set up, pt was able to use spoon to eat and fingers to bring cherries and grapes to mouth. Pt required assist x2 for bed mobility. After therapy, pt lying in bed with call light/phone in reach. Nrsg in room. All needs met in room. Eating (FIM): 5 OT Short Term Goals Short Term Goals Grooming(FIM): 5 Bathing(FIM): 4 Lower Body Dressing(FIM): 5 Toileting(FIM): 4 Transfers (B,C,W/C) (FIM): 4 Toilet/Commode Transfer(FIM): 4 Additional Short Term Goals: 1-Demonstrate ADL Tasks, 2-Verbalize Unders tanding, 3-ImproveStrength/Eusebia 1=Demonstrate adherence to instructed precautions during ADL tasks. 2=Patient will verbalize/demonstrate understanding of assistive devices/modifications for ADL. 3=Patient will improve strength/tolerance for activity to enable patient to perform ADL's. OT Long Chain Quiller Tender Goals Long Chain Quiller Tender Goals Time Frame: Oct 31, 2018 Eating (FIM): 7 Grooming(FIM): 6 Bathing(FIM): 5 Bathing Location: L Arm, R Arm, L Upper Leg, R Upper Leg, L Lower Leg (including foot), R Lower Leg (including foot), Chest, Abdomen, Buttocks, Perineal Area Upper Body Dressing(FIM): 5 Lower Body Dressing(FIM): 5 Toileting(FIM): 5 Transfers (B,C,W/C) (FIM): 5 Toilet/Commode Transfer(FIM): 5 Additional Goals: 1-Demonstrate ADL Tasks, 2-Verbalize Understanding, 3- ImproveStrength/Eusebia 1=Demonstrate adherence to instructed precautions during ADL tasks. 2=Patient will verbalize/demonstrate understanding of assistive devices/modifications for ADL. 3=Patient will improve strength/tolerance for activity to enable patient to perform ADL's. OT Education/Plan Discharge Recommendations Plan/Recommendations: Continue POC Treatment Plan/Plan of Care Patient would benefit from OT for education, treatment and training to promote independence in ADL's, mobility, safety and/or upper extremity function for ADL's. Plan of Care: ADL Retraining, Functional Mobility, Group Exercise/Act as Ind, UE Funct Exercise/Act Treatment Duration: Oct 31, 2018 Frequency: 5 times per week Estimated Hrs Per Day: .5 hour per day Agreement: Yes Rehab Potential: Poor Time/GCodes Start Time: 11:30 Stop Time: 11:40 Total Time Billed (hr/min): 10 Billed Treatment Time 1 visit-FA 1 (10 min) MORENITA CORREA Oct 20, 2018 11:50
[2018-10-20] MEDS ORDERED: KCL 10 MEQ TAB (MICRO K) PO NR ×3 (11:52→15:30)
[2018-10-20] MEDS: FUROSEMIDE 40 MG (LASIX) TAB PO SCH (12:07)
--- NOTE | 2018-10-20 13:30 | NUR ---
Nurse Finishing Range Operator Leticai CHRISTOPHER et this nurse met with patient's at this time to discuss voiced concerns that he has. Patient's goes by "Eusebio". He voiced concern about a raised area behind the patients left ear. The area is raised,has uneven borders, et unable to determine if it is fluid filled or not but skin is intact. This is a new noted area. He also voiced concern about raised reddish purple areas to left forearm with one having a small open skin tear. A dressing was placed over the skin tear by the primary care nurse. Anabel et I f/u with Dr. Mckeon in the cancer center in request to assess these areas et discuss next steps in Paty's POC. We also discussed next steps for Paty's POC. Eusebio voiced that he wants Paty to get back to herself which included assistance to stand from a sitting position on the couch et then she was able to ambulate using her walker to get to the bathroom. She was then able to toilet herself et then Eusebio et his grandson would help her stand up from the toilet. I encouraged Eusebio that we have been attempting increasing strength here with maximum efforts from Physical therapy et Occupational therapy et that Paty has been able to only minimally participate d/t lethargy. He acknowledges this et reports that he just doesn't want to give up on her getting better. We then talked about sending a referral to a custodial home so that she could continue to attempt to get stronger, while having therapies at a slower pace, but continuing to have trained staff support for any of her needs. He reports that they have Medicare only et can not afford to be at a custodial facility. He also voiced that Paty's social security helps to pay the monthly house payment. He then voiced that he just wants to take her home after her medical treatment is completed here. Paty is sitting up in bed with her eyes closed. She will not eat the food that is offered to her by her or Leticia CHRISTOPHER et mumbles that she is not hungry. She has not been able to participate in our conversation d/t her appeared lethargy. Her reports that she is very hard of hearing. When talking in her ear she does mumble "yes" et "no" to questions asked but appears to be very tired. We talked about the IV abx completion date of Saturday 10/21 et that likely the primary care doctor would be looking at discharge for Paty from the hospital on Monday 10/23. This appears to be a hard subject for Eusebio. He voiced that he knew that the IV's would be completing but that he doesn't want her to go to a custodial facility. Encouraged him that we would respect his wishes et continue to try to best support them in the home whenever Paty discharges. We talked about home health care and what that would consist of and the we also talked about Hospice and what that would consist of as well. He reported that he would talk with his daughter akash plascencia et consider both of these options. We again talked about the care that Paty has been receiving here. I encouraged him that we want them to feel like Paty is receiving excellent care here and how can we make improvements. He denied any concern or suggestions for improvement but felt that Paty had obtained these areas from a shower that she had. Anabel and I have completed an incident report, contacted physician for f/u, et talked with Paty's for approximately 1 hour to determine if there are any other areas that need addressed. There were no other identified areas at this time. During our visit it was noted by myself that it appears that Eusebio is going through the stages of grief. He would get very angry at times, then emma, et then voice acceptance of Paty's disease process of Lung Cancer with Metastasis that is not able to be treated at this time d/t Paty's declined state. During our conversation Anabel et I listened et validated his stated concerns. We encouraged him et offered support when he became tearful reminiscing about their life together. Dr. Mckeon will likely round around 5p.m. this evening et encouraged Eusebio to be here to ask questions et address any concerns that he has as well. He voiced that he would be here at 1630 et will bring his grandson back with him too. No further needs noted at this time.
--- NOTE | 2018-10-20 14:38 | Speech Therapy Daily Note ---
Speech Daily Progress Note Subjective Date Seen by Provider: Oct 20, 2018 Time Seen by Provider: 00:15 The patient was seen in her room this afternoon. Patient demo increased level of alert and participation. Objective Patient completed simple y/n questions related to self with 60% accuracy given moderate redirection and repetitions. Assessment Assessment Current Status: Fair Progress Treatment Plan Continue Plan of Care Communication Comprehension: 0 Expression: 1 Social Cognition Social Interaction: 0 Problem Solvin Memory: 0 Speech Short Term Goals Short Term Goals Short Term Goals 1) The patient will be able to answer simple yes/no questions with 70% or greater given minimal cues. 2) The patient will be able to follow simple one step directions with 70% or greater given minimal cues. Speech Acoustic Engineer Goals Custodial Goals The patient will be able to communicate effectively for simple needs. Speech-Plan Patient/Family Goals Patient/Family Goals: The patient plans on returning home with family upon hospital discharge. Treatment Plan Speech Therapy Treatment Plan: Continue Plan of Care The patient has shown slight progress. Treatment Duration: Oct 25, 2018 Frequency: 4 times per week Estimated Hrs Per Day: .25 hour per day Rehab Potential: Poor Barriers to Learning: Patient has a complex medical status Pt/Family Agrees to Plan: Yes Safety Risks/Education Teaching Recipient: Patient Teaching Methods: Discussion Response to Teaching: Verbalize Understanding Education Topics Provided: Safety within her room and utilization of the call light as needed Time Speech Therapy Time In: 13:45 Speech Therapy Time Out: 14:00 Total Billed Time: 15 Billed Treatment Time 1[address] Oct 20, 2018 14:38
[2018-10-20] MEDS: VANCOMYCIN 1 GM/NS 250 ML IVPB IV SCH ×2 (15:59)
--- NOTE | 2018-10-20 17:07 | Progress Note ---
Standard Progress Note Progress Notes/Assess & Plan Date Seen by a Provider: Oct 20, 2018 Time Seen by a Provider: 16:55 Progress/Assessment & Plan 63 yo female with metastatic lung cancer treated with chemo and immunotherapy was admitted with delirium secondary to infection on 10/12/18. Patient found to have methicillin resistant UTI and started receiving appropriate abx coverage with vancomycin on 10/14/18. She was also started on stress dose steroids at that time. Her mental status improved significantly and she was discharged to swing bed status on 10/17/18 to complete IV antibiotics. Patient is more responsive today but still somnolent. Met with and grandson, who also feel she is improving mentally compared to the last couple of days. 1. UTI with Staph simulans. Receiving vancomycin according to sensitivities. Will finish 7 day course on Tuesday. 2. Delirium. Secondary to UTI. Most recent worsening of mental status could be due to the inadvertent use of lorazepam or withdrawal of steroids. - Continued improvement of mental status today, though incremental - Continue to avoid benzodiazepines - Continue solu-cortef, as patient may have adrenal insufficiency. Transition to PO steroids on discharge with long taper 3. Metastatic lung cancer. Patient does not have the performance status to continue with systemic therapy. 4. Back pain. Patient has a long history of chronic low back pain but it could be worsening metastatic disease. Opiates as needed, limited by mental status. 5. Disposition: stable. Had extensive 30-40 minute discussion with and grandson. They have wildly unrealistic expectations for the course of her disease. Offered hospice evaluation, but says they will use hospice for home health care rather than its intended purpose. I am unclear if there is a simple misunderstanding about the role of hospice or some other thought process. Plan for discharge to home at end of IV antibiotic course. Family declines [facility] care. I will see her back in clinic after discharge. JUAN BEST MD Oct 20, 2018 17:07
[2018-10-20 18:00] VITALS: BP 151/89
[2018-10-20] MEDS: SIMvastatin 40 MG (ZOCOR) TAB PO SCH (18:23)
[2018-10-21] MEDS: morphine ER 15 MG (MS CONTIN) TAB PO SCH ×3 (03:00→18:20)
[2018-10-21] MEDS ORDERED: POTASSIUM CL 10MEQ/50ML IVPB 50 ML IV SCH (06:00)
[2018-10-21] MEDS ORDERED: KCL 20 MEQ TAB (K-DUR) PO SCH ×2 (06:00)
[2018-10-21] MEDS ORDERED: MAGNESIUM 1 GM/100 ML IVPB 100 ML IV SCH (06:00)
[2018-10-21 07:13] LABS: BUN/CREATININE RATIO 10; CARBON DIOXIDE 18 MMOL/L (21-32); CHLORIDE 110 MMOL/L (98-107); CREATININE SERUM 0.77 MG/DL (0.60-1.30); GFR ESTIMATED > 60; GLUCOSE 164 MG/DL (70-105); MAGNESIUM 1.5 MG/DL (1.6-2.4); PHOSPHORUS 1.3 MG/DL (2.3-4.7); POTASSIUM 3.4 MMOL/L (3.6-5.0); SODIUM 138 MMOL/L (135-145)
[2018-10-21] MEDS: DULoxetine 20 MG (CYMBALTA) CAP PO SCH (07:23)
[2018-10-21] MEDS: NS IV 1000 ML 1,000 ML IV SCH ×2 (07:23→14:06)
[2018-10-21] MEDS: KCL 20 MEQ TAB (K-DUR) PO SCH (07:24)
[2018-10-21] MEDS: meTOproloL SUCCINATE 50 MG (TOPROL XL) TAB PO SCH (07:24)
[2018-10-21] MEDS: amLODIPine 5 MG (NORVASC) TAB PO SCH (07:24)
[2018-10-21] MEDS: PANTOPRAZOLE 40 MG (PROTONIX) TAB PO SCH (07:24)
[2018-10-21] MEDS: HYDROCORTISONE 100 MG/2 ML (Solu-CORTEF) VIAL IV SCH (08:57)
[2018-10-21] MEDS: POLYETHYLENE GLYCOL 17 GM (MIRALAX) PACK PO SCH ×2 (08:57→19:59)
[2018-10-21] MEDS: SENNA W/DOCUSATE (SENOKOT S) TABLET PO SCH ×2 (08:57→19:59)
[2018-10-21] MEDS: FUROSEMIDE 40 MG (LASIX) TAB PO SCH (08:57)
--- NOTE | 2018-10-21 11:46 | Progress Note ---
Standard Progress Note Progress Notes/Assess & Plan Date Seen by a Provider: Oct 21, 2018 Time Seen by a Provider: 11:41 Progress/Assessment & Plan 63 yo female with metastatic lung cancer treated with chemo and immunotherapy was admitted with delirium secondary to infection on 10/12/18. Patient found to have methicillin resistant UTI and started receiving appropriate abx coverage with vancomycin on 10/14/18. She was also started on stress dose steroids at that time. Her mental status improved significantly and she was discharged to swing bed status on 10/17/18 to complete IV antibiotics. Patient was sleeping this morning but easily aroused. She is very confused still and cannot hold a conversation. This is not much different than yesterday. 1. UTI with Staph simulans. Receiving vancomycin according to sensitivities. Will finish 7 day course on Tuesday. 2. Delirium. Secondary to UTI. Most recent worsening of mental status could be due to the inadvertent use of lorazepam or withdrawal of steroids. - Stable confusion today. Improvement of delirium could take weeks. - Continue to avoid benzodiazepines - Will taper and transition hydrocortisone IV to PO this evening for empiric treatment of possible adrenal insufficiency 3. Metastatic lung cancer. Patient does not have the performance status to continue with systemic therapy. To be addressed as outpatient 4. Back pain. Patient has a long history of chronic low back pain but it could be worsening metastatic disease. Opiates as needed, limited by mental status. 5. Disposition: Plan for home discharge after completion of IV abx. Family refuses [facility]ci. Hopefully family with agree to home hospice discharge, as she has high care needs. JUAN BEST MD Oct 21, 2018 11:46
--- NOTE | 2018-10-21 13:15 | Physical Therapy Daily Note ---
PT Daily Note-Current Subjective Pt in bed, agreeable to up to chair. Decreased command following. Mental Status Patient Orientation: Person, Confused Attachments: Moser Catheter Transfers Therapy Code Descriptions/Definitions Functional [place] Measure: 0=Not Assessed/NA 4=Minimal Assistance 1=Total Assistance 5=Supervision or Setup 2=Maximal Assistance 6=Modified [place] 3=Moderate Assistance 7=Complete [place] Therapy Quality Codes: 6 Independent with activity with or without an assistive device 5 Patient requires set up or clean up by helper. Patient completes activity by themselves 4 Supervision or touching assist (CGA). [place] provide cues , steadying assist 3 The helper provides less than half the effort to complete the activity 2 The helper provides more than half the effort to complete the activity 1 Dependent. The helper does all the effort to complete an activity 7 Patient refused to complete or attempt activity 9 The patient did not perform the activity before the current illness or inj ury 88 Not attempted due to Medical conditions or safety concerns Transfers (B, C, W/C) (FIM): 1 Supine to/from Sit: 1 Sit to/from Stand: 1 Sit to Stand (QC): 1 Chair/Iyh-mp-Cewjk Xfer(QC): 1 Bed to/from Chair: 1 Multiple attempts sit<->stand at EOB; Pt becomes retropulsive and feet begin sliding despite max VCS. Pt finally initiated a squat-pivot to chair, requiring max A x 1-2 to (R) side. Treatments Transfer training. Attempted sit<->stands without success, able to achieve squa t-pivot to chair. Pt up in chair with alarm activated, nursing aware of Pt position. Assessment Current Status: Poor Progress Pt tolerated fair. No functional change with skilled VCS for sit<->Stand transfers. Pt did initiate squat pivot to chair with max A x 1-2. PT Short Term Goals Short Term Goals Transfers (B,C,W/C) (FIM): 4 PT Correction Goals Early Childhood Teacher Assistant Goals PT Early Childhood Teacher Assistant Goals Time Frame: Nov 04, 2018 Transfers (B,C,W/C) (FIM): 4 Sit to Lying (QC): 4 Lying-Sitting on Side/Bed(QC): 4 Sit to Stand (QC): 4 Rollin Roll Left to Right (QC): 4 Chair/Csy-br-Ozogq Xfer(QC): 4 Car Transfer (QC): 4 Does the Patient Walk: Yes Gait (FIM): 1 Gait distance (FIM): 1=up to 49 ft Distance: 45' Walk 10 feet (QC): 4 Walk 10ft-Uneven Surface(QC): 4 Gait Level of Assist: 4 Gait Assistive Device: FWW PT Plan Problem List Problem List: Activity Tolerance, Functional Strength, Safety, Balance, Gait, Transfer, Bed Mobility, ROM Treatment/Plan Treatment Plan: Continue Plan of Care Treatment Plan: Bed Mobility, Education, Functional Activity Eusebia, Functional Strength, Gait, Safety, Therapeutic Exercise, Transfers Treatment Duration: Nov 04, 2018 Frequency: 6 times per week Estimated Hrs Per Day: .25 hour per day Patient and/or Family Agrees t: Yes Time/GCodes Time In: 1140 Time Out: 1203 Total Billed Treatment Time: 23 Total Billed Treatment 1, FA x 23' HERNANDEZ KRAUSE DPChary Oct 21, 2018 13:15
--- NOTE | 2018-10-21 15:15 | NUR ---
came to see patient today and very upset that she wasn't "herself", feels that she was given too many IVF and that's why she is swollen, concerned she doesn't have an appetite and wanted to speak with someone who could tell him what the hell was wrong with his and when she would be better, it shouldn't have taken this long. Nurse Nanotechnology Technician Anabel CHRISTOPHER spoke with patient and patient gradually calmed down. He is also concerned that she has small bruises and skin tears. R) posterior upper back/shoulder has an area that looks like small amount of blood just under the skin, reddish in color, not purple or blue like a bruise. Explained that platelets are low and she bruises very easily along with steroid therapy.
[2018-10-21] MEDS: HYDROCORTISONE 20 MG (CORTEF) TAB PO SCH (16:46)
[2018-10-21] MEDS: SIMvastatin 40 MG (ZOCOR) TAB PO SCH (17:19)
[2018-10-21 18:24] VITALS: BP 153/95
[2018-10-22] MEDS: NS IV 1000 ML 1,000 ML IV SCH ×3 (00:51→20:58)
[2018-10-22] MEDS: morphine ER 15 MG (MS CONTIN) TAB PO SCH ×3 (03:45→18:18)
[2018-10-22 05:07] VITALS: BP 168/93
[2018-10-22] MEDS: meTOproloL SUCCINATE 50 MG (TOPROL XL) TAB PO SCH (06:02)
[2018-10-22] MEDS: DULoxetine 20 MG (CYMBALTA) CAP PO SCH (06:02)
[2018-10-22] MEDS: PANTOPRAZOLE 40 MG (PROTONIX) TAB PO SCH (06:02)
[2018-10-22] MEDS: amLODIPine 5 MG (NORVASC) TAB PO SCH (06:03)
[2018-10-22 06:15] LABS: BUN/CREATININE RATIO 13; CALCIUM 8.1 MG/DL (8.5-10.1); CARBON DIOXIDE 19 MMOL/L (21-32); CHLORIDE 109 MMOL/L (98-107); CREATININE SERUM 0.71 MG/DL (0.60-1.30); GFR ESTIMATED > 60; GLUCOSE 158 MG/DL (70-105); MAGNESIUM 1.8 MG/DL (1.6-2.4); PHOSPHORUS 1.2 MG/DL (2.3-4.7); SODIUM 138 MMOL/L (135-145)
[2018-10-22] MEDS: HYDROCORTISONE 20 MG (CORTEF) TAB PO SCH ×2 (06:15→17:16)
[2018-10-22] MEDS: KCL 20 MEQ TAB (K-DUR) PO SCH (06:28)
[2018-10-22] MEDS ORDERED: KCL 20 MEQ TAB (K-DUR) PO NR ×2 (08:30→10:30)
[2018-10-22] MEDS: FUROSEMIDE 40 MG (LASIX) TAB PO SCH (08:33)
[2018-10-22] MEDS: SENNA W/DOCUSATE (SENOKOT S) TABLET PO SCH ×2 (08:33→20:11)
[2018-10-22] MEDS: POLYETHYLENE GLYCOL 17 GM (MIRALAX) PACK PO SCH ×2 (08:33→20:12)
[2018-10-22 14:38] LABS: BUN/CREATININE RATIO 14; CALCIUM 8.1 MG/DL (8.5-10.1); CARBON DIOXIDE 22 MMOL/L (21-32); CHLORIDE 107 MMOL/L (98-107); CREATININE SERUM 0.77 MG/DL (0.60-1.30); GFR ESTIMATED > 60; GLUCOSE 309 MG/DL (70-105); POTASSIUM 3.9 MMOL/L (3.6-5.0); SODIUM 136 MMOL/L (135-145)
[2018-10-22] MEDS ORDERED: inSUlin ASPART (NovoLOG) 1 UNIT/0.01 ML (CHARGE PER UNIT) SC NR (15:45)
[2018-10-22] MEDS: SIMvastatin 40 MG (ZOCOR) TAB PO SCH (17:16)
[2018-10-22 18:29] VITALS: BP 157/93
[2018-10-22] MEDS: inSUlin ASPART (NovoLOG) 1 UNIT/0.01 ML (CHARGE PER UNIT) SC SCH (21:48)
[2018-10-23] MEDS: morphine ER 15 MG (MS CONTIN) TAB PO SCH ×3 (03:00→18:29)
[2018-10-23 05:37] LABS: BUN/CREATININE RATIO 15; CALCIUM 8.2 MG/DL (8.5-10.1); CARBON DIOXIDE 21 MMOL/L (21-32); CHLORIDE 109 MMOL/L (98-107); CREATININE SERUM 0.73 MG/DL (0.60-1.30); GFR ESTIMATED > 60; GLUCOSE 163 MG/DL (70-105); MAGNESIUM 1.4 MG/DL (1.6-2.4); POTASSIUM 3.8 MMOL/L (3.6-5.0); SODIUM 139 MMOL/L (135-145)
[2018-10-23] MEDS: KCL 20 MEQ TAB (K-DUR) PO SCH (05:47)
[2018-10-23 05:51] VITALS: BP 156/91
[2018-10-23] MEDS: DULoxetine 20 MG (CYMBALTA) CAP PO SCH (05:52)
[2018-10-23] MEDS: PANTOPRAZOLE 40 MG (PROTONIX) TAB PO SCH (05:52)
[2018-10-23] MEDS: meTOproloL SUCCINATE 50 MG (TOPROL XL) TAB PO SCH (05:52)
[2018-10-23] MEDS: amLODIPine 5 MG (NORVASC) TAB PO SCH (05:52)
[2018-10-23] MEDS: HYDROCORTISONE 20 MG (CORTEF) TAB PO SCH ×2 (05:53→18:28)
[2018-10-23] MEDS: NS IV 1000 ML 1,000 ML IV SCH ×2 (05:53→17:14)
[2018-10-23] MEDS: SENNA W/DOCUSATE (SENOKOT S) TABLET PO SCH ×2 (07:39→20:37)
[2018-10-23] MEDS: POLYETHYLENE GLYCOL 17 GM (MIRALAX) PACK PO SCH ×2 (07:39→20:37)
[2018-10-23] MEDS: FUROSEMIDE 40 MG (LASIX) TAB PO SCH (07:40)
[2018-10-23] MEDS: inSUlin ASPART (NovoLOG) 1 UNIT/0.01 ML (CHARGE PER UNIT) SC SCH ×2 (07:40→21:46)
[2018-10-23] MEDS ORDERED: POTASSIUM PHOSPHATE INJ 30 MM in NS (IVPB) 250 ML IV NR (09:00)
[2018-10-23] MEDS ORDERED: MAGNESIUM 1 GM/100 ML IVPB 100 ML IV NR (09:07)
--- NOTE | 2018-10-23 09:56 | NUR ---
Pt is aware that pt's antibiotics finish today and needs to make continued care decision.After much discussion and recognition that her condition is not improving pt is willing to talk with Hospice about continued care at home. Pt given Choice form and decided to meet with [facility]. They are to meet with him today. Medical records were faxed to [facility] for their review and consideration. will follow and assist.
--- NOTE | 2018-10-23 11:10 | Physical Therapy Daily Note ---
PT Daily Note-Current Subjective Patient does not open eyes or follow with simple direction on this date. Mental Status Patient Orientation: Listless Attachments: Moser Catheter, IV Transfers Therapy Code Descriptions/Definitions Functional [place] Measure: 0=Not Assessed/NA 4=Minimal Assistance 1=Total Assistance 5=Supervision or Setup 2=Maximal Assistance 6=Modified [place] 3=Moderate Assistance 7=Complete [place] Therapy Quality Codes: 6 Independent with activity with or without an assistive device 5 Patient requires set up or clean up by helper. Patient completes activity by themselves 4 Supervision or touching assist (CGA). [place] provide cues , steadying assist 3 The helper provides less than half the effort to complete the activity 2 The helper provides more than half the effort to complete the activity 1 Dependent. The helper does all the effort to complete an activity 7 Patient refused to complete or attempt activity 9 The patient did not perform the activity before the current illness or injury 88 Not attempted due to Medical conditions or safety concerns Transfers (B, C, W/C) (FIM): 1 Scootin Rollin Roll Left to Right (QC): 1 Supine to/from Sit: 1 Sit to Lying (QC): 1 patient is unsafe to perform sit to stand or transfer to recliner due to unable to follow simple direction and does not open eyes. All mobility performed with use of bed pad with assist of 2. Exercises Supine Ex: Heel Slides, Straight leg raise, Hip abd/add Supine Reps: 12 (PROM) Seated Therapy Exercises: Long arc quads Seated Reps: 12 (PROM) Assessment Patient unable to follow simple direction on this date. She would not open eyes during treatment session. PT returned patient to supine dependent assist x 2 with use of bed pad. Four rails up and bed alarm activated. SW coordinator notified of treatment on this date. PT Short Term Goals Short Term Goals Transfers (B,C,W/C) (FIM): 4 PT Assisted Goals Assisted Goals PT Assisted Goals Time Frame: Nov 04, 2018 Transfers (B,C,W/C) (FIM): 4 Sit to Lying (QC): 4 Lying-Sitting on Side/Bed(QC): 4 Sit to Stand (QC): 4 Rollin Roll Left to Right (QC): 4 Chair/Ium-of-Rvjkn Xfer(QC): 4 Car Transfer (QC): 4 Does the Patient Walk: Yes Gait (FIM): 1 Gait distance (FIM): 1=up to 49 ft Distance: 45' Walk 10 feet (QC): 4 Walk 10ft-Uneven Surface(QC): 4 Gait Level of Assist: 4 Gait Assistive Device: FWW PT Plan Treatment/Plan Treatment Plan: Continue Plan of Care Treatment Plan: Bed Mobility, Education, Functional Activity Eusebia, Functional Strength, Gait, Safety, Therapeutic Exercise, Transfers Treatment Duration: Nov 04, 2018 Frequency: 6 times per week Estimated Hrs Per Day: .25 hour per day Patient and/or Family Agrees t: Yes Time/GCodes Time In: 1025 Time Out: 1040 Total Billed Treatment Time: 15 Total Billed Treatment 1 visit FA 15 min TULIO FISHER PT Oct 23, 2018 11:10
--- NOTE | 2018-10-23 11:48 | Occupational Ther Daily Note ---
OT Current Status-Daily Note Subjective Pt lying in bed, not responsive to name, opened eyes to touch. Attempted to engage pt during therapy. Pt opened eyes a couple of times though did not communicate with PIÑA. Mental Status/Objective Patient Orientation: Person, Unable to Assess Therapy Code Descriptions/Definitions Functional [place] Measure: 0=Not Assessed/NA 4=Minimal Assistance 1=Total Assistance 5=Supervision or Setup 2=Maximal Assistance 6=Modified [place] 3=Moderate Assistance 7=Complete [place] Attachments: IV ADL-Treatment Therapy Code Descriptions/Definitions Functional [place] Measure: 0=Not Assessed/NA 4=Minimal Assistance 1=Total Assistance 5=Supervision or Setup 2=Maximal Assistance 6=Modified [place] 3=Moderate Assistance 7=Complete [place] Therapy Quality Codes: 6 Independent with activity with or without an assistive device 5 Patient requires set up or clean up by helper. Patient completes activity by themselves 4 Supervision or touching assist (CGA). [place] provide cues , steadying assist 3 The helper provides less than half the effort to complete the activity 2 The helper provides more than half the effort to complete the activity 1 Dependent. The helper does all the effort to complete an activity 7 Patient refused to complete or attempt activity 9 The patient did not perform the activity before the current illness or injury 88 Not attempted due to Medical conditions or safety concerns Other Treatment Pt did not acknowledge when attempting to engage pt in UE exercises, grooming, drinking protein shake. Light edema massage to B hands completed. After therapy, pt lying in bed with call light/phone in reach. Pt's UE's positions to assist with decreasing edema. All needs met in room. OT Short Term Goals Short Term Goals Grooming(FIM): 5 Bathing(FIM): 4 Lower Body Dressing(FIM): 5 Toileting(FIM): 4 Transfers (B,C,W/C) (FIM): 4 Toilet/Commode Transfer(FIM): 4 Additional Short Term Goals: 1-Demonstrate ADL Tasks, 2-Verbalize Understanding, 3-ImproveStrength/Eusebia 1=Demonstrate adherence to instructed precautions during ADL tasks. 2=Patient will verbalize/demonstrate understanding of assistive devices/modifications for ADL. 3=Patient will improve strength/tolerance for activity to enable patient to perform ADL's. OT Ball Holder Goals Detention Goals Time Frame: Oct 31, 2018 Eating (FIM): 7 Eating (QC): 6 Groomin Oral Hygiene (QC): 5 Bathing(FIM): 5 Bathing Location: L Arm, R Arm, L Upper Leg, R Upper Leg, L Lower Leg (including foot), R Lower Leg (including foot), Chest, Abdomen, Buttocks, Perineal Area Shower/Bathe Self (QC): 4 Upper Body Dressing(FIM): 5 Upper Body Dressing (QC): 4 Lower Body Dressing(FIM): 5 Lower Body Dressing (QC): 4 Toileting(FIM): 5 Toileting Hygiene (QC): 4 Transfers (B,C,W/C) (FIM): 5 Toilet/Commode Transfer(FIM): 5 Toilet/Commode Transfer (QC): 4 Additional Goals: 1-Demonstrate ADL Tasks, 2-Verbalize Understanding, 3- ImproveStrength/Eusebia 1=Demonstrate adherence to instructed precautions during ADL tasks. 2=Patient will verbalize/demonstrate understanding of assistive devices/modifications for ADL. 3=Patient will improve strength/tolerance for activity to enable patient to perform ADL's. OT Education/Plan Discharge Recommendations Plan/Recommendations: Continue POC Treatment Plan/Plan of Care Patient would benefit from OT for education, treatment and training to promote independence in ADL's, mobility, safety and/or upper extremity function for ADL's. Plan of Care: ADL Retraining, Functional Mobility, Group Exercise/Act as Ind, UE Funct Exercise/Act Treatment Duration: Oct 31, 2018 Frequency: 5 times per week Estimated Hrs Per Day: .5 hour per day Agreement: Yes Rehab Potential: Poor Time/GCodes Start Time: 11:25 Stop Time: 11:40 Total Time Billed (hr/min): 15 Billed Treatment Time 1 visit-FA 1 (15 min) MORENITA CORREA Oct 23, 2018 11:48
--- NOTE | 2018-10-23 12:18 | NUR ---
Assisted Paty in eating her lunch today. She had a hamburger steak, mashed potatoes et gravy, corn, chocolate pudding, et a vanilla ice cream shake. Paty did wake to voice et agreed to eat. She took four bites of mashed potatoes et hamburger steak, one bite of chocolate pudding, et 5-6 drinks of her vanilla shake. After this she adamantly denies any want of any more food. I sat with her et talked to her, waking her up often to converse. I tried to get her to eat more but she says she's tired. I asked her if she was tired of it all et she laughs et says "yes". I asked her if she was tired of eating, tired of talking, et just plain tired. She opened her eyes big et looked at me and said "yes". She quickly closed her eyes et appears to be resting comfortably at this time.
--- NOTE | 2018-10-23 14:00 | NUR ---
UA SENT TO LAB. URINE CLOUDY AND LT. DIANA.
[2018-10-23 14:17] LABS: BILIRUBIN,URINE NEGATIVE (NEGATIVE); CLARITY,URINE VERY CLOUDY; COLOR,URINE YELLOW; GLUCOSE, URINE (UA) NEGATIVE (NEGATIVE); KETONES,URINE NEGATIVE (NEGATIVE); LEUKOCYTE ESTERASE ,URINE 3+ (NEGATIVE); NITRITE,URINE NEGATIVE (NEGATIVE); PH,URINE 5 (5-9); PROTEIN,URINE 3+ (NEGATIVE); UROBILINOGEN,URINE NORMAL (NORMAL)
[2018-10-23 14:27] LABS: BACTERIA,URINE NEGATIVE /HPF; RBC,URINE 0-2 /HPF; YEAST,URINE LARGE /HPF
--- NOTE | 2018-10-23 17:18 | NUR ---
Met with pt's and explained that pt's IV antibiotics have been completed and Paty seems unable to participate in therapies at this time. Therefore she no longer meets criteria for Skilled care and in earlier discussions has voiced his desire to take pt home although admits he has much anxiety about caring for her at home.He has scheduled an appt. with [facility] tomorrow afternoon but doesn't anticipate that he will be able to assume her care till hospice and equipment is in place. He is planning on discharge home on Tuesday and has signed the 48 hour Notice of Non Medicare Coverage and given a copy..
[2018-10-23 18:02] VITALS: BP 171/97
[2018-10-23] MEDS: SIMvastatin 40 MG (ZOCOR) TAB PO SCH (18:29)
--- NOTE | 2018-10-23 18:52 | NUR ---
UP IN CHAIR WITH 2 PEOPLE AND SIT-TO STAND LIFT. MARGUERITE. WELL. PT. ALERT AND TALKED TO WHILE UP X 1 HR.
--- NOTE | 2018-10-23 20:55 | Progress Note ---
Subjective Subjective/Events-last exam Minimally interactive, not able to do much with therapy. Plan to meet with hospice tomorrow. Objective Exam Last Set of Vital Signs Vital Signs Date Time Temp Pulse Resp B/P (MAP) Pulse Ox O2 Delivery O2 Flow Rate FiO2 10/23/18 18:02 98.0 78 20 171/97 (121) 99 Room Air Capillary Refill : I&O Intake and Output 10/23/18 00:00 Intake Total 500 ml Output Total 1600 ml Balance -1100 ml Intake Oral 500 ml Output Urine Total 1600 ml General: Alert Lungs: Clear to Auscultation, Normal Air Movement Heart: Regular Rate, No Murmurs Neuro: Other (slow to answer, answers some questions but not all) Results/Procedures Lab Laboratory Tests 10/22/18 20:53: Glucometer 315H 10/23/18 05:06: Sodium Level 139, Potassium Level 3.8, Chloride Level 109H, Carbon Dioxide Level 21, Anion Gap 9, Blood Urea Nitrogen 11, Creatinine 0.73, Estimat Glomerular Filtration Rate > 60, BUN/Creatinine Ratio 15, Glucose Level 163H, Calcium Level 8.2L, Phosphorus Level 1.0*L, Magnesium Level 1.4L 10/23/18 14:00: Urine Color YELLOW, Urine Clarity VERY CLOUDYH, Urine pH 5, Urine Specific [place] 1.010L, Urine Protein 3+H, Urine Glucose (UA) NEGATIVE, Urine Ketones NEGATIVE, Urine Nitrite NEGATIVE, Urine Bilirubin NEGATIVE, Urine Urobilinogen NORMAL, Urine Leukocyte Esterase 3+H, Urine RBC (Auto) 2+H, Urine RBC 0-2, Urine WBC 10-25H, Urine Squamous Epithelial Cells NONE, Urine Crystals NONE, Urine Bacteria NEGATIVE, Urine Casts NONE, Urine Mucus NEGATIVE, Urine Yeast LARGEH, Urine Culture Indicated YES Assessment/Plan Assessment/Plan (1) Altered mental status Status: Acute Assessment & Plan: Persistent and not improving in spite of completing treatm ent for UTI and on steroid for possible adrenal insufficiency. Not receiving sedating meds besides chronic morphine. Palliative care consulted. Initial CT on 10/12 with possible otomastoiditis, will repeat CT given persistent confusion. Qualifiers: Qualified Codes: R41.0 - Disorientation, unspecified (2) COPD Status: Chronic (3) Non-small cell lung cancer (NSCLC) Status: Chronic Assessment & Plan: Oncology consulted, prognosis poor. Hospice to meet with them tomorrow. Qualifiers: Qualified Codes: C34.90 - Malignant neoplasm of unspecified part of unspecified bronchus or lung (4) DVT prophylaxis Status: Acute Assessment & Plan: Enoxaparin Clinical Quality Measures DVT/VTE Risk/Contraindication: Risk Factor Score Per Nursin LILY PORTER MD Oct 23, 2018 20:55
[2018-10-23] MEDS ORDERED: ENOXAPARIN 40 MG/0.4 ML (LOVENOX) SYR SQ SCH (21:30)
[2018-10-23] MEDS ORDERED: ENOXAPARIN 40 MG/0.4 ML (LOVENOX) SYR ONE (23:44)
[2018-10-24] MEDS: NS IV 1000 ML 1,000 ML IV SCH (01:32)
[2018-10-24] MEDS: morphine ER 15 MG (MS CONTIN) TAB PO SCH ×3 (02:45→18:56)
[2018-10-24 05:41] VITALS: BP 137/91
[2018-10-24 06:08] LABS: MEAN PLATELET VOLUME 10.5 FL (7.4-10.4); RED CELL DISTRIBUTION WIDTH 20.8 % (10.0-14.5); WHITE BLOOD COUNT 5.5 10^3/uL (4.3-11.0)
[2018-10-24 06:11] LABS: HEMOGLOBIN 6.8 G/DL (11.5-16.0)
[2018-10-24 06:22] LABS: BUN/CREATININE RATIO 15; CALCIUM 8.3 MG/DL (8.5-10.1); CARBON DIOXIDE 23 MMOL/L (21-32); CHLORIDE 104 MMOL/L (98-107); CREATININE SERUM 0.75 MG/DL (0.60-1.30); GFR ESTIMATED > 60; GLUCOSE 144 MG/DL (70-105); MAGNESIUM 1.9 MG/DL (1.6-2.4); PHOSPHORUS 2.1 MG/DL (2.3-4.7); POTASSIUM 3.5 MMOL/L (3.6-5.0); SODIUM 136 MMOL/L (135-145)
[2018-10-24] MEDS: KCL 20 MEQ TAB (K-DUR) PO SCH (06:24)
[2018-10-24] MEDS: PANTOPRAZOLE 40 MG (PROTONIX) TAB PO SCH (06:24)
[2018-10-24] MEDS: amLODIPine 5 MG (NORVASC) TAB PO SCH (06:24)
[2018-10-24] MEDS: meTOproloL SUCCINATE 50 MG (TOPROL XL) TAB PO SCH (06:24)
[2018-10-24] MEDS: HYDROCORTISONE 20 MG (CORTEF) TAB PO SCH ×2 (06:25→18:05)
[2018-10-24] MEDS: DULoxetine 20 MG (CYMBALTA) CAP PO SCH (06:25)
--- NOTE | 2018-10-24 06:54 | NUR ---
LAD CALLED TO INFORMED CRITICAL LAB VALUES. PT HGB 6.[address] PORTER NOTIFIED A NEW ORDER RECEIVED
[2018-10-24] MEDS ORDERED: NS IV 500 ML 500 ML ONE (07:59)
[2018-10-24] MEDS ORDERED: meTOproloL SUCCINATE 50 MG (TOPROL XL) TAB PO NR (08:45)
[2018-10-24] MEDS ORDERED: POTASSIUM PHOSPHATE INJ 15 MM in NS (IVPB) 250 ML IV ONE (08:45)
[2018-10-24 10:00] VITALS: BP 168/80
[2018-10-24] MEDS: SENNA W/DOCUSATE (SENOKOT S) TABLET PO SCH ×2 (10:01→20:58)
[2018-10-24] MEDS: FUROSEMIDE 40 MG (LASIX) TAB PO SCH (10:01)
[2018-10-24] MEDS: POLYETHYLENE GLYCOL 17 GM (MIRALAX) PACK PO SCH ×2 (10:02→20:57)
[2018-10-24 10:05] VITALS: BP 168/80
[2018-10-24 10:27] VITALS: BP 169/83
[2018-10-24] MEDS: inSUlin ASPART (NovoLOG) 1 UNIT/0.01 ML (CHARGE PER UNIT) SC SCH ×2 (10:39→21:46)
--- NOTE | 2018-10-24 11:49 | Physical Therapy Daily Note ---
PT Daily Note-Current Subjective Patient will respond occasionally but will not open her eyes. Appearance noted increase edema bilateral UE's Mental Status Patient Orientation: Listless Attachments: Moser Catheter, IV Transfers Therapy Code Descriptions/Definitions Functional [place] Measure: 0=Not Assessed/NA 4=Minimal Assistance 1=Total Assistance 5=Supervision or Setup 2=Maximal Assistance 6=Modified [place] 3=Moderate Assistance 7=Complete [place] Therapy Quality Codes: 6 Independent with activity with or without an assistive device 5 Patient requires set up or clean up by helper. Patient completes activity by themselves 4 Supervision or touching assist (CGA). [place] provide cues , steadying assist 3 The helper provides less than half the effort to complete the activity 2 The helper provides more than half the effort to complete the activity 1 Dependent. The helper does all the effort to complete an activity 7 Patient refused to complete or attempt activity 9 The patient did not perform the activity before the current illness or injury 88 Not attempted due to Medical conditions or safety concerns Transfers (B, C, W/C) (FIM): 1 Scootin Rollin Roll Left to Right (QC): 1 Supine to/from Sit: 1 Sit to Lying (QC): 1 patient continues to require dependent assist x 2 with bed mobility due to inability to follow simple direction. Patient is able to maintain sitting EOB CGA to SBA. Exercises Supine Ex: Ankle pumps, Heel Slides, Straight leg raise, Hip abd/add Supine Reps: 10 (PROM) Seated Therapy Exercises: Ankle pumps, Long arc quads Seated Reps: 15 (PROM) Assessment Patient not progressing with gross motor skills and requires mechanical lift for safe transfer for patient and staff. Patient returned to sidelying right with pillow placement behind back, between LE's and between LE and rail. Bed alarm activated. PT Short Term Goals Short Term Goals Transfers (B,C,W/C) (FIM): 4 PT Revenue Liaison Goals Usp Goals PT Usp Goals Time Frame: Nov 04, 2018 Transfers (B,C,W/C) (FIM): 4 Sit to Lying (QC): 4 Lying-Sitting on Side/Bed(QC): 4 Sit to Stand (QC): 4 Rollin Roll Left to Right (QC): 4 Chair/Ojc-sv-Nxdkt Xfer(QC): 4 Car Transfer (QC): 4 Does the Patient Walk: Yes Gait (FIM): 1 Gait distance (FIM): 1=up to 49 ft Distance: 45' Walk 10 feet (QC): 4 Walk 10ft-Uneven Surface(QC): 4 Gait Level of Assist: 4 Gait Assistive Device: FWW PT Plan Treatment/Plan Treatment Plan: Continue Plan of Care Treatment Plan: Bed Mobility, Education, Functional Activity Eusebia, Functional Strength, Gait, Safety, Therapeutic Exercise, Transfers Treatment Duration: Nov 04, 2018 Frequency: 6 times per week Estimated Hrs Per Day: .25 hour per day Patient and/or Family Agrees t: Yes Time/GCodes Time In: 1110 Time Out: 1125 Total Billed Treatment Time: 15 Total Billed Treatment 1 visit FA 15 min TULIO FISHER PT Oct 24, 2018 11:49
[2018-10-24 12:28] VITALS: BP 158/59
--- NOTE | 2018-10-24 13:04 | Speech Therapy Progress Note ---
Therapy Progress Note Patient is unable to participate in cognitive therapy at this time. KILEY KESSLER Oct 24, 2018 13:04
--- NOTE | 2018-10-24 13:35 | Occupational Ther Daily Note ---
OT Current Status-Daily Note Subjective Pt resting in bed, opens eyes briefly. Mental Status/Objective Therapy Code Descriptions/Definitions Functional Lane Measure: 0=Not Assessed/NA 4=Minimal Assistance 1=Total Assistance 5=Supervision or Setup 2=Maximal Assistance 6=Modified Lane 3=Moderate Assistance 7=Complete Lane ADL-Treatment Attempted to engage pt in washing face, but does not participate in task. Gentle PROM completed bilateral UE to pt tolerance. Pt moves UE spontaneously, but does not follow commands or participate in ROM exercises. Pt positioned in bed with needs met after session. Therapy Code Descriptions/Definitions Functional Lane Measure: 0=Not Assessed/NA 4=Minimal Assistance 1=Total Assistance 5=Supervision or Setup 2=Maximal Assistance 6=Modified Lane 3=Moderate Assistance 7=Complete Lane Therapy Quality Codes: 6 Independent with activity with or without an assistive device 5 Patient requires set up or clean up by helper. Patient completes activity by themselves 4 Supervision or touching assist (CGA). [place] provide cues , steadying assist 3 The helper provides less than half the effort to complete the activity 2 The helper provides more than half the effort to complete the activity 1 Dependent. The helper does all the effort to complete an activity 7 Patient refused to complete or attempt activity 9 The patient did not perform the activity before the current illness or injury 88 Not attempted due to Medical conditions or safety concerns OT Short Term Goals Short Term Goals Grooming(FIM): 5 Bathing(FIM): 4 Lower Body Dressing(FIM): 5 Toileting(FIM): 4 Transfers (B,C,W/C) (FIM): 4 Toilet/Commode Transfer(FIM): 4 Additional Short Term Goals: 1-Demonstrate ADL Tasks, 2-Verbalize Understanding, 3-ImproveStrength/Eusebia 1=Demonstrate adherence to instructed precautions during ADL tasks. 2=Patient will verbalize/demonstrate understanding of assistive devices/molly fications for ADL. 3=Patient will improve strength/tolerance for activity to enable patient to perform ADL's. OT Shipping Clerk/Admin Goals Shipping Clerk/Admin Goals Time Frame: Oct 31, 2018 Eating (FIM): 7 Eating (QC): 6 Groomin Oral Hygiene (QC): 5 Bathing(FIM): 5 Bathing Location: L Arm, R Arm, L Upper Leg, R Upper Leg, L Lower Leg (including foot), R Lower Leg (including foot), Chest, Abdomen, Buttocks, Perineal Area Shower/Bathe Self (QC): 4 Upper Body Dressing(FIM): 5 Upper Body Dressing (QC): 4 Lower Body Dressing(FIM): 5 Lower Body Dressing (QC): 4 Toileting(FIM): 5 Toileting Hygiene (QC): 4 Transfers (B,C,W/C) (FIM): 5 Toilet/Commode Transfer(FIM): 5 Toilet/Commode Transfer (QC): 4 Additional Goals: 1-Demonstrate ADL Tasks, 2-Verbalize Understanding, 3- ImproveStrength/Eusebia 1=Demonstrate adherence to instructed precautions during ADL tasks. 2=Patient will verbalize/demonstrate understanding of assistive devices/modifications for ADL. 3=Patient will improve strength/tolerance for activity to enable patient to perform ADL's. OT Education/Plan Discharge Recommendations Plan/Recommendations: Continue POC Treatment Plan/Plan of Care Patient would benefit from OT for education, treatment and training to promote independence in ADL's, mobility, safety and/or upper extremity function for ADL's. Plan of Care: ADL Retraining, Functional Mobility, Group Exercise/Act as Ind, UE Funct Exercise/Act Treatment Duration: Oct 31, 2018 Frequency: 5 times per week Estimated Hrs Per Day: .5 hour per day Agreement: Yes Rehab Potential: Poor Time/GCodes Start Time: 13:03 Stop Time: 13:18 Total Time Billed (hr/min): 15 Billed Treatment Time 1 visit, EX(15minutes) MAGNO RICO OT Oct 24, 2018 13:35
--- NOTE | 2018-10-24 14:19 | Diagnostic Imaging Report ---
PROCEDURE: CT head without contrast. TECHNIQUE: Multiple contiguous axial images were obtained through the brain without the use of intravenous contrast. Auto Exposure Controls were utilized during the CT exam to meet ALARA standards for radiation dose reduction. INDICATION: Altered mental status. Patient has history of lung carcinoma. Correlation is made with head CT from 10/12/2018. FINDINGS: Pineal gland nodule appears to be stable when compared with prior exam. Ventricles and sulci appear stable in appearance. There is periventricular hypodensity, likely owing to chronic microvascular ischemia. No sulcal effacement, midline shift, or hemorrhage is detected. Cisterns are patent. IMPRESSION: Stable noncontrast head CT when compared with examination from 10/12/2018. No acute abnormality is detected. Dictated by: Dictated on workstation # [id number]
--- NOTE | 2018-10-24 16:14 | Progress Note ---
Subjective Subjective/Events-last exam Afebrile. Hgb below 7 this am, transfusion in process. Remains with minimal meaningful interaction. Per social sciences professor, plan for d/c with hospice tomorrow. Objective Exam Last Set of Vital Signs Vital Signs Date Time Temp Pulse Resp B/P (MAP) Pulse Ox O2 Delivery O2 Flow Rate FiO2 10/24/18 12:28 98.0 74 16 158/59 Room Air 10/24/18 10:27 99 Capillary Refill : I&O Intake and Output 10/24/18 00:00 Intake Total 1110 ml Output Total 2325 ml Balance -1215 ml Intake Oral 750 ml IV Total 360 ml Output Urine Total 2325 ml General: Alert, No Acute Distress Psych/Mental Status: Other (does not answer questions, but makes eye contact) Results/Procedures Lab Laboratory Tests 10/23/18 20:56: Glucometer 246H 10/24/18 05:46: Glucometer 135H 10/24/18 06:02: White Blood Count 5.5, Red Blood Count 2.04L, Hemoglobin 6.8*L, Hematocrit 20*L, Mean Corpuscular Volume 97, Mean Corpuscular Hemoglobin 33, Mean Corpuscular Hemoglobin Concent 35, Red Cell Distribution Width 20.8H, Platelet Count 101L, Mean Platelet Volume 10.5H, Sodium Level 136, Potassium Level 3.5L, Chloride Level 104, Carbon Dioxide Level 23, Anion Gap 9, Blood Urea Nitrogen 11, Creatinine 0.75, Estimat Glomerular Filtration Rate > 60, BUN/Creatinine Ratio 15, Glucose Level 144H, Calcium Level 8.3L, Phosphorus Level 2.1L, Magnesium Level 1.9 10/24/18 09:02: Glucometer 201H 10/24/18 15:28: Hemoglobin 8.3#L Microbiology 10/23/18 Urine Culture - Preliminary, Resulted Blanca albicans Assessment/Plan Assessment/Plan (1) Altered mental status Status: Acute Assessment & Plan: Persistent and not improving in spite of completing treatment for UTI and on steroid for possible adrenal insufficiency. Not receiving sedating meds besides chronic morphine. Palliative care consulted. Initial CT on 10/12 with possible otomastoiditis, will repeat CT given persistent confusion. 10/24 CT pending, repeat UA with yeast Qualifiers: Qualified Codes: R41.0 - Disorientation, unspecified (2) COPD Status: Chronic (3) Non-small cell lung cancer (NSCLC) Status: Chronic Assessment & Plan: Oncology consulted, prognosis poor. Hospice to meet with them tomorrow. Qualifiers: Qualified Codes: C34.90 - Malignant neoplasm of unspecified part of unspecified bronchus or lung (4) DVT prophylaxis Status: Acute Assessment & Plan: Enoxaparin Clinical Quality Measures DVT/VTE Risk/Contraindication: Risk Factor Score Per Nursin LILY PORTER MD Oct 24, 2018 16:14
--- NOTE | 2018-10-24 16:48 | NUR ---
Plans in place for pt to be discharged home by ambulance and will then begin receiving services from [facility]. Pt's family met with Chandler Brown RN from [facility] and all in agreement with plan.Will fax discharge orders and instructions to hospice when available. Also will need scruipt for pain medication. Will follow and assist.
--- NOTE | 2018-10-24 16:52 | NUR ---
Discharge planned for Wed the 21rst.
[2018-10-24 18:00] VITALS: BP 138/87
[2018-10-24] MEDS: SIMvastatin 40 MG (ZOCOR) TAB PO SCH (18:06)
[2018-10-24] MEDS ORDERED: ENOXAPARIN 40 MG/0.4 ML (LOVENOX) SYR SQ SCH (21:00)
[2018-10-25] MEDS: morphine ER 15 MG (MS CONTIN) TAB PO SCH ×2 (03:03→12:05)
[2018-10-25 05:32] VITALS: BP 131/81
[2018-10-25 05:40] LABS: HEMOGLOBIN 7.3 G/DL (11.5-16.0); MEAN PLATELET VOLUME 10.2 FL (7.4-10.4); RED CELL DISTRIBUTION WIDTH 21.4 % (10.0-14.5); WHITE BLOOD COUNT 5.2 10^3/uL (4.3-11.0)
[2018-10-25] MEDS ORDERED: meTOproloL SUCCINATE 50 MG (TOPROL XL) TAB PO SCH (06:00)
[2018-10-25 06:03] LABS: BUN/CREATININE RATIO 15; CALCIUM 8.1 MG/DL (8.5-10.1); CARBON DIOXIDE 25 MMOL/L (21-32); CHLORIDE 102 MMOL/L (98-107); CREATININE SERUM 0.73 MG/DL (0.60-1.30); GFR ESTIMATED > 60; GLUCOSE 135 MG/DL (70-105); MAGNESIUM 1.4 MG/DL (1.6-2.4); PHOSPHORUS 2.4 MG/DL (2.3-4.7); POTASSIUM 3.5 MMOL/L (3.6-5.0); SODIUM 136 MMOL/L (135-145)
[2018-10-25] MEDS: HYDROCORTISONE 20 MG (CORTEF) TAB PO SCH (06:03)
[2018-10-25] MEDS: PANTOPRAZOLE 40 MG (PROTONIX) TAB PO SCH (06:03)
[2018-10-25] MEDS: amLODIPine 5 MG (NORVASC) TAB PO SCH (06:03)
[2018-10-25] MEDS: DULoxetine 20 MG (CYMBALTA) CAP PO SCH (06:07)
[2018-10-25] MEDS: KCL 20 MEQ TAB (K-DUR) PO SCH (06:54)
[2018-10-25] MEDS: FUROSEMIDE 40 MG (LASIX) TAB PO SCH (09:58)
[2018-10-25] MEDS: inSUlin ASPART (NovoLOG) 1 UNIT/0.01 ML (CHARGE PER UNIT) SC SCH (09:58)
[2018-10-25] MEDS: POLYETHYLENE GLYCOL 17 GM (MIRALAX) PACK PO SCH (09:58)
[2018-10-25] MEDS: SENNA W/DOCUSATE (SENOKOT S) TABLET PO SCH (09:58)
--- NOTE | 2018-10-25 11:10 | Physical Therapy Progress Note ---
Therapy Progress Note Attempted PT visit this am, pt unavailable. Will attempt again this afternoon if pt is available GULSHAN REYES PTA Oct 25, 2018 11:10
[2018-10-25] MEDS ORDERED: MORP15TA PO (11:26)
[2018-10-25] MEDS ORDERED: POTA20TA8 PO (11:26)
[2018-10-25] MEDS ORDERED: MORP-33 PO (11:26)
--- NOTE | 2018-10-25 11:28 | Discharge Summary ---
Diagnosis/Chief Complaint Date of Admission Oct 17, 2018 at 10:12 Date of Discharge Oct 25, 2018 Admission Diagnosis Admission Diagnosis AMS Metastatic lung cancer UTI Discharge Diagnosis See problem list. Problems/Diagnosis: (1) Altered mental status Assessment & Plan: Persistent and not improving in spite of completing treatment for UTI and on steroid for possible adrenal insufficiency. Not receiving sedating meds besides chronic morphine. Palliative care consulted. Initial CT on 10/12 with possible otomastoiditis, will repeat CT given persistent confusion. 10/24 CT pending, repeat UA with yeast 10/[address] with no mention of otomastoiditis, pt remained minimally interactive and family agreed to d/c with hospice to be followed outpatient by Dr. Florence. Qualifiers: Qualified Codes: R41.0 - Disorientation, unspecified Status: Acute (2) COPD Status: Chronic (3) Non-small cell lung cancer (NSCLC) Assessment & Plan: Oncology consulted, prognosis poor. Hospice to meet with them tomorrow. Discharged home with hospice Qualifiers: Qualified Codes: C34.90 - Malignant neoplasm of unspecified part of unspeci fied bronchus or lung Status: Chronic Chief Complaint/HPI Chief Complaint/HPI From student note- "Ms. Quiroz came into the ED 10/13 for AMS. 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 stated she had a recent UTI but did not finish her entire course of abx. UA and culture were pulled and grew MRSA. Started on Vancomycin. Held 10/17 d/t elevated Vancomycin troph at 31.4. Steroids were started Q8H, but were decreased to BID on 10/16. Dr. Trujillo is consulted for cancer tx and plan." Pt transferred to swing bed status to complete antibiotics which was done but mental status never really improved and she had limited mobility as well. Discharge Summary-Simple/Stand Discharge Physical Examination Allergies: Coded Allergies: azithromycin (Verified Allergy, Unknown, 10/12/18) codeine (Verified Allergy, Unknown, 10/12/18) latex (Verified Allergy, Unknown, 10/12/18) clonazepam (Verified Adverse Reaction, Intermediate, CRYING/ SLEEP, 10/12/18) CAN TAKE A VERY LOW DOSE OF ALPRAZOLAM lorazepam (Verified Adverse Reaction, Intermediate, CRYING/NO SLEEP, 10/12/18) levofloxacin (Verified Adverse Reaction, Unknown, makes her tendons and bones hurt. , 10/12/18) Vitals & I&Os Vital Sign - Last 12Hours Date Time Temp Pulse Resp B/P (MAP) Pulse Ox O2 Delivery O2 Flow Rate FiO2 10/25/18 09:00 99 Room Air 10/25/18 05:32 98.4 77 18 131/81 (98) Intake and Output 10/25/18 00:00 Intake Total 637 ml Output Total 1975 ml Balance -1338 ml General Appearance: Alert Cardiovascular: Regular Rate, No Murmurs Neuro: Other (does not answer questions) Hospital Course See final discharge diagnosis. Labs Laboratory Tests Test 10/23/18 20:56 10/24/18 05:46 10/24/18 06:02 10/24/18 09:02 Range/Units Glucometer 246 H 135 H 201 H 70-110 MG/DL White Blood Count 5.5 4.3-11.0 10^3/uL Red Blood Count 2.04 L 4.35-5.85 10^6/uL Hemoglobin 6.8 *L 11.5-16.0 G/DL Hematocrit 20 *L 35-52 % Mean Corpuscular Volume 97 80-99 FL Mean Corpuscular Hemoglobin 33 25-34 PG Mean Corpuscular Hemoglobin Concent 35 32-36 G/DL Red Cell Distribution Width 20.8 H 10.0-14.5 % Platelet Count 101 L 130-400 10^3/uL Mean Platelet Volume 10.5 H 7.4-10.4 FL Sodium Level 136 135-145 MMOL/L Potassium Level 3.5 L 3.6-5.0 MMOL/L Chloride Level 104 98-107 MMOL/L Carbon Dioxide Level 23 21-32 MMOL/L Anion Gap 9 5-14 MMOL/L Blood Urea Nitrogen 11 7-18 MG/DL Creatinine 0.75 0.60-1.30 MG/DL Estimat Glomerular Filtration Rate > 60 BUN/Creatinine Ratio 15 Glucose Level 144 H 70-105 MG/DL Calcium Level 8.3 L 8.5-10.1 MG/DL Phosphorus Level 2.1 L 2.3-4.7 MG/DL Magnesium Level 1.9 1.6-2.4 MG/DL Test 10/24/18 15:28 10/24/18 21:20 10/24/18 23:54 10/25/18 05:25 Range/Units Hemoglobin 8.3 #L 7.3 L 11.5-16.0 G/DL Glucometer 249 H 213 H 70-110 MG/DL White Blood Count 5.2 4.3-11.0 10^3/uL Red Blood Count 2.29 L 4.35-5.85 10^6/uL Hematocrit 22 L 35-52 % Mean Corpuscular Volume 94 80-99 FL Mean Corpuscular Hemoglobin 32 25-34 PG Mean Corpuscular Hemoglobin Concent 34 32-36 G/DL Red Cell Distribution Width 21.4 H 10.0-14.5 % Platelet Count 87 L 130-400 10^3/uL Mean Platelet Volume 10.2 7.4-10.4 FL Sodium Level 136 135-145 MMOL/L Potassium Level 3.5 L 3.6-5.0 MMOL/L Chloride Level 102 98-107 MMOL/L Carbon Dioxide Level 25 21-32 MMOL/L Anion Gap 9 5-14 MMOL/L Blood Urea Nitrogen 11 7-18 MG/DL Creatinine 0.73 0.60-1.30 MG/DL Estimat Glomerular Filtration Rate > 60 BUN/Creatinine Ratio 15 Glucose Level 135 H 70-105 MG/DL Calcium Level 8.1 L 8.5-10.1 MG/DL Phosphorus Level 2.4 2.3-4.7 MG/DL Magnesium Level 1.4 L 1.6-2.4 MG/DL Test 10/25/18 08:59 10/25/18 12:47 Range/Units Glucometer 223 H 70-110 MG/DL Lab Scanned Report Transfusion Reaction Form [id number] Discharge Instructions to patient/family Please see electronic discharge instructions given to patient. Discharge Medications Reviewed and agree with Discharge Medication list on patient's Discharge Instruction sheet Clinical Quality Measures DVT/VTE Risk/Contraindication: Risk Factor Score Per Nursin Copy Copies To 1: MAURILIO FLORENCE MD, BETHANY N MD Oct 25, 2018 11:28
[2018-10-25 12:30] VITALS: BP 131/81
--- NOTE | 2018-10-25 14:57 | NUR ---
Pt discharged home with [facility] transferring pt to her home in [place] where she lives with ,adult daughter Trang, and 18 year old grandson. Pt's here and purchased new clothes for pt's transport. Pt smiled when informed her that she was going home today but continues to respond with 1 to 2 words and otherwise remains with eyes closed Medical records and discharge orders and instructions as well as scripts for morphine given to EMS to be given to Hospice Nurse Deborah Smyth who will meet with pt and family upon pt's arrival home. Family and [facility] notified of EMS time of transport.
--- NOTE | 2018-10-26 07:51 | Therapy Team Discharge Summary ---
Therapy Discharge Summary Discharge Recommendations Date of Discharge Oct 25, 2018 at 12:30 Therapy D/C Recommendations: 24 hr Supervision, [facility] (TCU/[facility]) Physical Therapy Patient dismissed to home on Hospice secondary to end stage metastatic cancer. Patient was seen by skilled PT to address functional strength and mobility, however, patient was unable to progress or tolerate treatments due to diagnosis. PT was dependent assist with all mobility upon evaluation and dismissal. Occupational Therapy No Skilled OT Needs ID'd, Decreased Activ Tolerance, Decreased Safety Aware, Decreased UE Strength, Dependent Transfers, Edema, Impaired Bed Mobility, Impaired Cognition, Impaired Coordination, Impaired Funct Balance, Impaired I ADL's, Impaired Self-Care Skills, Restricted Funct UE ROM PT Fdc Goals Fdc Goals PT Fdc Goals Time Frame: Nov 04, 2018 Transfers (B,C,W/C) (FIM): 4 Sit to Lying (QC): 4 Lying-Sitting on Side/Bed(QC): 4 Sit to Stand (QC): 4 Rollin Chair/Frt-aa-Gmhxj Xfer(QC): 4 Does the Patient Walk: Yes Gait (FIM): 1 Gait distance (FIM): 1=up to 49 ft Distance: 45' Gait Level of Assist: 4 Gait Assistive Device: FWW OT Laser Cutter Goals Laser Cutter Goals Time Frame: Oct 31, 2018 Eating (FIM): 7 Eating (QC): 6 Groomin Oral Hygiene (QC): 5 Bathing(FIM): 5 Bathing Location: L Arm, R Arm, L Upper Leg, R Upper Leg, L Lower Leg (including foot), R Lower Leg (including foot), Chest, Abdomen, Buttocks, Perineal Area Upper Body Dressing(FIM): 5 Lower Body Dressing(FIM): 5 Toileting(FIM): 5 Toileting Hygiene (QC): 4 Transfers (B,C,W/C) (FIM): 5 Toilet/Commode Transfer(FIM): 5 Toilet/Commode Transfer (QC): 4 Additional Goals: 1-Demonstrate ADL Tasks, 2-Verbalize Understanding, 3- ImproveStrength/Eusebia 1=Demonstrate adherence to instructed precautions during ADL tasks. 2=Patient will verbalize/demonstrate understanding of assistive devices/modifications for ADL. 3=Patient will improve strength/tolerance for activity to enable patient to perform ADL's. Speech Laser Cutter Goals Fdc Goals The patient will be able to communicate effectively for simple needs. TULIO FISHER PT Oct 26, 2018 07:51
--- NOTE | 2018-10-26 09:14 | Therapy Team Discharge Summary ---
Therapy Discharge Summary Discharge Recommendations Date of Discharge Oct 25, 2018 at 12:30 Therapy D/C Recommendations: 24 hr Supervision, Correction (TCU/NH) Occupational Therapy pt was seen by OT services with focus on increasing indep with ADLs, functional transfers, UE ROM/ Strength, seated balance, and overall safety with functional tasks. pt is dep for all ADLs and functional mobility at time of d/c with no p rogress made secondary to pt unable to tolerate therapy likely related to dx. . Patient dismissed to home on Hospice secondary to end stage metastatic cancer. pt will require assist with all ADLS and functional transfer. Decreased Activ Tolerance, Decreased Safety Aware, Decreased UE Strength, Dependent Transfers, Edema, Impaired Bed Mobility, Impaired Cognition, Impaired Coordination, Impaired Funct Balance, Impaired I ADL's, Impaired Self-Care Skills, Restricted Funct UE ROM PT Officer Lieutenant Goals Officer Lieutenant Goals PT [facility] Goals Time Frame: Nov 04, 2018 Transfers (B,C,W/C) (FIM): 4 Sit to Lying (QC): 4 Lying-Sitting on Side/Bed(QC): 4 Sit to Stand (QC): 4 Rollin Chair/[id number] Xfer(QC): 4 Does the Patient Walk: Yes Gait (FIM): 1 Gait distance (FIM): 1=up to 49 ft Distance: 45' Gait Level of Assist: 4 Gait Assistive Device: FWW OT Officer Lieutenant Goals Officer Lieutenant Goals Time Frame: Oct 31, 2018 Eating (FIM): 7 Eating (QC): 6 Groomin Oral Hygiene (QC): 5 Bathing(FIM): 5 Bathing Location: L Arm, R Arm, L Upper Leg, R Upper Leg, L Lower Leg (including foot), R Lower Leg (including foot), Chest, Abdomen, Buttocks, Perineal Area Upper Body Dressing(FIM): 5 Lower Body Dressing(FIM): 5 Toileting(FIM): 5 Toileting Hygiene (QC): 4 Transfers (B,C,W/C) (FIM): 5 Toilet/Commode Transfer(FIM): 5 Toilet/Commode Transfer (QC): 4 Additional Goals: 1-Demonstrate ADL Tasks, 2-Verbalize Understanding, 3- ImproveStrength/Eusebia 1=Demonstrate adherence to instructed precautions during ADL tasks. 2=Patient will verbalize/demonstrate understanding of assistive devices/modifications for ADL. 3=Patient will improve strength/tolerance for activity to enable patient to perform ADL's. Speech Officer Lieutenant Goals Officer Lieutenant Goals The patient will be able to communicate effectively for simple needs. PHILIP ALANIS OT Oct 26, 2018 09:14
--- NOTE | 2018-10-26 11:17 | Therapy Team Discharge Summary ---
Therapy Discharge Summary Discharge Recommendations Date of Discharge Oct 25, 2018 at 12:30 Therapy D/C Recommendations: 24 hr Supervision, [facility] (TCU/NH) Occupational Therapy Decreased Activ Tolerance, Decreased Safety Aware, Decreased UE Strength, Dependent Transfers, Edema, Impaired Bed Mobility, Impaired Cognition, Impaired Coordination, Impaired Funct Balance, Impaired I ADL's, Impaired Self-Care Skills, Restricted Funct UE ROM Speech-Language Pathology Patient was admitted to [facility] due to continued state of altered mental status. The patient was to receive ST for cognitive following the evaluation. She was treated once. Multiple attempts were made to treat daily, however due to the patient's medical status she was unable to participate with meaningful use. Patient discharged to her home with palative care. She is discharged from skilled ST at this time as well. PT Shovel Loader Operator Goals Shovel Loader Operator Goals PT Shovel Loader Operator Goals Time Frame: Oct 25, 2018 Transfers (B,C,W/C) (FIM): 4 Sit to Lying (QC): 4 Lying-Sitting on Side/Bed(QC): 4 Sit to Stand (QC): 4 Rollin Chair/[id number] Xfer(QC): 4 Does the Patient Walk: Yes Gait (FIM): 1 Gait distance (FIM): 1=up to 49 ft Distance: 45' Gait Level of Assist: 4 Gait Assistive Device: FWW OT Shovel Loader Operator Goals Custodial Goals Time Frame: Oct 31, 2018 Eating (FIM): 7 Eating (QC): 6 Groomin Oral Hygiene (QC): 5 Bathing(FIM): 5 Bathing Location: L Arm, R Arm, L Upper Leg, R Upper Leg, L Lower Leg (including foot), R Lower Leg (including foot), Chest, Abdomen, Buttocks, Perineal Area Upper Body Dressing(FIM): 5 Lower Body Dressing(FIM): 5 Toileting(FIM): 5 Toileting Hygiene (QC): 4 Transfers (B,C,W/C) (FIM): 5 Toilet/Commode Transfer(FIM): 5 Toilet/Commode Transfer (QC): 4 Additional Goals: 1-Demonstrate ADL Tasks, 2-Verbalize Understanding, 3- ImproveStrength/Eusebia 1=Demonstrate adherence to instructed precautions during ADL tasks. 2=Patient will verbalize/demonstrate understanding of assistive devices/modifications for ADL. 3=Patient will improve strength/tolerance for activity to enable patient to perform ADL's. Speech Custodial Goals Custodial Goals The patient will be able to communicate effectively for simple needs. Unable to meet due to medical status KILEY KESSLER Oct 26, 2018 11:17
== END 2018-10-25 12:30 | disposition hospice, home (50) | DRG 690 ==
LOC: 4TH 10:12
PROVIDERS: ADMIT Internal Medicine; ATTEND Family Medicine
DX: N39.0 Urinary tract infection, site not specified (principal); B95.62 Methicillin resistant Staphylococcus aureus infection as the cause of diseases classified elsewhere; C79.31 Secondary malignant neoplasm of brain; C79.71 Secondary malignant neoplasm of right adrenal gland; C79.72 Secondary malignant neoplasm of left adrenal gland; C34.90 Malignant neoplasm of unspecified part of unspecified bronchus or lung; F05 Delirium due to known physiological condition; E27.40 Unspecified adrenocortical insufficiency; C77.1 Secondary and unspecified malignant neoplasm of intrathoracic lymph nodes; C77.2 Secondary and unspecified malignant neoplasm of intra-abdominal lymph nodes; C79.51 Secondary malignant neoplasm of bone; C79.01 Secondary malignant neoplasm of right kidney and renal pelvis; C79.02 Secondary malignant neoplasm of left kidney and renal pelvis; I11.0 Hypertensive heart disease with heart failure; I50.9 Heart failure, unspecified; E11.9 Type 2 diabetes mellitus without complications; M54.9 Dorsalgia, unspecified; J44.9 Chronic obstructive pulmonary disease, unspecified; G89.4 Chronic pain syndrome; G47.30 Sleep apnea, unspecified; F41.9 Anxiety disorder, unspecified; K21.9 Gastro-esophageal reflux disease without esophagitis; D63.8 Anemia in other chronic diseases classified elsewhere; Z91.040 Latex allergy status; Z88.1 Allergy status to other antibiotic agents; Z88.5 Allergy status to narcotic agent; Z92.3 Personal history of irradiation; Z79.899 Other long term (current) drug therapy; Z87.891 Personal history of nicotine dependence
CPT/HCPCS: 36415; 70450; 80048; 80053; 80202; 81000; 82962; 83735; 84100; 85018; 85025; 85027; 86850; 86900; 86901; 86920; 87088; 87106